=== PATIENT | male | born 1950 | race Caucasian/White ===

== ENCOUNTER 2020-10-07 07:57 | Outpatient (REF) | payer OTHER, SELFPAY ==
[2020-10-07 11:11] LABS: Hematocrit 45.5 % (42-52); Mean Corpuscular Hemoglobin 29.7 pg (27.0-33.0); Mean Corpuscular Volume 90.1 fL (80-98); Mean Platelet Volume 10.6 fL (9.4-12.4); Platelet Count 214 X10*3/uL (160-400); Red Blood Count 5.05 X10*6/uL (4.60-5.80); Red Cell Distribution Width 12.3 % (11.0-16.0); White Blood Count 6.5 X10*3/uL (4.8-10.8)
[2020-10-07 11:38] LABS: Creatinine Urine 196.54 mg/dL; Microalbum/Creatinine Ratio Ur 8.6 ug/mg cr
[2020-10-07 11:46] LABS: Estimated Average Glucose 120 mg/dL; Hemoglobin A1c % 5.8 %
[2020-10-07 11:47] LABS: Alanine Aminotransferase < 6 U/L (0-40); Albumin Level 4.3 g/dL (3.5-5.0); Alkaline Phosphatase 68 U/L (39-117); Anion Gap 11 (12-20); Aspartate Amino Transferase 16 U/L (5-37); Blood Urea Nitrogen 19 mg/dL (9-16); Calcium 8.6 mg/dL (8.4-10.2); Carbon Dioxide 30 mmol/L (22-29); Chloride 107 mmol/L (96-108); Cholesterol 103 mg/dL; Estimated Glomerular Filt Rate > 60; Glucose Fasting 128 mg/dL (60-99); HDL Cholesterol 41 mg/dL; LDL Cholesterol Calculated 50 mg/dl; Potassium 4.1 mmol/L (3.3-5.1); Sodium 144 mmol/L (135-145); Total Protein 6.6 g/dL (6.5-8.0); Triglycerides 63 mg/dL
== END 2020-10-07 07:58 | disposition home or self-care (01) ==
LOC: HO.HMGCLDS 07:57
PROVIDERS: PCP Internal Medicine; Visit Provider Internal Medicine
DX: I11.0 Hypertensive heart disease with heart failure (principal); I50.22 Chronic systolic (congestive) heart failure; E11.9 Type 2 diabetes mellitus without complications; E78.2 Mixed hyperlipidemia; G20 Parkinson's disease
CPT/HCPCS: 36415; 80053; 80061; 82043; 83036; 85027

== ENCOUNTER 2021-04-12 07:32 | Outpatient (REF) | payer OTHER, SELFPAY ==
[2021-04-12 11:30] LABS: Hematocrit 44.1 % (42-52); Hemoglobin 14.8 g/dl (14.0-18.0); Mean Corpuscular HGB Conc 33.6 g/dl (31.0-36.0); Mean Corpuscular Hemoglobin 30.2 pg (27.0-33.0); Mean Platelet Volume 10.5 fL (9.4-12.4); Platelet Count 211 X10*3/uL (160-400); Red Cell Distribution Width 12.4 % (11.0-16.0); White Blood Count 7.8 X10*3/uL (4.8-10.8)
[2021-04-12 12:00] LABS: Alanine Aminotransferase 6 U/L (0-40); Albumin Level 4.4 g/dL (3.5-5.0); Alkaline Phosphatase 65 U/L (39-117); Anion Gap 14 (12-20); Aspartate Amino Transferase 17 U/L (5-37); Bilirubin Total 2.3 mg/dL (0.0-1.0); Blood Urea Nitrogen 16 mg/dL (9-16); Calcium 9.1 mg/dL (8.4-10.2); Carbon Dioxide 24 mmol/L (22-29); Chloride 108 mmol/L (96-108); Cholesterol 112 mg/dL; Estimated Glomerular Filt Rate > 60; Glucose Fasting 120 mg/dL (60-99); HDL Cholesterol 42 mg/dL; LDL Cholesterol Calculated 54 mg/dl; Potassium 3.9 mmol/L (3.3-5.1); Sodium 142 mmol/L (135-145); Total Protein 6.7 g/dL (6.5-8.0); Triglycerides 82 mg/dL
[2021-04-12 12:56] LABS: Estimated Average Glucose 117 mg/dL; Hemoglobin A1C 150.7775 umol/L; Hemoglobin A1c % 5.7 %
== END 2021-04-12 07:33 | disposition home or self-care (01) ==
LOC: HO.HMGCLDS 07:32
PROVIDERS: PCP Internal Medicine; Visit Provider Internal Medicine
DX: E78.00 Pure hypercholesterolemia, unspecified (principal); I10 Essential (primary) hypertension; R73.01 Impaired fasting glucose
CPT/HCPCS: 36415; 80053; 80061; 83036; 85027

== ENCOUNTER 2022-02-12 07:01 | Outpatient (REF) | payer OTHER, SELFPAY ==
[2022-02-12 11:22] LABS: Hematocrit 46.4 % (42.0-52.0); Hemoglobin 15.4 g/dl (14.0-18.0); Mean Corpuscular HGB Conc 33.2 g/dl (31.0-36.0); Mean Corpuscular Hemoglobin 30.3 pg (27.0-33.0); Mean Corpuscular Volume 91.2 fL (80.0-98.0); Mean Platelet Volume 10.4 fL (9.4-12.4); Platelet Count 199 X10*3/uL (160-400); Red Blood Count 5.09 X10*6/uL (4.60-5.80); Red Cell Distribution Width 12.7 % (11.0-16.0); White Blood Count 6.6 X10*3/uL (4.8-10.8)
[2022-02-12 11:33] LABS: Estimated Average Glucose 114 mg/dL; Hemoglobin A1C 148.8077 umol/L; Hemoglobin A1c % 5.6 %
[2022-02-12 11:51] LABS: Alanine Aminotransferase 9 U/L (0-40); Albumin Level 4.4 g/dL (3.5-5.0); Alkaline Phosphatase 76 U/L (39-117); Anion Gap 10 (12-20); Aspartate Amino Transferase 16 U/L (5-37); Bilirubin Total 1.3 mg/dL (0.0-1.0); Blood Urea Nitrogen 20 mg/dL (9-16); Calcium 8.7 mg/dL (8.4-10.2); Carbon Dioxide 29 mmol/L (22-29); Chloride 108 mmol/L (96-108); Cholesterol 109 mg/dL; Estimated Glomerular Filt Rate > 60; Glucose Fasting 127 mg/dL (60-99); HDL Cholesterol 45 mg/dL; LDL Cholesterol Calculated 53 mg/dl; Sodium 143 mmol/L (135-145); Total Protein 6.9 g/dL (6.5-8.0); Triglycerides 58 mg/dL
== END 2022-02-12 07:02 | disposition home or self-care (01) ==
LOC: HO.HMGCLDS 07:01
PROVIDERS: Visit Provider Internal Medicine
DX: I48.91 Unspecified atrial fibrillation (principal); R73.01 Impaired fasting glucose; I10 Essential (primary) hypertension; E78.00 Pure hypercholesterolemia, unspecified
CPT/HCPCS: 36415; 80053; 80061; 83036; 85027

== ENCOUNTER 2022-09-14 08:24 | Outpatient (REF) | payer OTHER, SELFPAY ==
[2022-09-14 12:11] LABS: Estimated Average Glucose 108 mg/dL; Hemoglobin A1c % 5.4 %
[2022-09-14 12:33] LABS: Alanine Aminotransferase < 6 U/L (0-40); Alkaline Phosphatase 78 U/L (39-117); Anion Gap 13 (12-20); Aspartate Amino Transferase 17 U/L (5-37); Bilirubin Total 1.9 mg/dL (0.0-1.0); Blood Urea Nitrogen 22 mg/dL (9-16); Calcium 8.8 mg/dL (8.4-10.2); Carbon Dioxide 27 mmol/L (22-29); Chloride 110 mmol/L (96-108); Cholesterol 108 mg/dL; Estimated Glomerular Filt Rate > 60; Glucose Fasting 102 mg/dL (60-99); HDL Cholesterol 45 mg/dL; LDL Cholesterol Calculated 55 mg/dl; Sodium 146 mmol/L (135-145); TSH reflex Free T4 2.31 uIU/mL (0.32-4.0); Total Protein 6.2 g/dL (6.5-8.0); Triglycerides 44 mg/dL
[2022-09-14 12:40] LABS: Creatinine Urine 208.83 mg/dL
== END 2022-09-14 08:25 | disposition home or self-care (01) ==
LOC: HO.HMGCLDS 08:24
PROVIDERS: PCP Internal Medicine; Visit Provider Internal Medicine
DX: I11.0 Hypertensive heart disease with heart failure (principal); I50.9 Heart failure, unspecified; E78.00 Pure hypercholesterolemia, unspecified; I48.91 Unspecified atrial fibrillation; G20 Parkinson's disease
CPT/HCPCS: 36415; 80053; 80061; 82043; 83036; 84443

== ENCOUNTER 2022-10-26 09:25 | Outpatient (REF) | payer OTHER, SELFPAY ==
--- NOTE | ~2022-10-26 | XR_ITS ---
EXAMINATION: XR FOOT, LEFT CLINICAL INFORMATION: Cellulitis. COMPARISON: None available. TECHNIQUE: AP, lateral, and oblique views of the left foot. FINDINGS: Moderate to severe first metatarsophalangeal degenerative joint changes are seen with joint space narrowing, periarticular sclerosis and marginal osteophyte formation most pronounced dorsally. There is no acute fracture or dislocation. The tarsal bones are normally aligned. There is a small plantar calcaneal spur. Moderate soft tissue swelling is seen with moderate to severe atherosclerosis. XR/XR foot LT min 3V IMPRESSION: 1. Moderate to severe first metatarsophalangeal degenerative joint changes most consistent with osteoarthritis. 2. Moderate soft tissue swelling without acute underlying osseous abnormality. 3. Small plantar calcaneal spur. 4. Moderate to severe atherosclerosis.
== END 2022-10-26 09:26 | disposition home or self-care (01) ==
LOC: HO.HMGCX 09:25
PROVIDERS: PCP Internal Medicine; Visit Provider Internal Medicine
DX: L03.116 Cellulitis of left lower limb (principal)
CPT/HCPCS: 73630

== ENCOUNTER 2023-02-22 13:15 | Outpatient (AMB) | payer OTHER, SELFPAY ==
[2023-02-22 14:04] VITALS: BP 88/56; PULSE 71; O2SAT 97; BMI 29.6
--- NOTE | 2023-02-22 14:04 | MHC.PC.OV ---
Vital Signs 02/22/23 14:04 Height 5 ft 10 in Weight 206 lb BMI 29.6 BP 88/56 L Blood Pressure Location Lt brachial Position Sitting Pulse 71 Pulse Source Pulse Oximeter Pulse Oximetry (%) 97 Oxygen Delivery Method Room Air Intake Visit Reasons: Jeanette Neely, Parkinson's disease, 02/04-02/12 Intake Note: Pt is here today for a Hospital follow up visit. Allergies Tetanus Vaccines and Toxoid [Tetanus Vaccines & Toxoid] Allergy (Severe, Verified 02/22/23 14:10) ANAPHYLAXIS Tetanus Allergy (Unknown, Uncoded 02/22/23 14:10) unknown Medication List - Last Reconciled 02/22/23 by China Briseno MD aspirin 81 mg PO DAILY carbidopa-levodopa 25-100 mg 2 tabs PO TID clonazepam 0.5 mg PO BEDTIME empagliflozin (Jardiance) 10 mg PO QAM furosemide 20 mg PO DAILY isosorbide mononitrate ER 30 mg PO DAILY metoprolol succinate ER 200 mg PO DAILY omeprazole 20 mg PO DAILY quetiapine 12.5 mg PO BEDTIME ropinirole 2 mg PO TID ropinirole 0 mg PO sacubitril-valsartan 97-103 mg 1 tab PO BID sennosides (senna) 8.6 mg PO DAILY PRN simvastatin 10 mg PO QPM spironolactone 25 mg PO DAILY tamsulosin 0.4 mg PO BEDTIME tamsulosin 0.4 mg PO DAILY trazodone 25 mg PO BEDTIME PRN Tobacco use date assessed: 02/22/23 Dental Screening Dental Screen Date: 02/22/23 Did you have a dental visit in the last 12 months?: Yes Did you have a dental problem in the last 6 months where you did not have access to dental care?: No Was dental information given to patient?: Patient has dentist HPI Jeanette Neely, Parkinson's disease, 02/04-02/12 HPI Details Patient presents for the follow-up of hospitalization for change in mental status and UTI. Patient was discharged to inpatient rehab and then home. Patient is doing better still has episodes of confusion and follows up with neurologist at [facility] who has been prescribing patient's Seroquel adjusting his Parkinson's disease medications. Patient denies dysuria increased urinary frequency or hesitancy. Patient's blood pressure has been low when monitored by PT at home down to 90/60. Patient reports episodes of lightheadedness and dizziness when standing up. He has a follow-up appointment with cardiology at [facility] next week. [facility] Medical History (Updated 02/22/23 @ 15:26 by China Briseno MD) A-fib CHF (congestive heart failure) HTN (hypertension) IFG (impaired fasting glucose) Obesity Parkinson disease Surgical History H/O colonoscopy Family History (Updated 02/22/23 @ 14:17 by Giovana Zayas [facility]) Father COPD (chronic obstructive pulmonary disease) Mother Heart problem Social History Housing: House Alcohol intake: current Alcohol intake frequency: holidays/special occasions only Patient Tobacco Use Status: Never used Tobacco e-Cigarette/Vaping Use: Never Used Current occupational status: retired Cognitive needs: No Hearing needs: No Vision needs: No Questionnaire Thrive Questionnaire Date Thrive assessed: 09/24/22 AUDIT C Alcohol Use Questionnaire (AUDIT-C) 1. How often do you have a drink containing alcohol?: Never 3. How often do you have six or more drinks on one occasion?: Never Total Score: 0 MARCIA-7 AMB Questionnaire MARCIA-7 Date MARCIA - 7 assessed: 09/24/22 Source: Developed by Drs. Lenny Jeter, Radha Ortiz, Vicente Guthrie and colleagues, with an educational rosa from [employer]. Review of Systems Const All systems reviewed & are unremarkable except as noted in HPI and below Reports no additional complaints Eyes Reports no additional complaints ENT Reports no additional complaints Card Reports no additional complaints Resp Reports no additional complaints GI Reports no additional complaints Reports no additional complaints Physical exam (Primary Care) Vital Signs: Last Vital Signs Pulse 71 02/22/23 14:04 BP 88/56 L 02/22/23 14:04 Pulse Ox 97 02/22/23 14:04 Oxygen Delivery Method Room Air 02/22/23 14:04 BMI result Body Mass Index 29.6 Tobacco/Smoking Status: Tobacco use Status Tobacco use date assessed 02/22/23 02/22/23 14:17 Patient Tobacco Use Status Never used Tobacco 02/22/23 14:05 e-Cigarette/Vaping Use Never Used 02/22/23 14:05 Thrive Assessment: Date of Thrive Assessment Date Thrive assessed 09/24/22 02/22/23 14:05 Const General: no acute distress Eyes General: appearance normal, both eyes and all related structures Neck Neck: Yes supple Resp Effort & Inspection: normal respiratory effort Auscultation: clear to auscultation bilaterally Cardio Rhythm: regular rhythm Heart sounds: S1 normal heart sound present and S2 normal heart sound present GI Inspection: Yes normal to inspection Palpation (GI): Soft to palpation Percussion: Yes normal to percussion Auscultation: normal bowel sounds Assessment and Plan Assessment & Plan (1) BPH (benign prostatic hyperplasia): Code(s): N40.0 - Benign prostatic hyperplasia without lower urinary tract symptoms Plan: Continue tamsulosin check bladder ultrasound for retention and obtain urine culture post treatment (2) CHF (congestive heart failure): Comment: heart MRI 06/2019, left ventricle global hypokinesia EF 38% Coronary cath, no significant CAD, MARILU nlEF, small pericardial efusion 08/20 [facility] f/u Dr. Cavanaugh Code(s): I50.9 - Heart failure, unspecified Plan: For symptomatic hypotension patient was advised to stop taking isosorbide and decrease Entresto to half a tablet twice a day. Patient will follow-up with cardiology next week (3) A-fib: Comment: Watchman FLX device, f/u [facility] Cardiology Dr Mcelroy Code(s): I48.91 - Unspecified atrial fibrillation Plan: f/u with cardiology (4) Parkinson disease: Comment: Dr. Chino dxd 06/2016, U Mass Code(s): G20 - Parkinson's disease Plan: cont meds by neurology Orders: Orders Urine Culture Today I50.9 - Heart failure, unspecified, N40.0 - Benign prostatic hyperplasia without lower urinary tract symptoms US bladder Today I50.9 - Heart failure, unspecified, N40.0 - Benign prostatic hyperplasia without lower urinary tract symptoms Medications: New tamsulosin 0.4 mg PO BEDTIME 90 caps 1RF Coding Level of Care Code Est Pt Level 4 (17876) Diagnoses BPH (benign prostatic hyperplasia) N40.0 CHF (congestive heart failure) I50.9 A-fib I48.91 Parkinson disease G20
== END 2023-02-22 15:28 | disposition home or self-care (01) ==
PROVIDERS: PCP Internal Medicine; Visit Provider Internal Medicine
DX: N40.0 Benign prostatic hyperplasia without lower urinary tract symptoms (principal); I50.9 Heart failure, unspecified; I48.91 Unspecified atrial fibrillation; G20 Parkinson's disease
CPT/HCPCS: 99214

== ENCOUNTER 2023-02-25 06:52 | Outpatient (REF) | payer OTHER, SELFPAY | END 2023-02-25 06:53 | disposition home or self-care (01) | LOC: HO.HMGCLDS 06:52 | PROVIDERS: PCP Internal Medicine; Visit Provider Internal Medicine | DX: I50.9 Heart failure, unspecified (principal); N40.0 Benign prostatic hyperplasia without lower urinary tract symptoms | CPT/HCPCS: 87086 ==

== ENCOUNTER 2023-03-01 10:09 | Outpatient (REF) | payer OTHER, SELFPAY ==
--- NOTE | ~2023-03-01 | US_ITS ---
EXAMINATION: US PELVIS LIMITED (BLADDER) CLINICAL INFORMATION: Benign prostatic hyperplasia without lower urinary tract symptoms. COMPARISON: None available. TECHNIQUE: Real-time imaging of the bladder. FINDINGS: BLADDER: Well distended. The bladder wall appears trabeculated. Bilateral ureteral jets are demonstrated. Prevoid bladder volume is 259 mL. Postvoid bladder volume is 168 mL. Prostate volume is 85 mL. There are echogenic calcifications seen in the prostate gland US/US bladder IMPRESSION: 1. Large postvoid residual bladder volume with a trabeculated bladder wall. 2. Moderate prostate enlargement. 3. Large post void residual volume
== END 2023-03-01 10:10 | disposition home or self-care (01) ==
LOC: HO.HMGCX 10:09
PROVIDERS: PCP Internal Medicine; Visit Provider Internal Medicine
DX: N40.0 Benign prostatic hyperplasia without lower urinary tract symptoms (principal); I50.9 Heart failure, unspecified
CPT/HCPCS: 76857

== ENCOUNTER 2023-03-14 06:35 | Outpatient (REF) | payer OTHER, SELFPAY ==
[2023-03-14 11:08] LABS: MANUAL DIFF FLAG NO
[2023-03-14 11:34] LABS: Basophils Absolute Auto 0.1 X10*3/uL (0.0-0.2); Basophils Percent Auto 1.1 % (0-2); Eosinophils Absolute Auto 0.3 X10*3/uL (0.0-0.4); Eosinophils Percent Auto 4.2 % (0-4); Hematocrit 44.5 % (42.0-52.0); Hemoglobin 14.8 g/dl (14.0-18.0); Imm Gran Abs Auto 0.03 X10*3/uL (0.00-0.03); Imm Gran Pct Auto 0.5 % (0.0-0.4); Lymphocytes Absolute Auto 1.5 X10*3/uL (1.2-4.9); Mean Corpuscular HGB Conc 33.3 g/dl (31.0-36.0); Mean Corpuscular Hemoglobin 30.1 pg (27.0-33.0); Mean Corpuscular Volume 90.6 fL (80.0-98.0); Monocytes Absolute Auto 0.6 X10*3/uL (0.1-1.2); Monocytes Percent Auto 9.2 % (2-11); Neutrophils Absolute Auto 4.1 x10*3/uL (2.0-8.3); Platelet Count 210 X10*3/uL (160-400); Red Blood Count 4.91 X10*6/uL (4.60-5.80); Red Cell Distribution Width 12.7 % (11.0-16.0); White Blood Count 6.6 X10*3/uL (4.8-10.8)
[2023-03-14 11:40] LABS: Estimated Average Glucose 105 mg/dL; Hemoglobin A1c % 5.3 %
[2023-03-14 11:45] LABS: Alanine Aminotransferase 8 U/L (0-40); Albumin Level 4.3 g/dL (3.5-5.0); Alkaline Phosphatase 78 U/L (39-117); Anion Gap 12 (12-20); Aspartate Amino Transferase 19 U/L (5-37); Bilirubin Total 2.3 mg/dL (0.0-1.0); Blood Urea Nitrogen 23 mg/dL (9-16); Calcium 9.4 mg/dL (8.4-10.2); Carbon Dioxide 27 mmol/L (22-29); Chloride 108 mmol/L (96-108); Estimated Glomerular Filt Rate > 60; Glucose Fasting 88 mg/dL (60-99); Potassium 3.6 mmol/L (3.3-5.1); Sodium 143 mmol/L (135-145); Total Protein 7.2 g/dL (6.5-8.0)
[2023-03-14 13:13] LABS: Creatinine Urine 174.38 mg/dL; Microalbum/Creatinine Ratio Ur 5.1 ug/mg cr
== END 2023-03-14 06:36 | disposition home or self-care (01) ==
LOC: HO.HMGCLDS 06:35
PROVIDERS: PCP Internal Medicine; Visit Provider Internal Medicine
DX: I11.0 Hypertensive heart disease with heart failure (principal); I50.9 Heart failure, unspecified; I48.91 Unspecified atrial fibrillation; E11.9 Type 2 diabetes mellitus without complications
CPT/HCPCS: 36415; 80053; 82043; 83036; 85025

== ENCOUNTER 2023-03-20 12:17 | Outpatient (AMB) | payer OTHER, SELFPAY ==
--- NOTE | 2023-03-20 12:31 | A.OFFPC_ITS ---
Vital Signs 03/20/23 12:32 Height 5 ft 10 in Weight 209 lb BMI 30.0 BP 102/60 Blood Pressure Location Lt brachial Position Sitting Pulse 59 Pulse Source Pulse Oximeter Pulse Oximetry (%) 100 Oxygen Delivery Method Room Air Intake Visit Reasons: 1m follow up Intake Note: Pt is here today for 1 month follow up visit on HTN. Allergies Tetanus Vaccines and Toxoid [Tetanus Vaccines & Toxoid] Allergy (Severe, Verified 03/20/23 12:41) ANAPHYLAXIS Tetanus Allergy (Unknown, Uncoded 03/20/23 12:41) unknown Medication List - Last Reconciled 03/20/23 by China Briseno MD aspirin 81 mg PO DAILY carbidopa-levodopa 25-100 mg 2 tabs PO TID clonazepam 0.5 mg PO BEDTIME empagliflozin (Jardiance) 10 mg PO QAM furosemide 20 mg PO DAILY metoprolol succinate ER 200 mg PO DAILY omeprazole 20 mg PO DAILY quetiapine 12.5 mg PO BEDTIME ropinirole 1 mg PO BID ropinirole 0.25 mg PO DAILY sacubitril-valsartan 97-103 mg 1 tab PO BID sennosides (senna) 8.6 mg PO DAILY PRN simvastatin 10 mg PO QPM spironolactone 25 mg PO DAILY tamsulosin 0.4 mg PO BEDTIME trazodone 25 mg PO BEDTIME PRN Tobacco use date assessed: 02/22/23 HPI 1m follow up HPI Details Patient presents for the follow-up of hypertension and congestive heart failure. He stopped taking isosorbide and decreased Entresto to half a tablet twice a day. Patient denies postural lightheadedness and blood pressure improved to 100/60. Patient denies PND orthopnea. Type 2 diabetes and Parkinson's disease are stable on current medications. [facility] Medical History (Updated 03/20/23 @ 13:22 by China Briseno MD) A-fib CHF (congestive heart failure) HTN (hypertension) IFG (impaired fasting glucose) Obesity Parkinson disease Surgical History H/O colonoscopy Family History (Updated 02/22/23 @ 14:17 by Giovana Zayas [facility]) Father COPD (chronic obstructive pulmonary disease) Mother Heart problem Social History Housing: House Alcohol intake: current Alcohol intake frequency: holidays/special occasions only Patient Tobacco Use Status: Never used Tobacco e-Cigarette/Vaping Use: Never Used Current occupational status: retired Cognitive needs: No Hearing needs: No Vision needs: No Questionnaire Thrive Questionnaire Date Thrive assessed: 09/24/22 MARCIA-7 AMB Questionnaire MARCIA-7 Date MARCIA - 7 assessed: 09/24/22 Source: Developed by Drs. Lenny Jeter, Radha Ortiz, Vicente Guthrie and colleagues, with an educational rosa from [email or web address]. Review of Systems Const All systems reviewed & are unremarkable except as noted in HPI and below Reports no additional complaints Eyes Reports no additional complaints ENT Reports no additional complaints Card Reports no additional complaints Resp Reports no additional complaints GI Reports no additional complaints Physical exam (Primary Care) Vital Signs: Last Vital Signs Pulse 59 03/20/23 12:32 BP 102/60 03/20/23 12:32 Pulse Ox 100 03/20/23 12:32 Oxygen Delivery Method Room Air 03/20/23 12:32 BMI result Body Mass Index 30.0 Tobacco/Smoking Status: Tobacco use Status Tobacco use date assessed 02/22/23 03/20/23 12:31 Patient Tobacco Use Status Never used Tobacco 03/20/23 12:31 e-Cigarette/Vaping Use Never Used 03/20/23 12:31 Thrive Assessment: Date of Thrive Assessment Date Thrive assessed 09/24/22 03/20/23 12:31 Const General: no acute distress HENMT Head: Yes normal to inspection Resp Effort & Inspection: normal respiratory effort Auscultation: clear to auscultation bilaterally Cardio Rhythm: regular rhythm Heart sounds: S1 normal heart sound present and S2 normal heart sound present Assessment and Plan Assessment & Plan (1) CHF (congestive heart failure): Comment: heart MRI 06/2019, left ventricle global hypokinesia EF 38% Coronary cath, no significant CAD, MARILU nlEF, small pericardial efusion 08/20 [facility] f/u Dr. Cavanaugh Code(s): I50.9 - Heart failure, unspecified Plan: Continue current medications and follow-up with Cardiology (2) Parkinson disease: Comment: Dr. Chino dxd 06/2016, U Mass Code(s): G20 - Parkinson's disease Plan: Continue current medication (3) IFG (impaired fasting glucose): Comment: a1c 5.2, on Jardiance for congestive heart failure Code(s): R73.01 - Impaired fasting glucose Plan: Continue low simple carb diet increase physical activity discussed with the patient. (4) Hypercholesterolemia: Code(s): E78.00 - Pure hypercholesterolemia, unspecified Plan: Continue statin Orders: Orders Comprehensive [place]. Panel Fast 3 Months E78.00 - Pure hypercholesterolemia, unspecified, I10 - Essential (primary) hypertension, I48.91 - Unspecified atrial fibrillation, R73.01 - Impaired fasting glucose Hemoglobin A1c 3 Months E78.00 - Pure hypercholesterolemia, unspecified, I10 - Essential (primary) hypertension, I48.91 - Unspecified atrial fibrillation, R73.01 - Impaired fasting glucose Lipid Panel 3 Months E78.00 - Pure hypercholesterolemia, unspecified, I10 - Essential (primary) hypertension, I48.91 - Unspecified atrial fibrillation, R73.01 - Impaired fasting glucose Complete Blood Count Auto Diff 3 Months E78.00 - Pure hypercholesterolemia, unspecified, I10 - Essential (primary) hypertension, I48.91 - Unspecified atrial fibrillation, R73.01 - Impaired fasting glucose Coding Level of Care Code Est Pt Level 4 (21727) Diagnoses CHF (congestive heart failure) I50.9 Parkinson disease G20 IFG (impaired fasting glucose) R73.01 Hypercholesterolemia E78.00
[2023-03-20 12:32] VITALS: BP 102/60; PULSE 59; O2SAT 100
== END 2023-03-20 13:23 | disposition home or self-care (01) ==
PROVIDERS: PCP Internal Medicine; Visit Provider Internal Medicine
DX: I50.9 Heart failure, unspecified (principal); G20 Parkinson's disease; R73.01 Impaired fasting glucose; E78.00 Pure hypercholesterolemia, unspecified
CPT/HCPCS: 99214

== ENCOUNTER 2023-04-05 13:46 | Outpatient (AMB) | payer OTHER, SELFPAY ==
--- NOTE | 2023-04-05 13:57 | A.OFFVIS_ITS ---
Intake Intake Visit Reasons: Retention/BPH Intake Note: New Patient presents for initial visit Retention/BPH Urology Medications: none Blood Thinner: aspirin PVR: 0ml's Meter Record Clerk Required: No Accompanied by: Spouse Allergies Tetanus Vaccines and Toxoid [Tetanus Vaccines & Toxoid] Allergy (Severe, Verified 04/07/23 14:56) ANAPHYLAXIS Tetanus Allergy (Unknown, Uncoded 04/07/23 14:56) unknown Medication List - Last Reconciled 04/07/23 by CARLOS NielsenP- aspirin 81 mg PO DAILY carbidopa-levodopa 25-100 mg 2 tabs PO TID clonazepam 0.5 mg PO BEDTIME empagliflozin (Jardiance) 10 mg PO QAM furosemide 20 mg PO DAILY metoprolol succinate ER 200 mg PO DAILY nystatin 1 appl topical BID 30 days omeprazole 20 mg PO DAILY quetiapine 12.5 mg PO BEDTIME ropinirole 1 mg PO BID ropinirole 0.25 mg PO DAILY sacubitril-valsartan 97-103 mg 1 tab PO BID sennosides (senna) 8.6 mg PO DAILY PRN simvastatin 10 mg PO QPM spironolactone 25 mg PO DAILY tamsulosin 0.8 mg (2 x 0.4 mg) PO BEDTIME 90 days trazodone 25 mg PO BEDTIME PRN HPI HPI Comments History of Present Illness Details Florentino is a very pleasant 72 year old male patient of Dr. Briseno who is accompanied by his at todays visit. He has a past medical history of AFib watchman in place, congestive heart failure, Parkinson's disease, obesity, and hypertension. He presents to the office today as a new patient for lower urinary tract symptoms. When asked patient reports noting urinary urgency, frequency, and episodes of nocturia. He reports symptoms have been present for some time now. When asked he denies hematuria, dysuria, foul smelling urine, changes to urinary stream, flank pain, fever, and or chills. He reports discussing the symptoms with this primary care provider which time a bladder ultrasound and referral to Urology was made. He also reports to have started Flomax approximately 2 months ago and has found this helpful. Bladder ultrasound results reviewed with the patient today. The bladder is well disten ded and appears trabeculated. Bilateral ureteral jets are demonstrated. Prevoid bladder volume is 259 mL. Postvoid bladder volume is 168 mL. Prostate volume is 85 mL. In office urinalysis results reviewed with the patient his today. PVR 0 mL. Discussed obtaining PSA for further assessment evaluation. Discussed possible initiation of finasteride and or in office cystoscopy if symptoms persist and/or worsen. Discussed glucosuria and possible contributor to urinary symptoms. Patient reports to be on Jardiance for heart failure. [facility] Medical History A-fib CHF (congestive heart failure) Parkinson disease Obesity HTN (hypertension) IFG (impaired fasting glucose) Surgical History H/O colonoscopy Family History Father COPD (chronic obstructive pulmonary disease) Mother Heart problem Social History Housing: House Alcohol intake: current Alcohol intake frequency: holidays/special occasions only Patient Tobacco Use Status: Never used Tobacco e-Cigarette/Vaping Use: Never Used Current occupational status: retired Cognitive needs: No Hearing needs: No Vision needs: No Review of Systems Const Reports as per HPI Eyes Reports no additional complaints ENT Reports no additional complaints Card Reports as per HPI Resp Reports no additional complaints GI Reports no additional complaints Reports as per HPI Musc Reports as per HPI Neuro Reports as per HPI Psych Reports no additional complaints Endo Reports no additional complaints Physical Exam Const General: cooperative, comfortable, no acute distress, well developed, alert and awake Nutritional Appearance: overweight Orientation/consciousness: patient oriented x3 HEENT Head: Yes normal to inspection, Yes normocephalic and Yes atraumatic Ears: hearing grossly normal bilaterally Eyes General: appearance normal, both eyes and all related structures Neck Neck: Yes normal visual inspection and Yes trachea midline Chest Chest palpation & inspection: normal inspection of the chest Resp Effort & Inspection: normal respiratory effort and able to speak in complete sentences Cardio Rate: regular rate GI Inspection: Yes normal to inspection General: Yes no CVA tenderness Back/Spine/Pelvis Back: no CVA tenderness Skin General skin exam: other (moist patchy reddened area to abdominal folds ) Neuro General: patient oriented x3 Extrem General: Yes normal to inspection Psych Appearance: grossly normal and well kempt Mental Status: mental status grossly normal Speech and movement: Clear speech present (slow to respond ) Affect: normal affect Attitude: cooperative Thought content: Normal thought content present Insight: Fair insight present (Psych) Judgement: Fair judgement present (Psych) Office Procedures Post Void Residual Post Residual Void Post Void Residual (PVR): 0 05154-Bhvj Void Residual by ultrasound Results AMB Urinalysis, Automated UA Leukoctes 15 Herbert/uL Last Edit by [employer] on 04/05/23 14:27 UA Nitrite Negative Last Edit by [employer] on 04/05/23 14:27 UA Urobilinogen 0.2 mg/dL Last Edit by [employer] on 04/05/23 14:27 UA Protein 15 mg/dL Last Edit by [facility] on 04/05/23 14:27 UA pH 5.5 Last Edit by [facility] [employer] on 04/05/23 14:27 UA Blood 0 Franck/uL Last Edit by [facility] [employer] on 04/05/23 14:27 UA Specific Anderson 1.020 Last Edit by [facility] [employer] on 04/05/23 14:27 UA Ketone Negative Last Edit by [facility] on 04/05/23 14:27 UA Bilirubin 0 mg/dL Last Edit by [facility] on 04/05/23 14:27 UA Glucose 1000 mg/dL Last Edit by [facility] on 04/05/23 14:27 Results Reviewed Results Reviewed: Laboratory Last Values Urine pH (Auto) 5.5 04/05/23 14:03 Specific Anderson (Auto) 1.020 04/05/23 14:03 Urine Protein (Auto) 15 mg/dL 04/05/23 14:03 Glucose (UA)(Auto) 1000 mg/dL 04/05/23 14:03 Urine Ketones (Auto) Negative 04/05/23 14:03 Urine Blood (Auto) 0 Franck/uL 04/05/23 14:03 Urine Nitrite (Auto) Negative 04/05/23 14:03 Urine Bilirubin (Auto) 0 mg/dL 04/05/23 14:03 Urine Urobilinogen (Auto) 0.2 mg/dL 04/05/23 14:03 Leukocyte Esterase (Auto) 15 Herbert/uL 04/05/23 14:03 Date of Service: 03/01/23 EXAMINATION: US PELVIS LIMITED (BLADDER) FINDINGS: BLADDER: Well distended. The bladder wall appears trabeculated. Bilateral ureteral jets are demonstrated. Prevoid bladder volume is 259 mL. Postvoid bladder volume is 168 mL. Prostate volume is 85 mL. There are echogenic calcifications seen in the prostate gland IMPRESSION: 1. Large postvoid residual bladder volume with a trabeculated bladder wall. 2. Moderate prostate enlargement. 3. Large post void residual volume Assessment & Plan Assessment & Plan (1) Enlarged prostate: Code(s): N40.0 - Benign prostatic hyperplasia without lower urinary tract symptoms (2) Lower urinary tract symptoms: Code(s): R39.9 - Unspecified symptoms and signs involving the genitourinary system (3) Intertrigo: Code(s): L30.4 - Erythema intertrigo Plan In office urinalysis results reviewed with the patient today. PVR 0 mL. Start Nystatin as discussed and prescribed. Recent bladder ultrasound results reviewed with the patient today; as noted above. Discussed enlarged prostate noted on ultrasound. Will obtain PSA for further assessment evaluation. Patient reports somewhat improvement in urinary symptoms since initiating 0.4 mg of Flomax; will continue. Discussed near future in office cystoscopy if symptoms persist and/or worsen. Discussed possible finasteride however, will obtain PSA prior Discussed bladder triggers/irritants. Follow-up in 1 month with lab to be completed prior; or sooner with any ques tions, concerns, and or issues. Orders: Orders Prostate Specific Antigen 04/05/23 N40.0 - Benign prostatic hyperplasia without lower urinary tract symptoms AMB Urinalysis Automated 04/05/23 Z13.9 - Encounter for screening, unspecified AMB Post Void Residual by ultrasound 04/05/23 N40.0 - Benign prostatic hyperplasia without lower urinary tract symptoms, R33.9 - Retention of urine, unspecified Medications: New nystatin 1 appl topical BID 30 days 60 grams 0RF Changed From tamsulosin 0.4 mg PO BEDTIME 90 caps 1RF To tamsulosin 0.8 mg (2 x 0.4 mg) PO BEDTIME 90 days 180 caps 1RF Patient Instructions: The patient had an opportunity to ask questions regarding the treatment plan. All questions were answered. Physical exam, labs, and imaging were discussed and reviewed in detail. As well as risks, benefits, and discussion of treatment choices. No major barriers to understanding were identified. The patient expressed understanding and agreement with the above treatment plan. The patient was made aware they should contact our office by phone for worsening of their current condition, the appearance of new symptoms, or with any questions or concerns. Compliance is encouraged with any medications and follow up testing that is ordered. It is a privilege to be allowed the opportunity to participate in? your urological care.? Again, if you have any questions or concerns If you have any questions or concerns please do not hesitate to contact me. The office is [phone]. This note is constructed using voice recognition software. While every effort has been made to ensure accuracy bonding supervisor errors may have been included. Yours sincerely, FRANKLIN Nielsen-GUILLERMO Coding Level of Care Code New Pt Level 4 (19511) Diagnoses Enlarged prostate N40.0 Lower urinary tract symptoms R39.9 Intertrigo L30.4 CPT Codes Post Residual Void - PVR CPT Code: 32336-[id number] Void Residual by ultrasound ([id number])
== END 2023-04-05 14:50 | disposition home or self-care (01) ==
PROVIDERS: PCP Internal Medicine; Visit Provider Nurse Practitioner Family
DX: N40.0 Benign prostatic hyperplasia without lower urinary tract symptoms (principal); R39.9 Unspecified symptoms and signs involving the genitourinary system; L30.4 Erythema intertrigo
CPT/HCPCS: 99204

== ENCOUNTER → 2023-04-05 13:46 | Outpatient (BNVA) | payer OTHER, SELFPAY | PROVIDERS: PCP Internal Medicine; Visit Provider Nurse Practitioner Family | DX: N40.1 Benign prostatic hyperplasia with lower urinary tract symptoms (principal); R39.15 Urgency of urination; R35.0 Frequency of micturition; R39.9 Unspecified symptoms and signs involving the genitourinary system; L30.4 Erythema intertrigo | CPT/HCPCS: 51798; 81003 ==

== ENCOUNTER 2023-04-10 07:35 | Outpatient (REF) | payer OTHER, SELFPAY ==
[2023-04-10 12:42] LABS: Prostate Specific Antigen 0.48 ng/mL (<0.05-4.0)
== END 2023-04-10 07:36 | disposition home or self-care (01) ==
LOC: HO.HMGCLDS 07:35
PROVIDERS: PCP Internal Medicine; Visit Provider Nurse Practitioner Family
DX: Z12.5 Encounter for screening for malignant neoplasm of prostate (principal); N40.0 Benign prostatic hyperplasia without lower urinary tract symptoms
CPT/HCPCS: 36415; 84153

== ENCOUNTER 2023-04-30 10:43 | Outpatient (AMB) | payer OTHER, SELFPAY ==
--- NOTE | 2023-04-30 11:09 | A.OFFVIS_ITS ---
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 Accompanied by: Spouse Allergies Tetanus Vaccines and Toxoid [Tetanus Vaccines & Toxoid] Allergy (Severe, Verified 04/30/23 20:59) ANAPHYLAXIS Tetanus Allergy (Unknown, Uncoded 04/30/23 20:59) unknown Medication List - Last Reconciled 04/30/23 by FRANKLIN Nielsen- aspirin 81 mg PO DAILY carbidopa-levodopa 25-100 mg 2 tabs PO TID clonazepam 0.5 mg PO BEDTIME empagliflozin (Jardiance) 10 mg PO QAM furosemide 20 mg PO DAILY metoprolol succinate ER 200 mg PO DAILY nystatin 1 appl topical BID 30 days omeprazole 20 mg PO DAILY quetiapine 12.5 mg PO BEDTIME ropinirole 0.25 mg PO DAILY sacubitril-valsartan 49-51 mg (Entresto) 1 tab PO BID sennosides (senna) 8.6 mg PO DAILY PRN simvastatin 10 mg PO QPM spironolactone 25 mg PO DAILY tamsulosin 0.8 mg (2 x 0.4 mg) PO BEDTIME 90 days trazodone 25 mg PO BEDTIME PRN HPI HPI Comments History of Present Illness Details Florentino is a very pleasant 72 year old male patient of Dr. Brisneo who is accompanied by his at todays visit. He has a past medical history of AFib watchman in place, congestive heart failure, Parkinson's disease, obesity, and hypertension. He presents to the office today for follow- up. Of note, patient was seen approximately 1 month ago as a new patient for lower urinary tract symptoms at which time a PSA was ordered and patient's tamsulosin was increased from 0.4 mg daily to 0.4 mg b.i.d. recent PSA results reviewed with the patient and his today. PSA 03/20--0.5. When asked he reports significant improvement in urinary urgency, frequency, and episodes of nocturia with increase in tamsulosin. When asked he denies hematuria, dysuria, foul smelling urine, changes to urinary stream, flank pain, fever, and or chills. Previous workup has included a bladder ultrasound noting the bladder is well distended and appears trabeculated.Bilateral ureteral jets are demonstrated. Prevoid bladder volume is 259 mL. Postvoid bladder volume is 168 mL. Prostate volume is 85 mL. In office urinalysis results reviewed with the patient his today. PVR 0 mL. [facility] Medical History A-fib CHF (congestive heart failure) Parkinson disease Obesity HTN (hypertension) IFG (impaired fasting glucose) Surgical History H/O colonoscopy Family History Father COPD (chronic obstructive pulmonary disease) Mother Heart problem Social History Housing: House Alcohol intake: current Alcohol intake frequency: holidays/special occasions only Patient Tobacco Use Status: Never used Tobacco e-Cigarette/Vaping Use: Never Used Current occupational status: retired Cognitive needs: No Hearing needs: No Vision needs: No Review of Systems Const Reports as per HPI Eyes Reports no additional complaints ENT Reports no additional complaints Card Reports as per HPI Resp Reports no additional complaints GI Reports no additional complaints Reports as per HPI Musc Reports as per HPI Neuro Reports as per HPI Psych Reports no additional complaints Endo Reports no additional complaints Physical Exam Const General: cooperative, comfortable, no acute distress, well developed, alert and awake Nutritional Appearance: overweight Orientation/consciousness: patient oriented x3 HEENT Head: Yes normal to inspection, Yes normocephalic and Yes atraumatic Ears: hearing grossly normal bilaterally Eyes General: appearance normal, both eyes and all related structures Neck Neck: Yes normal visual inspection and Yes trachea midline Chest Chest palpation & inspection: normal inspection of the chest Resp Effort & Inspection: normal respiratory effort and able to speak in complete sentences Cardio Rate: regular rate GI Inspection: Yes normal to inspection General: Yes no CVA tenderness Back/Spine/Pelvis Back: no CVA tenderness Skin General skin exam: other (moist patchy reddened area to abdominal folds ) Neuro General: patient oriented x3 Extrem General: Yes normal to inspection Psych Appearance: grossly normal and well kempt Mental Status: mental status grossly normal Speech and movement: Clear speech present (slow to respond ) Affect: normal affect Attitude: cooperative Thought content: Normal thought content present Insight: Fair insight present (Psych) Judgement: Fair judgement present (Psych) Office Procedures Post Void Residual Post Residual Void Post Void Residual (PVR): 0 21734-Exob Void Residual by ultrasound Results AMB Urinalysis, Automated UA Leukoctes 15 Herbert/uL Last Edit by Harleen Burnett on 04/30/23 11:30 UA Nitrite Last Edit by Harleen Burnett on 04/30/23 11:30 UA Urobilinogen 0.2 mg/dL Last Edit by Harleen Burnett on 04/30/23 11:30 UA Protein 0 mg/dL Last Edit by Harleen Burnett on 04/30/23 11:30 UA pH 5.5 Last Edit by Harleen Burnett on 04/30/23 11:30 UA Blood 0 Franck/uL Last Edit by Harleen Burnett on 04/30/23 11:30 UA Specific [place] 1.015 Last Edit by Harleen Burnett on 04/30/23 11:30 UA Ketone Negative Last Edit by Harleen Burnett on 04/30/23 11:30 UA Bilirubin 0 mg/dL Last Edit by Harleen Burnett on 04/30/23 11:30 UA Glucose 1000 mg/dL Last Edit by Harleen Burnett on 04/30/23 11:30 Results Reviewed Results Reviewed: Laboratory Last Values Urine pH (Auto) 5.5 04/30/23 11:19 Specific [place] (Auto) 1.015 04/30/23 11:19 Urine Protein (Auto) 0 mg/dL 04/30/23 11:19 Glucose (UA)(Auto) 1000 mg/dL 04/30/23 11:19 Urine Ketones (Auto) Negative 04/30/23 11:19 Urine Blood (Auto) 0 Franck/uL 04/30/23 11:19 Urine Bilirubin (Auto) 0 mg/dL 04/30/23 11:19 Urine Urobilinogen (Auto) 0.2 mg/dL 04/30/23 11:19 Leukocyte Esterase (Auto) 15 Herbert/uL 04/30/23 11:19 Assessment & Plan Assessment & Plan (1) Lower urinary tract symptoms: Code(s): R39.9 - Unspecified symptoms and signs involving the genitourinary system (2) Enlarged prostate: Code(s): N40.0 - Benign prostatic hyperplasia without lower urinary tract symptoms Plan In office urinalysis results reviewed with the patient today. PVR 0 mL. Patient reports significant improvement in lower urinary tract symptoms on 0.4 mg of Flomax b.i.d.; will continue; refill provided Recent PSA results reviewed with the patient his today. Patient reports be happy with current voiding parameters on 0.4 mg of tamsulosin b.i.d. Discussed, educated, encouraged on the importance of managing diabetes for improvement in lower urinary tract symptoms as well as overall health and well- being. Discussed and stressed the importance of drinking plenty of fluid daily. Follow-up in 6 months with PVR; or sooner with any issues, concerns, and or ques tions Orders: Orders AMB Urinalysis Automated Today Z13.9 - Encounter for screening, unspecified AMB Post Void Residual by ultrasound Today R33.9 - Retention of urine, unspecified Medications: Refilled tamsulosin 0.8 mg (2 x 0.4 mg) PO BEDTIME 90 days 180 caps 4RF Patient Instructions: The patient had an opportunity to ask questions regarding the treatment plan. All questions were answered. Physical exam, labs, and imaging were discussed and reviewed in detail. As well as risks, benefits, and discussion of treatment choices. No major barriers to understanding were identified. The patient expressed understanding and agreement with the above treatment plan. The patient was made aware they should contact our office by phone for worsening of their current condition, the appearance of new symptoms, or with any questions or concerns. Compliance is encouraged with any medications and follow up testing that is ordered. It is a privilege to be allowed the opportunity to participate in? your urological care.? Again, if you have any questions or concerns If you have any questions or concerns please do not hesitate to contact me. The office is [phone]. This note is constructed using voice recognition software. While every effort has been made to ensure accuracy therapy site coordinator errors may have been included. Yours sincerely, FRANKLIN Nielsen-GUILLERMO Coding Level of Care Code Est Pt Level 3 (01253) Diagnoses Lower urinary tract symptoms R39.9 Enlarged prostate N40.0 CPT Codes Post Residual Void - PVR CPT Code: 65278-Vjsc Void Residual by ultrasound ([id number])
== END 2023-04-30 11:40 | disposition home or self-care (01) ==
LOC: HO.HUSH 10:43
PROVIDERS: PCP Internal Medicine; Visit Provider Nurse Practitioner Family
DX: R39.9 Unspecified symptoms and signs involving the genitourinary system (principal); N40.0 Benign prostatic hyperplasia without lower urinary tract symptoms
CPT/HCPCS: 99213

== ENCOUNTER → 2023-04-30 10:43 | Outpatient (BNVA) | payer OTHER, SELFPAY | PROVIDERS: PCP Internal Medicine; Visit Provider Nurse Practitioner Family | DX: N40.0 Benign prostatic hyperplasia without lower urinary tract symptoms (principal); R39.9 Unspecified symptoms and signs involving the genitourinary system | CPT/HCPCS: 51798; 81003 ==

== ENCOUNTER 2023-06-11 07:40 | Outpatient (REF) | payer OTHER, SELFPAY ==
[2023-06-11 11:44] LABS: MANUAL DIFF FLAG NO
[2023-06-11 12:00] LABS: Estimated Average Glucose 103 mg/dL; Hemoglobin A1c % 5.2 % (<6.0)
[2023-06-11 12:14] LABS: Basophils Absolute Auto 0.1 X10*3/uL (0.0-0.2); Basophils Percent Auto 0.8 % (0-2); Eosinophils Absolute Auto 0.3 X10*3/uL (0.0-0.4); Eosinophils Percent Auto 4.5 % (0-4); Hemoglobin 14.8 g/dl (14.0-18.0); Imm Gran Abs Auto 0.03 X10*3/uL (0.00-0.03); Imm Gran Pct Auto 0.5 % (0.0-0.4); Lymphocytes Absolute Auto 1.3 X10*3/uL (1.2-4.9); Lymphocytes Percent Auto 21.2 % (20-40); Mean Corpuscular HGB Conc 34.4 g/dl (31.0-36.0); Mean Corpuscular Hemoglobin 30.8 pg (27.0-33.0); Mean Corpuscular Volume 89.4 fL (80.0-98.0); Mean Platelet Volume 9.7 fL (9.4-12.4); Monocytes Absolute Auto 0.4 X10*3/uL (0.1-1.2); Monocytes Percent Auto 7.1 % (2-11); Neutrophils Absolute Auto 4.1 x10*3/uL (2.0-8.3); Neutrophils Percent Auto 65.9 % (45-73); Platelet Count 175 X10*3/uL (160-400); Red Blood Count 4.81 X10*6/uL (4.60-5.80); Red Cell Distribution Width 12.7 % (11.0-16.0); White Blood Count 6.2 X10*3/uL (4.8-10.8)
[2023-06-11 12:15] LABS: Alanine Aminotransferase 5 U/L (0-40); Alkaline Phosphatase 64 U/L (39-117); Anion Gap 10 (12-20); Aspartate Amino Transferase 16 U/L (5-37); Bilirubin Total 2.1 mg/dL (0.0-1.0); Blood Urea Nitrogen 21 mg/dL (9-16); Calcium 9.1 mg/dL (8.4-10.2); Carbon Dioxide 29 mmol/L (22-29); Chloride 110 mmol/L (96-108); Cholesterol 100 mg/dL (<200); Estimated Glomerular Filt Rate > 60; Glucose Fasting 102 mg/dL (60-99); HDL Cholesterol 43 mg/dL (>40); LDL Cholesterol Calculated 47 mg/dL (<100); Potassium 3.8 mmol/L (3.3-5.1); Sodium 145 mmol/L (135-145); Total Protein 6.4 g/dL (6.5-8.0); Triglycerides 54 mg/dL (<150)
== END 2023-06-11 07:41 | disposition home or self-care (01) ==
LOC: HO.HMGCLDS 07:40
PROVIDERS: PCP Internal Medicine; Visit Provider Internal Medicine
DX: R73.01 Impaired fasting glucose (principal); I10 Essential (primary) hypertension; E78.00 Pure hypercholesterolemia, unspecified; I48.91 Unspecified atrial fibrillation
CPT/HCPCS: 36415; 80053; 80061; 83036; 85025

== ENCOUNTER 2023-06-28 10:53 | Outpatient (AMB) | payer OTHER, SELFPAY ==
--- NOTE | 2023-06-28 11:04 | A.OFFPC_ITS ---
Vital Signs 06/28/23 11:07 Height 5 ft 10 in Weight 208 lb BMI 29.8 BP 120/74 Blood Pressure Location Lt brachial Position Sitting Pulse 69 Pulse Source Pulse Oximeter Pulse Oximetry (%) 97 Oxygen Delivery Method Room Air Intake Visit Reasons: 3 month follow up Intake Note: Pt is here today for 3 months follow up visit. Allergies Tetanus Vaccines and Toxoid [Tetanus Vaccines & Toxoid] Allergy (Severe, Verified 04/30/23 20:59) ANAPHYLAXIS Tetanus Allergy (Unknown, Uncoded 06/28/23 11:09) unknown Medication List - Last Reconciled 06/28/23 by China Briseno MD aspirin 81 mg PO DAILY carbidopa-levodopa 25-100 mg 2 tabs PO TID clonazepam 0.5 mg PO BEDTIME empagliflozin (Jardiance) 10 mg PO QAM furosemide 20 mg PO .prn PRN metoprolol succinate ER 200 mg PO DAILY nystatin 1 appl topical BID 30 days omeprazole 20 mg PO DAILY quetiapine 12.5 mg PO BEDTIME ropinirole 0.5 mg PO TID sacubitril-valsartan 49-51 mg (Entresto) 1 tab PO BID sennosides (senna) 8.6 mg PO DAILY PRN simvastatin 10 mg PO QPM tamsulosin 0.4 mg PO BID Tobacco use date assessed: 06/28/23 HPI 3 month follow up HPI Details PATIENT PRESENTS FOR THE FOLLOW-UP OF CONGESTIVE HEART FAILURE PARKINSON'S DISEASE AND HYPERLIPIDEMIA STABLE ON CURRENT MEDICATIONS. Patient reports poor balance and has been trying to ambulate with a walker. he will be starting home physical therapy. [facility] Medical History A-fib CHF (congestive heart failure) Parkinson disease Obesity HTN (hypertension) IFG (impaired fasting glucose) Surgical History H/O colonoscopy Family History Father COPD (chronic obstructive pulmonary disease) Mother Heart problem Social History Housing: House Alcohol intake: current Alcohol intake frequency: holidays/special occasions only Patient Tobacco Use Status: Never used Tobacco e-Cigarette/Vaping Use: Never Used Current occupational status: retired Cognitive needs: No Hearing needs: No Vision needs: No Questionnaire PHQ-9 Over the last 2 weeks, how often have you been bothered by any of the following problems? 1. Little interest or pleasure in doing things: not at all 2. Feeling down, depressed, or hopeless: not at all 3. Trouble falling or staying asleep, or sleeping too much: not at all 4. Feeling tired or having little energy: not at all 5. Poor appetite or overeating: not at all 6. Feeling bad about yourself - or that you are a failure or have let yourself or your family down: not at all 7. Trouble concentrating on things, such as reading the newspaper or watching television: not at all 8. Moving or speaking so slowly that other people could have noticed. Or the opp osite - being so fidgety or restless that you have been moving around a lot more than usual: not at all 9. Thoughts that you would be better off or of hurting yourself in some way: not at all Total score: 0 Depression Screening Interpretation: Negative Depression Screening Done: Yes 01121 - PHQ-9 Billing: Yes Source: Developed by Drs. Lenny Jeter, Vicente Galo and colleagues, with an educational rosa from [employer]. Thrive Questionnaire Date Thrive assessed: 09/24/22 MARCIA-7 AMB Questionnaire MARCIA-7 Date MARCIA - 7 assessed: 09/24/22 Source: Developed by Radha Grove Kurt Kroenke and colleagues, with an educational rosa from [employer]. Review of Systems Const All systems reviewed & are unremarkable except as noted in HPI and below Reports no additional complaints Eyes Reports no additional complaints ENT Reports no additional complaints Card Reports no additional complaints Resp Reports no additional complaints GI Reports no additional complaints Reports no additional complaints Physical exam (Primary Care) Vital Signs: Last Vital Signs Pulse 69 06/28/23 11:07 BP 120/74 06/28/23 11:07 Pulse Ox 97 06/28/23 11:07 Oxygen Delivery Method Room Air 06/28/23 11:07 BMI result Body Mass Index 29.8 Tobacco/Smoking Status: Tobacco use Status Tobacco use date assessed 06/28/23 06/28/23 11:15 Patient Tobacco Use Status Never used Tobacco 06/28/23 11:15 e-Cigarette/Vaping Use Never Used 06/28/23 11:05 PHQ-9: PHQ-9 Score PHQ-9: Total score 0 06/28/23 11:16 Depression Screening Interpretation: Negative Thrive Assessment: Date of Thrive Assessment Date Thrive assessed 09/24/22 06/28/23 11:05 Const General: no acute distress HENMT Head: Yes normal to inspection Ears: hearing grossly normal bilaterally Throat: Yes posterior oropharynx normal Neck Neck: Yes no lymphadenopathy and Yes supple Resp Effort & Inspection: normal respiratory effort Auscultation: clear to auscultation bilaterally Cardio Rhythm: regular rhythm Heart sounds: S1 normal heart sound present and S2 normal heart sound present GI Inspection: Yes normal to inspection Palpation (GI): Soft to palpation Percussion: Yes normal to percussion Auscultation: normal bowel sounds Assessment and Plan Assessment & Plan (1) CHF (congestive heart failure): Comment: heart MRI 06/2019, left ventricle global hypokinesia EF 38% Coronary cath, no significant CAD, MARILU nlEF, small pericardial efusion 08/20 [facility] f/u Dr. Cavanaugh Code(s): I50.9 - Heart failure, unspecified Plan: Continue current medications follow-up with Cardiology (2) Parkinson disease: Comment: Dr. Chino dxd 06/2016, [place] Code(s): G20 - Parkinson's disease Plan: Continue current medications follow-up with Neurology at [facility] (3) IFG (impaired fasting glucose): Comment: a1c 5.2, on Jardiance for congestive heart failure Code(s): R73.01 - Impaired fasting glucose Plan: Continue ADA diet increase physical activity weight loss discussed with the patient (4) HTN (hypertension): Code(s): I10 - Essential (primary) hypertension Plan: Continue current medications (5) Hypercholesterolemia: Code(s): E78.00 - Pure hypercholesterolemia, unspecified Plan: Continue statin Orders: Orders Complete Blood Count Auto Diff 6 Months E78.00 - Pure hypercholesterolemia, unspecified, G20 - Parkinson's disease, I10 - Essential (primary) hypertension, I50.9 - Heart failure, unspecified, R73.01 - Impaired fasting glucose Lipid Panel 6 Months E78.00 - Pure hypercholesterolemia, unspecified, G20 - Parkinson's disease, I10 - Essential (primary) hypertension, I50.9 - Heart failure, unspecified, R73.01 - Impaired fasting glucose B Type Natriuretic Peptide 6 Months E78.00 - Pure hypercholesterolemia, unspecified, G20 - Parkinson's disease, I10 - Essential (primary) hypertension, I50.9 - Heart failure, unspecified, R73.01 - Impaired fasting glucose Comprehensive [place]. Panel Fast 6 Months E78.00 - Pure hypercholesterolemia, unspecified, G20 - Parkinson's disease, I10 - Essential (primary) hypertension, I50.9 - Heart failure, unspecified, R73.01 - Impaired fasting glucose Medications: New ammonium lactate 12% 1 appl topical DAILY PRN 385 grams 2RF dry skin Changed From tamsulosin 0.8 mg (2 x 0.4 mg) PO BEDTIME 90 days 180 caps 4RF To tamsulosin 0.4 mg PO BID Coding Level of Care Code Est Pt Level 4 (67304) Diagnoses CHF (congestive heart failure) I50.9 Parkinson disease G20 IFG (impaired fasting glucose) R73.01 HTN (hypertension) I10 Hypercholesterolemia E78.00
[2023-06-28 11:07] VITALS: BP 120/74; PULSE 69; O2SAT 97; BMI 29.8
== END 2023-06-28 14:53 | disposition home or self-care (01) ==
PROVIDERS: PCP Internal Medicine; Visit Provider Internal Medicine
DX: I11.0 Hypertensive heart disease with heart failure (principal); I50.9 Heart failure, unspecified; G20.B2 Parkinson's disease with dyskinesia, with fluctuations; R73.01 Impaired fasting glucose; E78.00 Pure hypercholesterolemia, unspecified
CPT/HCPCS: 99214

== ENCOUNTER 2023-09-09 13:25 | Outpatient (AMB) | payer OTHER, SELFPAY ==
--- NOTE | 2023-09-09 13:31 | MHC.PC.OV ---
Vital Signs 09/09/23 13:32 Height 5 ft 10 in Weight 203 lb BMI 29.1 BP 122/76 Blood Pressure Location Lt brachial Position Sitting Pulse 72 Pulse Source Pulse Oximeter Pulse Oximetry (%) 99 Oxygen Delivery Method Room Air Intake Visit Reasons: [facility] 08/27/23-Hip Fracture Allergies Tetanus Vaccines and Toxoid [Tetanus Vaccines & Toxoid] Allergy (Severe, Verified 09/09/23 13:36) ANAPHYLAXIS Tetanus Allergy (Unknown, Uncoded 09/09/23 13:36) unknown Medication List - Last Reconciled 09/09/23 by China Briseno MD ammonium lactate 12% 1 appl topical DAILY PRN aspirin 81 mg PO DAILY carbidopa-levodopa 25-100 mg 2 tabs PO TID clonazepam 0.5 mg PO BEDTIME empagliflozin (Jardiance) 10 mg PO QAM furosemide 20 mg PO DAILY metoprolol succinate ER 200 mg PO DAILY nystatin 1 appl topical BID 30 days omeprazole 20 mg PO DAILY quetiapine 12.5 mg PO BEDTIME ropinirole 0.5 mg PO TID sacubitril-valsartan 49-51 mg (Entresto) 1 tab PO BID sennosides (senna) 8.6 mg PO DAILY PRN simvastatin 10 mg PO QPM spironolactone 25 mg PO DAILY tamsulosin 0.4 mg PO BID Tobacco use date assessed: 09/09/23 Fall risk assessment: 2 + Falls in past year Last assessed Fall Risk: 09/09/23 Dental Screening Dental Screen Date: 09/09/23 Did you have a dental visit in the last 12 months?: No Did you have a dental problem in the last 6 months where you did not have access to dental care?: No Was dental information given to patient?: Patient has dentist HPI [facility] 08/27/23-Hip Fracture HPI Details Patient presents for the follow-up of right hip fracture after fall hospitalization and inpatient rehabilitation stay for 4 weeks. Patient is ambulating with a walker at home and getting home physical therapy. He was noted to have increased bilateral lower extremity swelling. Patient denies shortness of breath chest pains palpitations. He has been taking his regular medications and follows up with neurology for Parkinson's disease and cardiology for history of AFib status post Watchman and CAD. COUNTS INCLUDE 234 BEDS AT THE [facility] Medical History A-fib CHF (congestive heart failure) Parkinson disease Obesity HTN (hypertension) IFG (impaired fasting glucose) Surgical History H/O colonoscopy Family History Father COPD (chronic obstructive pulmonary disease) Mother Heart problem Social History Housing: House Alcohol intake: current Alcohol intake frequency: holidays/special occasions only Patient Tobacco Use Status: Never used Tobacco e-Cigarette/Vaping Use: Never Used Current occupational status: retired Cognitive needs: No Hearing needs: No Vision needs: No Questionnaire Thrive Questionnaire Date Thrive assessed: 09/09/23 AUDIT C Alcohol Use Questionnaire (AUDIT-C) 1. How often do you have a drink containing alcohol?: Never 3. How often do you have six or more drinks on one occasion?: Never Total Score: 0 MARCIA-7 AMB Questionnaire MARCIA-7 Date MARCIA - 7 assessed: 09/09/23 Source: Developed by Drs. Lenny Jeter, Radha Ortiz, Vicente Guthrie and colleagues, with an educational rosa from [employer]. Review of Systems Const All systems reviewed & are unremarkable except as noted in HPI and below Reports no additional complaints Eyes Reports no additional complaints ENT Reports no additional complaints Card Reports no additional complaints Resp Reports no additional complaints GI Reports no additional complaints Reports no additional complaints Physical exam (Primary Care) Vital Signs: Last Vital Signs Pulse 72 09/09/23 13:32 BP 122/76 09/09/23 13:32 Pulse Ox 99 09/09/23 13:32 Oxygen Delivery Method Room Air 09/09/23 13:32 BMI result Body Mass Index 29.1 Tobacco/Smoking Status: Tobacco use Status Tobacco use date assessed 09/09/23 09/09/23 13:46 Patient Tobacco Use Status Never used Tobacco 09/09/23 13:46 e-Cigarette/Vaping Use Never Used 09/09/23 13:46 PHQ-9: PHQ-9 Score PHQ-9: Total score 1 09/09/23 13:48 Thrive Assessment: Date of Thrive Assessment Date Thrive assessed 09/09/23 09/09/23 13:48 Const General: no acute distress HENMT Head: Yes normal to inspection Throat: Yes posterior oropharynx normal Neck Neck: Yes supple Resp Effort & Inspection: normal respiratory effort Auscultation: clear to auscultation bilaterally Cardio Rhythm: regular rhythm Heart sounds: S1 normal heart sound present and S2 normal heart sound present Extrem Other: 3+ pitting edema bilaterally Assessment and Plan Assessment & Plan (1) Edema: Code(s): R60.9 - Edema, unspecified Plan: Increase furosemide to 40 mg for 1 week, and then alternating 20 and 40 mg, check basic metabolic panel continue spironolactone. Patient was advised to wear compression knee-high during a day (2) CHF (congestive heart failure): Comment: heart MRI 06/2019, left ventricle global hypokinesia EF 38% Coronary cath, no significant CAD, MARILU nlEF, small pericardial efusion 08/20 [facility] f/u Dr. Cavanaugh Code(s): I50.9 - Heart failure, unspecified Plan: Continue current medications including Entresto Jardiance metoprolol and spironolactone (3) A-fib: Comment: Watchman FLX device, f/u [facility] Cardiology Dr Mcelroy Code(s): I48.91 - Unspecified atrial fibrillation Plan: Follow-up with cardiology (4) Parkinson disease: Comment: Dr. Chino dxd 06/2016, [place] Code(s): G20 - Parkinson's disease Plan: Continue current medications and follow-up with Neurology. Taking clonazepam was discussed with the patient and his and was advised not to take it because of increased risk of dementia and fall (5) HTN (hypertension): Code(s): I10 - Essential (primary) hypertension Plan: Continue current medications, follow-up in 1-2 months Orders: Orders Basic Metabolic Panel 1 Week R60.9 - Edema, unspecified Medications: New compr.stocking,knee,long,large 10-20 mmHg with zippers 4 ea 1RF compr.stocking,knee,long,large 10-20 mmHg with zippers 4 ea 1RF Coding Level of Care Code Est Pt Level 4 (54031) Diagnoses Edema R60.9 CHF (congestive heart failure) I50.9 A-fib I48.91 Parkinson disease G20 HTN (hypertension) I10
[2023-09-09 13:32] VITALS: BP 122/76; PULSE 72; O2SAT 99; BMI 29.1
== END 2023-09-09 14:47 | disposition home or self-care (01) ==
PROVIDERS: PCP Internal Medicine; Visit Provider Internal Medicine
DX: I11.0 Hypertensive heart disease with heart failure (principal); I50.9 Heart failure, unspecified; I48.91 Unspecified atrial fibrillation; G20.C Parkinsonism, unspecified; R60.9 Edema, unspecified
CPT/HCPCS: 99214

== ENCOUNTER 2023-10-29 09:21 | Outpatient (AMB) | payer OTHER, SELFPAY ==
--- NOTE | 2023-10-29 09:21 | MHC.OFFVIS ---
Intake Intake Visit Reasons: 6m/PVR Intake Note: Patient presents today for a follow up on: PVR Meds- Tamsulosin Allergies to Antibiotic- No Known Allergies Blood Thinner- Aspirin Post Void Residual: 0ml Spout Positioner Required: No Accompanied by: Allergies Tetanus Vaccines and Toxoid [Tetanus Vaccines & Toxoid] Allergy (Severe, Verified 10/29/23 09:58) ANAPHYLAXIS Tetanus Allergy (Unknown, Uncoded 10/29/23 09:58) unknown Medication List - Last Reconciled 10/29/23 by FRANKLIN Nielsen-GUILLERMO ammonium lactate 12% 1 appl topical DAILY PRN aspirin 81 mg PO DAILY carbidopa-levodopa 25-100 mg 2 tabs PO TID clonazepam 0.5 mg PO BEDTIME compr.stocking,knee,long,large 10-20 mmHg with zippers empagliflozin (Jardiance) 10 mg PO QAM furosemide 20 mg PO DAILY metoprolol succinate ER 200 mg PO DAILY nystatin 1 appl topical BID 30 days omeprazole 20 mg PO DAILY quetiapine 12.5 mg PO BEDTIME ropinirole 0.5 mg PO TID sacubitril-valsartan 49-51 mg (Entresto) 1 tab PO BID sennosides (senna) 8.6 mg PO DAILY PRN simvastatin 10 mg PO QPM spironolactone 25 mg PO DAILY tamsulosin 0.4 mg PO BID 90 days HPI HPI Comments History of Present Illness Details Florentino is a very pleasant 72 year old male patient of Dr. Briseno who is accompanied by his at todays visit. He has a past medical history of AFib watchman in place, congestive heart failure, Parkinson's disease, obesity, and hypertension. He presents to the office today for follow-up. In discussion with the patient today reports to be doing and feeling well. He reports compliance with 0.4 mg of Flomax b.i.d.. He offers no issues or concerns at today's appointment. He is happy with his current voiding parameters on 0.8 mg of Flomax daily. He discusses having had recent hip surgery after sustaining a fall. He has since went to rehab and is at home recovering well. When asked he denies urinary urgency, urinary frequency, hematuria, dysuria, foul smelling urine, changes to urinary stream, flank pain, fever, and or chills. Previous workup has included a bladder ultrasound noting the bladder is well distended and appears trabeculated.Bilateral ureteral jets are demonstrated. Prevoid bladder volume is 259 mL. Postvoid bladder volume is 168 mL. Prostate volume is 85 mL. In office urinalysis results reviewed with the patient his today. 3+ glucosuria noted however patient on Jardiance. PVR 0 mL. PSAs are as follows: 04/20--0.5 PFSH Medical History (Reviewed 10/29/23 @ 10:01 by FRANKLIN [facility]EN[facility]) A-fib CHF (congestive heart failure) Parkinson disease Obesity HTN (hypertension) IFG (impaired fasting glucose) Surgical History H/O colonoscopy Family History Father COPD (chronic obstructive pulmonary disease) Mother Heart problem Social History Housing: House Alcohol intake: current Alcohol intake frequency: holidays/special occasions only Patient Tobacco Use Status: Never used Tobacco e-Cigarette/Vaping Use: Never Used Current occupational status: retired Cognitive needs: No Hearing needs: No Vision needs: No Review of Systems Const Reports as per [facility] Eyes Reports no additional complaints ENT Reports no additional complaints Card Reports as per [facility] Resp Reports no additional complaints GI Reports no additional complaints Reports as per [facility] Musc Reports as per [facility] Neuro Reports as per [facility] Psych Reports no additional complaints Endo Reports no additional complaints Physical Exam Const General: cooperative, healthy appearing, comfortable, no acute distress, well developed, alert and awake Nutritional Appearance: overweight Orientation/consciousness: patient oriented x3 Limitations: ambulation with cane HEENT Head: Yes normal to inspection, Yes normocephalic and Yes atraumatic Ears: hearing grossly normal bilaterally Eyes General: appearance normal, both eyes and all related structures Neck Neck: Yes normal visual inspection and Yes trachea midline Chest Chest palpation & inspection: normal inspection of the chest Resp Effort & Inspection: normal respiratory effort and able to speak in complete sentences Cardio Rate: regular rate GI Inspection: Yes normal to inspection General: Yes no CVA tenderness Back/Spine/Pelvis Back: no CVA tenderness Skin General skin exam: other (moist patchy reddened area to abdominal folds ) Neuro General: patient oriented x3 Extrem General: Yes normal to inspection Psych Appearance: grossly normal and well kempt Mental Status: mental status grossly normal Speech and movement: Clear speech present (slow to respond ) Affect: normal affect Attitude: cooperative Thought content: Normal thought content present Insight: Fair insight present (Psych) Judgement: Fair judgement present (Psych) Office Procedures Post Void Residual Post Residual Void Post Void Residual (PVR): 0 [id number] Void Residual by ultrasound Results AMB Urinalysis, Automated UA Leukoctes 0 Herbert/uL Last Edit by Yelena Miller CMA on 10/29/23 09:41 UA Nitrite Negative Last Edit by Yelena Miller [facility] on 10/29/23 09:41 UA Urobilinogen 0.2 mg/dL Last Edit by Yelena Miller [employer] on 10/29/23 09:41 UA Protein 0 mg/dL Last Edit by Yelena Miller [employer] on 10/29/23 09:41 UA pH 6.0 Last Edit by Yelena Miller [facility] on 10/29/23 09:41 UA Blood 0 Franck/uL Last Edit by Yelena Miller [facility] on 10/29/23 09:41 UA Specific [place] 1.015 Last Edit by Yelena Miller CMA on 10/29/23 09:41 UA Ketone Negative Last Edit by Yelena Miller CMA on 10/29/23 09:41 UA Bilirubin 0 mg/dL Last Edit by Yelena Miller [facility] on 10/29/23 09:41 UA Glucose 1000 mg/dL Last Edit by Yelena Miller [facility] on 10/29/23 09:41 Results Reviewed Results Reviewed: Laboratory Last Values Urine pH (Auto) 6.0 10/29/23 09:25 Specific [place] (Auto) 1.015 10/29/23 09:25 Urine Protein (Auto) 0 mg/dL 10/29/23 09:25 Glucose (UA)(Auto) 1000 mg/dL 10/29/23 09:25 Urine Ketones (Auto) Negative 10/29/23 09:25 Urine Blood (Auto) 0 Franck/uL 10/29/23 09:25 Urine Nitrite (Auto) Negative 10/29/23 09:25 Urine Bilirubin (Auto) 0 mg/dL 10/29/23 09:25 Urine Urobilinogen (Auto) 0.2 mg/dL 10/29/23 09:25 Leukocyte Esterase (Auto) 0 Herbert/uL 10/29/23 09:25 Assessment & Plan Assessment & Plan (1) BPH (benign prostatic hyperplasia): Code(s): N40.0 - Benign prostatic hyperplasia without lower urinary tract symptoms (2) Lower urinary tract symptoms: Code(s): R39.9 - Unspecified symptoms and signs involving the genitourinary system (3) Enlarged prostate: Code(s): N40.0 - Benign prostatic hyperplasia without lower urinary tract symptoms (4) Urinary retention with incomplete bladder emptying: Code(s): R33.9 - Retention of urine, unspecified Plan In office urinalysis results reviewed with the patient today; as noted above. PVR 0 mL. Patient currently denies any bothersome urinary issues or concerns. Patient reports be happy with current voiding parameters on 0.4 mg of Flomax b.i.d.; refill provided. Will obtain PSA in 1 year Follow-up in 1 year with lab and PVR to be completed prior; or sooner with any issues, concerns, and or questions. Orders: Orders AMB Post Void Residual by ultrasound Today R33.9 - Retention of urine, unspecified AMB Urinalysis Automated Today R33.9 - Retention of urine, unspecified Prostate Specific Antigen 1 Year N40.0 - Benign prostatic hyperplasia without lower urinary tract symptoms Patient Instructions: The patient had an opportunity to ask questions regarding the treatment plan. All questions were answered. Physical exam, labs, and imaging were discussed and reviewed in detail. As well as risks, benefits, and discussion of treatment choices. No major barriers to understanding were identified. The patient expressed understanding and agreement with the above treatment plan. The patient was made aware they should contact our office by phone for worsening of their current condition, the appearance of new symptoms, or with any questions or concerns. Compliance is encouraged with any medications and follow up testing that is ordered. It is a privilege to be allowed the opportunity to participate in? your urological care.? Again, if you have any questions or concerns If you have any questions or concerns please do not hesitate to contact me. The office is [phone]. This note is constructed using voice recognition software. While every effort has been made to ensure accuracy book jogger errors may have been included. Yours sincerely, FRANKLIN Nielsen-GUILLERMO Coding Level of Care Code Est Pt Level 3 (05430) Diagnoses BPH (benign prostatic hyperplasia) N40.0 Lower urinary tract symptoms R39.9 Enlarged prostate N40.0 Urinary retention with incomplete bladder emptying R33.9 CPT Codes Post Residual Void - PVR CPT Code: 80910-Cmgm Void Residual by ultrasound ([id number])
== END 2023-10-29 09:47 | disposition home or self-care (01) ==
PROVIDERS: PCP Internal Medicine; Visit Provider Nurse Practitioner Family
DX: N40.0 Benign prostatic hyperplasia without lower urinary tract symptoms (principal); R39.9 Unspecified symptoms and signs involving the genitourinary system; R33.9 Retention of urine, unspecified
CPT/HCPCS: 99213

== ENCOUNTER → 2023-10-29 09:21 | Outpatient (BNVA) | payer OTHER, SELFPAY | PROVIDERS: PCP Internal Medicine; Visit Provider Nurse Practitioner Family | DX: N40.1 Benign prostatic hyperplasia with lower urinary tract symptoms (principal); R33.8 Other retention of urine; R39.9 Unspecified symptoms and signs involving the genitourinary system | CPT/HCPCS: 51798; 81003 ==

== ENCOUNTER 2023-11-12 06:12 | Outpatient (REF) | payer OTHER, SELFPAY ==
[2023-11-12 10:59] LABS: Anion Gap 11 (12-20); Blood Urea Nitrogen 21 mg/dL (9-16); Calcium 9.1 mg/dL (8.4-10.2); Carbon Dioxide 26 mmol/L (22-29); Chloride 110 mmol/L (96-108); Estimated Glomerular Filt Rate > 60; Glucose Random 103 mg/dL (60-115); Potassium 3.8 mmol/L (3.3-5.1); Sodium 143 mmol/L (135-145)
== END 2023-11-12 06:13 | disposition home or self-care (01) ==
LOC: HO.HMGCLDS 06:12
PROVIDERS: PCP Internal Medicine; Visit Provider Internal Medicine
DX: R60.9 Edema, unspecified (principal)
CPT/HCPCS: 36415; 80048

== ENCOUNTER 2023-11-13 11:09 | Outpatient (AMB) | payer OTHER, SELFPAY ==
[2023-11-13 11:22] VITALS: BP 112/64; PULSE 71; O2SAT 99
--- NOTE | 2023-11-13 11:22 | A.OFFPC_ITS ---
Vital Signs 11/13/23 11:22 Height 51 ft Weight 204 lb BMI 0.4 BP 112/64 Blood Pressure Location Lt brachial Position Sitting Pulse 71 Pulse Source Pulse Oximeter Pulse Oximetry (%) 99 Oxygen Delivery Method Room Air Intake Visit Reasons: F/U Allergies Tetanus Vaccines and Toxoid [Tetanus Vaccines & Toxoid] Allergy (Severe, Verified 11/13/23 11:24) ANAPHYLAXIS Tetanus Allergy (Unknown, Uncoded 11/13/23 11:24) unknown Tobacco use date assessed: 11/13/23 Dental Screening Dental Screen Date: 09/09/23 HPI F/U HPI Details Patient presents for the follow-up of Parkinson's disease, heart failure with reduced ejection fraction follow-up by cardiology, status post hip fracture. Patient has been ambulating with a cane. [facility] Medical History (Updated 11/13/23 @ 11:58 by China Briseno MD) A-fib CHF (congestive heart failure) Parkinson disease Obesity IFG (impaired fasting glucose) Surgical History H/O colonoscopy Family History Father COPD (chronic obstructive pulmonary disease) Mother Heart problem Social History Housing: House Alcohol intake: current Alcohol intake frequency: holidays/special occasions only Patient Tobacco Use Status: Never used Tobacco e-Cigarette/Vaping Use: Never Used Current occupational status: retired Cognitive needs: No Hearing needs: No Vision needs: No Questionnaire Thrive Questionnaire Date Thrive assessed: 09/09/23 MARCIA-7 AMB Questionnaire MARCIA-7 Date MARCIA - 7 assessed: 09/09/23 Source: Developed by Drs. Lenny Jeter, Radha Ortiz, Vicente Guthrie and colleagues, with an educational rosa from [employer]. Review of Systems Const All systems reviewed & are unremarkable except as noted in HPI and below Reports no additional complaints Eyes Reports no additional complaints ENT Reports no additional complaints Card Reports no additional complaints Resp Reports no additional complaints GI Reports no additional complaints Reports no additional complaints Physical exam (Primary Care) Vital Signs: Last Vital Signs Pulse 71 11/13/23 11:22 BP 112/64 11/13/23 11:22 Pulse Ox 99 11/13/23 11:22 Oxygen Delivery Method Room Air 11/13/23 11:22 BMI result Body Mass Index 0.4 Tobacco/Smoking Status: Tobacco use Status Tobacco use date assessed 11/13/23 11/13/23 11:27 Patient Tobacco Use Status Never used Tobacco 11/13/23 11:27 e-Cigarette/Vaping Use Never Used 11/13/23 11:27 Thrive Assessment: Date of Thrive Assessment Date Thrive assessed 09/09/23 11/13/23 11:27 Const General: no acute distress HENMT Mouth: Normal oral and palatal mucosa present Eyes General: appearance normal, both eyes and all related structures Resp Effort & Inspection: normal respiratory effort Auscultation: clear to auscultation bilaterally Cardio Rhythm: regular rhythm Heart sounds: S1 normal heart sound present and S2 normal heart sound present GI Inspection: Yes normal to inspection Extrem Other: 1+ pitting edema bilaterally Assessment and Plan Assessment & Plan (1) CHF (congestive heart failure): Comment: heart MRI 06/2019, left ventricle global hypokinesia EF 38% Coronary cath, no significant CAD, MARILU nlEF, small pericardial efusion 08/20 [facility] f/u Dr. Cavanaugh Code(s): I50.9 - Heart failure, unspecified Plan: Continue current medications follow-up with Cardiology for a repeat echocardiogram in December (2) A-fib: Comment: Watchman FLX device, f/u [facility] Cardiology Dr Mcelroy Code(s): I48.91 - Unspecified atrial fibrillation Plan: Follow-up with cardiology (3) Parkinson disease: Comment: Dr. Lulú lennon 06/2016, [place] Code(s): G20 - Parkinson's disease Plan: Continue current medications follow-up with Neurology Coding Level of Care Code Est Pt Level 4 (54378) Diagnoses CHF (congestive heart failure) I50.9 A-fib I48.91 Parkinson disease G20
== END 2023-11-13 11:59 | disposition home or self-care (01) ==
PROVIDERS: PCP Internal Medicine; Visit Provider Internal Medicine
DX: I50.9 Heart failure, unspecified (principal); I48.91 Unspecified atrial fibrillation; G20.C Parkinsonism, unspecified
CPT/HCPCS: 99214

== ENCOUNTER 2024-03-24 09:19 | Outpatient (REF) | payer OTHER, SELFPAY ==
[2024-03-24 10:24] LABS: MANUAL DIFF FLAG NO
[2024-03-24 10:37] LABS: Basophils Absolute Auto 0.1 X10*3/uL (0.0-0.2); Basophils Percent Auto 0.9 % (0-2); Eosinophils Absolute Auto 0.3 X10*3/uL (0.0-0.4); Eosinophils Percent Auto 3.1 % (0-4); Hematocrit 44.6 % (42.0-52.0); Hemoglobin 14.7 g/dl (14.0-18.0); Imm Gran Abs Auto 0.05 X10*3/uL (0.00-0.03); Imm Gran Pct Auto 0.6 % (0.0-0.4); Lymphocytes Absolute Auto 1.3 X10*3/uL (1.2-4.9); Lymphocytes Percent Auto 16.3 % (20-40); Mean Corpuscular Hemoglobin 30.1 pg (27.0-33.0); Mean Corpuscular Volume 91.4 fL (80.0-98.0); Mean Platelet Volume 9.3 fL (9.4-12.4); Monocytes Absolute Auto 0.6 X10*3/uL (0.1-1.2); Monocytes Percent Auto 7.6 % (2-11); Neutrophils Absolute Auto 5.8 x10*3/uL (2.0-8.3); Neutrophils Percent Auto 71.5 % (45-73); Platelet Count 184 X10*3/uL (160-400); Red Blood Count 4.88 X10*6/uL (4.60-5.80); Red Cell Distribution Width 13.1 % (11.0-16.0); White Blood Count 8.2 X10*3/uL (4.8-10.8)
[2024-03-24 10:42] LABS: B Type Natriuretic Peptide 315 pg/mL (<100)
[2024-03-24 11:04] LABS: Alanine Aminotransferase < 5 U/L (0-40); Albumin Level 4.2 g/dL (3.5-5.0); Alkaline Phosphatase 73 U/L (39-117); Anion Gap 9 (12-20); Aspartate Amino Transferase 18 U/L (5-37); Blood Urea Nitrogen 21 mg/dL (9-16); Calcium 9.2 mg/dL (8.4-10.2); Carbon Dioxide 31 mmol/L (22-29); Chloride 109 mmol/L (96-108); Cholesterol 117 mg/dL (<200); Estimated Glomerular Filt Rate > 60; Glucose Fasting 104 mg/dL (60-99); HDL Cholesterol 52 mg/dL (>40); LDL Cholesterol Calculated 52 mg/dL (<100); Potassium 3.9 mmol/L (3.3-5.1); Sodium 145 mmol/L (135-145); Total Protein 6.8 g/dL (6.5-8.0); Triglycerides 66 mg/dL (<150)
== END 2024-03-24 09:20 | disposition home or self-care (01) ==
LOC: HO.HMGCLDS 09:19
PROVIDERS: PCP Internal Medicine; Visit Provider Internal Medicine
DX: I50.9 Heart failure, unspecified (principal); G20.A1 Parkinson's disease without dyskinesia, without mention of fluctuations; R73.01 Impaired fasting glucose; I10 Essential (primary) hypertension; E78.00 Pure hypercholesterolemia, unspecified
CPT/HCPCS: 36415; 80053; 80061; 83880; 85025

== ENCOUNTER 2024-03-25 08:31 | Outpatient (AMB) | payer OTHER, SELFPAY ==
[2024-03-25 08:38] VITALS: BP 118/80; PULSE 74; O2SAT 97; BMI 31.4
--- NOTE | 2024-03-25 08:38 | MHC.PC.OV ---
Vital Signs 03/25/24 08:38 Height 5 ft 10 in Weight 219 lb BMI 31.4 BP 118/80 Blood Pressure Location Lt brachial Position Sitting Pulse 74 Pulse Source Pulse Oximeter Pulse Oximetry (%) 97 Oxygen Delivery Method Room Air Intake Visit Reasons: Follow up per Dr. Briseno Intake Note: Pt is here today for his f/u Allergies Tetanus Vaccines and Toxoid [Tetanus Vaccines & Toxoid] Allergy (Severe, Verified 03/25/24 08:40) ANAPHYLAXIS Tetanus Allergy (Unknown, Uncoded 03/25/24 08:40) unknown Medication List - Last Reconciled 03/25/24 by China Briseno MD ammonium lactate 12% 1 appl topical DAILY PRN aspirin 81 mg PO DAILY carbidopa-levodopa 25-100 mg 2 tabs PO TID clonazepam 0.5 mg PO BEDTIME compr.stocking,knee,long,large 10-20 mmHg with zippers empagliflozin (Jardiance) 10 mg PO QAM furosemide 20 mg PO DAILY metoprolol succinate ER 200 mg PO DAILY nystatin 1 appl topical BID 30 days omeprazole 20 mg PO DAILY quetiapine 12.5 mg PO BEDTIME ropinirole 0.5 mg PO TID sacubitril-valsartan 49-51 mg (Entresto) 1 tab PO BID sennosides (senna) 8.6 mg PO DAILY PRN simvastatin 10 mg PO QPM spironolactone 25 mg PO DAILY tamsulosin 0.4 mg PO BID 90 days Tobacco use date assessed: 03/25/24 Fall risk assessment: 2 + Falls in past year Last assessed Fall Risk: 03/25/24 Dental Screening Dental Screen Date: 03/25/24 Did you have a dental visit in the last 12 months?: No Did you have a dental problem in the last 6 months where you did not have access to dental care?: No Was dental information given to patient?: Patient has dentist HPI Follow up per Dr. Briseno HPI Details Patient presents for the follow-up of Parkinson's disease, heart failure with reduced ejection fraction, hyperlipidemia BPH. Patient's reports him falling down more often feel of balance but has not been doing home exercises recommended at physical therapy. [facility] Medical History A-fib CHF (congestive heart failure) Parkinson disease Obesity IFG (impaired fasting glucose) Surgical History H/O colonoscopy Family History Father COPD (chronic obstructive pulmonary disease) Mother Heart problem Social History Housing: House Alcohol intake: current Alcohol intake frequency: holidays/special occasions only Patient Tobacco Use Status: Never used Tobacco e-Cigarette/Vaping Use: Never Used Current occupational status: retired Cognitive needs: No Hearing needs: No Vision needs: No Questionnaire PHQ-9 Over the last 2 weeks, how often have you been bothered by any of the following problems? 1. Little interest or pleasure in doing things: not at all 2. Feeling down, depressed, or hopeless: not at all 3. Trouble falling or staying asleep, or sleeping too much: not at all 4. Feeling tired or having little energy: not at all 5. Poor appetite or overeating: not at all 6. Feeling bad about yourself - or that you are a failure or have let yourself or your family down: not at all 7. Trouble concentrating on things, such as reading the newspaper or watching television: not at all 8. Moving or speaking so slowly that other people could have noticed. Or the opposite - being so fidgety or restless that you have been moving around a lot more than usual: not at all 9. Thoughts that you would be better off or of hurting yourself in some way: not at all Total score: 0 Depression Screening Interpretation: Negative Depression Screening Done: Yes 99237 - PHQ-9 Billing: Yes Source: Developed by Drs. Lenny Jeter, Radha Ortiz, Vicente Guthrie and colleagues, with an educational rosa from [employer]. Thrive Questionnaire Date Thrive assessed: 03/25/24 I am a: Patient What is your living situation today?: I have a steady place to live Within the past 12 months, did the food you bought not last and you didn't have the money to get more?: Never true Within the past 12 months, did you worry whether your food would run out before you got money to buy more?: Never true Do you have trouble paying for medicines?: No Do you have trouble getting transportation to medical appointments?: No Do you have trouble paying your heating and electricity bill?: No Do you have trouble taking care of your child, family member or friend?: No Do you have trouble with day-to-day activities such as bathing, preparing meals, shopping, managing finances, etc.?: No Are you currently unemployed and looking for a job?: No Are you interested in more education?: No Please select the resources that you would like help with: None Currently or been in a relationship where the following occur: No concerns reported THRIVE Score: 0 AUDIT C Alcohol Use Questionnaire (AUDIT-C) 1. How often do you have a drink containing alcohol?: Never Total Score: 0 MARCIA-7 AMB Questionnaire MARCIA-7 Date MARCIA - 7 assessed: 03/25/24 Feeling nervous, anxious, or on edge: 1 = Several days Not being able to stop or control worryin = Several days Worrying too much about different things: 1 = Several days Trouble relaxin = Not at all Being so restless that it is hard to sit still: 0 = Not at all Becoming easily annoyed or irritable: 0 = Not at all Feeling afraid as if something awful might happen: 0 = Not at all Total MARCIA-7 score (0-4 normal; 5-9 mild; 10-14 moderate; 15-21 severe): 3 Source: Developed by Drs. Lenny Jeter, Radha Ortiz, Vicente Guthrie and colleagues, with an educational rosa from [employer]. Review of Systems Const All systems reviewed & are unremarkable except as noted in HPI and below Reports no additional complaints Eyes Reports no additional complaints ENT Reports no additional complaints Card Reports no additional complaints Resp Reports no additional complaints GI Reports no additional complaints Reports no additional complaints Physical exam (Primary Care) Vital Signs: Last Vital Signs Pulse 74 03/25/24 08:38 BP 118/80 03/25/24 08:38 Pulse Ox 97 03/25/24 08:38 Oxygen Delivery Method Room Air 03/25/24 08:38 BMI result Body Mass Index 31.4 Tobacco/Smoking Status: Tobacco use Status Tobacco use date assessed 03/25/24 03/25/24 08:43 Patient Tobacco Use Status Never used Tobacco 03/25/24 08:43 e-Cigarette/Vaping Use Never Used 03/25/24 08:43 PHQ-9: PHQ-9 Score PHQ-9: Total score 0 03/25/24 08:43 Depression Screening Interpretation: Negative Thrive Assessment: Date of Thrive Assessment Date Thrive assessed 03/25/24 03/25/24 08:43 Currently or been in a relationship where the following occur: No concerns reported Const General: no acute distress HENMT Head: Yes normal to inspection Ears: hearing grossly normal bilaterally Face and sinus: Yes normal facial exam Mouth: Normal oral and palatal mucosa present Throat: Yes posterior oropharynx normal Eyes General: appearance normal, both eyes and all related structures Neck Neck: Yes no lymphadenopathy and Yes supple Resp Effort & Inspection: normal respiratory effort Auscultation: clear to auscultation bilaterally Cardio Rhythm: regular rhythm Heart sounds: S1 normal heart sound present and S2 normal heart sound present GI Inspection: Yes normal to inspection Palpation (GI): Soft to palpation Percussion: Yes normal to percussion Auscultation: normal bowel sounds Assessment and Plan Assessment & Plan (1) Hypercholesterolemia: Code(s): E78.00 - Pure hypercholesterolemia, unspecified Plan: Continue statin (2) Parkinson disease: Comment: Dr. Chino dxd 06/2016, [place] Code(s): G20 - Parkinson's disease Plan: Continue current medications follow-up with Neurology (3) CHF (congestive heart failure): Comment: heart MRI 06/2019, left ventricle global hypokinesia EF 38% Coronary cath, no significant CAD, Echo 12/2023 EF 50%, [facility] f/u Dr. Cavanaugh Code(s): I50.9 - Heart failure, unspecified Plan: Continue current medication follow-up with basic Cardiology (4) A-fib: Comment: Watchman FLX device, f/u [facility] Cardiology Dr Mcelroy Code(s): I48.91 - Unspecified atrial fibrillation Plan: Continue current medications (5) BPH (benign prostatic hyperplasia): Code(s): N40.0 - Benign prostatic hyperplasia without lower urinary tract symptoms Plan: Follow-up with Urology Orders: Orders Comprehensive [place]. Panel Fast 6 Months E78.00 - Pure hypercholesterolemia, unspecified, G20 - Parkinson's disease, I48.91 - Unspecified atrial fibrillation, I50.9 - Heart failure, unspecified, N40.0 - Benign prostatic hyperplasia without lower urinary tract symptoms Complete Blood Count Auto Diff 6 Months E78.00 - Pure hypercholesterolemia, unspecified, G20 - Parkinson's disease, I48.91 - Unspecified atrial fibrillation, I50.9 - Heart failure, unspecified, N40.0 - Benign prostatic hyperplasia without lower urinary tract symptoms UA w Microscopic 6 Months E78.00 - Pure hypercholesterolemia, unspecified, G20 - Parkinson's disease, I48.91 - Unspecified atrial fibrillation, I50.9 - Heart failure, unspecified, N40.0 - Benign prostatic hyperplasia without lower urinary tract symptoms TSH reflex Free T4 6 Months E78.00 - Pure hypercholesterolemia, unspecified, G20 - Parkinson's disease, I48.91 - Unspecified atrial fibrillation, I50.9 - Heart failure, unspecified, N40.0 - Benign prostatic hyperplasia without lower urinary tract symptoms Lipid Panel 6 Months E78.00 - Pure hypercholesterolemia, unspecified, G20 - Parkinson's disease, I48.91 - Unspecified atrial fibrillation, I50.9 - Heart failure, unspecified, N40.0 - Benign prostatic hyperplasia without lower urinary tract symptoms Coding Level of Care Code Est Pt Level 4 (87320) Diagnoses Hypercholesterolemia E78.00 Parkinson disease G20 CHF (congestive heart failure) I50.9 A-fib I48.91 BPH (benign prostatic hyperplasia) N40.0
== END 2024-03-25 09:23 | disposition home or self-care (01) ==
PROVIDERS: PCP Internal Medicine; Visit Provider Internal Medicine
DX: E78.00 Pure hypercholesterolemia, unspecified (principal); G20.C Parkinsonism, unspecified; I50.9 Heart failure, unspecified; I48.91 Unspecified atrial fibrillation; N40.0 Benign prostatic hyperplasia without lower urinary tract symptoms
CPT/HCPCS: 99214

== ENCOUNTER 2024-07-27 10:09 | Outpatient (AMB) | payer OTHER, SELFPAY ==
--- OUTSIDE RECORDS SUMMARY | 2024-07-27 10:14 | XMS_ITS | Continuity of Care Document ---
Author Organization [facility] Address [address] [facility], 3[address] d Floor, [address] [place] [phone]- Care Team Providers Care Search Marketing Coordinator Name Role Phone China Briseno MD Primary Care Physician [id number] Date(s): 04/21/24 - 07/02/24 [facility] [address] [facility] 3rd Floor, [address] [place] [id number] Attending Physician: Mazin Pineda MD Admitting Physician: Mazin Pineda MD Referring Physician: China Briseno MD Encounter Type: Pre-OutPatient One Time Allergies, Adverse Reactions, Alerts Substance Criticality Severity Reaction Reaction Severity Status tetanus immune globulin Active Medications acetaminophen 325 mg oral tablet 650 mg, By Mouth, Every 6 hours, Refills 0, Maintenance, 08/01/23 12:57:00 PM EST, Partial fill upon patient request if the prescription is for a schedule II opioid drug. Start Date: 08/01/23 Status: Ordered Repeat number: 1 aspirin 81 mg oral delayed release tablet 81 mg, By Mouth, Daily, # 30 tablet, Refills 0, Tot. Refills 0, Maintenance, 05/06/19 1:34:26 PM EDT, Do Not Route Start Date: 05/06/19 Status: Ordered Quantity: 30.0 Unit: tablet Repeat number: 1 carbidopa-levodopa 25 mg-100 mg oral tablet 2 tablet, By Mouth, 3 times a day, # 540 tablet, 5 Refills, 04/17/23 12:04:00 PM EDT[id number], 90, 2 tablet By Mouth 3 times a day, 175, cm, 03/25/23 17:16:00 EDT, Height, 95, kg, 03/24/23 16:15:00 EDT, Dry Weight Start Date: 04/17/23 Status: Ordered Quantity: 540.0 Unit: tablet Repeat number: 6 cholecalciferol 1000 intl units oral capsule 1 capsule = 1,000 International_Units, By Mouth, Daily, Maintenance, 04/30/19 9:42:57 PM EDT, Capsule Start Date: 04/30/19 Status: Ordered Repeat number: 1 Entresto 49 mg-51 mg oral tablet 1 tablet, By Mouth, 2 times a day, # 60 tablet, 11 Refills, Maintenance, 04/21/24 9:32:00 AM EDT, Tablet, [email or web address] #[id number], Dose decrease, 1 tablet By Mouth 2 times a day, 176, cm, 249:08:00 EDT, Height, 90.3, kg, 07/25/23 16:18:00 EST, Dry Weight Start Date: 04/21/24 Status: Ordered Quantity: 60.0 Unit: tablet Repeat number: 12 Flomax 0.4 mg oral capsule 0.4 mg, By Mouth, Daily, Refills 0, Maintenance, 02/01/23 1:39:00 PM EDT, Partial fill upon patient request if the prescription is for a schedule II opioid drug. Start Date: 02/01/23 Status: Ordered Repeat number: 1 Jardiance 10 mg oral tablet 1 tablet, By Mouth, Daily in AM, # 90 tablet, 3 Refills, Maintenance, 06/19/24 7:32:00 AM EST, [email or web address] #[id number], 176, cm, 06/10/24 13:57:00 EST, Height, 90.3, kg, 07/25/23 16:18:00 EST, Dry Weight Start Date: 06/19/24 Status: Ordered Quantity: 90.0 Unit: tablet Repeat number: 1 Metoprolol Succinate ER 200 mg oral tablet, extended release 1 tablet, By Mouth, Daily, Hold if SBP<100, # 90 tablet, 3 Refills, Maintenance, 05/14/23 10:31:00 AM EDT, [email or web address] #[id number], 175, cm, 05/13/23 13:47:00 EDT, Height, 95, kg, 03/24/23 16:15:00 EDT, Dry Weight Start Date: 05/14/23 Status: Ordered Quantity: 90.0 Unit: tablet Repeat number: 4 Multi Vitamin+ 1 tablet, By Mouth, Daily, 0 Refills, Maintenance, 08/19/19 8:02:00 AM EST Start Date: 08/19/19 Status: Ordered Repeat number: 1 nitroglycerin 0.3 mg sublingual tablet 1 tablet = 0.3 mg, Sublingual, Every 5 minutes, PRN as needed for chest pain, not to exceed 3 doses/15 min--if pain persists, seek medical attention, # 100 tablet, 4 Refills, Maintenance, 03/27/24 9:18:00 AM EDT, Tablet, [email or web address] #[id number], Partial fill upon patient request if the prescription is for a schedule II opioid drug., 176, cm, 03/27/24 9:08:00 EDT, Height, 90.3, kg, 07/25/23 16:18:00 EST, Dry Weight Start Date: 03/27/24 Status: Ordered Quantity: 100.0 Unit: tablet Repeat number: 5 omeprazole 20 mg oral enteric coated capsule 1 capsule = 20 mg, By Mouth, Daily, # 30 capsule, 0 Refills, Maintenance, 06/29/16 7:52:51 AM EST, [facility] Capsule Start Date: 06/29/16 Status: Ordered Quantity: 30.0 Unit: capsule Repeat number: 1 QUEtiapine 25 mg oral tablet See Instructions, TAKE 1/2 TABLET BY MOUTH EVERY MORNING AND 1 TABLET WITH SUPPER, # 135 tablet, Refills 1, Maintenance, 05/26/24 9:51:00 AM EDT, Instructions Replace Required Details, Route to Pharmacy Electronically, [facility] #[id number], 176, cm, 03/27/24 9:08:00 EDT, Height, 90.3, kg, 07/25/23 16:18:00 EST, Dry Weight Start Date: 05/26/24 Status: Ordered Quantity: 135.0 Unit: tablet Repeat number: 1 rOPINIRole 0.25 mg oral tablet 3 tablet = 0.75 mg, By Mouth, 3 times a day, # 810 tablet, 0 Refills, Maintenance, 03/26/24 9:00:00 AM EDT, Tablet, [email or web address] #[id number], Partial fill upon patient request if the prescription is for a schedule II opioid drug., 176, cm, 11/25/23 16:02:00 EDT, Height, 90.3, kg, 07/25/23 16:18:00 EST, Dry Weight Start Date: 03/26/24 Status: Ordered Quantity: 810.0 Unit: tablet Repeat number: 1 Senna 8.6 mg oral tablet 8.6 mg, 1, tablet, By Mouth, Daily at supper, Refills 0, Maintenance, 02/01/23 1:39:00 PM EDT, Tablet, Partial fill upon patient request if the prescription is for a schedule II opioid drug. Start Date: 02/01/23 Status: Ordered Repeat number: 1 simvastatin 10 mg oral tablet 1, tablet, By Mouth, Daily at bedtime, # 90 tablet, Refills 3, Maintenance, 12/06/23 9:21:00 AM EDT,Route to Pharmacy Electronically, [facility] #[id number], 176, cm, 11/25/23 16:02:00 EDT, Height, 90.3, kg, 07/25/23 16:18:00 EST, Dry Weight Start Date: 12/06/23 Status: Ordered Quantity: 90.0 Unit: tablet Repeat number: 1 spironolactone 25 mg oral tablet 50 mg, 2, tablet, By Mouth, Daily, dose increase, # 180 tablet, Refills 3, Tot. Refills 3, Maintenance, 03/27/24 9:16:00 AM EDT, Route to Pharmacy Electronically, [email or web address] #[id number], 176, cm,03/27/24 9:08:00 EDT, Height, 90.3, kg, 07/25/23 16:18:00 EST, Dry Weight Start Date: 03/27/24 Stop Date: 03/22/25 Status: Ordered Quantity: 180.0 Unit: tablet Repeat number: 4 torsemide 20 mg oral tablet 1 tablet = 20 mg, By Mouth, 2 times a day, # 60 tablet, 4 Refills, Maintenance, 06/10/24 2:33:00 PMEST, Tablet, [email or web address] #[id number], Replaces furosemide/Lasix, 176, cm, 06/10/24 13:57:00 EST, Height, 90.3, kg, 07/25/23 16:18:00 EST, Dry Weight Start Date: 06/10/24 Status: Ordered Quantity: 60.0 Unit: tablet Repeat number: 5 Problem List Condition Confirmation Course Effective Dates Status H ealth Status Informant REM behavioral disorder Confirmed Active Angina at rest Confirmed Active Atrial fibrillation Confirmed Active Presence of left atrial appendage closure device Confirmed Active Cardiomyopathy Confirmed Active CAD in [place] artery Confirmed Active Gastroesophageal reflux disease Confirmed Active 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 Active Heart failure with reduced ejection fraction Confirmed Active Hyperlipidemia Confirmed Active Hypertension Confirmed Active Erectile dysfunction Confirmed Active Hypotension Confirmed Active Obesity, Class III, BMI 40-49.9 (morbid obesity) Confirmed Active Nocturia Confirmed Active Obese class I Confirmed Active Parkinson disease Confirmed Active Diabetes mellitus type 2, noninsulin dependent Confirmed Active Social History Social History Type Response Smoking Status Never smoker entered on: 08/24/16 Sex Sex Representation Male (finding) Patient Care team information Care Team Personnel Name: Avril Casillas RN Position: [facility] RN Member Role: Primary Care Nurse Name: China Briseno MD Position: [facility] Physician - Primary Care Member Role: PCP Address: [address] Telecom: Name: Teodora Shafer LPN Position: [facility] RN Member Role: Primary Care Nurse Name: Gillian Eastman RN Position: [facility] RN Member Role: Primary Care Nurse Name: Gillian Chatterjee RN Position: [facility] RN Member Role: Primary Care Nurse Name: Valarie Grant RN Position: [facility] OB RN Member Role: Primary Care Nurse Name: Ysabel Sullivan RN Position: [facility] RN Member Role: Primary Care Nurse Name: Alanna Rogers RN Position: [facility] RN Member Role: Primary Care Nurse Name: Juliet Koehler RN Position: [facility] RN Member Role: Primary Care Nurse Name: Jose Alfredo Deras RN Position: [facility] RN Member Role: Primary Care Nurse Name: Ca Guerrero RN Position: [facility] ROMAN Nurse Member Role: Primary Care Nurse Name: Gladys Aguirre RN Position: [facility] RN Member Role: Primary Care Nurse Name: Julianna Lui RN Position: [facility] RN Member Role: Primary Care Nurse Name: Khang Canchola RN Position: [facility] RN Member Role: Primary Care Nurse Name: Prabhakar Pabon RN Position: [facility] RN Member Role: Primary Care Nurse Name: Giovanna Gilbert RN Position: [facility] RN Sudeep Member Role: Primary Care Nurse Name: Elena Thurston RN Position: [facility] RN Member Role: Primary Care Nurse Name: Jackie Coates RN Position: [facility] RN Member Role: Primary Care Nurse Name: Светлана Tolentino RN Position: [facility] RN Member Role: Primary Care Nurse Name: Nida Tejeda RN Position: [facility] RN Member Role: Primary Care Nurse Name: Raquel Mcfadden LPN Position: [facility] RN Member Role: Primary Care Nurse Care Team Related Persons Name: CARMEN MARTINEZ Name: RAQUEL MARTINEZ Insurance Providers Guarantor name: [facility] Information #: 1 Payer: [facility] POS Member Number: [id number] Policy Number: NA Group Number: NA Health Plan Information #: 2 Payer: [facility] POS Member Number: [id number] Policy Number: NA Group Number: NA
--- OUTSIDE RECORDS SUMMARY | 2024-07-27 10:14 | XMS_ITS | Continuity of Care Document ---
Author Organization [facility] Address [address] [place] [address]- Care Team Providers Care Dianetic Counselor Name Role Phone China Briseno MD Primary Care Physician Encounter [facility] ACCT R [id number] Date(s): 06/01/24 - 07/01/24 [facility] [address] [place] [id number]- Encounter Type: Triage Allergies, Adverse Reactions, Alerts Substance Criticality Severity [...] tablet, 5 Refills, 04/17/23 12:04:00 PM EDT, [facility] #[id number], 90, 2 tablet By Mouth 3 times [...] Refills, Maintenance, 04/21/24 9:32:00 AM EDT, Tablet, [facility] #[id number], Dose decrease, 1 tablet By Mouth 2 [...] 3 Refills, Maintenance, 06/19/24 7:32:00 AM EST, [facility] #[id number], 176, cm, 06/10/24 13:57:00 EST, Height, 90.3, kg, 07/25/23 16:18:00 EST, Dry Weight Start Date: 06/19/24 Status: Ordered Quantity: 90.0 Unit: tablet Repeat number: 1 Metoprolol Succinate ER 200 mg oral tablet, extended release 1 tablet, By Mouth, Daily, Hold if SBP<100, # 90 tablet, 3 Refills, Maintenance, 05/14/23 10:31:00 AM EDT, [facility] #[id number], 175, cm, 05/13/23 13:47:00 EDT, Height, 95, [...] Refills, Maintenance, 03/27/24 9:18:00 AM EDT, Tablet, [facility] #[id number], Partial fill upon patient request if the [...] Replace Required Details, Route to Pharmacy Electronically, [facility] #[id number], 176, cm, 03/27/24 9:08:00 EDT, Height, 90.3, kg, 07/25/23 16:18:00 EST, Dry Weight Start Date: 05/26/24 Status: Ordered Quantity: 135.0 Unit: tablet Repeat number: 1 rOPINIRole 0.25 mg oral tablet 3 tablet = 0.75 mg, By Mouth, 3 times a day, # 810 tablet, 0 Refills, Maintenance, 03/26/24 9:00:00 AM EDT, Tablet, [facility] #[id number], Partial fill upon patient request if the [...] 12/06/23 9:21:00 AM EDT,Route to Pharmacy Electronically, [facility] #[id number], 176, cm, 11/25/23 16:02:00 EDT, Height, 90.3, kg, 07/25/23 16:18:00 EST, Dry Weight Start Date: 12/06/23 Status: Ordered Quantity: 90.0 Unit: tablet Repeat number: 1 spironolactone 25 mg oral tablet 50 mg, 2, tablet, By Mouth, Daily, dose increase, # 180 tablet, Refills 3, Tot. Refills 3, Maintenance, 03/27/24 9:16:00 AM EDT, Route to Pharmacy Electronically, [facility] #[id number], 176, cm,03/27/24 9:08:00 EDT, Height, 90.3, kg, 07/25/23 16:18:00 EST, Dry Weight Start Date: 03/27/24 Stop Date: 03/22/25 Status: Ordered Quantity: 180.0 Unit: tablet Repeat number: 4 torsemide 20 mg oral tablet 1 tablet = 20 mg, By Mouth, 2 times a day, # 60 tablet, 4 Refills, Maintenance, 06/10/24 2:33:00 PMEST, Tablet, [facility] #[id number], Replaces furosemide/Lasix, 176, cm, 06/10/24 13:57:00 EST, [...] Confirmed Active Cardiomyopathy Confirmed Active CAD in [place] artery Confirmed Active Gastroesophageal reflux disease Confirmed [...] Team Personnel Name: Avril Casillas RN Position: [facility] RN Member Role: Primary Care Nurse Name: China Briseno MD Position: [facility] Physician - Primary Care Member Role: PCP Address: [address] Telecom: Name: Teodora Shafer LPN Position: [facility] RN Member Role: Primary Care Nurse Name: Gillian Eastman RN Position: [facility] RN Member Role: Primary Care Nurse Name: Gillian Chatterjee RN Position: [facility] RN Member Role: Primary Care Nurse Name: Valarie Grant RN Position: [facility] OB RN Member Role: Primary Care Nurse Name: Ysabel Sullivan RN Position: [facility] RN Member Role: Primary Care Nurse Name: Alanna Rogers RN Position: [facility] RN Member Role: Primary Care Nurse Name: Juliet Koehler RN Position: [facility] RN Member Role: Primary Care Nurse Name: Jose Alfredo Deras RN Position: [facility] RN Member Role: Primary Care Nurse Name: Ca Guerrero RN Position: [facility] AMB Nurse Member Role: Primary Care Nurse Name: Gladys Aguirre RN Position: [facility] RN Member Role: Primary Care Nurse Name: Julianna Lui RN Position: [facility] RN Member Role: Primary Care Nurse Name: Khang Canchola RN Position: [facility] RN Member Role: Primary Care Nurse Name: Prabhakar Pabon RN Position: [facility] RN Member Role: Primary Care Nurse Name: Giovanna Gilbert RN Position: [facility] RN Supluis miguel Member Role: Primary Care Nurse Name: Elena Thurston RN Position: [facility] RN Member Role: Primary Care Nurse Name: Jackie Coates RN Position: [facility] RN Member Role: Primary Care Nurse Name: Светлана Tolentino RN Position: [facility] RN Member Role: Primary Care Nurse Name: Nida Tejeda RN Position: [facility] RN Member Role: Primary Care Nurse Name: Raquel Mcfadden LPN Position: [facility] RN Member Role: Primary Care Nurse Care Team Related Persons Name: CARMEN MARTINEZ Name: RAQUEL MARTINEZ Insurance Providers Guarantor name: [facility] Information #: 1 Payer: [facility] POS Member Number: NA Policy Number: NA Group Number: NA
--- OUTSIDE RECORDS SUMMARY | 2024-07-27 10:14 | XMS_ITS | Continuity of Care Document ---
Author Organization [facility] Address [address] [place] [id number]- Care Team Providers Care Pin Worker Name Role Phone China Briseno MD Primary Care Physician Encounter [facility] ACCT R [id number] Date(s): 06/02/24 - 07/02/24 [facility] [address] [place] [address]- Encounter Type: Triage Allergies, Adverse Reactions, Alerts [...] tablet, 5 Refills, 04/17/23 12:04:00 PM EDT, [facility] #[id number], 90, 2 tablet By Mouth 3 times [...] Refills, Maintenance, 04/21/24 9:32:00 AM EDT, Tablet, [facility] #[id number], Dose decrease, 1 tablet By Mouth 2 [...] 3 Refills, Maintenance, 06/19/24 7:32:00 AM EST, [facility] #[id number], 176, cm, 06/10/24 13:57:00 EST, Height, 90.3, kg, 07/25/23 16:18:00 EST, Dry Weight Start Date: 06/19/24 Status: Ordered Quantity: 90.0 Unit: tablet Repeat number: 1 Metoprolol Succinate ER 200 mg oral tablet, extended release 1 tablet, By Mouth, Daily, Hold if SBP<100, # 90 tablet, 3 Refills, Maintenance, 05/14/23 10:31:00 AM EDT, [facility] #[id number], 175, cm, 05/13/23 13:47:00 EDT, Height, 95, [...] Refills, Maintenance, 03/27/24 9:18:00 AM EDT, Tablet, [facility] #[id number], Partial fill upon patient request if the [...] Replace Required Details, Route to Pharmacy Electronically, [facility] #[id number], 176, cm, 03/27/24 9:08:00 EDT, Height, 90.3, kg, 07/25/23 16:18:00 EST, Dry Weight Start Date: 05/26/24 Status: Ordered Quantity: 135.0 Unit: tablet Repeat number: 1 rOPINIRole 0.25 mg oral tablet 3 tablet = 0.75 mg, By Mouth, 3 times a day, # 810 tablet, 0 Refills, Maintenance, 03/26/24 9:00:00 AM EDT, Tablet, [facility] #[id number], Partial fill upon patient request if the [...] 12/06/23 9:21:00 AM EDT,Route to Pharmacy Electronically, [facility] #[id number], 176, cm, 11/25/23 16:02:00 EDT, Height, 90.3, kg, 07/25/23 16:18:00 EST, Dry Weight Start Date: 12/06/23 Status: Ordered Quantity: 90.0 Unit: tablet Repeat number: 1 spironolactone 25 mg oral tablet 50 mg, 2, tablet, By Mouth, Daily, dose increase, # 180 tablet, Refills 3, Tot. Refills 3, Maintenance, 03/27/24 9:16:00 AM EDT, Route to Pharmacy Electronically, [facility] #[id number], 176, cm,03/27/24 9:08:00 EDT, Height, 90.3, kg, 07/25/23 16:18:00 EST, Dry Weight Start Date: 03/27/24 Stop Date: 03/22/25 Status: Ordered Quantity: 180.0 Unit: tablet Repeat number: 4 torsemide 20 mg oral tablet 1 tablet = 20 mg, By Mouth, 2 times a day, # 60 tablet, 4 Refills, Maintenance, 06/10/24 2:33:00 PMEST, Tablet, [facility] #[id number], Replaces furosemide/Lasix, 176, cm, 06/10/24 13:57:00 EST, [...] Confirmed Active Cardiomyopathy Confirmed Active CAD in [place] artery Confirmed Active Gastroesophageal reflux disease Confirmed [...] Team Personnel Name: Avril Casillas RN Position: [facility] RN Member Role: Primary Care Nurse Name: China Briseno MD Position: [facility] Physician - Primary Care Member Role: PCP Address: [address] Telecom: Name: Teodora Shafer LPN Position: [facility] RN Member Role: Primary Care Nurse Name: Gillian Eastman RN Position: [facility] RN Member Role: Primary Care Nurse Name: Gillian Chatterjee RN Position: [facility] RN Member Role: Primary Care Nurse Name: Valarie Grant RN Position: [facility] OB RN Member Role: Primary Care Nurse Name: Ysabel Sullivan RN Position: [facility] RN Member Role: Primary Care Nurse Name: Alanna Rogers RN Position: [facility] RN Member Role: Primary Care Nurse Name: Juliet Koehler RN Position: [facility] RN Member Role: Primary Care Nurse Name: Jose Alfredo Deras RN Position: [facility] RN Member Role: Primary Care Nurse Name: Ca Guerrero RN Position: [facility] AMB Nurse Member Role: Primary Care Nurse Name: Gladys Aguirre RN Position: [facility] RN Member Role: Primary Care Nurse Name: Julianna Lui RN Position: [facility] RN Member Role: Primary Care Nurse Name: Khang Canchola RN Position: [facility] RN Member Role: Primary Care Nurse Name: Prabhakar Pabon RN Position: [facility] RN Member Role: Primary Care Nurse Name: Giovanna Gilbert RN Position: [facility] RN Supluis miguel Member Role: Primary Care Nurse Name: Elena Thurston RN Position: [facility] RN Member Role: Primary Care Nurse Name: Jackie Coates RN Position: [facility] RN Member Role: Primary Care Nurse Name: Светлана Tolentino RN Position: [facility] RN Member Role: Primary Care Nurse Name: Nida Tejeda RN Position: [facility] RN Member Role: Primary Care Nurse Name: Raquel Mcfadden LPN Position: [facility] RN Member Role: Primary Care Nurse Care Team Related Persons Name: CARMEN MARTINEZ Name: RAQUEL MARTINEZ Insurance Providers Guarantor name: [facility] Information #: 1 Payer: [facility] POS Member Number: NA Policy Number: NA Group Number: NA
--- OUTSIDE RECORDS SUMMARY | 2024-07-27 10:14 | XMS_ITS | Continuity of Care Document ---
Author Organization [facility] Address [address] [place] [phone] Care Team Providers [employer] Name Role Phone China Briseno MD Primary Care Physician Encounter [facility] Date(s): 06/05/24 - 07/05/24 [facility] [address] [place] [phone] Encounter Type: Triage Allergies, Adverse Reactions, Alerts [...] tablet, 5 Refills, 04/17/23 12:04:00 PM EDT, [facility] #[id number], 90, 2 tablet By Mouth 3 times [...] Refills, Maintenance, 04/21/24 9:32:00 AM EDT, Tablet, [facility] #[id number], Dose decrease, 1 tablet By Mouth 2 [...] 3 Refills, Maintenance, 06/19/24 7:32:00 AM EST, [facility] #[id number], 176, cm, 06/10/24 13:57:00 EST, Height, 90.3, kg, 07/25/23 16:18:00 EST, Dry Weight Start Date: 06/19/24 Status: Ordered Quantity: 90.0 Unit: tablet Repeat number: 1 Metoprolol Succinate ER 200 mg oral tablet, extended release 1 tablet, By Mouth, Daily, Hold if SBP<100, # 90 tablet, 3 Refills, Maintenance, 05/14/23 10:31:00 AM EDT, [facility] #[id number], 175, cm, 05/13/23 13:47:00 EDT, Height, 95, [...] Refills, Maintenance, 03/27/24 9:18:00 AM EDT, Tablet, [facility] #[id number], Partial fill upon patient request if the [...] Replace Required Details, Route to Pharmacy Electronically, [facility] #[id number], 176, cm, 03/27/24 9:08:00 EDT, Height, 90.3, kg, 07/25/23 16:18:00 EST, Dry Weight Start Date: 05/26/24 Status: Ordered Quantity: 135.0 Unit: tablet Repeat number: 1 rOPINIRole 0.25 mg oral tablet 3 tablet = 0.75 mg, By Mouth, 3 times a day, # 810 tablet, 0 Refills, Maintenance, 03/26/24 9:00:00 AM EDT, Tablet, [facility] #[id number], Partial fill upon patient request if the [...] 12/06/23 9:21:00 AM EDT,Route to Pharmacy Electronically, [facility] #[id number], 176, cm, 11/25/23 16:02:00 EDT, Height, 90.3, kg, 07/25/23 16:18:00 EST, Dry Weight Start Date: 12/06/23 Status: Ordered Quantity: 90.0 Unit: tablet Repeat number: 1 spironolactone 25 mg oral tablet 50 mg, 2, tablet, By Mouth, Daily, dose increase, # 180 tablet, Refills 3, Tot. Refills 3, Maintenance, 03/27/24 9:16:00 AM EDT, Route to Pharmacy Electronically, [facility] #[id number], 176, cm,03/27/24 9:08:00 EDT, Height, 90.3, kg, 07/25/23 16:18:00 EST, Dry Weight Start Date: 03/27/24 Stop Date: 03/22/25 Status: Ordered Quantity: 180.0 Unit: tablet Repeat number: 4 torsemide 20 mg oral tablet 1 tablet = 20 mg, By Mouth, 2 times a day, # 60 tablet, 4 Refills, Maintenance, 06/10/24 2:33:00 PMEST, Tablet, [facility] #[id number], Replaces furosemide/Lasix, 176, cm, 06/10/24 13:57:00 EST, [...] Confirmed Active Cardiomyopathy Confirmed Active CAD in [place] artery Confirmed Active Gastroesophageal reflux disease Confirmed [...] Team Personnel Name: Avril Casillas RN Position: [facility] RN Member Role: Primary Care Nurse Name: China Briseno MD Position: [facility] Physician - Primary Care Member Role: PCP Address: [address] [place] [address] Telecom: Name: Teodora Shafer LPN Position: [facility] RN Member Role: Primary Care Nurse Name: Gillian Eastman RN Position: [facility] RN Member Role: Primary Care Nurse Name: Gillian Chatterjee RN Position: [facility] RN Member Role: Primary Care Nurse Name: Valarie Grant RN Position: [facility] OB RN Member Role: Primary Care Nurse Name: Ysabel Sullivan RN Position: [facility] RN Member Role: Primary Care Nurse Name: Alanna Rogers RN Position: [facility] RN Member Role: Primary Care Nurse Name: Juliet Koehler RN Position: [facility] RN Member Role: Primary Care Nurse Name: Jose Alfredo Deras RN Position: [facility] RN Member Role: Primary Care Nurse Name: Ca Guerrero RN Position: [facility] ROMAN Nurse Member Role: Primary Care Nurse Name: Gladys Aguirre RN Position: [facility] RN Member Role: Primary Care Nurse Name: Julianna Lui RN Position: [facility] RN Member Role: Primary Care Nurse Name: Khang Canchola RN Position: [facility] RN Member Role: Primary Care Nurse Name: Prabhakar Pabon RN Position: [facility] RN Member Role: Primary Care Nurse Name: Giovanna Gilbert RN Position: [facility] RN Supv Member Role: Primary Care Nurse Name: Elena Thurstno RN Position: [facility] RN Member Role: Primary Care Nurse Name: Jackie Coates RN Position: [facility] RN Member Role: Primary Care Nurse Name: Светлана Toelntino RN Position: [facility] RN Member Role: Primary Care Nurse Name: Nida Tejeda RN Position: [facility] RN Member Role: Primary Care Nurse Name: Raquel Mcfadden LPN Position: [facility] RN Member Role: Primary Care Nurse Care Team Related Persons Name: CARMEN MARTINEZ Name: RAQUEL MARTINEZ Insurance Providers Guarantor name: formerly [facility] Information #: 1 Payer: [facility] POS Member Number: BART Policy Number: NA Group Number: [id number]
--- OUTSIDE RECORDS SUMMARY | 2024-07-27 10:14 | XMS_ITS | Data Portability ---
Author Organization JEAN PAUL Seng [facility] Address [address] [place] [address] Assessment Encounter Date Assessment Date Assessment LastModified by Organization Details LastModified Time 11/07/2023 11/07/2023 PROBLEM: Status post Right hip jonathon-arthroplast y performed on07/26/24 HPI: Patient returns today for follow-up of their total hip arthroplasty. They report they have returned to most activities of daily living. The patient has no specific concerns today in the office. They have completed outpatient physical therapy. The patient has no sensation of leg length inequality. Past family, medical, social history and review of systems has been reviewed, updated and signed by me and is located in the patient? s chart. EXAM: The patient ambulates with slow short step length gait. The surgical wound is well-healed. There is a negative Stinchfield test. There is minimal lateral tenderness. The patient continues to ambulate with a cane. IMAGING: Previously obtained X-rays reviewed in the office today on [facility] P[facility]: AP pelvis and right frog lateral show appropriate position of the patient's right hip Jonathon arthroplasty. Stem position is satisfactory. Leg lengths appear appropriate. There is no evidence of fracture or implant failure. There is no evidence of fracture or implant failure. IMPRESSION: Status postRight hip jonathon-arthroplast y PLAN: At this point, the patient is doing extremely well following their total hip arthroplasty. I encouraged them to continue a home exercise and walking program. We discussed activity modification, dental prophylaxis, and the importance of long-term follow-up. I did encourage the patient to continue to utilize a cane due to his ambulatory status. He and his family are very satisfied with the outcome. I encouraged them to return to the office periodically for routine follow-up; sooner if any issues arise. I attempted to answer all of their questions today in the office. [facility] speech recognition customer security clerk software was used to create portions of this document. An attempt at proofreading has been made to minimize errors. Please call for corrections. alexandra Not available 11/07/2023 15:31:45 Plan of Treatment Reminders Order Date Submit Date Provider Last Modified By Organization Details Last Modified Time Details Appointments None record ed. Lab None record ed. Referral None record ed. Procedures None record ed. Surgeries None record ed. Imaging None record ed. Medication Orders None record ed. Patient TargetsNo targets recorded. Patient InstructionsNo instructions recorded. Reason for Referral None Reported. Results Created Date Observation Date Name Description Value Unit Range Abnormal Flag Note LastModifiedBy Organization Detail LastModifiedTime 03/27/2007/28/2023 imagi ng/di agnos tic resul t No observ ation record ed. [email or web address] Not Available 02/28 20:58:17 03/27/2007/26/2023 imagi ng/di agnos tic resul t No observ ation record ed. [email or web address] Not Available 02/28 20:58:18 Result Notes None recorded. Problems Name Problem SNOMED Code Status Onset Date Resolution Date Notes Provider Name and Address Organization Details Recorded Time No complaints [id number] Active Status : 'I'; Not Available [facility] 09:26:09 Problem Notes None recorded. Procedures Surgical History None recorded. Imaging Results Imaging Date Name Status LastModified by Organiz ation Details LastModified Time 07/28/2023 imaging/diag nostic result completed Information not available 03/27/2024 20:58:17 07/26/2023 imaging/diag nostic result completed Information not available 03/27/2024 20:58:18 Procedure Notes None recorded. Medical Equipment None Reported. Allergies No known drug allergies Medications Name Sig Start Date Stop Date Status Note LastModified by Organization Details LastModified Time quetiapine 25 mg tablet TAKE 1 TABLET BY MOUTH TWICE DAILY GIVE THIS EVERY MORNING AND AT SUPPER TIME active Not Available Not Available No t Available ropinirole 1 mg tablet TAKE 2 TABLETS BY MOUTH THREE TIMES DAILY active Not Available Not Available No t Available Nystop 100,000 unit/gram topical powder APPLY TOPICALLY TWICE DAILY active Not Available Not Available No t Available senna 8.6 mg tablet TAKE 1 TABLET BY MOUTH EVERY OTHER DAY NEEDED FOR CONSTIPAT ION active Not Available Not Available No t Available metoprolol succinate ER 200 mg tablet,exte nded release 24 hr TAKE 1 TABLET BY MOUTH DAILY active Not Available Not Available No t Available isosorbide mononitrate ER 30 mg tablet,exte nded release 24 hr TAKE 1 TABLET BY MOUTH DAILY IN THE MORNING active Not Available Not Available No t Available clonazepam 0.5 mg tablet TAKE 1 TABLET BY MOUTH DAILY AT BEDTIME active Not Available Not Available No t Available simvastatin 10 mg tablet TAKE 1 TABLET BY MOUTH EVERY EVENING active Not Available Not Available No t Available clopidogrel 75 mg tablet TAKE 1 TABLET BY MOUTH DAILY active Not Available Not Available No t Available spironolact one 25 mg tablet TAKE 1 TABLET BY MOUTH DAILY active Not Available Not Available No t Available tamsulosin 0.4 mg capsule TAKE 2 CAPSULES BY MOUTH EVERY DAY AT BEDTIME active Not Available Not Available No t Available ropinirole 0.25 mg tablet TAKE 3 TABLETS BY MOUTH THREE TIMES DAILY active Not Available Not Available No t Available pseudoephed rine-guaife nesin ER 80-700 mg tablet,exte nded release Percocet 5-325MG Tablet 1 every 4 - 6 hours as needed 08/05 completed Statu s: 'Disc ontin ued'; Not Available Not Available Not Available omeprazole 20 mg capsule,del ayed release TAKE 1 CAPSULE BY MOUTH DAILY active Not Available Not Available No t Available ammonium lactate 12 % topical cream APPLY TOPICALLY TO THE AFFECTED AREA DAILY NEEDED FOR DRY SKIN active Not Available Not Available No t Available furosemide 20 mg tablet TAKE 1 TABLET BY MOUTH DAILY FOR WEIGHT GAIN OF 3 LBS OR INCREASED LEG SWELLING active Not Available Not Available No t Available carbidopa 25 mg-levodopa 100 mg tablet TAKE 2 TABLETS BY MOUTH THREE TIMES DAILY active Not Available Not Available No t Available Potassium Chloride ER Potassium Chloride ER 10MEQ Capsule Extended Release 2023 active Statu s: 'Curr ent'; Not Available Not Available Not Available oxycodone HCl-oxycodo ne-ASA oxyCODONE HCl 5MG Tablet 2023 active Statu s: 'Curr ent'; Not Available Not Available Not Available Jardiance 10 mg tablet TAKE 1 TABLET BY MOUTH DAILY IN THE MORNING active Not Available Not Available No t Available Entresto 97 mg-103 mg tablet TAKE 1 TABLET BY MOUTH TWICE DAILY active Not Available Not Available No t Available Entresto 49 mg-51 mg tablet TAKE 1 TABLET BY MOUTH TWICE DAILY active Not Available Not Available No t Available Vitals None Recorded Social History None recorded. Functional Status None recorded. Mental Status None recorded. Family History Nothing Reported. Medical History No medical history recorded. Past Encounters Encounter ID Performer Location Encounter Start Date Encounter Closed Date Diagnosis/Indication Diagnosis SNOMED-CT Code Diagnosis ICD10 Code [id number] [facility] [address] [place] [address] 11/07/2023 14:43:25 11/28/2023 14:36:19 History of total replacement of right hip joint [id number] 31211 Z96.641 Health Concerns Section Related Observation LastModified by Organization Detai ls LastModified Time None Recorded Concern Status LastModified by Organization Details LastModified Time None Recorded Advance Directives Directive None Recorded Payers Encounter Date Sequence Insurance Name Policy Number Policy Kahn Covered Member ID Kahn Member ID Guarantor Name 11/07/2023 1 [facility] Florentino Ellis [id number] Florentino Ellis
--- OUTSIDE RECORDS SUMMARY | 2024-07-27 10:14 | XMS_ITS | Continuity of Care Document ---
Author Organization [facility] ter Address [address] [place] [address]- Care Team Providers Care [employer] Coordinator Name Role Phone China Briseno MD Primary Care Physician Encounter [facility] Date(s): 06/22/24 - 06/30/24 [facility] [address] [place] [id number] Encounter Diagnosis Altered mental state(Final) - 06/23/24 Discharge Disposition: Transfer Sales Coach Care Attending Physician: Lev VELASQUEZ, Sylvia Aguilar Admitting Physician: Freedom VELASQUEZ, Anne Friend Referring Physician: Not on Staff, Referring MD Encounter Type: Disch Obv Allergies, Adverse Reactions, Alerts Substance Criticality Severity [...] tablet, 5 Refills, 04/17/23 12:04:00 PM EDT, [facility] #[id number], 90, 2 tablet By Mouth 3 times a day, 175, cm, 08/28/23 17:16:00 EDT, Height, 95, kg, 03/24/23 16:15:00 [...] Refills, Maintenance, 04/21/24 9:32:00 AM EDT, Tablet, [facility] #[id number], Dose decrease, 1 tablet By Mouth 2 [...] 3 Refills, Maintenance, 06/19/24 7:32:00 AM EST, [facility] #[id number], 176, cm, 06/10/24 13:57:00 EST, Height, 90.3, kg, 07/25/23 16:18:00 EST, Dry Weight Start Date: 06/19/24 Status: Ordered Quantity: 90.0 Unit: tablet Repeat number: 1 Metoprolol Succinate ER 100 mg oral tablet, extended release 200 mg, XL Tablet, By Mouth, 06/30/24 9:00:00 AM EST Start Date: 06/30/24 Stop Date: 06/30/24 Status: Completed Repeat number: 1 Metoprolol Succinate ER 200 mg oral tablet, extended release 1 tablet, By Mouth, Daily, Hold if SBP<100, # 90 tablet, 3 Refills, Maintenance, 05/14/23 10:31:00 AM EDT, [facility] #[id number], 175, cm, 05/13/23 13:47:00 EDT, Height, 95, [...] Refills, Maintenance, 03/27/24 9:18:00 AM EDT, Tablet, [facility] #[id number], Partial fill upon patient request if the [...] Replace Required Details, Route to Pharmacy Electronically, [facility] #[id number], 176, cm, 03/27/24 9:08:00 EDT, Height, 90.3, kg, 07/25/23 16:18:00 EST, Dry Weight Start Date: 05/26/24 Status: Ordered Quantity: 135.0 Unit: tablet Repeat number: 1 rOPINIRole 0.25 mg oral tablet 3 tablet = 0.75 mg, By Mouth, 3 times a day, # 810 tablet, 0 Refills, Maintenance, 03/26/24 9:00:00 AM EDT, Tablet, [facility] #[id number], Partial fill upon patient request if the [...] 12/06/23 9:21:00 AM EDT,Route to Pharmacy Electronically, [facility] #[id number], 176, cm, 11/25/23 16:02:00 EDT, Height, 90.3, kg, 07/25/23 16:18:00 EST, Dry Weight Start Date: 12/06/23 Status: Ordered Quantity: 90.0 Unit: tablet Repeat number: 1 spironolactone 25 mg oral tablet 50 mg, 2, tablet, By Mouth, Daily, dose increase, # 180 tablet, Refills 3, Tot. Refills 3, Maintenance, 03/27/24 9:16:00 AM EDT, Route to Pharmacy Electronically, [facility] #[id number], 176, cm,03/27/24 9:08:00 EDT, Height, 90.3, kg, 07/25/23 16:18:00 EST, Dry Weight Start Date: 03/27/24 Stop Date: 03/22/25 Status: Ordered Quantity: 180.0 Unit: tablet Repeat number: 4 torsemide 20 mg oral tablet 1 tablet = 20 mg, By Mouth, 2 times a day, # 60 tablet, 4 Refills, Maintenance, 06/10/24 2:33:00 PMEST, Tablet, [facility] #[id number], Replaces furosemide/Lasix, 176, cm, 06/10/24 13:57:00 EST, [...] Confirmed Active Cardiomyopathy Confirmed Active CAD in [place] artery Confirmed Active Gastroesophageal reflux disease Confirmed [...] mellitus type 2, noninsulin dependent Confirmed Active Results Radiology Reports * Exam Date Time Procedure Performing Provider Status 06/23/24 9:20 PM US Doppler Ext Lower Venous Left Robertk y Linca; Auth (Verified) Notes: (US Doppler Ext Lower Venous Left) Reason For Exam: Swelling Extremities RESULT: US Doppler Ext Lower Venous Left US Doppler Ext Lower Venous Left Reason: Swelling Extremities; Clinical Question(s): Thrombus COMPARISON: None IMAGING TECHNIQUE: Ultrasound of the veins from the groin through the calf was performed using grayscale, color, and spectral Doppler ultrasound assessing for complete compressibility and normal flowcharacteristics. FINDINGS: Common femoral vein: Patent. No thrombosis. Femoral vein: Patent. No thrombosis. Popliteal vein: Patent. No thrombosis. Gastrocnemius veins: The visualized portions are patent without evidence of thrombosis. Peroneal veins: The visualized portions are patent without evidence of thrombosis. Posterior tibial veins: The visualized portions are patent without evidence of thrombosis. Contralateral common femoral vein: Not imaged as patient couldn't continue with study. OTHER FINDINGS: Fluid collection in the left popliteal fossa measuring up to 1.9 cm. IMPRESSION: No evidence of deep venous thrombosis. Small left-sided Morrell's cyst. WSN: [id number] Ordering Physician: Jaqueline Nayak Dictated By: Amarjit Woodall MD Dictated Date/Time: 06/23/24 9:55 pm Reviewed By: Amarjit Woodall MD Signed By: Amarjit Woodall MD Signed Date/Time: 06/23/24 9:55 pm Transcribed By: PALAK Transcribed Date/Time: 06/23/24 9:54 pm * Exam Date Time Procedure Performing Provider Status 06/22/24 10:[address] Abd/Pelvis W/ IV Contrast Only Lola Antunez; Dav (Verified) Notes: (CT Abd/Pelvis W/ IV Contrast Only) Reason For Exam: LLQ abdominal pain;Other: RESULT: CT Abd/Pelvis W/ IV Contrast Only CT Abd/Pelvis W/ IV Contrast Only Reason: LLQ abdominal pain; Clinical Question(s): Diverticulitis TECHNIQUE: Spiral CT through the abdomen and pelvis with IV contrast formatted in 3 planes. 100 cc of Isovue 300 was administered intravenously. This study was performed without oral contrast. Weight-based protocol using automatic tube modulation was used to optimize exposure parameters. CTDIvol Body: 22.17 mGy, DLP Body: 1168 mGy*cm. COMPARISON: 07/25/2023 and 05/04/2019 FINDINGS: Law Tutor View Findings, Lines and Tubes: None. Visualized Chest: Lung bases are clear. No pleural effusion. The heart is mildly enlarged, unchanged. Small pericardial effusion. Diaphragm: Normal. Liver: Normal. Gallbladder: Absent consistent with prior cholecystectomy. Bile ducts: No biliary ductal dilation. Spleen: Normal. Pancreas: Few scattered parenchymal calcifications which may be related to prior inflammation. Adrenal glands: Normal. Kidneys and ureters: No hydronephrosis, stones, or suspicious masses. Bladder: Normal. Reproductive organs: No pelvic mass or fluid collection. Stomach, small bowel, and large bowel: No evidence of obstruction or inflammation Appendix: Not seen, but no evidence of appendicitis. Peritoneum and retroperitoneum: No ascites or pneumoperitoneum. No omental or mesenteric lesions. Lymph nodes: No enlarged lymph nodes. Blood vessels: Mild vascular calcifications but no aneurysm. No evidence of venous thrombosis. Abdominal and pelvic wall: Small bilateral fat-containing inguinal hernias. Bones: Unchanged severe compression deformity of T12 resulting in kyphosis. No other lumbar spine fracture. No spondylolisthesis. No abnormal bowel the bony pelvis and proximal femurs. Right hip replacement. IMPRESSION: No acute process. This includes no bowel obstruction, diverticulitis, hydronephrosis, renal stone disease, or abscess. No acute fracture. I have personally reviewed the images and I agree with this report. WSN: [id number] Ordering Physician: Victor Hugo Stephens Dictated By: Jonathon Saunders DO Dictated Date/Time: 06/22/24 11:05 p Reviewed By: Ángel Strong MD Signed By: Ángel Strong MD Signed Date/Time: 06/22/24 11:10 pm Transcribed By: PALAK Transcribed Date/Time: 06/22/24 10:24 pm * Exam Date Time Procedure Performing Provider Status 06/22/24 9:[address] Head/Brain W/O Contrast Lola Antunez; Dav (Verified) Notes: (CT Head/Brain W/O Contrast) Reason For Exam: AMS;Other: RESULT: CT Head/Brain W/O Contrast CT Head/Brain W/O Contrast INDICATION: AMS; Clinical Question(s): Hematoma; Order Comment: TECHNIQUE: Noncontrast head CT using axial technique and reconstructed in axial and coronal planes.Iterative reconstruction techniques are used to optimize dose and image quality. CTDIvol Head: 48.60 mGy, DLP Head: 778 mGy*cm. COMPARISON: 07/17/2023 FINDINGS: Law Tutor view findings, lines and tubes: None. BRAIN AND EXTRA-AXIAL SPACES: No parenchymal hemorrhage, midline shift, or mass effect. Talavera-white matter differentiation is wellpreserved. No acute infarct. Negative insular ribbon sign. Atherosclerotic vascular calcification of the carotid arteries but negative hyperdense vessel sign. The local anesthesia the left vertebral artery. 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 Mild prominence of the ventricles and sulci consistent with parenchymal volume loss. Mild low-density white matter changes. No subarachnoid hemorrhage. No subdural or epidural collection. CALVARIUM, SKULL BASE, AND SOFT TISSUES: No fractures or suspicious bony lesions. The paranasal sinuses and mastoid air cells are essentially clear. Visualized orbits and globes are intact. The extracranial soft tissues are unremarkable. IMPRESSION: No acute intracranial pathology. I have personally reviewed the images and I agree with this report. WSN: [id number] Ordering Physician: Victor Hugo Stephens Dictated By: Elisha Ortiz MD Dictated Date/Time: 06/22/24 10:33 p Reviewed By: Amarjit Woodall MD Signed By: Amarjit Woodall MD Signed Date/Time: 06/22/24 10:38 pm Transcribed By: PALAK Transcribed Date/Time: 06/22/24 10:02 pm * Exam Date Time Procedure Performing Provider Status 06/22/24 9:20 PM Chest 2 Views Frontal and Lat Joelle Cool; Auth (Verified) Notes: (Chest 2 Views Frontal and Lat) Reason For Exam: Shortness of Breath, Fever;Other: RESULT: Chest 2 Views Frontal and Lat Chest 2 Views Frontal and Lat Indication: Shortness of Breath, Fever; Clinical Question(s): Pneumonia COMPARISON: 03/04/24 FINDINGS: LINES AND TUBES: None. LUNGS AND PLEURA: Clear lungs. Mild prominence of the pulmonary vascularity. No pleural effusion. No pneumothorax. HEART, MEDIASTINUM AND JENNIFER: Moderate prominence of the cardiac silhouette. Normal mediastinal and hilar contour. BONES AND SOFT TISSUES: Vertebra plana of T12. IMPRESSION: Mild prominence of pulmonary vasculature with enlarged cardiac silhouette, concerning for fluid overload. I have personally reviewed the images and I agree with this report. WSN: [id number] Ordering Physician: Victor Hugo Stephens Dictated By: Elisha Ortiz MD Dictated Date/Time: 06/22/24 9:34 pm Reviewed By: Amarjit Woodall MD Signed By: Amarjit Woodall MD Signed Date/Time: 06/22/24 9:39 pm Transcribed By: PALAK Transcribed Date/Time: 06/22/24 9:33 pm Vital Signs Most recent to oldest [Reference Range]: 1 2 3 Height 173 cm (06/30/24 6:48 AM) 173 cm (06/30/24 5:45 AM) 173 cm (06/29/24 8:47 PM) Weight 98.5 kg (06/23/24 10:43 AM) Oxygen Saturation [94-100 %] 96 % (06/30/24 6:48 AM) 98 % (06/30/24 5:45 AM) 97 % (06/29/24 8:47 PM) Pulse Rate [55-90 bpm] 94 bpm *H* (06/30/24 7:36 AM) 94 bpm *H* (06/30/24 6:48 AM) 84 bpm (06/30/24 5:45 AM) Body Mass Index [18.5-24.99 kg/m2] 32.91 kg/m2 *>HHI* (06/23/24 10:43 AM) Blood Pressure [90-138/55-84 mm Hg] 152/73mm Hg *H* (06/30/24 7:36 AM) 152/73mm Hg *H* (06/30/24 6:48 AM) 128/61mm Hg (06/30/24 5:45 AM) Respiratory Rate [16-30 br/min] 18 br/min (06/30/24 6:48 AM) 18 br/min (06/30/24 5:45 AM) 18 br/min (06/29/24 8:47 PM) Temperature [96.8-100.4 DegF] 97.7 DegF (06/30/24 6:48 AM) 98 DegF (06/30/24 5:45 AM) 97.7 DegF (06/29/24 8:47 PM) Mode of Delivery (Oxygen) Room air (06/30/24 6:48 AM) Room air (06/30/24 5:45 AM) Room air (06/29/24 8:47 PM) Blood pressure sites Arm, right (06/30/24 6:48 AM) Arm, right (06/30/24 5:45 AM) Arm, right (06/29/24 8:47 PM) Temperature Route Oral (06/30/24 6:48 AM) Oral (06/30/24 5:45 AM) Oral (06/29/24 8:47 PM) Dry Weight 98.5 kg (06/23/24 10:43 AM) Social History Social History Type Response Smoking Status Never smoker entered on: 08/24/16 Sex Sex Representation Male (finding) Admission evaluation note * Mercedes Carlson MD: MODIFY, PERFORM Event Display: Admission Note Authored Date: [id number] Patient: ??SAUL MARTINEZ ? Age:??73 Years?Sex:??Male?:??1950?? Chief Complaint/Reason for Consultation family called EMS d/t pt's generalized weakness/AMS. per family, pt has been off. pt reports difficulty word finding/finishing sentences, feeling spacey x6mos. hx parkinson's, CHF, afib. History of Present Illness Patient presented to ED with generalized weakness and altered mental status per family. ??As per report patient is having difficulty word finding and finishing sentences.?? Patient was found to be febrile with leukocytosis with no obvious??infectious source. ??Patient is a known patient of Parkinson's disease.?? When I went to see the patient patient is calm and cooperative. ??Denied any headache??visual blurring chest pain cough shortness of breath rhinorrhea??nausea vomiting abdominal pain diarrhea. ??There is no obvious focal open wound. ??Denied any recent??travel??inside or outside [facility]. ??Denies any recent vaccination. ??Denied any joint pain rash arthralgia.?? Patient is mentally at baseline. ??Able to tell patient's name date of ??current month and year. ??Patient is??coherent??with his surroundings knows that he is in the hospital Review of Systems Positive for weakness fatigue word finding difficulty.?? Negative for??chest pain??shortness of breath nausea vomiting diarrhea??hematemesis melena cough notices joint pain arthralgia??headache Objective Vital Signs?? Temperature:??100.5 DegF??High (06/22/24 22:42:00) Temperature Route: Rectal (06/22/24 22:42:00) Pulse Rate:??94 bpm??High (06/23/24 00:22:00) Respiratory Rate: 22 br/min (06/23/24 00:22:00) Systolic Blood Pressure:??139 mm Hg??High (06/23/24 00:22:00) Diastolic Blood Pressure:??91 mm Hg??High (06/23/24 00:22:00) Mean Arterial Pressure: 103 mm Hg (06/22/24 22:42:00) Pulse Pressure: 48 mm Hg (06/23/24 00:22:00) Oxygen Saturation: 95 % (06/23/24 00:22:00) Mode of Delivery (Oxygen): Room air (06/23/24 00:22:00) Early Warning Score:??10??Critical (06/23/24 00:23:16) ? Pain Scores?? No qualifying data available. ? Intake/Output? No Data Available ? Physical Exam Constitutional: Alert, in no acute distress. Head EENT: Extraocular muscle movement intact.??Moist mucous membranes.?? Neck: Supple. No JVD. Respiratory: Clear to auscultation. No wheezing or crackles. No use of accessory muscles. Cardiovascular: S1S2 regular. No murmurs, rubs or gallops. Gastrointestinal: Abdomen soft, non-tender, non-distended. Normal bowel sounds. Genitourinary: No CVA tenderness. Extremities: No lower extremity pitting??edema. No cyanosis or clubbing. Neurologic: AAOx3, Speech normal. No focal neurological deficits. Skin: No rash. Psychiatric: Normal mood and affect Assessment/Plan Diagnoses Chronic HFrEF (heart failure with reduced ejection fraction) ??(I50.22) Parkinson's disease ??(G20.A1) Sepsis ??(A41.9) ?? Sepsis (A41.9):??Sepsis of unclear source.??Tmax 100.5 hemodynamically stable on room air leukocytosis with significant left shift.??Stable H&H platelet electrolytes kidney function acid-base liver function test within normal limit except mildly elevated bilirubin lactic acid 2.8 COVID-negativeUA negative for infection.??CT abdomen and pelvis no obvious source.??Chest x-ray no obvious pneumonia.??CT head no acute changes.??No sinus tenderness.??No dental abscess or caries noted.??No open wound.??No diarrhea.??Abdomen examination benign.??No neck rigidity.??Rigidity noted in bilateral lower extremity secondary to parkinsonism.??At this point there is no obvious clinical source however because of extremely elevated white count we will start with broad-spectrum antibiotic to cover gram-positive and gram-negative organism.??Follow-up blood culture.??ID consult requested.??Patient is mentally back to baseline echo to r/o infective endocarditiis ?? Parkinson's disease (G20.A1):??Continue levodopa carbidopa/ropinirole ?? Chronic HFrEF (heart failure with reduced ejection fraction) (I50.22):??Continue goal-directed medical therapy??with Entresto??metoprolol spironolactone.?Jardiance is nonformulary in the hospital ?ACEI or ARB for LVSD:??ARB has been ordered ?? VTE Prophylaxis:??PCB ?VTE Prophylaxis Assessment:??VTE Prophylaxis Ordered ?? Discharge Planning:??to be determined? Ongoing Medical Necessity:??IV abx, blood cx??ID eval? Code Status:??full presumed?Order Code Status:??Code Status Ordered ? Estimated Discharge Date TBD ? Histories Allergies Allergies ?(Active and Proposed Allergies Only) tetanus immune globulin? (Severity: Unknown severity, Onset: Unknown) ? Past Medical History/Problem List Active Problems(18) Angina at rest Atrial fibrillation CAD in [place] artery Cardiomyopathy Diabetes mellitus type 2, noninsulin dependent Erectile dysfunction Gastroesophageal reflux disease Heart failure with improved ejection fraction (HFimpEF) Heart failure with reduced ejection fraction Hyperlipidemia Hypertension Hypotension Nocturia Obese class I Obesity, Class III, BMI 40-49.9 (morbid obesity) Parkinson disease Presence of left atrial appendage closure device REM behavioral disorder ? Past Surgical History Laparoscopic cholecystectomy ? Family History Family History Negative. ? Medications Home Medications Acetaminophen (acetaminophen 325 mg oral tablet)?650?Milligram?By Mouth?Every 6 hours Aspirin (aspirin 81 mg oral delayed release tablet)?81?Milligram?By Mouth?Daily Carbidopa-Levodopa (carbidopa-levodopa 25 mg-100 mg oral tablet)?2?tab(s)?By Mouth?3 times a day Cholecalciferol (cholecalciferol 1000 intl units oral capsule)?1?capsule?1,000?International Unit?By Mouth?Daily Clonazepam (clonazePAM 0.5 mg oral tablet)?1?tab(s)?By Mouth?Daily at bedtime?for 30?Days empagliflozin (Jardiance 10 mg oral tablet)?1?tab(s)?By Mouth?Daily in AM Metoprolol (Metoprolol Succinate ER 200 mg oral tablet, extended release)?1?tab(s)?By Mouth?Daily?Hold if SBP<100 Multivitamin (Multi Vitamin+)?1?tab(s)?By Mouth?Daily Nitroglycerin (nitroglycerin 0.3 mg sublingual tablet)?1?tab(s)?0.3?Milligram?Sublingual?Every 5 minutes?as needed?as needed for chest pain?not to exceed 3 doses/15 min--ifpain persists, seek medical attention Nystatin Topical (Nystop 829238 u/gm powder)?1?adonis?Topically?2 times a day Omeprazole (omeprazole 20 mg oral enteric coated capsule)?1?capsule?20?Milligram?By Mouth?Daily Potassium Chloride (Potassium Chloride (Eqv-K-Tab) 20 mEq oral tablet, extended release)?1?tab(s)?20?Milliequivalent?By Mouth?Daily?for 7?Days Quetiapine (QUEtiapine 25 mg oral tablet)?See Instructions?TAKE 1/2 TABLET BY MOUTH EVERY MORNING AND 1 TABLET WITH SUPPER Ropinirole (rOPINIRole 0.25 mg oral tablet)?3?tab(s)?0.75?Milligram?By Mouth?3 times a day sacubitril-valsartan (Entresto 49 mg-51 mg oral tablet)?1?tab(s)?By Mouth?2 times a day Senna (Senna 8.6 mg oral tablet)?17.2?Milligram?2?tab(s)?By Mouth?Daily at supper?8.6?1 Simvastatin (simvastatin 10 mg oral tablet)?1?tablet?By Mouth?Daily at bedtime Spironolactone (spironolactone 25 mg oral tablet)?50?Milligram?2?tablet?By Mouth?Daily?for 90?Days?dose increase Tamsulosin (Flomax 0.4 mg oral capsule)?0.4?Milligram?By Mouth?Daily torsemide (torsemide 20 mg oral tablet)?1?tab(s)?20?Milligram?By Mouth?2 times a day ? Inpatient Medications Medications (21) Active SCHEDULED: (14) Aspirin 81 mg EC Tablet (aspirin 81 mg oral delayed release tablet) ??81 mg, By Mouth, Daily Carbidopa 25 mg / Levodopa 100 mg Tablet (carbidopa-levodopa 25 mg-100 mg oral tablet) ??2 tablet, By Mouth, 3 times a day Metoprolol 100 mg XL Tablet (Metoprolol Succinate ER 100 mg oral tablet, extended release) ??200 mg, By Mouth, Daily NaCl 0.9% Flush 3ml (NaCL 0.9% Flush) ??3 mL, IV Push, Every 8 hours Piperacillin/Tazobactam 3.375 Gm Inj (Zosyn Extended IVPB) ??3.375 Gm, IVPB, Every 8 hours Quetiapine 25 mg Tablet (QUEtiapine 25 mg oral tablet) ??12.5 mg, By Mouth, Daily before breakfast Quetiapine 25 mg Tablet (QUEtiapine 25 mg oral tablet) ??25 mg, By Mouth, Daily at supper Ropinirole 0.25 mg Tablet (rOPINIRole 0.25 mg oral tablet) ??0.75 mg, By Mouth, 3 times a day Sacubitril-Valsartan 49 mg-51 mg Tablet (Entresto 49 mg-51 mg oral tablet) ??1 tablet, By Mouth, 2 times a day Simvastatin 10 mg Tablet (simvastatin 10 mg oral tablet) ??10 mg, By Mouth, Daily at bedtime Spironolactone 25 mg Tablet (spironolactone 25 mg oral tablet) ??50 mg, By Mouth, Daily Tamsulosin 0.4 mg Capsule (Flomax 0.4 mg oral capsule) ??0.4 mg, By Mouth, Daily Torsemide 20 mg tablet (torsemide 20 mg oral tablet) ??20 mg 1 tablet, By Mouth, 2 times a day Vancomycin 1250 mg/250 mL NaCl 0.9% (Vancomycin IVPB) ??1,250 mg 250 mL, IVPB, Every 12 hours CONTINUOUS: (0) PRN: (7) Dextromethorphan-Guaifenesin 20 mg-200 mg/10 mL Liqu UD (Robitussin DM Liquid) ??10 mL, By Mouth, Every 4 hours Docusate Sodium 100 mg Capsule (Docusate Sodium Capsule) ??100 mg 1 capsule, By Mouth, 2 times a day Melatonin 3 mg Tablet (Melatonin Tablet) ??3 mg, By Mouth, Daily at bedtime NaCl 0.9% Flush 3ml (NaCL 0.9% Flush) ??3 mL, IV Push, Every 8 hours Polyethylene Glycol 17 Gm Powder (MiraLax Powder) ??17 Gm 1 pack/packet, By Mouth, Daily Senna Tablet ??8.6 mg 1 tablet, By Mouth, 2 times a day Simethicone 80 mg Chewable Tablet (Simethicone Tablet) ??80 mg, Chew, 3 times a day ? 72 Hour Antibiotic History Stopped Antibiotics Stop Date/Time Last Administered First Administered Ceftriaxone??1 Gm, 100 mL/hr, IVPB, Once 06/22/2024 23:10 06/22/2024 23:08 06/22/2024 23:08 ? Results Recent Labs BLOOD COUNT & DIFF WBC 29.0 k/mm3 (High)?? 06/22/2024 21:10 RBC 4.67 m/mm3 (Low)?? 06/22/2024 21:10 Hgb 14.3 Gm/dL ()?? 06/22/2024 21:10 Hct 42.0 % ()?? 06/22/2024 21:10 MCV 89.9 femtoliters ()?? 06/22/2024 21:10 MCH 30.6 pg ()?? 06/22/2024 21:10 MCHC 34.0 Gm/dL ()?? 06/22/2024 21:10 Platelet Count 166 k/mm3 ()?? 06/22/2024 21:10 RDW-SD 41.5 femtoliters ()?? 06/22/2024 21:10 MPV 9.7 femtoliters ()?? 06/22/2024 21:10 Nucleated RBC (Automated) 0.0 #/100 WBC'S ()?? 06/22/2024 21:10 Abs. NRBC 0.0 k/mm3 ()?? 06/22/2024 21:10 Abs. Neut 26.1 k/mm3 (High)?? 06/22/2024 21:10 Abs. Lymph 0.6 k/mm3 (Low)?? 06/22/2024 21:10 Abs. Calloway 1.5 k/mm3 (High)?? 06/22/2024 21:10 Abs. Eo 0.0 k/mm3 ()?? 06/22/2024 21:10 Abs. Baso 0.1 k/mm3 ()?? 06/22/2024 21:10 Neut % 90.1 % (High)?? 06/22/2024 21:10 Lymph % 2.2 % (Low)?? 06/22/2024 21:10 Calloway % 5.3 % ()?? 06/22/2024 21:10 Eos % 0.1 % ()?? 06/22/2024 21:10 Baso % 0.2 % ()?? 06/22/2024 21:10 Imm Gran 2.1 % ()?? 06/22/2024 21:10 Abs. Imm Gran 0.6 k/mm3 ()?? 06/22/2024 21:10 ?? CARDIAC High Sensitivity Troponin (HSTnT) 17 ng/L ()?? 06/22/2024 21:10 ?? CHEM GENERAL Sodium 142 mmol/L ()?? 06/22/2024 21:10 Potassium 4.1 mmol/L ()?? 06/22/2024 21:10 Chloride 102 mmol/L ()?? 06/22/2024 21:10 Bicarbonate Level 27 mmol/L ()?? 06/22/2024 21:10 Anion Gap 13 ()?? 06/22/2024 21:10 Glucose Level 145 mg/dL (High)?? 06/22/2024 21:10 BUN 27 mg/dL (High)?? 06/22/2024 21:10 Creatinine-Blood 1.16 mg/dL ()?? 06/22/2024 21:10 Estimated GFR Creatinine 67 ML/MIN/1.73 M2 ()?? 06/22/2024 21:10 Calcium 9.3 mg/dL ()?? 06/22/2024 21:10 Calcium, Ionized pH Corrected 1.19 mmol/L ()?? 06/22/2024 21:10 Magnesium 1.9 mg/dL ()?? 06/22/2024 21:10 Protein, Total 7.0 Gm/dL ()?? 06/22/2024 21:10 Albumin 4.1 Gm/dL ()?? 06/22/2024 21:10 AG Ratio 1.4 ()?? 06/22/2024 21:10 Alkaline Phosphatase 69 units/L ()?? 06/22/2024 21:10 AST (SGOT) 21 units/L ()?? 06/22/2024 21:10 ALT (SGPT) 11 units/L ()?? 06/22/2024 21:10 Bilirubin, Total 2.9 mg/dL (High)?? 06/22/2024 21:10 Lactate 2.8 mmol/L (High)?? 06/22/2024 21:10 ?? COAG INR 1.2 (High)?? 06/22/2024 21:10 Protime (PT) 12.4 seconds (High)?? 06/22/2024 21:10 ?? ENDOCRINE/TUMOR MARKER TSH 0.95 uIU/mL ()?? 06/22/2024 21:10 ?? UA/URINALYSIS Appear/Color, Urine LIGHT YELLOW ()?? 06/22/2024 20:40 Specific [place], Urine 1.022 ()?? 06/22/2024 20:40 pH, Urine 5.5 ()?? 06/22/2024 20:40 Albumin, Urine NEGATIVE ()?? 06/22/2024 20:40 Glucose, Urine 4+ (Abnormal)?? 06/22/2024 20:40 Ketones, Urine NEGATIVE ()?? 06/22/2024 20:40 Bilirubin, Urine NEGATIVE ()?? 06/22/2024 20:40 Hemoglobin, Urine TRACE (Abnormal)?? 06/22/2024 20:40 Nitrite, Urine NEGATIVE ()?? 06/22/2024 20:40 Leukocyte, Urine NEGATIVE ()?? 06/22/2024 20:40 Urobilinogen NORMAL mg/dL ()?? 06/22/2024 20:40 WBC's, Urine 4 /HPF ()?? 06/22/2024 20:40 RBC's, Urine 2 /HPF ()?? 06/22/2024 20:40 Squamous Epith 1 /HPF ()?? 06/22/2024 20:40 Hold Urine Culture Testing available 48 hours from time of collection. ()?? 06/22/2024 20:40 ?? VIROLOGY COVID-19 by RT-PCR NEGATIVE ()?? 06/22/2024 20:40 ? Abnormal Labs ?? BLOOD COUNT & DIFF Abs. Imm Gran?0.6 k/mm3 ()?06/22/2024 21:10 Abs. Lymph?0.6 k/mm3 (Low)?06/22/2024 21:10 Abs. Calloway?1.5 k/mm3 (High)?06/22/2024 21:10 Abs. NRBC?0.0 k/mm3 ()?06/22/2024 21:10 Abs. Neut?26.1 k/mm3 (High)?06/22/2024 21:10 Imm Gran?2.1 % ()?06/22/2024:10 Lymph %?2.2 % (Low)?06/22/2024:10 Neut %?90.1 % (High)?06/22/2024 21:10 Nucleated RBC (Automated)?0.0 #/100 WBC'S ()?06/22/2024:10 RBC?4.67 m/mm3 (Low)?06/22/2024 21:10 RDW-SD?41.5 femtoliters ()?06/22/2024 21:10 WBC?29.0 k/mm3 (High)?06/22/2024 21:10 ?? CARDIAC High Sensitivity Troponin (HSTnT)?17 ng/L () ?06/22/2024 21:10 ?? CHEM GENERAL AG Ratio?1.4 ()?06/22/2024 21:10 BUN?27 mg/dL (High)?06/22/2024 21:10 Bilirubin, Total?2.9 mg/dL (High)?06/22/2024 21:10 Estimated GFR Creatinine?67 ML/MIN/1.73 M2 ()?06/22/2024 21:10 Glucose Level?145 mg/dL (High)?06/22/2024 21:10 Lactate?2.8 mmol/L (High)?06/22/2024 21:10 ?? COAG INR?1.2 (High)?06/22/2024 21:10 Protime (PT)?12.4 seconds (High)?06/22/2024 21:10 ?? UA/URINALYSIS Albumin, Urine?NEGATIVE ()?06/22/2024 20:40 Appear/Color, Urine?LIGHT YELLOW ()?06/22/2024 20:40 Bilirubin, Urine?NEGATIVE ()?06/22/2024 20:40 Glucose, Urine?4+ (Abnormal)?06/22/2024 20:40 Hemoglobin, Urine?TRACE (Abnormal)?06/22/2024 20:40 Hold Urine Culture?Testing available 48 hours from time of collection. () ?06/22/2024 20:40 Ketones, Urine?NEGATIVE ()?06/22/2024 20:40 Leukocyte, Urine?NEGATIVE ()?06/22/2024 20:40 Nitrite, Urine?NEGATIVE ()?06/22/2024 20:40 Urobilinogen?NORMAL mg/dL ()?06/22/2024 20:40 ?? VIROLOGY COVID-19 by RT-PCR?NEGATIVE ()?06/22/2024 20:40 ?? Note: Critical results are displayed in red. ? CBC, CBC w/Diff?? CBC?? Differential?? WBC:??29 k/mm3??High (21:10) Abs. Neut:??26.1 k/mm3??High (21:10) RBC:??4.67 m/mm3??Low (21:10) Abs. Lymph:??0.6 k/mm3??Low (21:10) Hct: 42 % (21:10) Abs. Calloway:??1.5 k/mm3??High (21:10) RDW-SD: 41.5 femtoliters (21:10) Abs. Eo: 0 k/mm3 (21:10) Nucleated RBC (Automated): 0 #/100 WBC'S (21:10) Abs. Baso: 0.1 k/mm3 (21:10) Abs. NRBC: 0 k/mm3 (21:10) Neut %:??90.1 %??High (21:10) ?? Lymph %:??2.2 %??Low (21:10) ?? Calloway %: 5.3 % (21:10) ?? Eos %: 0.1 % (21:10) ?? Baso %: 0.2 % (21:10) ?? Imm Gran: 2.1 % (21:10) ?? Abs. Imm Gran: 0.6 k/mm3 (21:10) ? BMP, Mg, and Phos Anion Gap: 13 (21:10) Bicarbonate Level: 27 mmol/L (21:10) BUN:??27 mg/dL??High (21:10) Calcium: 9.3 mg/dL (21:10) Calcium, Ionized pH Corrected: 1.19 mmol/L (21:10) Chloride: 102 mmol/L (21:10) Creatinine-Blood: 1.16 mg/dL (21:10) Estimated GFR Creatinine: 67 ML/MIN/1.73 M2 (21:10) Glucose Level:??145 mg/dL??High (21:10) Magnesium: 1.9 mg/dL (21:10) Potassium: 4.1 mmol/L (21:10) Sodium: 142 mmol/L (21:10) ?? Coagulation Profile INR:??1.2??High (21:10) Protime (PT):??12.4 seconds??High (21:10) ?? LFT Albumin: 4.1 Gm/dL (21:10) Alkaline Phosphatase: 69 units/L (21:10) ALT (SGPT): 11 units/L (21:10) AST (SGOT): 21 units/L (21:10) Bilirubin, Total:??2.9 mg/dL??High (21:10) Protime (PT):??12.4 seconds??High (21:10) ?? Urinalysis Albumin, Urine: NEGATIVE (20:40) Appear/Color, Urine: LIGHT YELLOW (20:40) Bilirubin, Urine: NEGATIVE (20:40) Glucose, Urine: 4+ Abnormal (20:40) Hemoglobin, Urine: TRACE Abnormal (20:40) Hold Urine Culture: Testing available 48 hours from time of collection. (20:40) Ketones, Urine: NEGATIVE (20:40) Leukocyte, Urine: NEGATIVE (20:40) Nitrite, Urine: NEGATIVE (20:40) pH, Urine: 5.5 (20:40) RBC's, Urine: 2 /HPF (20:40) Specific [place], Urine: 1.022 (20:40) Squamous Epith: 1 /HPF (20:40) Urobilinogen: NORMAL (20:40) WBC's, Urine: 4 /HPF (20:40) ?? Microbiology ?? COVID-19 (Novel Coronavirus), Rapid PCR?? Completed?? Source: Nasal Body Site: Nose Collected Dt/Tm: 06/22/2024 20:26 Last Updated Dt/Tm: 06/22/2024 21:25 ? Cardiology Labs High Sensitivity Troponin (HSTnT): 17 ng/L (06/22/24 21:10:00) ? EKG study * Event Display: ECG 12-Lead Authored Date: Please click on pdf link to open report * Event Display: ECG 12-Lead Authored Date: Ventricular Rate: 86 BPM QRS Duration: 108 ms Q-T Interval: 398 ms QTC Calculation(Bazett): 476 ms R Goodman: -48 degrees T Goodman: 57 degrees Atrial fibrillation Left anterior fascicular block Abnormal ECG When compared with ECG of 04-Mar-2024 06:19, No significant change was found Confirmed by Cody Sargent ([id number]) on 06/24/2024 7:07:20 AM [place]: Cody Sargent Heart * Event Display: Echocardiogram - Complete Authored Date: [id number] Transthoracic Echocardiography Report (TTE) Patient Demographics Patient Name SAUL MARTINEZ Date of Study 06/26/2024 Corporate Gender Male Facility Race .[id number] Ethnicity Date of 1950 Height: 69.29 inches Age 73 year(s) Weight: 224.87 pounds Accession Number [id number] BSA: 2.18 m2 Room Number [id number] BMI: 32.93 kg/m2 Referring Aldo Long MD Interpreting Jono Fitzgerald MD Physician Physician Drywall Taper Oscar Sotomayor Indications Endocarditis. Clinical History Atrial fibrillation. Hypertension. Hyperlipidemia. Diabetes Mellitus. Obesity. Study Data Type of Study TTE procedure:Echo Complete-(Doppler, Colorflow) with Contrast. Procedure Information:Definity was administered by Strickler Attendant . Study Date06/26/2024 Start Time: 02:26 PM Study Location: [facility] [place] Adult Echo Study Status: Echo lab Patient Status: Routine Technical Quality: Technically difficult due to body habitus. Blood Pressure:152/103 mmHg EKG: Within normal limits HR: 81 bpm Contrast Medium: Definity. Amount - 2 ml Allergies - Tetnus. 2D Measurements LV Diastolic Dimension: 4.4 cm LV Systolic Dimension: 3.1 cm LV Septum Diastolic: 1.1 cm LV PW Diastolic: 1.3 cm AO Root Dimension: 3.2 cm LA Dimension: 4.8 cm LA ESV (BP):127 ml LVOT Stroke Volume: 61.23 ml LA ESV Index: 58 ml/m2 Stroke Volume Index28.09 ml/m2 LVOT: 2.7 cm Cardiac Index:2.28 l/min/m2 Ascending Aorta:3.7 cm Doppler Measurements AV Peak Velocity: 128 cm/s AV Peak Gradient: 6.55 mmHg AV Mean Gradient: 3 mmHg AV VTI:19.2 cm LVOT Peak Velocity: 67.8 cm/s LVOT VTI10.7 cm AV Area (Continuity):3.19 cm2 PV Peak Velocity: 81.3 cm/s PV Peak Gradient: 2.64 mmHg Cardiac Anatomy Left Ventricle/Interventricular Septum The left ventricular size is normal. Left ventricular wall thickness is normal. The LV systolic function is normal . The left ventricular ejection fraction is 60-65 %. There are no regional wall motion abnormalities. Unable to assess diastolic function due to atrial fibrillation . Left Atrium/Interatrial Septum The left atrium is severely dilated. Aortic Valve The aortic valve is trileaflet and mildly thickened. There is no aortic stenosis or insufficiency. Mitral Valve The mitral valve is normal in structure and function. There is no mitral stenosis or insufficiency. Aorta The ascending aorta and aortic root are normal in size. Right Ventricle The right ventricular size and function appears grossly normal. Right Atrium The right atrium is severely dilated. Pulmonic Valve The pulmonic valve is normal in structure and function. There is trace pulmonic regurgitation. Tricuspid Valve The tricuspid valve is normal in structure and function. There is trace regurgitation. Pumonary Artery The pulmonary artery is not well visualized. An accurate pulmonary artery pressure could not be obtained. Venous Structures The inferior vena cava is poorly visualized. Pericardium/Extracardiac There is a moderate pericardial to large effusion posteriorly and laterally . There is a small pericardial effusion anteriorly . There is no evidence of cardiac tamponade. Summary 1. The LV systolic function is normal. The left ventricular ejection fraction is 60-65 %. There are no regional wall motion abnormalities. 2. Severe bi-atrial dilation. 3. The right ventricular size and function appears grossly normal. 4. There is a moderate pericardial to large effusion posteriorly and laterally . There is a small pericardial effusion anteriorly . There is no evidence of cardiac tamponade. 5. No obvious evidence of endocarditis, vegetation, or new regurgitation lesion, however, sensitivity of this study is inherently limited compared to MARILU. If clinical suspicion remains for endocarditis, consider MARILU. Comparison Comparison is made to the study of January 06, 2024. There is no significant change. Signature * Event Display: Echocardiogram - Complete Authored Date: Hospital Progress note * April Parra RN: PERFORM, SIGN, VERIFY Event Display: Progress Note Hospital Authored Date: Patient: SAUL MARTINEZ Age: 73 years Sex: Male : 1950 Associated Diagnoses: None Author: April Parra RN Findings Problem Related to Alteration in Neurological : Alteration in Neurological Function/new 06/30/2024 0:00 EST Alteration in Neuro status Related to Other: AMS Goals & Outcomes, Neurological Pt will be Neurologically stable Interventions, Neurological Assess/monitor neurologic status, Assess/monitor VS per unit standards & prn Goals/Interventions, Neurological Yes Neurological, Problem Start 06/23/2024 12:00 Reviewed plan with, Neurological Patient Patient Progression, Neurological Pt progressing according to plan . Narrative/Incidental P: Alteration in neurological I: see above interventions E: pt is alert, awake, unable to state date, time; knows full birthdate. pt speaks soft and slow. denies any pain. all scheduled medications taken w/o difficulty, swallows well. vitals stable, no fever. pt is pending discharge in the morning. callbell is within reach. bed alarm in place, side railsup for safety. closely monitored. . Discharge Information Case Management Discharge Plan : Case Management Discharge Plan Data 06/29/2024 10:03 EST Discharge Level of Care at Discharge residential facility Discharge Nursing Homes/Rehab Facilities [facility] Discharge Transportation Arranged [facility] [address] [facility] [id number] [phone] Mode of Transportation Arranged Ambulance Name of Agency #1 [facility] Agency Cement Kiln Operator # Service Categories #1 Physical Therapy Service Comments #1 You are discharging to [facility] via ambulance today for short term rehabilitation. The facility and your Raquel are aware of your transfer today. * Lev VELASQUEZ, Sylvia Aguilar: PERFORM Event Display: Progress Note Hospital Authored Date: [id number] Patient: ??SAUL MARTINEZ ? Age:??73 Years?Sex:??Male?:??1950?? Subjective seen and examined No new issue Awaiting for rehab Review of Systems ROS limited due to dementia no apparent distress ?? Objective ?? Physical Exam Awake, alert, not oriented to auscultation bilateral, no wheezing no rales Heart: Regular rate and rhythm, no murmur, no rub or gallop Abdomen: Soft, nontender, nondistended; Bowel sounds present Extremity: No edema cyanosis clubbing Neurological: No focal deficit Psychiatric: Normal mood and affect Assessment/Plan Assessment:??Altered mental state??(R41.82) Chronic HFrEF (heart failure with reduced ejection fraction)??(I50.22) Parkinson's disease??(G20.A1) Sepsis??(A41.9) ?? 73 year old male with history of Parkinson's, Afib, CHF, CAD, HTN, HLD presents with worsening mental status for few days. Of note, patient's baseline is good and bad days , typically able to walk??slowly with walker,??and some conversation, but recently has not been able to??any of that. ?? Sepsis (A41.9):??Sepsis of unclear source.? SIRS positive Sepsis of unknown etiology Tmax 100.5 on 06/23, afebrile since then ??Lactate??2.8. COVID negative. UA and CT A/P negative. CXR neg for pneumonia. CT head unremarkable. ?? Blood cs negative no UTI ?? Treated with IV Antibiotic emperically ? Appreciated ID input ? Parkinson's disease (G20.A1):??Continue levodopa carbidopa/ropinirole, quetiapine ?? Chronic HFrEF (heart failure with reduced ejection fraction) (I50.22):??Continue goal-directed medical therapy??with Entresto,??metoprolol, spironolactone, torsemide.?Jardiance is non formulary inthe hospital, change to dapagliflozin ?ACEI or ARB for LVSD:??ARB has been ordered ?? VTE Prophylaxis:??PCB ?VTE Prophylaxis Assessment:??VTE Prophylaxis Ordered ? Code Status:??full presumed?Order Code Status:??Code Status Ordered ? OMN: Blood cultures, ID recs ?? Disp: Awaiting??for rehab bed; medically ready ? Discharge Planning:? Estimated Discharge Date ? * April Parra RN: VERIFY, PERFORM, SIGN Event Display: Progress Note Hospital Authored Date: Patient: SAUL MARTINEZ Age: 73 years Sex: Male : 1950 Associated Diagnoses: None Author: Aparna Clemens RN, April Findings Problem Related to Alteration in Neurological : Alteration in Neurological Function/new 06/29/2024 0:00 EST Alteration in Neuro status Related to Other: AMS Goals & Outcomes, Neurological Pt will be Neurologically stable Interventions, Neurological Assess/monitor neurologic status, Assess/monitor VS per unit standards & prn, Call/Report variances in assessments to provider, Collaborate w/ provider to implement appropriate guidelines, Collaborate with Nutrition, Physical assessment per unit standards, Teach pt/caregiver on plan of care, treatment, s/s & meds Goals/Interventions, Neurological Yes Neurological, Problem Start 06/23/2024 12:00 Reviewed plan with, Neurological Patient Patient Progression, Neurological Pt progressing according to plan . Narrative/Incidental P: Alteration in neurological I: see above interventions E: pt is awake, alert, disoriented to date and time, speaks soft and slow. denies any pain. medications administered whole one at a time, swallows well. this RN noticed tray was untouched, offered topatient and took around 4 bites of the sandwich, refused further. pt incontinent, primo was in place and replaced by PCT. vitals stable, no fever. pt awaiting rehab placement. callbell is within reach. bed alarm in place. hourly rounding. . Discharge Information Rehabilitation Discharge : Rehab Discharge Index 06/24/2024 8:10 EST Comments on treatment indicated 73 M with hx of PD presents with generalized weakness and AMS per family. Pt req inc redirection, poor motor planning. PT f/u for therex, amb c RW,xfers. Rec rehab. Walker: distance < 10 Distance pt will ambulate 20ft Full chart review completed Yes Hospital course see comment Other findings Pt is a mod complex eval as circumstances leading to hosp impact POC and functional mob Plan of care PT Gait training, Transfer training, Therapeutic exercise, Functional Activities, Balance training, Neuromuscular education Consult note * Stephie Alegre DO P: MODIFY, MODIFY, PERFORM Event Display: Consultation Note Authored Date: Patient: ??SAUL MARTINEZ ? Age:??73 Years?Sex:??Male?:??1950?? Chief Complaint/Reason for Consultation family called EMS d/t pt's generalized weakness/AMS. per family, pt has been off. pt reports difficulty word finding/finishing sentences, feeling spacey x6mos. hx parkinson's, CHF, afib. History of Present Illness Patient is a 73-year-old male with a history of A-fib status post watchman, HFrEF, type 2 diabetes,Parkinson's disease, NISHA who presented to the emergency room for altered mental status. ?? His mental status is steadily been getting worse with his Parkinson's disease.?? Patient agrees that he feels somewhat confused.?? He had not been eating well over the past several days. ?? He was noted to have a white count of 29 with a neutrophil predominance and a bilirubin of 2.9 without any AST or ALT elevation.?? UA was not terribly indicative of an infection.?? He was also noted to spike a temperature of 100.5 in the emergency room with tachycardia to 93 meeting sepsis criteria.?? Blood cultures were sent. He does have a hx of right hip replacement. ?? His say he has had a runny nose and slight cough recently. Not bringing up any sputum. No abdominal pain. Occasional diarrhea, not changed from baseline. No dysuria or hematuria. Not complainingof any joint pain. She does not by his penis it is quite red, this comes and goes. He has not been complainnign of pain in this area. No recent sick??contacts. No travel. No pets at home. No recent an tibiotics. No antibiotic allergies. ?? Chest x-ray did not show a clear infiltrate to indicate pneumonia.?? CT head with no intracranial cranial pathology.?? CT abdomen pelvis without any acute pathology.?? He was admitted to medicine for sepsis of unknown origin.?? He was given 1 g of ceftriaxone in the ED and switched to Vanco and Zosyn by the medicine team.?? Blood cultures from 06/22 have no growth to date.?? COVID- negative on 11/25. Review of Systems A full review of systems was completed and is otherwise negative except as mentioned in history of present illness. Objective Vital Signs?? Temperature: 98 DegF (06/23/24 08:08:00) Temperature Route: Oral (06/23/24 08:08:00) Pulse Rate: 74 bpm (06/23/24 09:00:00) Respiratory Rate: 25 br/min (06/23/24 08:08:00) Systolic Blood Pressure: 131 mm Hg (06/23/24 09:00:00) Diastolic Blood Pressure: 74 mm Hg (06/23/24 09:00:00) Mean Arterial Pressure: 103 mm Hg (06/22/24 22:42:00) Pulse Pressure: 58 mm Hg (06/23/24 08:08:00) Oxygen Saturation: 97 % (06/23/24 08:08:00) Mode of Delivery (Oxygen): Room air (06/23/24 08:08:00) Early Warning Score: 8 (06/23/24 09:05:01) ? Physical Exam General: Patient in no acute distress?? HEENT: normocephalic, atraumatic, Respiratory: bilateral equal air entry, clear to auscultation with no wheezes or crackles. Adequaterespiratory rate and effort on room air.?? CVS: regular rate and rhythm, S1 and S2 present, no murmurs, rubs or gallops. Abdomen: soft, non tender, non distended, bowel sounds present, no organomegaly.?? Extremities: no cyanosis or erythema. LLE more swollen than right. Neuro: Cranial nerves II-XII grossly intact. Moving all extremities spontaneously. Normal tones, following simple commands.?? Derm: No signs of infection, surrounding skin is intact with no evidence of erythema, no purulent discharge, no tenderness?? Psych: Normal mood and affect?? Assessment/Plan Patient is a 73-year-old male with a history of A-fib status post watchman, HFrEF, type 2 diabetes,Parkinson's disease, NISHA who presented to the emergency room for altered mental status eventually became??SIRS positive and was admitted for sepsis of unknown origin.?? Initial workup with CT abdomenpelvis, CT head, chest x-ray without any source of infection.?? COVID-negative.?? He has not had another measured fever. ??Additional history from his ??reveals some upper respiratory symptoms including runny nose and cough. ??Would recommend a full viral swab.?? His left leg is also more swollen than his right, would recommend a lower extremity ultrasound to rule out DVT which could explain his fever as well.?? As??60s and is technically still going on without a first machado, would also recommend a tick panel.?? If cultures remain negative for 48 hours, can discontinue vancomycin. ?? SIRS positive Sepsis of unknown etiology ?Full respiratory viral swab ??? Left lower extremity ultrasound ?Tick panel ??? Can discontinue vancomycin if cultures remain negative for 48 hours ?? Patient discussed with attending physician, Dr. Rogers Alegre, DO Internal Medicine PGY3 ?? Histories Allergies Allergies ?(Active and Proposed Allergies Only) tetanus immune globulin? (Severity: Unknown severity, Onset: Unknown) ? Past Medical History/Problem List Active Problems(18) Angina at rest Atrial fibrillation CAD in [place] artery Cardiomyopathy Diabetes mellitus type 2, noninsulin dependent Erectile dysfunction Gastroesophageal reflux disease Heart failure with improved ejection fraction (HFimpEF) Heart failure with reduced ejection fraction Hyperlipidemia Hypertension Hypotension Nocturia Obese class I Obesity, Class III, BMI 40-49.9 (morbid obesity) Parkinson disease Presence of left atrial appendage closure device REM behavioral disorder ? Past Surgical History Laparoscopic cholecystectomy ? Social History Alcohol Details:??Use: Current. ??Type: Beer. ??Other: social. Employment/School Details:??Status: Retired. Exercise Details:??Regular exercise: No. Home/Environment Details:??Living situation: Home/Independent. ??Lives with: Spouse. Nutrition/Health Details:??Diet: Regular. ??Caffeine intake amount: occasional coca cola. Substance Abuse Details:??Use: Never. Tobacco Details:??Never smoker ? Family History Family History Negative. ? Medications Home Medications Acetaminophen (acetaminophen 325 mg oral tablet)?650?Milligram?By Mouth?Every 6 hours Aspirin (aspirin 81 mg oral delayed release tablet)?81?Milligram?By Mouth?Daily Carbidopa-Levodopa (carbidopa-levodopa 25 mg-100 mg oral tablet)?2?tab(s)?By Mouth?3 times a day Cholecalciferol (cholecalciferol 1000 intl units oral capsule)?1?capsule?1,000?International Unit?By Mouth?Daily Clonazepam (clonazePAM 0.5 mg oral tablet)?1?tab(s)?By Mouth?Daily at bedtime?for 30?Days empagliflozin (Jardiance 10 mg oral tablet)?1?tab(s)?By Mouth?Daily in AM Metoprolol (Metoprolol Succinate ER 200 mg oral tablet, extended release)?1?tab(s)?By Mouth?Daily?Hold if SBP<100 Multivitamin (Multi Vitamin+)?1?tab(s)?By Mouth?Daily Nitroglycerin (nitroglycerin 0.3 mg sublingual tablet)?1?tab(s)?0.3?Milligram?Sublingual?Every 5 minutes?as needed?as needed for chest pain?not to exceed 3 doses/15 min--ifpain persists, seek medical attention Nystatin Topical (Nystop 039009 u/gm powder)?1?adonis?Topically?2 times a day Omeprazole (omeprazole 20 mg oral enteric coated capsule)?1?capsule?20?Milligram?By Mouth?Daily Potassium Chloride (Potassium Chloride (Eqv-K-Tab) 20 mEq oral tablet, extended release)?1?tab(s)?20?Milliequivalent?By Mouth?Daily?for 7?Days Quetiapine (QUEtiapine 25 mg oral tablet)?See Instructions?TAKE 1/2 TABLET BY MOUTH EVERY MORNING AND 1 TABLET WITH SUPPER Ropinirole (rOPINIRole 0.25 mg oral tablet)?3?tab(s)?0.75?Milligram?By Mouth?3 times a day sacubitril-valsartan (Entresto 49 mg-51 mg oral tablet)?1?tab(s)?By Mouth?2 times a day Senna (Senna 8.6 mg oral tablet)?17.2?Milligram?2?tab(s)?By Mouth?Daily at supper?8.6?1 Simvastatin (simvastatin 10 mg oral tablet)?1?tablet?By Mouth?Daily at bedtime Spironolactone (spironolactone 25 mg oral tablet)?50?Milligram?2?tablet?By Mouth?Daily?for 90?Days?dose increase Tamsulosin (Flomax 0.4 mg oral capsule)?0.4?Milligram?By Mouth?Daily torsemide (torsemide 20 mg oral tablet)?1?tab(s)?20?Milligram?By Mouth?2 times a day ? Inpatient Medications Medications (21) Active SCHEDULED: (14) Aspirin 81 mg EC Tablet (aspirin 81 mg oral delayed release tablet) ??81 mg, By Mouth, Daily Carbidopa 25 mg / Levodopa 100 mg Tablet (carbidopa-levodopa 25 mg-100 mg oral tablet) ??2 tablet, By Mouth, 3 times a day Metoprolol 100 mg XL Tablet (Metoprolol Succinate ER 100 mg oral tablet, extended release) ??200 mg, By Mouth, Daily NaCl 0.9% Flush 3ml (NaCL 0.9% Flush) ??3 mL, IV Push, Every 8 hours Piperacillin/Tazobactam 3.375 Gm Inj (Zosyn Extended IVPB) ??3.375 Gm, IVPB, Every 8 hours Quetiapine 25 mg Tablet (QUEtiapine 25 mg oral tablet) ??12.5 mg, By Mouth, Daily before breakfast Quetiapine 25 mg Tablet (QUEtiapine 25 mg oral tablet) ??25 mg, By Mouth, Daily at supper Ropinirole 0.25 mg Tablet (rOPINIRole 0.25 mg oral tablet) ??0.75 mg, By Mouth, 3 times a day Sacubitril-Valsartan 49 mg-51 mg Tablet (Entresto 49 mg-51 mg oral tablet) ??1 tablet, By Mouth, 2 times a day Simvastatin 10 mg Tablet (simvastatin 10 mg oral tablet) ??10 mg, By Mouth, Daily at bedtime Spironolactone 25 mg Tablet (spironolactone 25 mg oral tablet) ??50 mg, By Mouth, Daily Tamsulosin 0.4 mg Capsule (Flomax 0.4 mg oral capsule) ??0.4 mg, By Mouth, Daily Torsemide 20 mg tablet (torsemide 20 mg oral tablet) ??20 mg 1 tablet, By Mouth, 2 times a day Vancomycin 1250 mg/250 mL NaCl 0.9% (Vancomycin IVPB) ??1,250 mg 250 mL, IVPB, Every 24 hours CONTINUOUS: (0) PRN: (7) Dextromethorphan-Guaifenesin 20 mg-200 mg/10 mL Liqu UD (Robitussin DM Liquid) ??10 mL, By Mouth, Every 4 hours Docusate Sodium 100 mg Capsule (Docusate Sodium Capsule) ??100 mg 1 capsule, By Mouth, 2 times a day Melatonin 3 mg Tablet (Melatonin Tablet) ??3 mg, By Mouth, Daily at bedtime NaCl 0.9% Flush 3ml (NaCL 0.9% Flush) ??3 mL, IV Push, Every 8 hours Polyethylene Glycol 17 Gm Powder (MiraLax Powder) ??17 Gm 1 pack/packet, By Mouth, Daily Senna Tablet ??8.6 mg 1 tablet, By Mouth, 2 times a day Simethicone 80 mg Chewable Tablet (Simethicone Tablet) ??80 mg, Chew, 3 times a day ? Results Recent Labs BACTERIOLOGY Blood Culture Results Preliminary report ()?? 06/22/2024 23:10 Blood Culture Isolate 1 Comment ()?? 06/22/2024 23:10 Blood Cult 2 Results Preliminary report ()?? 06/22/2024 23:10 Blood Culture 2 Isolate 1 Comment ()?? 06/22/2024 23:10 ?? BLOOD COUNT & DIFF WBC 29.0 k/mm3 (High)?? 06/22/2024 21:10 RBC 4.67 m/mm3 (Low)?? 06/22/2024 21:10 Hgb 14.3 Gm/dL ()?? 06/22/2024 21:10 Hct 42.0 % ()?? 06/22/2024 21:10 MCV 89.9 femtoliters ()?? 06/22/2024 21:10 MCH 30.6 pg ()?? 06/22/2024 21:10 MCHC 34.0 Gm/dL ()?? 06/22/2024 21:10 Platelet Count 166 k/mm3 ()?? 06/22/2024 21:10 RDW-SD 41.5 femtoliters ()?? 06/22/2024 21:10 MPV 9.7 femtoliters ()?? 06/22/2024 21:10 Nucleated RBC (Automated) 0.0 #/100 WBC'S ()?? 06/22/2024 21:10 Abs. NRBC 0.0 k/mm3 ()?? 06/22/2024 21:10 Abs. Neut 26.1 k/mm3 (High)?? 06/22/2024 21:10 Abs. Lymph 0.6 k/mm3 (Low)?? 06/22/2024 21:10 Abs. Calloway 1.5 k/mm3 (High)?? 06/22/2024 21:10 Abs. Eo 0.0 k/mm3 ()?? 06/22/2024 21:10 Abs. Baso 0.1 k/mm3 ()?? 06/22/2024 21:10 Neut % 90.1 % (High)?? 06/22/2024 21:10 Lymph % 2.2 % (Low)?? 06/22/2024 21:10 Calloway % 5.3 % ()?? 06/22/2024 21:10 Eos % 0.1 % ()?? 06/22/2024 21:10 Baso % 0.2 % ()?? 06/22/2024 21:10 Imm Gran 2.1 % ()?? 06/22/2024 21:10 Abs. Imm Gran 0.6 k/mm3 ()?? 06/22/2024 21:10 ?? CARDIAC High Sensitivity Troponin (HSTnT) 17 ng/L ()?? 06/22/2024 21:10 ?? CHEM GENERAL Sodium 142 mmol/L ()?? 06/22/2024 21:10 Potassium 4.1 mmol/L ()?? 06/22/2024 21:10 Chloride 102 mmol/L ()?? 06/22/2024 21:10 Bicarbonate Level 27 mmol/L ()?? 06/22/2024 21:10 Anion Gap 13 ()?? 06/22/2024 21:10 Glucose Level 145 mg/dL (High)?? 06/22/2024 21:10 BUN 27 mg/dL (High)?? 06/22/2024 21:10 Creatinine-Blood 1.16 mg/dL ()?? 06/22/2024 21:10 Estimated GFR Creatinine 67 ML/MIN/1.73 M2 ()?? 06/22/2024 21:10 Calcium 9.3 mg/dL ()?? 06/22/2024 21:10 Calcium, Ionized pH Corrected 1.19 mmol/L ()?? 06/22/2024 21:10 Magnesium 1.9 mg/dL ()?? 06/22/2024 21:10 Protein, Total 7.0 Gm/dL ()?? 06/22/2024 21:10 Albumin 4.1 Gm/dL ()?? 06/22/2024 21:10 AG Ratio 1.4 ()?? 06/22/2024 21:10 Alkaline Phosphatase 69 units/L ()?? 06/22/2024 21:10 AST (SGOT) 21 units/L ()?? 06/22/2024 21:10 ALT (SGPT) 11 units/L ()?? 06/22/2024 21:10 Bilirubin, Total 2.9 mg/dL (High)?? 06/22/2024 21:10 Lactate 2.8 mmol/L (High)?? 06/22/2024 21:10 ?? COAG INR 1.2 (High)?? 06/22/2024 21:10 Protime (PT) 12.4 seconds (High)?? 06/22/2024 21:10 ?? ENDOCRINE/TUMOR MARKER TSH 0.95 uIU/mL ()?? 06/22/2024 21:10 ?? UA/URINALYSIS Appear/Color, Urine LIGHT YELLOW ()?? 06/22/2024 20:40 Specific [place], Urine 1.022 ()?? 06/22/2024 20:40 pH, Urine 5.5 ()?? 06/22/2024 20:40 Albumin, Urine NEGATIVE ()?? 06/22/2024 20:40 Glucose, Urine 4+ (Abnormal)?? 06/22/2024 20:40 Ketones, Urine NEGATIVE ()?? 06/22/2024 20:40 Bilirubin, Urine NEGATIVE ()?? 06/22/2024 20:40 Hemoglobin, Urine TRACE (Abnormal)?? 06/22/2024 20:40 Nitrite, Urine NEGATIVE ()?? 06/22/2024 20:40 Leukocyte, Urine NEGATIVE ()?? 06/22/2024 20:40 Urobilinogen NORMAL mg/dL ()?? 06/22/2024 20:40 WBC's, Urine 4 /HPF ()?? 06/22/2024 20:40 RBC's, Urine 2 /HPF ()?? 06/22/2024 20:40 Squamous Epith 1 /HPF ()?? 06/22/2024 20:40 Hold Urine Culture Testing available 48 hours from time of collection. ()?? 06/22/2024 20:40 ?? VIROLOGY COVID-19 by RT-PCR NEGATIVE ()?? 06/22/2024 20:40 ? * Shabnam VELASQUEZ, Toño Flores: PERFORM Event Display: Consultation Note Authored Date: ATTENDING ADDENDUM: Patient evaluated and discussed with resident physician Dr. Alegre.?? Reviewed history, physical exam, and assessment.?? Agree with findings and recommendations.?? Patient with evidence of sepsis but no clear source.?? The only symptomatology the patient has is confusion and some lethargy but no other localizing symptomatology.?? Did have a swollen left lower extremity but ultrasound fails to show any DVT, only finding evidence of a left popliteal Morrell's cyst.?? Cultures have remained negative and respiratory panel also noted to be negative.?? At this time, unclear what the patient's sourceof fever might be.?? As previously mentioned, her blood cultures remain negative in 48 hours, couldperhaps consider stopping vancomycin.?? Following [place] tick panel to ensure no tickborne infections as a cause of the patient's fever.?? This seems somewhat less likely at this point since the patient has been afebrile and with resolved leukocytosis while on therapy with antibiotics that do not really cover tickborne infections. Note * Jackie Coates RN: PERFORM Event Display: Discharge/Transfer Note Hospital Authored Date: [id number] Nursing Discharge Note Entered On: 06/30/2024 10:00 EST Performed On: 06/30/2024 10:00 EST by Jackie Coates RN Nursing Discharge Note 2 Discharge Time : 06/30/2024 10:00 EST Discharge Level of Care at Discharge : residential facility Discharge Nursing Homes/Rehab Facilities : [facility] Patient Left Unit Via : Ambulance Patient Accompanied Off Unit with : Ambulance/Chair Van Personnel Handover Given to Transport Personnel : Yes DC Instructions Provided & Signed by Pt : Unable Patient Understands D/C Instructions : Unable Patient Instructions Discharge Signed : No Did Pt have Specialty Bed or Wound Vac : No Jackie Coates RN - 06/30/2024 9:59 EST * Lev VELASQUEZ, Sylvia Aguilar: PERFORM Event Display: Discharge/Transfer Note Hospital Authored Date: [id number] Patient: ??SAUL MARTINEZ ? Age:??73 Years?Sex:??Male?:??1950?? Patient Information Discharge Location: S15 Primary Care Physician: China Briseno MD Admit Date/Time: 06/22/2024 18:28 Discharge Disposition Discharge Disposition: ?? Discharge Diagnosis Altered mental state (R41.82) Sepsis (A41.9) Chronic HFrEF (heart failure with reduced ejection fraction) (I50.22) Parkinson's disease (G20.A1) _ Discharge Medications Acetaminophen (acetaminophen 325 mg oral tablet)?650?Milligram?By Mouth?Every 6 hours Aspirin (aspirin 81 mg oral delayed release tablet)?81?Milligram?By Mouth?Daily Carbidopa-Levodopa (carbidopa-levodopa 25 mg-100 mg oral tablet)?2?tab(s)?By Mouth?3 times a day Cholecalciferol (cholecalciferol 1000 intl units oral capsule)?1?capsule?1,000?International Unit?By Mouth?Daily empagliflozin (Jardiance 10 mg oral tablet)?1?tab(s)?By Mouth?Daily in AM Metoprolol (Metoprolol Succinate ER 200 mg oral tablet, extended release)?1?tab(s)?By Mouth?Daily?Hold if SBP<100 Multivitamin (Multi Vitamin+)?1?tab(s)?By Mouth?Daily Nitroglycerin (nitroglycerin 0.3 mg sublingual tablet)?1?tab(s)?0.3?Milligram?Sublingual?Every 5 minutes?as needed?as needed for chest pain?not to exceed 3 doses/15 min--ifpain persists, seek medical attention Omeprazole (omeprazole 20 mg oral enteric coated capsule)?1?capsule?20?Milligram?By Mouth?Daily Quetiapine (QUEtiapine 25 mg oral tablet)?See Instructions?TAKE 1/2 TABLET BY MOUTH EVERY MORNING AND 1 TABLET WITH SUPPER Ropinirole (rOPINIRole 0.25 mg oral tablet)?3?tab(s)?0.75?Milligram?By Mouth?3 times a day sacubitril-valsartan (Entresto 49 mg-51 mg oral tablet)?1?tab(s)?By Mouth?2 times a day Senna (Senna 8.6 mg oral tablet)?17.2?Milligram?2?tab(s)?By Mouth?Daily at supper?8.6?1 Simvastatin (simvastatin 10 mg oral tablet)?1?tablet?By Mouth?Daily at bedtime Spironolactone (spironolactone 25 mg oral tablet)?50?Milligram?2?tablet?By Mouth?Daily?for 90?Days?dose increase Tamsulosin (Flomax 0.4 mg oral capsule)?0.4?Milligram?By Mouth?Daily torsemide (torsemide 20 mg oral tablet)?1?tab(s)?20?Milligram?By Mouth?2 times a day ? Allergies Allergies ?(Active and Proposed Allergies Only) tetanus immune globulin? (Severity: Unknown severity, Onset: Unknown) ? Future Appointments Saturday 2:15 PM EST ?? With: Gucci Cavanaugh DO Where: [facility] [address] [place] [address]- Status: Pending Saturday 2:00 PM EST ?? With: Timothy WHITE, Karey Dorsey Where: [facility] [address] [facility] [address] [place] [address]- Status: Pending Hospital Course 73 year old male with history of Parkinson's, Afib, CHF, CAD, HTN, HLD presents with worsening mental status for few days. ?? Of note, patient's baseline is good and bad days , typically able to walk??slowly with walker,??and some conversation, but recently has not been able to??any of that. ? Sepsis (A41.9):??Sepsis of unclear source.? SIRS positive ?? Sepsis of unknown etiology ?? Tmax was 100.5 on 06/23, afebrile since then ?Lactate??2.8. COVID negative. UA and CT A/P negative. CXR neg for pneumonia. CT head unremarkable. ?? Blood cs negative ?? no UTI ?? Treated with IV Antibiotic emperically He has been stable for many days waiting for rehab placement ?? He is being discharged to rehab in a stable and improved condition ? Parkinson's disease (G20.A1):??Continue levodopa carbidopa/ropinirole, quetiapine ? Chronic HFrEF (heart failure with reduced ejection fraction) (I50.22):?? Continue goal-directed medical therapy??with Entresto,??metoprolol, spironolactone, torsemide.? Will continue Jardiance ?ACEI or ARB for LVSD:??ARB has been ordered ? Code status: Full Code ? Objective Vital Signs?? Temperature: 97.7 DegF (06/30/24 06:48:00) Temperature Route: Oral (06/30/24 06:48:00) Pulse Rate:??94 bpm??High (06/30/24 07:36:00) Respiratory Rate: 18 br/min (06/30/24 06:48:00) Systolic Blood Pressure:??152 mm Hg??High (06/30/24 07:36:00) Diastolic Blood Pressure: 73 mm Hg (06/30/24 07:36:00) Blood pressure sites: Arm, right (06/30/24 06:48:00) Mean Arterial Pressure: 99 mm Hg (06/30/24 06:48:00) Pulse Pressure: 79 mm Hg (06/30/24 06:48:00) Oxygen Saturation: 96 % (06/30/24 06:48:00) Mode of Delivery (Oxygen): Room air (06/30/24 06:48:00) Early Warning Score: 0 (06/30/24 05:45:56) ? . Physical Exam Awake, alert, not oriented (baseline dementia) Lungs: Clear to auscultation bilateral, no wheezing no rales Heart: Regular rate and rhythm, no murmur, no rub or gallop Abdomen: Soft, nontender, nondistended; Bowel sounds present Extremity: No edema cyanosis clubbing Neurological: No focal deficit Psychiatric: Normal mood and affect Pending Results Add On Lab Order ordered on 06/23/2024 Follow-Up Appointments Added Follow Up ?Time Frame ?Comments Finn VELASQUEZ, [facility] Face to Face ^HomeHealthFTF Results Discharge Labs BACTERIOLOGY Blood Culture Results Final report ()?? 06/22/2024 23:10 Blood Culture Specimen Source BLOOD ()?? 06/22/2024 23:10 Blood Culture Isolate 1 Comment ()?? 06/22/2024 23:10 Blood Cult 2 Results Final report ()?? 06/22/2024 23:10 Blood Culture 2 Specimen Source BLOOD ()?? 06/22/2024 23:10 Blood Culture 2 Isolate 1 Comment ()?? 06/22/2024 23:10 ?? BLOOD COUNT & DIFF WBC 12.4 k/mm3 (High)?? 06/29/2024 00:30 RBC 4.84 m/mm3 ()?? 06/29/2024 00:30 Hgb 14.7 Gm/dL ()?? 06/29/2024 00:30 Hct 41.9 % ()?? 06/29/2024 00:30 MCV 86.6 femtoliters ()?? 06/29/2024 00:30 MCH 30.4 pg ()?? 06/29/2024 00:30 MCHC 35.1 Gm/dL ()?? 06/29/2024 00:30 Platelet Count 241 k/mm3 ()?? 06/29/2024 00:30 RDW-SD 39.0 femtoliters ()?? 06/29/2024 00:30 MPV 9.2 femtoliters (Low)?? 06/29/2024 00:30 Nucleated RBC (Automated) 0.0 #/100 WBC'S ()?? 06/29/2024 00:30 Abs. NRBC 0.0 k/mm3 ()?? 06/29/2024 00:30 Abs. Neut 8.5 k/mm3 (High)?? 06/29/2024 00:30 Abs. Lymph 2.0 k/mm3 ()?? 06/29/2024 00:30 Abs. Calloway 1.1 k/mm3 ()?? 06/29/2024 00:30 Abs. Eo 0.4 k/mm3 ()?? 06/29/2024 00:30 Abs. Baso 0.2 k/mm3 (High)?? 06/29/2024 00:30 Neut % 68.5 % ()?? 06/29/2024 00:30 Lymph % 16.3 % ()?? 06/29/2024 00:30 Calloway % 8.7 % ()?? 06/29/2024 00:30 Eos % 3.0 % ()?? 06/29/2024 00:30 Baso % 1.2 % ()?? 06/29/2024 00:30 Imm Gran 2.3 % ()?? 06/29/2024 00:30 Abs. Imm Gran 0.3 k/mm3 ()?? 06/29/2024 00:30 ?? CARDIAC High Sensitivity Troponin (HSTnT) 17 ng/L ()?? 06/22/2024 21:10 ? CHEM GENERAL Sodium 144 mmol/L ()?? 06/28/2024 12:03 Potassium 3.5 mmol/L (Low)?? 06/28/2024 12:03 Chloride 105 mmol/L ()?? 06/28/2024 12:03 Bicarbonate Level 24 mmol/L ()?? 06/28/2024 12:03 Anion Gap 15 ()?? 06/28/2024 12:03 Glucose Level 114 mg/dL (High)?? 06/28/2024 12:03 Glucose, POC 124 mg/dL (High)?? 06/27/2024 19:50 BUN 15 mg/dL ()?? 06/28/2024 12:03 Creatinine-Blood 0.81 mg/dL ()?? 06/28/2024 12:03 Estimated GFR Creatinine 94 ML/MIN/1.73 M2 ()?? 06/28/2024 12:03 Calcium 9.1 mg/dL ()?? 06/28/2024 12:03 Calcium, Ionized pH Corrected 1.19 mmol/L ()?? 06/22/2024 21:10 Magnesium 1.9 mg/dL ()?? 06/22/2024 21:10 Protein, Total 6.0 Gm/dL (Low)?? 06/24/2024 01:32 Albumin 3.4 Gm/dL ()?? 06/24/2024 01:32 AG Ratio 1.4 ()?? 06/22/2024 21:10 Alkaline Phosphatase 62 units/L ()?? 06/24/2024 01:32 AST (SGOT) 20 units/L ()?? 06/24/2024 01:32 ALT (SGPT) <5 units/L ()?? 06/24/2024 01:32 Bilirubin, Total 1.5 mg/dL (High)?? 06/24/2024 01:32 Bilirubin, Direct HEMOLYZED mg/dL ()?? 06/24/2024 01:32 Bilirubin, Indirect Unable to calculate mg/dL ()?? 06/24/2024 01:32 Lactate 1.6 mmol/L ()?? 06/23/2024 09:25 ? COAG INR 1.2 (High)?? 06/22/2024 21:10 Protime (PT) 12.4 seconds (High)?? 06/22/2024 21:10 ?? ENDOCRINE/TUMOR MARKER TSH 0.95 uIU/mL ()?? 06/22/2024 21:10 ? MISC. CHEMISTRY Hold Green Top SPECIMEN DISCARDED AFTER 1 WEEK ()?? 06/29/2024 00:30 ? SEROLOGY INF DISEASE Anaplasma PCR NEGATIVE ()?? 06/23/2024 13:58 Babesia PCR NEGATIVE ()?? 06/23/2024 13:58 Ehrlichia PCR NEGATIVE ()?? 06/23/2024 13:58 B. Burgdorferi PCR NEGATIVE ()?? 06/23/2024 13:58 ?? UA/URINALYSIS Appear/Color, Urine LIGHT YELLOW ()?? 06/22/2024 20:40 Specific [place], Urine 1.022 ()?? 06/22/2024 20:40 pH, Urine 5.5 ()?? 06/22/2024 20:40 Albumin, Urine NEGATIVE ()?? 06/22/2024 20:40 Glucose, Urine 4+ (Abnormal)?? 06/22/2024 20:40 Ketones, Urine NEGATIVE ()?? 06/22/2024 20:40 Bilirubin, Urine NEGATIVE ()?? 06/22/2024 20:40 Hemoglobin, Urine TRACE (Abnormal)?? 06/22/2024 20:40 Nitrite, Urine NEGATIVE ()?? 06/22/2024 20:40 Leukocyte, Urine NEGATIVE ()?? 06/22/2024 20:40 Urobilinogen NORMAL mg/dL ()?? 06/22/2024 20:40 WBC's, Urine 4 /HPF ()?? 06/22/2024 20:40 RBC's, Urine 2 /HPF ()?? 06/22/2024 20:40 Squamous Epith 1 /HPF ()?? 06/22/2024 20:40 Hold Urine Culture Testing available 48 hours from time of collection. ()?? 06/22/2024 20:40 ? URINE OTHER Est Creatinine Clearance 80.05 mL/min ()?? 06/28/2024 12:50 ? VIROLOGY Adenovirus by PCR NEGATIVE ()?? 06/22/2024 20:40 Coronavirus 229E by PCR (not COVID-19) NEGATIVE ()?? 06/22/2024 20:40 Coronavirus HKU1 by PCR (not COVID-19) NEGATIVE ()?? 06/22/2024 20:40 Coronavirus NL63 by PCR (not COVID-19) NEGATIVE ()?? 06/22/2024 20:40 Coronavirus OC43 by PCR (not COVID-19) NEGATIVE ()?? 06/22/2024 20:40 Human Metapneumovirus by PCR NEGATIVE ()?? 06/22/2024 20:40 Rhinovirus/Enterovirus by PCR NEGATIVE ()?? 06/22/2024 20:40 Influenza A by PCR NEGATIVE ()?? 06/22/2024 20:40 Influenza B by PCR NEGATIVE ()?? 06/22/2024 20:40 Parainfluenza 1 by PCR NEGATIVE ()?? 06/22/2024 20:40 Parainfluenza 2 by PCR NEGATIVE ()?? 06/22/2024 20:40 Parainfluenza 3 by PCR NEGATIVE ()?? 06/22/2024 20:40 Parainfluenza 4 by PCR NEGATIVE ()?? 06/22/2024 20:40 RSV by PCR NEGATIVE ()?? 06/22/2024 20:40 Bordetella Pertussis by PCR NEGATIVE ()?? 06/22/2024 20:40 Chlamydophila Pneumoniae by PCR NEGATIVE ()?? 06/22/2024 20:40 Mycoplasma Pneumoniae by PCR NEGATIVE ()?? 06/22/2024 20:40 COVID-19 by RT-PCR NEGATIVE ()?? 06/22/2024 20:40 COVID-19 (SARS-CoV-2) by PCR NEGATIVE ()?? 06/22/2024 20:40 Bordetella Parapertussis by PCR NEGATIVE ()?? 06/22/2024 20:40 ? Microbiology ?? [facility] Tick PCR Panel?? Completed?? Source: Blood Body Site: ?? Collected Dt/Tm: 06/23/2024 14:03 Last Updated Dt/Tm: 06/26/2024 16:08 ?? Blood Culture Result?? Completed?? Source: Blood Body Site: ?? Collected Dt/Tm: 06/22/2024 23:10 Last Updated Dt/Tm: 06/23/2024 08:14 ?? Blood Culture 2 Results?? Completed?? Source: Blood Body Site: ?? Collected Dt/Tm: 06/22/2024 23:10 Last Updated Dt/Tm: 06/23/2024 08:14 ?? Blood Culture?? Completed?? Source: Blood Body Site: ?? Collected Dt/Tm: 06/22/2024 23:06 Last Updated Dt/Tm: 06/23/2024 08:14 ?? Blood Culture #2?? Completed?? Source: Blood Body Site: ?? Collected Dt/Tm: 06/22/2024 23:06 Last Updated Dt/Tm: 06/23/2024 08:14 ?? COVID-19 (Novel Coronavirus), Rapid PCR?? Completed?? Source: Nasal Body Site: Nose Collected Dt/Tm: 06/22/2024 20:26 Last Updated Dt/Tm: 06/22/2024 21:25 ? 35 minutes spent on discharge * Abimbola Artis RN: VERIFY, PERFORM, SIGN Event Display: Case Management Discharge Plan Authored Date: [id number] Patient: SAUL MARTINEZ Age: 73 years Sex: Male : 1950 Associated Diagnoses: None Author: Abimbola Artis RN Discharge Plan Case Management Discharge Plan : Case Management Discharge Plan Data 06/29/2024 10:03 EST Discharge Level of Care at Discharge residential facility Discharge Nursing Homes/Rehab Facilities [facility] Discharge Transportation Arranged [facility] [address] [place] [id number] [phone] Mode of Transportation Arranged Ambulance Name of Agency #1 [facility] Agency Cement Kiln Operator # Service Categories #1 Physical Therapy Service Comments #1 You are discharging to [facility] via ambulance today for short term rehabilitation. The facility and your Raquel are aware of your transfer today. * Jackie Coates RN: PERFORM Event Display: Patient Education/Instruction Authored Date: [id number] Inpatient Adult Discharge Instructions. [address] [address] Name: SAUL MARTINEZ : 1950?? Visit: 06/22/2024 18:28?? Current Date: 06/30/2024 08:30 ?? Account: [id number]?? Inpatient Adult Discharge Instructions We would like to thank you for allowing us to assist you with your healthcare needs. The following includes patient education materials and information regarding your injury/illness. Our entire staffstrives to provide an excellent experience for our patients and their families. PLEASE ENSURE YOU FOLLOW-UP PER THE INSTRUCTIONS BELOW! ?? YOUR OPINION IS IMPORTANT TO US! Please complete the survey you may receive by mail or email. Your feedback will be used to make improvements to the healthcare experiences of our patients and their families. Surveys are administered by [employer] ?? If further treatment with your primary care physician or another doctor is recommended, it is important for you to keep the appointment. Call your primary care physician or return to the Emergency Department immediately if your condition worsens, fails to improve, or new symptoms develop. If you need to find a doctor, you can call [facility] for a referral at [phone] or toll free at [phone]) or log in to [email or web address] ?? [facility], in keeping with [facility] guidance, no longer requires face masks for staff, patientsor visitors in most situations. Similiar to time spent indoors at other locations, there is the chance that you were exposed to repiratory viruses during your time with us (such as flu or COVID-19). If you develop symptoms concerning for a viral respiratory infection, please seek testing (and treatment if indicated) from your medical provider or home test kit. ?? You can view and manage your care through the patient portal or by using a health care adonis of your choosing. [employer] is a website that allows you to securely view your medical information including your hospital discharge summary, office visit summaries, medications and follow-up visits. You can also request appointments, renew medications, and request access to your medical information using a health care adonis of your choosing, or just ask a question. You can enroll at [email or web address] or register during your next office visit. You have been discharged from [facility], Patient Care Unit: S15??. If you have any questions regarding these instructions, including results of studies pending, afteryou leave, please call us and we will be happy to assist you 18/02. [facility] Your Care Team Attending Physician Sylvia Ohara MD?? Consulting Providers Sylvia Ohara MD?? Discharging Providers Sylvia Ohara MD Reason for Your Visit family called EMS d/t pt's generalized weakness/AMS. per family, pt has been off. pt reports difficulty word finding/finishing sentences, feeling spacey x6mos. hx parkinson's, CHF, afib.?? Your Diagnosis Chronic HFrEF (heart failure with reduced ejection fraction) Parkinson's disease Sepsis Tests Performed Below is a partial list of the tests performed during your hospitalization. You may have had other tests and procedures not included in this list. Please discuss all test results with your provider. Alk Phos ALT AST Basic Metabolic Panel Bilirubin Total + Direct Blood Culture Blood Culture #2 Blood Culture 2 Results Blood Culture Result Calcium Ionized CBC CBC w/ Differential Comprehensive Metabolic Panel COVID-19 (Novel Coronavirus), Rapid PCR GLUCOSE POC High??Sensitivity??Troponin T HOLD GREEN TUBE INR Lactate Level Liver Function Panel Magnesium Level [place] Tick PCR Panel RESP PATH PANEL W/COVID-19 TSH with T4 Reflex (Adults Only) Urinalysis w/hold for Urine Culture CT Abd/Pelvis W/ IV Contrast Only CT Head/Brain W/O Contrast US Doppler Ext Lower Venous Left XR Chest 2 Views Frontal and Lat ALT?? AST?? Add On Lab Order?? Alk Phos?? Basic Metabolic Panel?? Bilirubin Total + Direct?? Blood Culture?? Blood Culture #2?? Blood Culture 2 Results?? Blood Culture Result?? CBC?? CBC w/ Differential?? COVID-19 (Novel Coronavirus), Rapid PCR?? CT Abd/Pelvis W/ IV Contrast Only?? CT Head/Brain W/O Contrast?? Comprehensive Metabolic Panel?? Glucose POC?? Hepatic Function Panel (Liver Function Panel)?? High??Sensitivity??Troponin T?? Hold Green Top Tube (HOLD GREEN TUBE)?? INR?? Ionized Calcium (Calcium Ionized)?? Lactic Acid Level (Lactate Level)?? Magnesium Level?? [place] Tick PCR Panel?? Respiratory Pathogen PCR with COVID-19 (RESP PATH PANEL W/COVID-19)?? TSH with T4 Reflex (Adults Only)?? US Doppler Ext Lower Venous Left?? Urinalysis w/hold for Urine Culture?? Chest 2 Views Frontal and Lat (XR Chest 2 Views Frontal and Lat)?? Primary Care Provider China Briseno MD? Advance Directive Health Care Proxy on File Yes - Health Care Proxy Discharge Vitals Temperature: 97.7 DegF Height: 173 cm Pulse Rate:??94 bpm??High Weight: 98.5 kg Respiratory Rate: 18 br/min Body Mass Index:??32.91 kg/m2??Critical Systolic Blood Pressure:??152 mm Hg??High Body surface area: 2.18 Diastolic Blood Pressure: 73 mm Hg ?? Oxygen Saturation: 96 % ?? Studies Pending All studies ordered during this hospital stay have been completed unless listed below. Please discuss all pending results with your provider listed above in these instructions. ?? Add On Lab Order?? What to do next Instructions From Your Doctor ?? Orders? 06/30/24 8:03:00 EST?? Prescriptions??, ??06/30/24 8:03:00 EST?? Scheduled Follow-Up Appointments Saturday 2:15 PM EST ?? With: Gucci Cavanaugh DO Where: [facility] [address] [place] [id number]- Status: Pending Saturday 2:00 PM EST ?? With: Karey Aguirre NP Where: [facility] [address] [facility] 3[address] Floor, [address] [place] [id number]- Status: Pending You Need to Schedule the Following Appointments Follow Up with??China Briseno MD Where: [address] [place] [address]- Discharge Medications SAUL MARTINEZ :1950 Visit Date:06/22/2024 Medications: Please continue your medications until treatment is completed or stopped by your provider. Medications not listed below should be discontinued. Discuss any questions related to medications with your provider. What How Much When Instructions Next Dose Unchanged Acetaminophen (acetaminophen 325 mg oral tablet) 650 Milligram Oral Every 6 hours 06/30/24?? 12 noon Unchanged Aspirin (aspirin 81 mg oral delayed release tablet) 81 Milligram Oral Daily 07/01/24 Unchanged Carbidopa-Levodopa (carbidopa-levodopa 25 mg-100 mg oral tablet) 2 tab(s) Oral 3 times a day 06/30/24?? 3 pm Unchanged Cholecalciferol (cholecalciferol 1000 intl units oral capsule) 1 capsule Oral Daily 07/01/24 Unchanged empagliflozin (Jardiance 10 mg oral tablet) 1 tab(s) Oral Daily in the morning 07/01/24 Unchanged Metoprolol (Metoprolol Succinate ER 200 mg oral tablet, extended release) 1 tab(s) Oral Daily Hold if SBP<100 ?? 07/01/24 Unchanged Multivitamin (Multi Vitamin+) 1 tab(s) Oral Daily 07/01/24 Unchanged Nitroglycerin (nitroglycerin 0.3 mg sublingual tablet) 1 tab(s) Sublingual Every 5 minutes as needed for as needed for chest pain not to exceed 3 doses/ 15 min--if pain persists, seek medical attention ?? as needed for chest pain per instruction Unchanged Omeprazole (omeprazole 20 mg oral enteric coated capsule) 1 capsule Oral Daily 07/01/24 Unchanged Quetiapine (QUEtiapine 25 mg oral tablet) See instructions TAKE 1/ 2 TABLET BY MOUTH EVERY MORNING AND 1 TABLET WITH SUPPER ?? 06/30/24?? 5 pm Unchanged Ropinirole (rOPINIRole 0.25 mg oral tablet) 3 tab(s) Oral 3 times a day 06/30/24?? 3 pm Unchanged sacubitril-valsartan (Entresto 49 mg-51 mg oral tablet) 1 tab(s) Oral Twice a day 06/30/24?? 9 pm Unchanged Senna (Senna 8.6 mg oral tablet) 1 tab(s) Oral Daily at supper 06/30/24?? 5 pm Unchanged Simvastatin (simvastatin 10 mg oral tablet) 1 tab(s) Oral Daily at Bedtime 06/30/24?? bedtime Unchanged Spironolactone (spironolactone 25 mg oral tablet) 2 tab(s) Oral Daily Duration: 90 Days dose increase ?? 07/01/24 Unchanged Tamsulosin (Flomax 0.4 mg oral capsule) 0.4 Milligram Oral Daily 07/01/24 Unchanged torsemide (torsemide 20 mg oral tablet) 1 tab(s) Oral Twice a day 06/30/24?? 3 pm ?? What How Much When Comments Stop Taking Clonazepam (clonazePAM 0.5 mg oral tablet) 1 tab(s) Oral Daily at Bedtime Duration: 30 Days Stop Taking Nystatin Topical (Nystop 741141 u/ gm powder) 1 adonis Topically Twice a day Stop Taking Potassium Chloride (Potassium Chloride (Eqv-K-Tab) 20 mEq oral tablet, extended release) 1 tab(s) Oral Daily Duration: 7 Days Prescription Given During Visit No new medications prescribed at time of discharge.?? Laboratory Results Below is a partial list of the most recent Laboratory test results done prior to this discharge. You may have had other tests and procedures not included in this list. Please discuss all test resultswith your provider. Est Creatinine Clearance - 80.05 mL/min (06/28/2024) Alk Phos (06/23/2024) ???Alkaline Phosphatase - 67 units/L ALT (06/23/2024) ???ALT (SGPT) - 9 units/L AST (06/23/2024) ???AST (SGOT) - 17 units/L Basic Metabolic Panel (06/28/2024) ???Sodium - 144 mmol/L???Potassium - 3.5 mmol/L???Chloride - 105 mmol/L???Bicarbonate Level - 24 mmol/L???Anion Gap - 15???Glucose Level - 114 mg/dL???BUN - 15 mg/dL???Creatinine-Blood - 0.81 mg/dL???Estimated GFR Creatinine - 94 ML/MIN/1.73 M2???Calcium - 9.1 mg/dL Bilirubin Total + Direct (06/23/2024) ???Bilirubin, Total - 2.6 mg/dL???Bilirubin, Direct - 0.4 mg/dL???Bilirubin, Indirect - 2.2 mg/dL Blood Culture (06/22/2024) ???Blood Culture Results - Final report???Blood Culture Specimen Source - BLOOD Blood Culture #2 (06/22/2024) ???Blood Cult 2 Results - Final report???Blood Culture 2 Specimen Source - BLOOD Blood Culture 2 Results (06/22/2024) ???Blood Culture 2 Isolate 1 - Comment Blood Culture Result (06/22/2024) ???Blood Culture Isolate 1 - Comment Calcium Ionized (06/22/2024) ???Calcium, Ionized pH Corrected - 1.19 mmol/L CBC (06/24/2024) ???WBC - 10.6 k/mm3???RBC - 4.17 m/mm3???Hgb - 12.7 Gm/dL???Hct - 36.8 %???MCV - 88.2 femtoliters???MCH - 30.5 pg???MCHC - 34.5 Gm/dL???Platelet Count - 135 k/mm3???RDW-SD - 41.3 femtoliters???MPV - 9.9 femtoliters???Nucleated RBC (Automated) - 0.0 #/100 WBC'S???Abs. NRBC - 0.0 k/mm3 CBC w/ Differential (06/29/2024) ???WBC - 12.4 k/mm3???RBC - 4.84 m/mm3???Hgb - 14.7 Gm/dL???Hct - 41.9 %???MCV - 86.6 femtoliters???MCH - 30.4 pg???MCHC - 35.1 Gm/dL???Platelet Count - 241 k/mm3???RDW-SD - 39.0 femtoliters???MPV - 9.2 femtoliters???Nucleated RBC (Automated) - 0.0 #/100 WBC'S???Abs. NRBC - 0.0 k/mm3???Abs. Neut - 8.5 k/mm3???Abs. Lymph - 2.0 k/mm3???Abs. [place] - 1.1 k/mm3???Abs. Eo - 0.4 k/mm3???Abs. Baso - 0.2 k/mm3???Neut % - 68.5 %???Lymph % - 16.3 %???[place] % - 8.7 %???Eos % - 3.0 %???Baso % - 1.2 %???Imm Gran - 2.3 %???Abs. Imm Gran - 0.3 k/mm3 Comprehensive Metabolic Panel (06/22/2024) ???Sodium - 142 mmol/L???Potassium - 4.1 mmol/L???Chloride - 102 mmol/L???Bicarbonate Level - 27 mmol/L???Anion Gap - 13???Glucose Level - 145 mg/dL???BUN - 27 mg/dL???Creatinine-Blood - 1.16 mg/dL???Estimated GFR Creatinine - 67 ML/MIN/1.73 M2???Calcium - 9.3 mg/dL???Protein, Total - 7.0 Gm/dL???Albumin - 4.1 Gm/dL???AG Ratio - 1.4???Alkaline Phosphatase - 69 units/L???AST (SGOT) - 21 units/L???ALT (SGPT) - 11 units/L???Bilirubin, Total - 2.9 mg/dL COVID-19 (Novel Coronavirus), Rapid PCR (06/22/2024) ???COVID-19 by RT-PCR - NEGATIVE GLUCOSE POC (06/27/2024) ???Glucose, POC - 124 mg/dL High??Sensitivity??Troponin T (06/22/2024) ???High Sensitivity Troponin (HSTnT) - 17 ng/L HOLD GREEN TUBE (06/29/2024) ???Hold Green Top - SPECIMEN DISCARDED AFTER 1 WEEK INR (06/22/2024) ???INR - 1.2???Protime (PT) - 12.4 seconds Lactate Level (06/23/2024) ???Lactate - 1.6 mmol/L Liver Function Panel (06/24/2024) ???Protein, Total - 6.0 Gm/dL???Albumin - 3.4 Gm/dL???Alkaline Phosphatase - 62 units/L???AST (SGOT) - 20 units/L? ?ALT (SGPT) - <5 units/L? ?Bilirubin, Total - 1.5 mg/dL? ?Bilirubin, Direct - HEMOLYZED???Bilirubin, Indirect - Unable to calculate Magnesium Level (06/22/2024) ???Magnesium - 1.9 mg/dL [place] PCR Panel (06/23/2024) ???Anaplasma PCR - NEGATIVE???Babesia PCR - NEGATIVE???Ehrlichia PCR - NEGATIVE???B. Burgdorferi PCR - NEGATIVE RESP PATH PANEL W/COVID-19 (06/22/2024) ???Adenovirus by PCR - NEGATIVE???Coronavirus 229E by PCR (not COVID-19) - NEGATIVE???Coronavirus HKU1 by PCR (not COVID-19) - NEGATIVE???Coronavirus NL63 by PCR (not COVID-19) - NEGATIVE???Coronavirus OC43 by PCR (not COVID-19) - NEGATIVE???Human Metapneumovirus by PCR - NEGATIVE???Rhinovirus/Enterovirus by PCR - NEGATIVE???Influenza A by PCR - NEGATIVE???Influenza B by PCR - NEGATIVE???Parainfluenza 1 by PCR - NEGATIVE???Parainfluenza 2 by PCR - NEGATIVE???Parainfluenza 3 by PCR - NEGATIVE???Parainfluenza 4 by PCR - NEGATIVE???RSV by PCR - NEGATIVE???Bordetella Pertussis by PCR - NEGATIVE??? Chlamydophila Pneumoniae by PCR - NEGATIVE???Mycoplasma Pneumoniae by PCR - NEGATIVE???COVID-19 (SARS-CoV-2) by PCR - NEGATIVE???Bordetella Parapertussis by PCR - NEGATIVE TSH with T4 Reflex (Adults Only) (06/22/2024) ???TSH - 0.95 uIU/mL Urinalysis w/hold for Urine Culture (06/22/2024) ???Appear/Color, Urine - LIGHT YELLOW???Specific [place], Urine - 1.022???pH, Urine - 5.5???Albumin, Urine - NEGATIVE???Glucose, Urine - 4+???Ketones, Urine - NEGATIVE???Bilirubin, Urine - NEGATIVE???Hemoglobin, Urine - TRACE???Nitrite, Urine - NEGATIVE???Leukocyte, Urine - NEGATIVE???Urobilinogen - NORMAL???WBC's, Urine - 4 /HPF???RBC's, Urine - 2 /HPF???Squamous Epith - 1 /HPF???Hold Urine Culture - Testing available 48 hours from time of collection. You will be contacted within 72 hours with your results. Allergies (NKA means No Known Allergies) tetanus immune globulin Problems Active Problems??(18) Angina at rest?? Atrial fibrillation?? CAD in [place] artery?? Cardiomyopathy?? Diabetes mellitus type 2, noninsulin dependent?? Erectile dysfunction?? Gastroesophageal reflux disease?? Heart failure with improved ejection fraction (HFimpEF)?? Heart failure with reduced ejection fraction?? Hyperlipidemia?? Hypertension?? Hypotension?? Nocturia?? Obese class I?? Obesity, Class III, BMI 40-49.9 (morbid obesity)?? Parkinson disease?? Presence of left atrial appendage closure device?? REM behavioral disorder?? Education Materials Below is the list of Educational Leaflet Providered with your Discharge Instructions. Valuables and Belongings I fully understand and agree that [facility] accepts no responsibility for all my personal property including clothing, toilet articles, radios, jewelry, dentures, hearing aids, rings, money, or any other property that is in my possession or is brought to me after admission. I understand certain valuables may be placed in a hospital safe for a short period of time. I understand that the hospital is not liable for loss or damage due to accident, fire, or other natural occurrence while said property is in the safe. I accept full responsibility for any personal property that I keep with me, and will not hold the hospital responsible in case of loss or disappearance. I acknowledge that i have been encouraged to send valuables and belongings home. ?? Review of Valuable and Belonging List: With patient Date for Pt to Sign Valuables/Belongings: 06/30/24 06:48:00 ?? Other Discharge Information ? Case Management Discharge Plan?? Discharge Plan?? Discharge Agency Information?? Discharge Level of Care at Discharge: residential facility Name of Agency #1: [facility] Discharge Transportation Arranged: [facility] [id number] [phone] Agency Cement Kiln Operator #1: Mode of Transportation Arranged: Ambulance Service Categories #1: Physical Therapy Discharge Nursing Homes/Rehab Facilities: [facility] Service Comments #1: [facility] are [facility] ambulance today for short term rehabilitation. The facility and your Raquel are aware of your transfer today. ?? Pulmonary Rehab Status?? Pulmonary Rehab Discharge Status?? Respiratory Rate: 18 br/min ? Common Emergency Awareness Tips IS IT A STROKE? Act FAST and Check for these signs: FACE Does the face look uneven? ARM Does one arm drift down? SPEECH Does their speech sound strange? TIME Call at any sign of stroke ?? Heart Attack Signs Chest discomfort: Most heart attacks involve discomfort in the center of the chest and lasts more than a few minutes, or goes away and comes back. It can feel like uncomfortable pressure, squeezing, fullness or pain. Discomfort in upper body: Symptoms can include pain or discomfort in one or both arms, back, neck, jaw or stomach. Shortness of breath: With or without discomfort. Other signs: Breaking out in a cold sweat, nausea, or lightheaded. Remember, MINUTES DO MATTER. If you experience any of these heart attack warning signs, call to get immediate medical attention! ?? Smoking can increase your chances of developing chronic health problems and can cause harmful effects to other family members in your house. If you smoke, you are strongly encouraged to quit. Please call [facility] [facility] at [phone] or [phone] or log in to [email or web address] for referrals to smoking cessation programs. ?? 773 Suicide & Crisis Lifeline is available 18/02 if you or someone you know needs to find a reason to keep living. By calling 542 you'll be connected to a skilled, trained counselor at a crisis center in your area. INPATIENT DISCHARGE INSTRUCTIONS SIGNATURE SAUL PRIEST Location:[facility] Registration Date and Time:06/22/2024 18:28 EST Primary Care Physician: China Briseno MD, Attending Physician: Sylvia Ohara MD, iTm ANJANASAUL REBOLLEDO, have received the above patient education materials/instructions and have verbalized understanding. If ambulance or transport services are being used I further acknowledge being given a choice of service. ?? If you need to contact me, please call me at this number: . Patient/Cardiovascular Tech Name: Patient/Cardiovascular Tech Signature: Relationship to Patient: Witness Name/Signature: Date: * Abimbola Artis RN: VERIFY, PERFORM, SIGN Event Display: Case Management Discharge Plan Authored Date: [id number] Patient: SAUL MARTINEZ Age: 73 years Sex: Male : 1950 Associated Diagnoses: None Author: Abimbola Artis RN Discharge Plan Case Management Discharge Plan : Case Management Discharge Plan Data 06/29/2024 10:03 EST Discharge Level of Care at Discharge residential facility Discharge Nursing Homes/Rehab Facilities [facility] Discharge Transportation Arranged [facility] [address] [place] [phone] Mode of Transportation Arranged Ambulance Name of Agency #1 [facility] Agency Cement Kiln Operator # Service Categories #1 Physical Therapy Service Comments #1 You are discharging to [facility] via ambulance today for short term rehabilitation. The facility and your Raquel are aware of your transfer today. Patient Care team information Care Team Personnel Name: Avril Casillas RN Position: [facility] RN Member Role: Primary Care Nurse Name: China Briseno MD Position: [facility] Physician - Primary Care Member Role: PCP Address: [address] [place] [address]- Telecom: Name: Teodora Shafer LPN Position: S RN Member Role: Primary Care Nurse Name: Gillian Eastman RN Position: [facility] RN Member Role: Primary Care Nurse Name: Gillian Chatterjee RN Position: S RN Member Role: Primary Care Nurse Name: Valarie Grant RN Position: [facility] OB RN Member Role: Primary Care Nurse Name: Ysabel Sullivan RN Position: [facility] RN Member Role: Primary Care Nurse Name: Alanna Rogers RN Position: [facility] RN Member Role: Primary Care Nurse Name: Juliet Koehler RN Position: [facility] RN Member Role: Primary Care Nurse Name: Jose Alfredo Deras RN Position: [facility] RN Member Role: Primary Care Nurse Name: Ca Guerrero RN Position: [facility] AMB Nurse Member Role: Primary Care Nurse Name: Gladys Aguirre RN Position: [facility] RN Member Role: Primary Care Nurse Name: Julianna Lui RN Position: [facility] RN Member Role: Primary Care Nurse Name: Khang Canchola RN Position: [facility] RN Member Role: Primary Care Nurse Name: Prabhakar Pabon RN Position: [facility] RN Member Role: Primary Care Nurse Name: Giovanna Gilbert RN Position: [facility] RN Sudeep Member Role: Primary Care Nurse Name: Elena Thurston RN Position: [facility] RN Member Role: Primary Care Nurse Name: Jackie Coates RN Position: [facility] RN Member Role: Primary Care Nurse Name: Светлана Tolentino RN Position: [facility] RN Member Role: Primary Care Nurse Name: Nida Tejeda RN Position: [facility] RN Member Role: Primary Care Nurse Name: Raquel Mcfadden LPN Position: S RN Member Role: Primary Care Nurse Care Team Related Persons Name: CARMEN MARTINEZ Name: RAQUEL MARTINEZ Insurance Providers [facility]or [facility] Information #: 2 Payer: MEDICARE A INPT 25 Member Number: [id number] Policy Number: NA Group Number: NA Health Plan Information #: 1 Payer: [facility] POS Member Number: [id number] Policy Number: NA Group Number: NA
--- OUTSIDE RECORDS SUMMARY | 2024-07-27 10:14 | XMS_ITS | Continuity of Care Document ---
Author Organization [facility] Address [address] [facility], [address], [address] [place] [id number]- Care Team Providers Care Operator Prefinish Name Role Phone China Briseno MD Primary Care Physician Encounter [facility] Date(s): 06/02/24 - 07/02/24 [facility] [address] [facility] [address] Floor, [address] [place] [phone]- Attending Physician: Jakob Guadarrama Admitting Physician: Jakob Guadarrama Referring Physician: AdmtrJakob Encounter Type: Triage Allergies, Adverse Reactions, Alerts [...] tablet, 5 Refills, 04/17/23 12:04:00 PM EDT, [id number], 90, 2 tablet By Mouth 3 times a day, 175, cm, 03/25/23 17:16:00 EDT, Height, 95, kg, 08/27/23 16:15:00 EDT, Dry Weight Start Date: 04/17/23 [...] Refills, Maintenance, 04/21/24 9:32:00 AM EDT, Tablet, [facility] #[id number], Dose decrease, 1 tablet By Mouth 2 times a day, 176, cm, :08:00 EDT, Height, 90.3, kg, 07/25/23 16:18:00 EST, [...] 3 Refills, Maintenance, 06/19/24 7:32:00 AM EST, [facility] #[id number], 176, cm, 06/10/24 13:57:00 EST, Height, 90.3, kg, 07/25/23 16:18:00 EST, Dry Weight Start Date: 06/19/24 Status: Ordered Quantity: 90.0 Unit: tablet Repeat number: 1 Metoprolol Succinate ER 200 mg oral tablet, extended release 1 tablet, By Mouth, Daily, Hold if SBP<100, # 90 tablet, 3 Refills, Maintenance, 05/14/23 10:31:00 AM EDT, [facility] #[id number], 175, cm, 05/13/23 13:47:00 EDT, Height, 95, [...] Refills, Maintenance, 03/27/24 9:18:00 AM EDT, Tablet, [facility] #[id number], Partial fill upon patient request if the [...] Replace Required Details, Route to Pharmacy Electronically, [facility][id number], 176, cm, 03/27/24 9:08:00 EDT, Height, 90.3, kg, 07/25/23 16:18:00 EST, Dry Weight Start Date: 05/26/24 Status: Ordered Quantity: 135.0 Unit: tablet Repeat number: 1 rOPINIRole 0.25 mg oral tablet 3 tablet = 0.75 mg, By Mouth, 3 times a day, # 810 tablet, 0 Refills, Maintenance, 03/26/24 9:00:00 AM EDT, Tablet, [facility] #[id number], Partial fill upon patient request if the [...] 12/06/23 9:21:00 AM EDT,Route to Pharmacy Electronically, [facility] #[id number], 176, cm, 11/25/23 16:02:00 EDT, Height, 90.3, kg, 07/25/23 16:18:00 EST, Dry Weight Start Date: 12/06/23 Status: Ordered Quantity: 90.0 Unit: tablet Repeat number: 1 spironolactone 25 mg oral tablet 50 mg, 2, tablet, By Mouth, Daily, dose increase, # 180 tablet, Refills 3, Tot. Refills 3, Maintenance, 03/27/24 9:16:00 AM EDT, Route to Pharmacy Electronically, [facility] #[id number], 176, cm,03/27/24 9:08:00 EDT, Height, 90.3, kg, 07/25/23 16:18:00 EST, Dry Weight Start Date: 03/27/24 Stop Date: 03/22/25 Status: Ordered Quantity: 180.0 Unit: tablet Repeat number: 4 torsemide 20 mg oral tablet 1 tablet = 20 mg, By Mouth, 2 times a day, # 60 tablet, 4 Refills, Maintenance, 06/10/24 2:33:00 PMEST, Tablet, [facility] #[id number], Replaces furosemide/Lasix, 176, cm, 06/10/24 13:57:00 EST, [...] Confirmed Active Cardiomyopathy Confirmed Active CAD in [place] artery Confirmed Active Gastroesophageal reflux disease Confirmed [...] Team Personnel Name: Avril Casillas RN Position: [facility] RN Member Role: Primary Care Nurse Name: China Briseno MD Position: [facility] Physician - Primary Care Member Role: PCP Address: [address] [place], [place] [address] Telecom: Name: Teodora Shafer LPN Position: [facility] RN Member Role: Primary Care Nurse Name: Gillian Eastman RN Position: [facility] RN Member Role: Primary Care Nurse Name: Gillian Chatterjee RN Position: [facility] RN Member Role: Primary Care Nurse Name: Valarie Grant RN Position: [facility] OB RN Member Role: Primary Care Nurse Name: Ysabel Sullivan RN Position: [facility] RN Member Role: Primary Care Nurse Name: Alanna Rogers RN Position: [facility] RN Member Role: Primary Care Nurse Name: Juliet Koehler RN Position: [facility] RN Member Role: Primary Care Nurse Name: Jose Alfredo Deras RN Position: [facility] RN Member Role: Primary Care Nurse Name: Ca Guerrero RN Position: [facility] ROMAN Nurse Member Role: Primary Care Nurse Name: Gladys Aguirre RN Position: [facility] RN Member Role: Primary Care Nurse Name: Julianna Lui RN Position: [facility] RN Member Role: Primary Care Nurse Name: Khang Canchola RN Position: [facility] RN Member Role: Primary Care Nurse Name: Prabhakar Pabon RN Position: [facility] RN Member Role: Primary Care Nurse Name: Giovanna Gilbert RN Position: [facility] RN Sudeep Member Role: Primary Care Nurse Name: Elena Thurston RN Position: [facility] RN Member Role: Primary Care Nurse Name: Jackie Coates RN Position: [facility] RN Member Role: Primary Care Nurse Name: Светлана Tolentino RN Position: [facility] RN Member Role: Primary Care Nurse Name: Nida Tejeda RN Position: [facility] RN Member Role: Primary Care Nurse Name: Raquel Mcfadden LPN Position: [facility] RN Member Role: Primary Care Nurse Care Team Related Persons Name: CARMEN MARTINEZ Name: RAQUEL MARTINEZ Insurance Providers Guarantor name: [facility] Information #: 1 Payer: [facility] POS Member Number: NA Policy Number: NA Group Number: NA
[2024-07-27 10:18] VITALS: BP 88/54; PULSE 71; O2SAT 99; BMI 30.1
--- NOTE | 2024-07-27 10:18 | A.OFFPC_ITS ---
Vital Signs 07/27/24 10:18 Height 5 ft 10 in Weight 210 lb BMI 30.1 BP 88/54 L Blood Pressure Location Rt brachial Position Sitting Pulse 71 Pulse Source Pulse Oximeter Pulse Oximetry (%) 99 Oxygen Delivery Method Room Air Intake Visit Reasons: Hospital /Rehab follow up Intake Note: Pt is here today for Hospital follow up visit. Allergies Tetanus Vaccines and Toxoid [Tetanus Vaccines & Toxoid] Allergy (Severe, Verified 07/27/24 10:22) ANAPHYLAXIS Tetanus Allergy (Unknown, Uncoded 07/27/24 10:22) unknown Medication List - Last Reconciled 07/27/24 by China Briseno MD ammonium lactate 12% 1 appl topical DAILY PRN aspirin 81 mg PO DAILY carbidopa-levodopa 25-100 mg 2 tabs PO TID clonazepam 0.5 mg PO BEDTIME compr.stocking,knee,long,large 10-20 mmHg with zippers empagliflozin (Jardiance) 10 mg PO QAM metoprolol succinate ER 50 mg PO DAILY nystatin 1 appl topical BID 30 days omeprazole 20 mg PO DAILY [potassium calcium 20 MEQ 1 tablet daily] quetiapine 12.5 mg PO BEDTIME ropinirole 0.5 mg PO TID sacubitril-valsartan 49-51 mg (Entresto) 1 tab PO BID sennosides (senna) 8.6 mg PO DAILY PRN simvastatin 10 mg PO QPM spironolactone 25 mg PO DAILY tamsulosin 0.4 mg PO BID 90 days torsemide 20 mg PO DAILY Tobacco use date assessed: 07/27/24 Dental Screening Dental Screen Date: 03/25/24 HPI Hospital /Rehab follow up HPI Details Patient presents for the follow-up for hospitalization at [facility] for sepsis followed by inpatient rehab stay. Patient was feeling better but reports feeling generally weak. He has been ambulating with a walker. Patient denies PND orthopnea chest pain palpitations GI or complaints. He follows up with [facility] Cardiology for heart failure with reduced ejection fraction [facility] Medical History A-fib CHF (congestive heart failure) Parkinson disease Obesity Surgical History H/O colonoscopy Family History Father COPD (chronic obstructive pulmonary disease) Mother Heart problem Social History Housing: House Alcohol intake: current Alcohol intake frequency: holidays/special occasions only Patient Tobacco Use Status: Never used Tobacco e-Cigarette/Vaping Use: Never Used service: No Current occupational status: retired Cognitive needs: No Hearing needs: No Vision needs: No Questionnaire Thrive Questionnaire Date Thrive assessed: 03/25/24 I am a: Patient What is your living situation today?: I have a steady place to live Within the past 12 months, did the food you bought not last and you didn't have the money to get more?: Never true Within the past 12 months, did you worry whether your food would run out before you got money to buy more?: Never true Do you have trouble paying for medicines?: No Do you have trouble getting transportation to medical appointments?: No Do you have trouble paying your heating and electricity bill?: No Do you have trouble taking care of your child, family member or friend?: No Do you have trouble with day-to-day activities such as bathing, preparing meals, shopping, managing finances, etc.?: No Are you currently unemployed and looking for a job?: No Are you interested in more education?: No Please select the resources that you would like help with: None Currently or been in a relationship where the following occur: No concerns reported THRIVE Score: 0 MARCIA-7 AMB Questionnaire MARCIA-7 Date MARCIA - 7 assessed: 03/25/24 Source: Developed by Drs. Lenny Jeter, Radha Ortiz, Vicente Guthrie and colleagues, with an educational rosa from [employer]. Review of Systems Const All systems reviewed & are unremarkable except as noted in HPI and below Reports no additional complaints Eyes Reports no additional complaints ENT Reports no additional complaints Card Reports no additional complaints Resp Reports no additional complaints GI Reports no additional complaints Physical exam (Primary Care) Vital Signs: Last Vital Signs Pulse 71 07/27/24 10:18 BP 88/54 L 07/27/24 10:18 Pulse Ox 99 07/27/24 10:18 Oxygen Delivery Method Room Air 07/27/24 10:18 BMI result Body Mass Index 30.1 Tobacco/Smoking Status: Tobacco use Status Tobacco use date assessed 07/27/24 07/27/24 10:33 Patient Tobacco Use Status Never used Tobacco 07/27/24 10:19 e-Cigarette/Vaping Use Never Used 07/27/24 10:19 Thrive Assessment: Date of Thrive Assessment Date Thrive assessed 03/25/24 07/27/24 10:19 Currently or been in a relationship where the following occur: No concerns reported Const General: no acute distress HENMT Head: Yes normal to inspection Neck Neck: Yes no lymphadenopathy and Yes supple Resp Effort & Inspection: normal respiratory effort Auscultation: diminished lung sounds Cardio Rhythm: regular rhythm Heart sounds: S1 normal heart sound present and S2 normal heart sound present GI Palpation (GI): Soft to palpation Percussion: Yes normal to percussion Extrem Other: 2+ pitting edema bilaterally Coding Level of Care Code Est Pt Level 5 (70853) Complex EM visit Add On G2211 Diagnoses CHF (congestive heart failure) I50.9 A-fib I48.91 Parkinson disease G20 Hypercholesterolemia E78.00 Edema R60.9 Assessment & Plan Assessment & Plan (1) CHF (congestive heart failure): Comment: heart MRI 06/2019, left ventricle global hypokinesia EF 38% Coronary cath, no significant CAD, Echo 12/2023 EF 50%, [facility] f/u Dr. Cavanaugh Code(s): I50.9 - Heart failure, unspecified Category: Medical Plan: Continue current medications follow-up with Cardiology (2) A-fib: Comment: Watchman FLX device, f/u [facility] Cardiology Dr Mcelroy Code(s): I48.91 - Unspecified atrial fibrillation Category: Medical Plan: Rate controlled on metoprolol (3) Parkinson disease: Comment: Dr. Lulú lennon 06/2016, [place] Code(s): G20 - Parkinson's disease Category: Medical Plan: Continue current medications follow-up with Urology (4) Hypercholesterolemia: Code(s): E78.00 - Pure hypercholesterolemia, unspecified Category: Medical Plan: Continue statin (5) Edema: Code(s): R60.9 - Edema, unspecified Category: Medical Plan: Continue torsemide and compression stockings Orders: Orders Comprehensive Met. Panel Today E78.00 - Pure hypercholesterolemia, unspecified, G20 - Parkinson's disease, I48.91 - Unspecified atrial fibrillation, I50.9 - Heart failure, unspecified Complete Blood Count Auto Diff Today E78.00 - Pure hypercholesterolemia, unspecified, G20 - Parkinson's disease, I48.91 - Unspecified atrial fibrillation, I50.9 - Heart failure, unspecified B Type Natriuretic Peptide Today R60.9 - Edema, unspecified Medications: New potassium chloride ER 20 mEq PO DAILY 90 tabs 3RF
== END 2024-07-27 11:03 | disposition home or self-care (01) ==
PROVIDERS: PCP Internal Medicine; Visit Provider Internal Medicine
DX: I50.9 Heart failure, unspecified (principal); I48.91 Unspecified atrial fibrillation; G20.C Parkinsonism, unspecified; E78.00 Pure hypercholesterolemia, unspecified; R60.9 Edema, unspecified

== ENCOUNTER → 2024-07-27 10:09 | Outpatient (BNVA) | payer OTHER, SELFPAY | PROVIDERS: PCP Internal Medicine; Visit Provider Internal Medicine ==

== ENCOUNTER 2024-10-02 09:21 | Outpatient (AMB) | payer OTHER, SELFPAY ==
[2024-10-02 09:29] VITALS: BP 106/60; PULSE 90; RESP 20; O2SAT 100; BMI 28.6
--- NOTE | 2024-10-02 09:29 | A.OFFPC_ITS ---
Vital Signs 10/02/24 09:29 Height 5 ft 10 in Weight 199 lb BMI 28.6 BP 106/60 Blood Pressure Location Lt brachial Position Sitting Respiration 20 Pulse 90 Pulse Source Pulse Oximeter Pulse Oximetry (%) 100 Oxygen Delivery Method Room Air Intake Visit Reasons: Annual pe Intake Note: Pt is here today for a PE. Pt states that he was at [facility]. Allergies Tetanus Vaccines and Toxoid [Tetanus Vaccines & Toxoid] Allergy (Severe, Verified 10/02/24 09:29) ANAPHYLAXIS dapagliflozin [From [facility]] Adverse Reaction (Intermediate, Verified 10/02/24 17:10) Recurrent UTI Tetanus Allergy (Unknown, Uncoded 10/02/24 09:29) unknown Medication List - Last Reconciled 10/02/24 by China Briseno MD ammonium lactate 12% 1 appl topical DAILY PRN aspirin 81 mg PO DAILY carbidopa-levodopa 25-100 mg 2 tabs PO TID clonazepam 0.5 mg PO BEDTIME compr.stocking,knee,long,large 10-20 mmHg with zippers metoprolol succinate ER 50 mg PO DAILY nystatin 1 appl topical BID 30 days omeprazole 20 mg PO DAILY [potassium calcium 20 MEQ 1 tablet daily] potassium chloride ER 20 mEq PO DAILY quetiapine 12.5 mg PO BEDTIME ropinirole 0.5 mg PO TID sacubitril-valsartan 49-51 mg (Entresto) 1 tab PO BID sennosides (senna) 8.6 mg PO DAILY PRN simvastatin 10 mg PO QPM spironolactone 25 mg PO DAILY tamsulosin 0.4 mg PO BID 90 days torsemide 20 mg PO DAILY Tobacco use date assessed: 10/02/24 Fall risk assessment: 2 + Falls in past year Last assessed Fall Risk: 10/02/24 Dental Screening Dental Screen Date: 10/02/24 Did you have a dental visit in the last 12 months?: Yes Did you have a dental problem in the last 6 months where you did not have access to dental care?: No Was dental information given to patient?: Patient has dentist HPI Annual pe HPI Details Patient presents for physical. Has been in a [facility] and [facility] a few times for the last 2 months with recurrent C diff colitis and hypotension, progressive weakness and difficulty ambulating. [facility] Medical History A-fib CHF (congestive heart failure) Parkinson disease Obesity Surgical History H/O colonoscopy Family History Father COPD (chronic obstructive pulmonary disease) Mother Heart problem Social History Housing: House Alcohol intake: current Alcohol intake frequency: holidays/special occasions only Patient Tobacco Use Status: Never used Tobacco e-Cigarette/Vaping Use: Never Used service: No Current occupational status: retired Cognitive needs: No Hearing needs: No Vision needs: No Questionnaire PHQ-9 Over the last 2 weeks, how often have you been bothered by any of the following problems? 1. Little interest or pleasure in doing things: not at all 2. Feeling down, depressed, or hopeless: not at all 3. Trouble falling or staying asleep, or sleeping too much: not at all 4. Feeling tired or having little energy: several days 5. Poor appetite or overeating: several days 6. Feeling bad about yourself - or that you are a failure or have let yourself or your family down: not at all 7. Trouble concentrating on things, such as reading the newspaper or watching television: not at all 8. Moving or speaking so slowly that other people could have noticed. Or the opposite - being so fidgety or restless that you have been moving around a lot more than usual: more than half the days 9. Thoughts that you would be better off or of hurting yourself in some way: not at all Total score: 4 Depression Screening Interpretation: Negative Depression Screening Done: Yes 17989 - PHQ-9 Billing: Yes Source: Developed by Drs. Lenny Jeter, Radha Ortiz, Vicente Guthrie and colleagues, with an educational rosa from [employer]. Thrive Questionnaire Date Thrive assessed: 10/02/24 I am a: Parent/Caregiver What is your living situation today?: I have a steady place to live Within the past 12 months, did the food you bought not last and you didn't have the money to get more?: Never true Within the past 12 months, did you worry whether your food would run out before you got money to buy more?: Never true Do you have trouble paying for medicines?: No Do you have trouble getting transportation to medical appointments?: No Do you have trouble paying your heating and electricity bill?: No Do you have trouble taking care of your child, family member or friend?: No Do you have trouble with day-to-day activities such as bathing, preparing meals, shopping, managing finances, etc.?: Yes Are you currently unemployed and looking for a job?: No Are you interested in more education?: No Please select the resources that you would like help with: None Currently or been in a relationship where the following occur: No concerns reported THRIVE Score: 0 AUDIT C Alcohol Use Questionnaire (AUDIT-C) 1. How often do you have a drink containing alcohol?: Never 3. How often do you have six or more drinks on one occasion?: Never Total Score: 0 MARCIA-7 AMB Questionnaire MARCIA-7 Date MARCIA - 7 assessed: 10/02/24 Feeling nervous, anxious, or on edge: 1 = Several days Not being able to stop or control worryin = Several days Worrying too much about different things: 1 = Several days Trouble relaxin = Several days Being so restless that it is hard to sit still: 0 = Not at all Becoming easily annoyed or irritable: 0 = Not at all Feeling afraid as if something awful might happen: 0 = Not at all Total MARCIA-7 score (0-4 normal; 5-9 mild; 10-14 moderate; 15-21 severe): 4 Source: Developed by Drs. Lenny Jeter, Radha Ortiz, Vicente Guthrie and colleagues, with an educational rosa from [employer]. MARCIA-7 Assessment Billing MARCIA-7 Assessment Tool: MARCIA-7 Assessment 98817 Review of Systems Const All systems reviewed & are unremarkable except as noted in HPI and below Eyes Reports no additional complaints ENT Reports no additional complaints Card Reports no additional complaints Resp Reports no additional complaints GI Reports no additional complaints Reports no additional complaints Physical exam (Primary Care) Vital Signs: Last Vital Signs Pulse 90 10/02/24 09:29 Resp 20 10/02/24 09:29 BP 106/60 10/02/24 09:29 Pulse Ox 100 10/02/24 09:29 Oxygen Delivery Method Room Air 10/02/24 09:29 BMI result Body Mass Index 28.6 Tobacco/Smoking Status: Tobacco use Status Tobacco use date assessed 10/02/24 10/02/24 09:29 Patient Tobacco Use Status Never used Tobacco 10/02/24 09:29 e-Cigarette/Vaping Use Never Used 10/02/24 09:29 PHQ-9: PHQ-9 Score PHQ-9: Total score 4 10/02/24 09:44 Depression Screening Interpretation: Negative Thrive Assessment: Date of Thrive Assessment Date Thrive assessed 10/02/24 10/02/24 09:44 Currently or been in a relationship where the following occur: No concerns reported Const General: no acute distress HENMT Head: Yes normal to inspection Ears: hearing grossly normal bilaterally Eyes General: appearance normal, both eyes and all related structures Neck Neck: Yes supple Resp Effort & Inspection: normal respiratory effort Auscultation: clear to auscultation bilaterally Cardio Rate: tachycardic Rhythm: abnormal rhythm irregularly irregular Heart sounds: S1 normal heart sound present and S2 normal heart sound present GI Inspection: Yes normal to inspection Palpation (GI): Soft to palpation Percussion: Yes normal to percussion Auscultation: normal bowel sounds Extrem Other: 1+ pitting edema bilaterally Coding Level of Care Code Est Pt Prev Care >65y(83642) Diagnoses CHF (congestive heart failure) I50.9 A-fib I48.91 Parkinson disease G20 Annual physical exam Z00.00 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 Cavanaugh Code(s): I50.9 - Heart failure, unspecified Category: Medical Plan: Continue Entresto beta melony spironolactone and torsemide. Patient developed recurrent UTIs on Farxiga (2) A-fib: Comment: Watchman FLX device, f/u [facility] Cardiology Dr Mcelroy Code(s): I48.91 - Unspecified atrial fibrillation Category: Medical Plan: Continue metoprolol, add digoxin 125 mcg daily for better heart rate control, monitor heart rate follow-up in 1 month (3) Parkinson disease: Comment: Dr. Chino dxd 06/2016, [place] Code(s): G20 - Parkinson's disease Category: Medical Plan: Continue current medications follow-up with neurology (4) Annual physical exam: Code(s): Z00.00 - Encounter for general adult medical examination without abnormal findings Category: Medical Plan: Increasing physical activity decreasing caloric intake weight loss discussed with the patient (5) Recurrent Clostridioides difficile diarrhea: Comment: Hospitalized at [facility] Jun- Aug 2024, on slow taper of p.o. vanco Code(s): A04.71 - Enterocolitis due to Clostridium difficile, recurrent Category: Medical Plan: Continue slow taper of p.o. vancomycin Orders: Orders AMB EKG-In Office Today I48.91 - Unspecified atrial fibrillation, I50.9 - Heart failure, unspecified Medications: New digoxin 125 mcg PO DAILY 90 tabs 2RF
--- OUTSIDE RECORDS SUMMARY | 2024-10-02 10:07 | XMS_ITS | Continuity of Care Document ---
Author Organization [facility] Address [address] [place] [address]- Care Team Providers Care Acid Regenerator Name Role Phone Finn VELASQUEZ, [place] Primary Care Physician [phone] Encounter [facility] Date(s): 08/24/24 - 09/23/24 [facility] [address] [place] [id number]- Encounter Type: Triage Allergies, Adverse Reactions, Alerts [...] tablet, 5 Refills, 04/17/23 12:04:00 PM EDT, [facility] #[id number], 90, 2 tablet By Mouth 3 times a day, 175, cm, 03/25/23 17:16:00 EDT, Height, 95, kg, 03/24/23 16:15:00 EDT, Dry Weight Start Date: 04/17/23 Status: Ordered Quantity: 540.0 Unit: tablet Repeat number: 6 cholecalciferol 1000 intl units oral capsule 1 capsule = 1,000 International_Units, By Mouth, Daily, Maintenance, 04/30/19 9:42:57 PM EDT, Capsule Start Date: 04/30/19 Status: Ordered Repeat number: 1 Entresto 24 mg-26 mg oral tablet 1 tablet, By Mouth, 2 times a day, # 60 tablet, 1 Refills, Maintenance, 08/04/24 3:49:00 PM EST, Tablet, [facility] #[id number], Partial fill upon patient request if the prescription is for a schedule II opioid drug., 1 tablet By Mouth 2 times a day, 173, cm, 08/04/24 15:00:00 EST, Height, 98.5,kg, 06/23/24 18:58:00 EST, Dry Weight Start Date: 08/04/24 Status: Ordered Quantity: 60.0 Unit: tablet Repeat number: 2 Indication: Heart failure, unspecified Flomax 0.4 mg oral capsule 0.4 mg, By Mouth, Daily, Refills 0, Maintenance, 02/01/23 1:39:00 PM EDT, Partial fill upon patient request if the prescription is for a schedule II opioid drug. Start Date: 02/01/23 Status: Ordered Repeat number: 1 Jardiance 10 mg oral tablet 1 tablet, By Mouth, Daily in AM, # 90 tablet, 3 Refills, Maintenance, 06/19/24 7:32:00 AM EST, [facility] #[id number], 176, cm, 06/10/24 13:57:00 EST, Height, 90.3, kg, 07/25/23 16:18:00 EST, Dry Weight Start Date: 06/19/24 Status: Ordered Quantity: 90.0 Unit: tablet Repeat number: 1 metoprolol 50 mg oral tablet, extended release 50 mg, 1, tablet, By Mouth, Daily, # 90 tablet, Refills 3, Tot. Refills 3, Maintenance, 09/11/24 9:14:00 AM EST, Route to Pharmacy Electronically, [facility] #[id number], Partial fill upon patient request if the prescription is for a schedule II opioid drug., 178, cm, 09/11/24 8:52:00 EST, Height, 91, kg, 08/09/24 19:36:00 EST, Dry Weight Start Date: 09/11/24 Status: Ordered Quantity: 90.0 Unit: tablet Repeat number: 4 Indication: Heart failure, unspecified Multi Vitamin+ 1 tablet, By Mouth, Daily, 0 Refills, Maintenance, 08/19/19 8:02:00 AM EST Start Date: 08/19/19 Status: Ordered Repeat number: 1 nystatin topical 205034 u/gm powder 1 application, Topically, 2 times a day, # 15 Gm, 0 Refills, Maintenance, 08/04/24 3:00:00 PM EST, Powder, Partial fill upon patient request if the prescription is for a schedule II opioid drug. Start Date: 08/04/24 Status: Ordered Quantity: 15.0 Unit: g Repeat number: 1 omeprazole 20 mg oral enteric coated capsule [...] Replace Required Details, Route to Pharmacy Electronically, [facility] #[id number], 176, cm, 03/27/24 9:08:00 EDT, Height, 90.3, kg, 07/25/23 16:18:00 EST, Dry Weight Start Date: 05/26/24 Status: Ordered Quantity: 135.0 Unit: tablet Repeat number: 1 rOPINIRole 0.25 mg oral tablet 3 tablet = 0.75 mg, By Mouth, 3 times a day, # 810 tablet, 0 Refills, Maintenance, 03/26/24 9:00:00 AM EDT, Tablet, [facility] #[id number], Partial fill upon patient request if the [...] 12/06/23 9:21:00 AM EDT,Route to Pharmacy Electronically, [facility] #[id number], 176, cm, 11/25/23 16:02:00 EDT, Height, 90.3, kg, 07/25/23 16:18:00 EST, Dry Weight Start Date: 12/06/23 Status: Ordered Quantity: 90.0 Unit: tablet Repeat number: 1 spironolactone 25 mg oral tablet 50 mg, 2, tablet, By Mouth, Daily, dose increase, # 180 tablet, Refills 3, Tot. Refills 3, Maintenance, 03/27/24 9:16:00 AM EDT, Route to Pharmacy Electronically, [facility] #[id number], 176, cm,03/27/24 9:08:00 EDT, Height, 90.3, kg, 07/25/23 16:18:00 EST, Dry Weight Start Date: 03/27/24 Stop Date: 03/22/25 Status: Ordered Quantity: 180.0 Unit: tablet Repeat number: 4 torsemide 20 mg oral tablet 0.5 tablet = 10 mg, By Mouth, Daily, # 60 tablet, 4 Refills, Maintenance, 06/10/24 2:33:00 PM EST, Tablet, [facility] #[id number], Replaces furosemide/Lasix, 176, cm, 06/10/24 13:57:00 EST, [...] Confirmed Active Cardiomyopathy Confirmed Active CAD in [place] artery Confirmed Active Gastroesophageal reflux disease Confirmed Active 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 Active Heart failure with reduced ejection fraction Confirmed Active Hyperlipidemia Confirmed Active Hypertension Confirmed Active Erectile dysfunction Confirmed Active Hypotension Confirmed Active Obesity, Class III, BMI 40-49.9 (morbid obesity) Confirmed Active Nocturia Confirmed Active Parkinson disease Confirmed Active Diabetes mellitus type 2, noninsulin dependent Confirmed Active Social History Social History Type Response Smoking Status Never smoker entered on: 08/24/16 Sex Sex Representation Male (finding) Patient Care team information Care Team Personnel Name: Avelino Mcmahon RN Position: [facility] RN Member Role: Primary Care Nurse Name: Avril Casillas RN Position: [facility] RN Member Role: Primary Care Nurse Name: Antonia Bowers RN Position: [facility] RN Member Role: Primary Care Nurse Name: China Briseno MD Position: [facility] Physician - Primary Care Member Role: PCP Address: [facility] [address] Telecom: Name: Teodora Shafer LPN Position: [facility] RN Member Role: Primary Care Nurse Name: Gillian Eastman RN Position: [facility] RN Member Role: Primary Care Nurse Name: Gillian Chatterjee RN Position: [facility] RN Member Role: Primary Care Nurse Name: Valarie Grant RN Position: [facility] OB RN Member Role: Primary Care Nurse Name: Ysabel Sullivan RN Position: [facility] AMB Nurse Member Role: Primary Care Nurse Name: Alanna Rogers RN Position: [facility] RN Member Role: Primary Care Nurse Name: Juliet Koehler RN Position: [facility] RN Member Role: Primary Care Nurse Name: Tone Farooq RN Position: [facility] RN Member Role: Primary Care Nurse Name: Jose Alfredo Deras RN Position: [facility] RN Member Role: Primary Care Nurse Name: Lili Mullins RN Position: [facility] RN Member Role: Primary Care Nurse Name: Elinor Colon RN Position: [facility] ED RN W/OE and Tasks Member Role: Primary Care Nurse Name: Beatrice Quesada RN Position: [facility] RN Member Role: Primary Care Nurse Name: Ca Guerrero RN Position: [facility] AMB Nurse Member Role: Primary Care Nurse Name: Gladys Aguirre RN Position: [facility] RN Member Role: Primary Care Nurse Name: Julianna Lui RN Position: [facility] RN Member Role: Primary Care Nurse Name: Khang Canchola RN Position: [facility] RN Member Role: Primary Care Nurse Name: Prabhakar Pabon RN Position: [facility] RN Member Role: Primary Care Nurse Name: Giovanna Gilbert RN Position: [facility] RN Supluis miguel Member Role: Primary Care Nurse Name: Elena Thurston RN Position: [facility] RN Member Role: Primary Care Nurse Name: Jackie Coates RN Position: [facility] RN Member Role: Primary Care Nurse Name: Simone Hopkins RN Position: [facility] RN Member Role: Primary Care Nurse Name: Светлана Tolentino RN Position: [facility] RN Member Role: Primary Care Nurse Name: Nida Tejeda RN Position: [facility] RN Member Role: Primary Care Nurse Name: Raquel Mcfadden LPN Position: [facility] RN Member Role: Primary Care Nurse Care Team Related Persons Name: CARMEN MARTINEZ Name: RAQUEL MARTINEZ Insurance Providers Guarantor name: [employer]UL [employer] Health Plan Information #: [address] [facility] POS Member Number: NA Policy Number: NA Group Number: NA Health Plan Information #: 2 Payer: MEDICARE PART B OUTPT Member Number: NA Policy Number: NA Group Number: NA Health Plan Information #: 3 Payer: [employer] MED[employer] SUPPL [id number] Member Number: NA Policy Number: NA Group Number: NA
--- OUTSIDE RECORDS SUMMARY | 2024-10-02 10:07 | XMS_ITS | Encounter Summary ---
Author Organization [facility] Address [address] [place] [address] Care Team Providers Care Information Resource Consultant Name Role Phone China Briseno Primary Care Provider [phone] Encounter Details Date Type Department Care Team (Late st Contact Info) Description 06/04/2022 myChart Message [facility] [address] [place] [address] Franck Gomez MD [address] [place] [address] hallucinations Social History Tobacco Use Types Packs/Day Years Used Date Smoking Tobacco: Never Smokeless Tobacco: Never Alcohol Use Standard Drinks/Week Comments Not Currently 0 (1 standard drink = 0.6 oz pur e alcohol) Sex and Gender Information Value Date Recorded Sex Assigned at Male 09/26/2021 4:29 PM EST Legal Sex Male 7:16 AM EST Gender Identity Male 09/26/2021 4:29 PM EST Sexual Orientation Straight 09/26/2021 4: 29 PM EST documented as of this encounter Plan of Treatment Not on file documented as of this encounter Visit Diagnoses Not on filedocumented in this encounter Care Teams Information Resource Consultant Relationship Specialty Start Date End Date China Briseno [address] [place] [address] PCP - General Internal Medicine 09/14/21 documented as of this encounter
--- OUTSIDE RECORDS SUMMARY | 2024-10-02 10:07 | XMS_ITS | Continuity of Care Document ---
Author Organization [facility] Address [address] [facility], [address], [address] [place] [address]- Care Team Providers Care Core Winder Machine Operator Name Role Phone China Briseno MD Primary Care Physician Encounter [facility] [id number] Date(s): 08/05/24 - 09/25/24 [facility] [address] [facility] [address] Floor, [address] [place] [id number] Attending Physician: Lenny Boo MD Admitting Physician: Lenny Boo MD Referring Physician: China Briseno MD Encounter [...] tablet, 5 Refills, 04/17/23 12:04:00 PM EDT, [facility] #[id number], 90, 2 tablet By Mouth 3 times [...] Refills, Maintenance, 08/04/24 3:49:00 PM EST, Tablet, [facility] #[id number], Partial fill upon patient request if the [...] 3 Refills, Maintenance, 06/19/24 7:32:00 AM EST, [facility] #[id number], 176, cm, 06/10/24 13:57:00 EST, Height, 90.3, kg, 07/25/23 16:18:00 EST, Dry Weight Start Date: 06/19/24 Status: Ordered Quantity: 90.0 Unit: tablet Repeat number: 1 metoprolol 50 mg oral tablet, extended release 50 mg, 1, tablet, By Mouth, Daily, # 90 tablet, Refills 3, Tot. Refills 3, Maintenance, 09/11/24 9:14:00 AM EST, Route to Pharmacy Electronically, [facility] #[id number], Partial fill upon patient request if the [...] Status: Ordered Repeat number: 1 nystatin topical 479716 u/gm powder 1 application, Topically, 2 times [...] Replace Required Details, Route to Pharmacy Electronically, [facility] #[id number], 176, cm, 03/27/24 9:08:00 EDT, Height, 90.3, kg, 07/25/23 16:18:00 EST, Dry Weight Start Date: 05/26/24 Status: Ordered Quantity: 135.0 Unit: tablet Repeat number: 1 rOPINIRole 0.25 mg oral tablet 3 tablet = 0.75 mg, By Mouth, 3 times a day, # 810 tablet, 0 Refills, Maintenance, 03/26/24 9:00:00 AM EDT, Tablet, [facility] #[id number], Partial fill upon patient request if the [...] 12/06/23 9:21:00 AM EDT,Route to Pharmacy Electronically, [facility] #[id number], 176, cm, 11/25/23 16:02:00 EDT, Height, 90.3, kg, 07/25/23 16:18:00 EST, Dry Weight Start Date: 12/06/23 Status: Ordered Quantity: 90.0 Unit: tablet Repeat number: 1 spironolactone 25 mg oral tablet 50 mg, 2, tablet, By Mouth, Daily, dose increase, # 180 tablet, Refills 3, Tot. Refills 3, Maintenance, 03/27/24 9:16:00 AM EDT, Route to Pharmacy Electronically, [facility] #[id number], 176, cm,03/27/24 9:08:00 EDT, Height, 90.3, kg, 07/25/23 16:18:00 EST, Dry Weight Start Date: 03/27/24 Stop Date: 03/22/25 Status: Ordered Quantity: 180.0 Unit: tablet Repeat number: 4 torsemide 20 mg oral tablet 0.5 tablet = 10 mg, By Mouth, Daily, # 60 tablet, 4 Refills, Maintenance, 06/10/24 2:33:00 PM EST, Tablet, [facility] #[id number], Replaces furosemide/Lasix, 176, cm, 06/10/24 13:57:00 EST, [...] Confirmed Active Cardiomyopathy Confirmed Active CAD in [place] artery Confirmed Active Gastroesophageal reflux disease Confirmed [...] Team Personnel Name: Avelino Mcmahon RN Position: [facility] RN Member Role: Primary Care Nurse Name: Avril Casillas RN Position: [facility] RN Member Role: Primary Care Nurse Name: Antonia Bowers RN Position: [facility] RN Member Role: Primary Care Nurse Name: China Briseno MD Position: [facility] Physician - Primary Care Member Role: PCP Address: [facility] [address] Telecom: Name: Teodora Shafer LPN Position: [facility] RN Member Role: Primary Care Nurse Name: Gillian Eastman RN Position: [facility] RN Member Role: Primary Care Nurse Name: Gillian Chatterjee RN Position: [facility] RN Member Role: Primary Care Nurse Name: Valarie Grant RN Position: [facility] OB RN Member Role: Primary Care Nurse Name: Ysabel Sullivan RN Position: [facility] AMB Nurse Member Role: Primary Care Nurse Name: Alanna Rogers RN Position: [facility] RN Member Role: Primary Care Nurse Name: Leona Nj RN Position: [facility] RN Member Role: Primary Care Nurse Name: Juliet Koehler RN Position: [facility] RN Member Role: Primary Care Nurse Name: Tone Farooq RN Position: [facility] RN Member Role: Primary Care Nurse Name: Jose Alfredo Deras RN Position: [facility] RN Member Role: Primary Care Nurse Name: Lili Mullins RN Position: [facility] RN Member Role: Primary Care Nurse Name: Elinor Colon RN Position: [facility] ED RN W/OE and Tasks Member Role: Primary Care Nurse Name: Beatrice Quesada RN Position: [facility] RN Member Role: Primary Care Nurse Name: Ca Guerrero RN Position: [facility] AMB Nurse Member Role: Primary Care Nurse Name: Gladys Aguirre RN Position: [facility] RN Member Role: Primary Care Nurse Name: Julianna Lui RN Position: [facility] RN Member Role: Primary Care Nurse Name: Khang Canchola RN Position: [facility] RN Member Role: Primary Care Nurse Name: Prabhakar Pabon RN Position: [facility] RN Member Role: Primary Care Nurse Name: Giovanna Gilbert RN Position: [facility] RN Sudeep Member Role: Primary Care Nurse Name: Elena Thurston RN Position: [facility] RN Member Role: Primary Care Nurse Name: Jackie Coates RN Position: [facility] RN Member Role: Primary Care Nurse Name: Simone Hopkins RN Position: [facility] RN Member Role: Primary Care Nurse Name: Светлана Tolentino RN Position: [facility] RN Member Role: Primary Care Nurse Name: Nida Tejeda RN Position: [facility] RN Member Role: Primary Care Nurse Name: Raquel Mcfadden LPN Position: [facility] RN Member Role: Primary Care Nurse Care Team Related Persons Name: CARMEN MARTINEZ Name: RAQUEL MARTINEZ Insurance Providers Guarantor [facility]: [facility] Health Plan Information #: 1 Payer: [facility] POS Member Number: [id number] Policy Number: NA Group Number: NA Health Plan Information #: 2 Payer: I10 MEDICARE SUPPL 2NDRY Member Number: [id number] Policy Number: NA Group Number: NA Health Plan Information #: 3 Payer: MEDICARE A INPT 25 Member Number: NA Policy Number: NA Group Number: NA
--- OUTSIDE RECORDS SUMMARY | 2024-10-02 10:07 | XMS_ITS ---
Author Organization [facility] Care Team Providers Care [employer] Recausticizing Operator Name Role Phone Elliot, Capri Saab Unavailable Unavailable Cody Boo Unavailable Unavailable Dinis, Angela Dumont Unavailable Unavailable Yolande, Elinor Pierson Unavailable Unav ailable Tristan, Sabina Bradyta Unavailable UnavailZeyad Dorsey Unavailable Unavailable Allergies and adverse reactions Code CodeSystem Substance Reaction Severity StartDate Concern Status [id number] SNOMED CT Tetanus immune globulin Unknown 08/14/2024 active Care Team Name Role Address Phone Organization Dates Capri Zarate Attending Physician [address] [facility] [address], [place], [address], [place] (Office): : [facility] 08/19/2024 - 09/08/2024 Cody Boo Attending Physician [address] [place] [address], [phone], [place] (Office): : : [facility] 08/19/2024 - 09/08/2024 Angela Lomeli Attending Physician [address] [facility] [address], [address], [facility] (Office): : [facility] 08/19/2024 - 09/08/2024 Elinor Lanier Attending Physician [address] [place] [address], [phone], [facility] (Office): : : [facility] 08/19/2024 - 09/08/2024 Sabina Tristan Attending Physician [address] [place] [address], [id number], [facility] (Office): : : [facility] 08/19/2024 - 09/08/2024 Zeyad Prasad Attending Physician [address] [place] [address], [id number], [facility] (Office): : [facility] 08/19/2024 - 09/08/2024 Goals Section Description Status Target Date Healing Goal: Raymonds's wou nd /skin impairment will heal as evidenced by decrease in size, absence of erythema and drainage and/or presence of granulation X 90 days Active 09/03/2024 Infection will be resolved w ithin 30 days Active 09/03/2024 Ray will have no falls with injury x 90 days. Ac tive 09/03/2024 Ray will not develop GI complications x 90 days. Active 09/03/2024 Ray will not show signs of skin breakdown x 90 d ays Active 09/03/2024 Ray will have an ongoing dis charge plan that provides for a safe and effective discharge. Active 09/03/2024 Gaurav will have the smallest m ost effective dose without side effects X 90 days. Active 09/03/2024 Gaurav's blood pressure will re main within baseline parameters x 90 days Active 09/03/2024 Gaurav's functional ability hugo l be optimized through modifications and alterations within their environment. Active 09/03/2024 Gaurav's wishes as expressed in Advance Directive will be followed Active 09/03/2024 Florentino will express satisfa ction that his daily routines and preferences are accommodated by staff. Active 09/03/2024 Resident will be free from s kin irritation or breakdown due to urinary incontinence X 90 days. Active 09/03/2024 Resident will have incontine nce care needs met by staff to maintain dignity and comfort and to prevent incontinence related complications. Active 09/03/2024 Residents/Patients ADL care needs will be anticipated and met throughout the next review period. Active 09/03/2024 Will have meal intakes >75% at most meals through next review. W ill tolerate diet without difficulty through next review. W ill have stable weight without significant change through next review. Weight fluctuations expected when on diuretics. W ill maintain adequate hydration through next review. W ill have no s/sx hypo/hyperglycemia through next review. Active 09/03/2024 Functional Status Code Name Recorded Time Value Entered By Chair/kqp-mx-erycn transfer 09/08/2024 Partial/moder ate assistance DNATHAN3 Eating 09/08/2024 Independent DNATHAN3 Feeding or Eating 09/08/2024 Independent DNATHAN3 Indicate the type of wheelchair or scooter used 09/08/2024 Independent DNATHAN3 Indicate the type of wheelchair or scooter used 09/08/2024 Manual wheelchair (physical object) DNATHAN3 Lower body dressing 09/08/2024 Partial/moderate assi stance DNATHAN3 Lying to sitting on side of bed 09/08/2024 Partial/moderate assistance DNATHAN3 Oral hygiene 09/08/2024 Partial/moderate assistance DNATHAN3 Personal hygiene 09/08/2024 Partial/moderate assista nce DNATHAN3 Putting on/taking off footwear 09/08/2024 Partial/mo derate assistance DNATHAN3 Roll left and right 09/08/2024 Partial/moderate assi stance DNATHAN3 Shower/bathe self 09/08/2024 Partial/moderate assist ance DNATHAN3 Sit to lying 09/08/2024 Partial/moderate assistance DNATHAN3 Sit to stand 09/08/2024 Partial/moderate assistance DNATHAN3 Toilet transfer 09/08/2024 Partial/moderate assistan ce DNATHAN3 Toileting hygiene 09/08/2024 Partial/moderate assist ance DNATHAN3 Upper body dressing 09/08/2024 Partial/moderate assi stance DNATHAN3 Walk 10 feet 09/08/2024 Not assessed DNATHAN3 Walk 150 feet 09/08/2024 Independent DNATHAN3 Walk 50 feet 09/08/2024 Independent DNATHAN3 Wheel 150 feet 09/08/2024 Not assessed DNATHAN3 Wheel 50 feet with two turns 09/08/2024 Independent DNATHAN3 Immunizations Immunization Status Vaccine Details Vaccine Code CodeSystem Date Notes TB 2 Step Mantoux Skin Test completed tuberculin skin test; purified protein derivative solution, intradermal lotNumber: [id number] expiry: 06/27/2027 Mfg: [employer] Given 0.1 ml Left Forearm intradermally Step 1 of Multi-step with next step required 96 CVX created date: 08/28/2024 consent date: 08/28/2024 administer ed date: 08/28/2024 Educated by on 08/31/2024 TB 2 Step Mantoux Skin Test new tuberculin skin test; purified protein derivative solution, intradermal 96 CVX created date: 08/31/2024 consent date: 08/28/2024 Medications Section Medication Name Status Code CodeSystem Dose Route Frequency Admin Type Sig Text Start Date End Date Acetaminophen Tablet 325 MG active 959911 RXNORM 2 tablet Oral as needed PRN Give 2 tablet by mouth every 4 hours as needed for Mild Pain More than 3 doses in 48 hours, notify physic mansoor/flor starr ce provid er(CAMRYN ).Do not exceed 3g/day . (stand ing order) 2024 - Acetaminophen Tablet 325 MG active 706311 RXNORM 2 tablet Oral as needed PRN Give 2 tablet by mouth every 6 hours as needed for Temp 100F or above Notify Physic mansoor/Ad elio Starr ce provid er. Do not exceed 3g/day 2024 - Tuberculin PPD Solution 5 UNIT/0.1ML complete d 604709 RXNORM 0.1 ml Intrade rmal one time only One Time Only Inject 0.1 ml intrad ermall y one time only for Screen ing for 1 Day as Step 1, if positi ve obtain chest x-ray AND Inject 0.1 ml intrad ermall y one time only for Screen ing for 1 Day Step 2 admini ster 1 week after the readin g of step 1, if positi ve obtain chest x-ray 08/15 872679 RXNORM 0.1 ml Intrade rmal one time only One Time Only Inject 0.1 ml intrad ermall y one time only for Screen ing for 1 Day as Step 1, if positi ve obtain chest x-ray AND Inject 0.1 ml intrad ermall y one time only for Screen ing for 1 Day Step 2 admini ster 1 week after the readin g of step 1, if positi ve obtain chest x-ray 08/29 Milk of Magnesia Suspension 400 MG/5ML active 778311 RXNORM 30 ml Oral as needed PRN Give 30 ml by mouth as needed for Consti pation give at bedtim e if no BM in 3 days 2024 - Saline Laxative Enema active 1 dose Rectal as needed PRN Insert 1 dose rectal ly as needed for Consti pation if no result from Dulcol ax within 2 hours. If no result s from Saline laxati ve enema, call /kristen starr ce provid er (CAMRYN) for furthe r orders . 2024 - Dulcolax Suppository 10 MG active 977476 RXNORM 1 suppos itory Rectal as needed PRN Insert 1 suppos itory rectal ly as needed for Consti pation if no result from MOM by next shift 2024 - Multivitamin Oral Tablet active 1 tablet Oral one time a day Routine Give 1 tablet by mouth one time a day for Supple ment 2024 - Carbidopa-Lev odopa Oral Tablet 25-100 MG active 396614 RXNORM 2 tablet Oral three times a day Routine Give 2 tablet by mouth three times a day for Sterling son's 2024 - Aspirin 81 Oral Tablet Delayed Release active 1 tablet Oral one time a day Routine Give 1 tablet by mouth one time a day for Afib 2024 - Cholecalcifer ol Oral Tablet 25 MCG (1000 UT) active 19921228 RXNORM 1 tablet Oral one time a day Routine Give 1 tablet by mouth one time a day for Vit D defici ency 2024 - QUEtiapine Fumarate Oral Tablet 25 MG active 419660 RXNORM 12.5 mg Oral one time a day Routine Give 12.5 mg by mouth one time a day for diane iai with behavi ors AND Give 25 mg by mouth one time a day for diane ia with behavi ors give with supper 2024 - 535916 RXNORM 25 mg Oral one time a day Routine Give 12.5 mg by mouth one time a day for diane iai with behavi ors AND Give 25 mg by mouth one time a day for diane ia with behavi ors give with supper 2024 - Nystatin External Powder 925535 UNIT/GM aborted 393128 RXNORM n/a n/a Topical two times a day Routine [facility] for Rash until resolv ed 08/19 Jardiance Oral Tablet 10 MG active 734367 4 RXNORM 1 tablet Oral one time a day Routine Give 1 tablet by mouth one time a day for DM 2 2024 - Metoprolol Succinate ER Oral Tablet Extended Release 24 Hour 50 MG aborted 314389 RXNORM 25 mg Oral one time a day Routine Give 25 mg by mouth one time a day for HTN hold for SBP <100 or HR <60 08/25 Omeprazole Oral Tablet Delayed Release 20 MG aborted 363373 RXNORM 1 tablet Oral one time a day Routine Give 1 tablet by mouth one time a day for GERD 09/01 Senna Oral Tablet 8.6 MG active 17.2 mg Oral one time a day Routine Give 17.2 mg by mouth one time a day for Consti pation 2024 - Simvastatin Oral Tablet 10 MG active 256940 RXNORM 10 mg Oral one time a day Routine Give 10 mg by mouth one time a day for High Choles terol 2024 - rOPINIRole HCl Oral Tablet 0.25 MG active 548944 RXNORM 0.75 mg Oral three times a day Routine Give 0.75 mg by mouth three times a day for Sterling mcnulty's 2024 - Tamsulosin HCl Oral Capsule 0.4 MG aborted 146284 RXNORM 1 capsul e Oral one time a day Routine Give 1 capsul e by mouth one time a day for BPH 08/26 Sacubitril-Va lsartan Oral Tablet 24-26 MG active 818579 0 RXNORM 1 tablet Oral two times a day Routine Give 1 tablet by mouth two times a day for HTN hold for SBP <100 or HR <60 2024 - Spironolacton e Oral Tablet 50 MG aborted 608813 RXNORM 1 tablet Oral one time a day Routine Give 1 tablet by mouth one time a day for CHF 08/26 Vancomycin HCl Oral Capsule 125 MG aborted 709683 RXNORM 1 capsul e Oral every 6 hours Routine Give 1 capsul e by mouth every 6 hours for C-Diff 08/19 Torsemide Oral Tablet 20 MG aborted 699541 RXNORM 1 tablet Oral one time a day Routine Give 1 tablet by mouth one time a day for CHF AND Give 1 tablet by mouth one time a day for CHF 19830126 RXNORM 1 tablet Oral one time a day Routine Give 1 tablet by mouth one time a day for CHF AND Give 1 tablet by mouth one time a day for CHF 08/27 Vancomycin HCl Oral Capsule 125 MG active 368814 RXNORM 125 mg Oral every 6 hours Routine Give 125 mg by mouth every 6 hours for c-dif for 3 Days AND Give 125 mg by mouth two times a day for c-diff for 7 Days AND Give 125 mg by mouth one time a day for c-diff for 7 Days AND Give 125 mg by mouth one time a day every 3 day(s) for c-diff for 8 Weeks 08/22 628092 RXNORM 125 mg Oral two times a day Routine Give 125 mg by mouth every 6 hours for c-dif for 3 Days AND Give 125 mg by mouth two times a day for c-diff for 7 Days AND Give 125 mg by mouth one time a day for c-diff for 7 Days AND Give 125 mg by mouth one time a day every 3 day(s) for c-diff for 8 Weeks 08/29 201701 RXNORM 125 mg Oral one time a day Routine Give 125 mg by mouth every 6 hours for c-dif for 3 Days AND Give 125 mg by mouth two times a day for c-diff for 7 Days AND Give 125 mg by mouth one time a day for c-diff for 7 Days AND Give 125 mg by mouth one time a day every 3 day(s) for c-diff for 8 Weeks 09/05 679132 RXNORM 125 mg Oral one time a day Routine Give 125 mg by mouth every 6 hours for c-dif for 3 Days AND Give 125 mg by mouth two times a day for c-diff for 7 Days AND Give 125 mg by mouth one time a day for c-diff for 7 Days AND Give 125 mg by mouth one time a day every 3 day(s) for c-diff for 8 Weeks 10/31 Nystatin Cream 107184 UNIT/GM complete d 285897 RXNORM n/a n/a Topical every day and evening shift Routine Apply to groin topica lly every day and evenin g shift for Fungal rash for 14 Days AND Apply to butt[place] ks topica lly every day and evenin g shift for fungal rash for 14 Days 09/03 800570 RXNORM n/a n/a Topical every day and evening shift Routine Apply to groin topica lly every day and evenin g shift for Fungal rash for 14 Days AND Apply to [place] ks topica lly every day and evenin g shift for fungal rash for 14 Days 09/03 Vancomycin HCl Oral Capsule 125 MG complete d 502295 RXNORM 125 mg Oral one time only One Time Only Give 125 mg by mouth one time only for C-diff for 1 Day 08/21 Midodrine HCl Oral Tablet 2.5 MG complete d 846736 RXNORM 2.5 mg Oral STAT STAT Give 2.5 mg by mouth STAT for low BP 08/24 Midodrine HCl Oral Tablet 2.5 MG complete d 143782 RXNORM 2.5 mg Oral STAT STAT Give 2.5 mg by mouth STAT for low BP 08/24 Metoprolol Succinate ER Oral Tablet Extended Release 24 Hour 50 MG active 035537 RXNORM 12.5 mg Oral one time a day Routine Give 12.5 mg by mouth one time a day for HTN hold for SBP <100 or HR <60 2024 - Ondansetron HCl Oral Tablet 4 MG active 522530 RXNORM 4 mg Oral as needed PRN Give 4 mg by mouth every 8 hours as needed for nausea /vomit ing 2024 - Finasteride Oral Tablet 5 MG active 816465 RXNORM 5 mg Oral one time a day Routine Give 5 mg by mouth one time a day for BPH 2024 - Torsemide Oral Tablet 20 MG active 143582 RXNORM 20 mg Oral one time a day Routine Give 20 mg by mouth one time a day for HTN Hold for SBP < 100 2024 - Midodrine HCl Oral Tablet 5 MG active 971956 RXNORM 1 tablet Oral as needed PRN Give 1 tablet by mouth every 8 hours as needed for b/p < 100 systol ic 2024 - Omeprazole Oral Tablet Delayed Release 20 MG active 184731 RXNORM 1 tablet Oral one time a day Routine Give 1 tablet by mouth one time a day for GERD 2024 - Mental Status Section Date Assessment Total Score Description 08/22/2024 BIMS 11 moderate cognit silviano impairment CAM 0 No delirium ind icated 08/22/2024 BIMS 11 moderate cognit silviano impairment CAM 0 No delirium ind icated Problems Problem # Description Date of onset Resolved Date Code CodeSystem Concern Status 1 DYSARTHRIA AND ANARTHRIA [address] active 2 MUSCLE WEAKNESS (GENERALIZED) [address] active 3 UNSPECIFIED DEMENTIA, UNSPECIFIED SEVERITY, WITH PSYCHOTIC DISTURBANCE [address] active 4 UNSTEADINESS ON FEET [address] active 5 ADULT FAILURE TO THRIVE [address] active 6 DIARRHEA, UNSPECIFIED [address] active 7 ENTEROCOLITIS DUE TO CLOSTRIDIUM DIFFICILE, NOT SPECIFIED RECURRENT [address] active 8 HEART FAILURE, UNSPECIFIED [address] active 9 [address]ALEM[address] active 10 OTHER SYMPTOMS AND SIGNS INVOLVING COGNITIVE FUNCTIONS AND AWARENESS [address] active 11 PARKINSON'S DISEASE WITHOUT DYSKINESIA, WITHOUT MENTION OF FLUCTUATIONS [address] active 12 UNSPECIFIED FALL, SUBSEQUENT ENCOUNTER [address] active Reason for Referral No Reasons for Referral Entered Social History Social History Observation Description Start Date End Date Code Code System Current Smoking Status Tobacco smoking consumption unknown 434540509 SNOMED CT Sex Assigned At Male 1950 30562-5 [facility] Vital Signs Code Code System Vitals Name Values and Units Timing Information 8310-5 [facility] Body Temperature Value=98.0 Units=?? F 09/08/2024 9279-1 [facility] Respiratory Rate Value=18.0 Units=/m in 09/08/2024 8462-4 [facility] Blood Pressure-Diastolic Value=62 Un its=mmHg 09/08/2024 8480-6 [facility] Blood Pressure-Systolic Muawy=566 Un its=mmHg 09/08/2024 8867-4 [facility] Heart rate Value=79.0 Units=/min 05/2025 04837-7 [facility] Pain Level Value=0.0 09/08/2024 10791-9 [facility] O2 % BldC Oximetry Value=99.0 Units= % 09/08/2024 34028-2 [facility] Weight Zsvwa=779.7 Units=Lbs 01/2025 2339-0 [facility] Blood Sugar Value=98.0 Units=mg/dL 08/22/2024 8302-2 [facility] Height Value=70.0 Units=Inches 08/19/2024
--- OUTSIDE RECORDS SUMMARY | 2024-10-02 10:07 | XMS_ITS | Encounter Summary ---
Author Organization [facility] Address [address] [place] [address] Care Team Providers Care Crime Scene Investigator Name Role Phone China Briseno Primary Care Provider [phone] Encounter Details Date Type Department Care Team (Late st Contact Info) Description 05/16/2022 myCDrizlyt Message [facility] [address] [place], [place] [phone] Franck Gomez MD [address] [place], [place] [phone] Disregard previous email. Social History Tobacco Use Types Packs/Day Years [...] on filedocumented in this encounter Care Teams Crime Scene Investigator Relationship Specialty Start Date End Date China Briseno [address] [place] [address] PCP - General Internal Medicine 09/14/21 documented as of this encounter
--- OUTSIDE RECORDS SUMMARY | 2024-10-02 10:07 | XMS_ITS | Encounter Summary ---
Author Organization [facility] Address [address] [place] [address] Care Team Providers Care Chemist Steroids Name Role Phone China Briseno Primary Care Provider [phone] Encounter Details Date Type Department Care Team (Late st Contact Info) Description 05/16/2022 myChart Message [facility] [address], [place] [phone] Franck Gomez MD [address] [place] [address] .25 Ropinerol Social History Tobacco Use Types Packs/Day Years [...] on filedocumented in this encounter Care Teams Chemist Steroids Relationship Specialty Start Date End Date China Briseno [address] [place] [address] PCP - General Internal Medicine 09/14/21 documented as of this encounter
--- OUTSIDE RECORDS SUMMARY | 2024-10-02 10:07 | XMS_ITS | Encounter Summary ---
Author Organization [facility] Address [address] [place] [address] Care Team Providers Care Investment Director Name Role Phone China Briseno Primary Care Provider [phone] Encounter Details Date Type Department Care Team (Late st Contact Info) Description 03/28/2022 myChart Message [facility] [address] [place] [address] Franck Gomez MD [address] [place] [address] Physical Therapy Social History Tobacco Use Types Packs/Day Years [...] on filedocumented in this encounter Care Teams Investment Director Relationship Specialty Start Date End Date China Briseno [address] [place] [address] PCP - General Internal Medicine 09/14/21 documented as of this encounter
--- OUTSIDE RECORDS SUMMARY | 2024-10-02 10:08 | XMS_ITS | Continuity of Care Document ---
Author Organization [facility] Address [address] [place] [address]- Care Team Providers Care Pond Sawyer Name Role Phone China Briseno MD [id number]): [facility] - 09/23/24 [facility] [address] [place] [address]- Attending Physician: Chadd Lua NP Admitting Physician: Chadd Lua NP Referring Physician: China Briseno MD Encounter Type: [...] tablet, 5 Refills, 04/17/23 12:04:00 PM EDT[id number], 90, 2 tablet By Mouth 3 times [...] Refills, Maintenance, 08/04/24 3:49:00 PM EST, Tablet, [facility] #[id number], Partial fill upon patient request if the [...] 3 Refills, Maintenance, 06/19/24 7:32:00 AM EST, [facility] #[id number], 176, cm, 06/10/24 13:57:00 EST, Height, 90.3, kg, 07/25/23 16:18:00 EST, Dry Weight Start Date: 06/19/24 Status: Ordered Quantity: 90.0 Unit: tablet Repeat number: 1 metoprolol 50 mg oral tablet, extended release 50 mg, 1, tablet, By Mouth, Daily, # 90 tablet, Refills 3, Tot. Refills 3, Maintenance, 09/11/24 9:14:00 AM EST, Route to Pharmacy Electronically, [facility] #[id number], Partial fill upon patient request if the [...] Status: Ordered Repeat number: 1 nystatin topical 293649 u/gm powder 1 application, Topically, 2 times [...] Replace Required Details, Route to Pharmacy Electronically, [facility] #[id number], 176, cm, 03/27/24 9:08:00 EDT, Height, 90.3, kg, 07/25/23 16:18:00 EST, Dry Weight Start Date: 05/26/24 Status: Ordered Quantity: 135.0 Unit: tablet Repeat number: 1 rOPINIRole 0.25 mg oral tablet 3 tablet = 0.75 mg, By Mouth, 3 times a day, # 810 tablet, 0 Refills, Maintenance, 03/26/24 9:00:00 AM EDT, Tablet, [facility] #[id number], Partial fill upon patient request if the [...] 12/06/23 9:21:00 AM EDT,Route to Pharmacy Electronically, [facility] #[id number], 176, cm, 11/25/23 16:02:00 EDT, Height, 90.3, kg, 07/25/23 16:18:00 EST, Dry Weight Start Date: 12/06/23 Status: Ordered Quantity: 90.0 Unit: tablet Repeat number: 1 spironolactone 25 mg oral tablet 50 mg, 2, tablet, By Mouth, Daily, dose increase, # 180 tablet, Refills 3, Tot. Refills 3, Maintenance, 03/27/24 9:16:00 AM EDT, Route to Pharmacy Electronically, [facility] #[id number], 176, cm,03/27/24 9:08:00 EDT, Height, 90.3, kg, 07/25/23 16:18:00 EST, Dry Weight Start Date: 03/27/24 Stop Date: 03/22/25 Status: Ordered Quantity: 180.0 Unit: tablet Repeat number: 4 torsemide 20 mg oral tablet 0.5 tablet = 10 mg, By Mouth, Daily, # 60 tablet, 4 Refills, Maintenance, 06/10/24 2:33:00 PM EST, Tablet, [facility] #[id number], Replaces furosemide/Lasix, 176, cm, 06/10/24 13:57:00 EST, [...] Confirmed Active Cardiomyopathy Confirmed Active CAD in [place] artery Confirmed Active Gastroesophageal reflux disease Confirmed [...] Team Personnel Name: Avelino Mcmahon RN Position: [facility] RN Member Role: Primary Care Nurse Name: Avril Casillas RN Position: [facility] RN Member Role: Primary Care Nurse Name: Antonia Bowers RN Position: [facility] RN Member Role: Primary Care Nurse Name: China Briseno MD Position: [facility] Physician - Primary Care Member Role: PCP Address: [address] [place], [place] [address] Telecom: Name: Teodora Shafer LPN Position: [facility] RN Member Role: Primary Care Nurse Name: Gillian Eastman RN Position: [facility] RN Member Role: Primary Care Nurse Name: Gillian Chatterjee RN Position: [facility] RN Member Role: Primary Care Nurse Name: Valarie Grant RN Position: [facility] OB RN Member Role: Primary Care Nurse Name: Ysabel Sullivan RN Position: [facility] AMB Nurse Member Role: Primary Care Nurse Name: Alanna Rogers RN Position: [facility] RN Member Role: Primary Care Nurse Name: Juliet Koehler RN Position: [facility] RN Member Role: Primary Care Nurse Name: Tone Farooq RN Position: [facility] RN Member Role: Primary Care Nurse Name: Jose Alfredo Deras RN Position: [facility] RN Member Role: Primary Care Nurse Name: Lili Mullins RN Position: [facility] RN Member Role: Primary Care Nurse Name: Elinor Colon RN Position: [facility] ED RN W/OE and Tasks Member Role: Primary Care Nurse Name: Beatrice Quesada RN Position: [facility] RN Member Role: Primary Care Nurse Name: Ca Guerrero RN Position: [facility] AMB Nurse Member Role: Primary Care Nurse Name: Gladys Aguirre RN Position: [facility] RN Member Role: Primary Care Nurse Name: Julianna Lui RN Position: [facility] RN Member Role: Primary Care Nurse Name: Khang Canchola RN Position: [facility] RN Member Role: Primary Care Nurse Name: Prabhakar Pabon RN Position: [facility] RN Member Role: Primary Care Nurse Name: Giovanna Gilbert RN Position: [facility] RN Sudeep Member Role: Primary Care Nurse Name: Elena Thurston RN Position: [facility] RN Member Role: Primary Care Nurse Name: Jackie Coates RN Position: [facility] RN Member Role: Primary Care Nurse Name: Simone Hopkins RN Position: [facility] RN Member Role: Primary Care Nurse Name: Светлана Tolentino RN Position: [facility] RN Member Role: Primary Care Nurse Name: Nida Tejeda RN Position: [facility] RN Member Role: Primary Care Nurse Name: Raquel Mcfadden LPN Position: [facility] RN Member Role: Primary Care Nurse Care Team Related Persons Name: CARMEN MARTINEZ Name: RAQUEL MARTINEZ Insurance Providers Guarantor name: SAUL MARTINEZ Health Plan Information #: 2 Payer: [employer] SUPPL [id number] Member Number: [id number] Policy Number: NA Group Number: NA Health Plan Information #: 1 Payer: [facility] POS Member Number: [id number] Policy Number: NA Group Number: NA Health Plan Information #: 3 Payer: MEDICARE PART B OUTPT Member Number: NA Policy Number: NA Group Number: NA
--- OUTSIDE RECORDS SUMMARY | 2024-10-02 10:08 | XMS_ITS | Data Portability ---
Author Organization JEAN PAUL [facility], [facility] Address [address] [place] [address] Assessment Encounter Date Assessment Date Assessment LastModified [...] X-rays reviewed in the office today on [facility] P[facility]: AP pelvis and right frog lateral [...] of their questions today in the office. [facility] speech recognition edge trimmer mechanic software was used to create portions of [...] Address Organization Details Recorded Time No complaints [id number] Active Status : 'I'; Not Available [facility] 09:26:09 Problem Notes None recorded. Procedures Surgical History None recorded. Imaging Results Imaging Date Name Status LastModified by [facility] Details LastModified Time 07/28/2023 imaging/diag nostic result [...] Diagnosis/Indication Diagnosis SNOMED-CT Code Diagnosis ICD10 Code Diagnosis Note [id number] [facility] [address] [place] [address] 11/07/2023 14:43:25 11/28/2023 14:36:19 History of total replacement of right hip joint [id number] Z96.641 Health Concerns Section Related Observation LastModified by Organization Detai ls LastModified Time None Recorded Concern Status LastModified by Organization Details LastModified Time None Recorded Advance Directives Directive None Recorded Payers Encounter Date Sequence Insurance Name Policy Number Policy Kahn Covered Member ID Kahn Member ID Guarantor Name 11/07/2023 1 [facility] Florentino Ellis [id number] 1 Florentino Ellis
--- OUTSIDE RECORDS SUMMARY | 2024-10-02 10:08 | XMS_ITS | Encounter Summary ---
Author Organization [facility] Address [address] [place] [address] Care Team Providers Care Coke Worker Name Role Phone China Briseno Primary Care Provider [phone] Encounter Details Date Type Department Care Team (Late st Contact Info) Description 07/19/2022 myChart Message [facility] [address] [place] [address] Franck Gomez MD [address] [place] [address] Appointment Social History Tobacco Use Types Packs/Day Years [...] on filedocumented in this encounter Care Teams Coke Worker Relationship Specialty Start Date End Date China Briseno [address] [place] [address] PCP - General Internal Medicine 09/14/21 documented as of this encounter
--- OUTSIDE RECORDS SUMMARY | 2024-10-02 10:08 | XMS_ITS | Continuity of Care Document ---
Author Organization [facility] Address [address] [facility], [address] Floor, [address] [place] [address]- Care Team Providers Care Scuba Diving Instructor Name Role Phone China Briseno MD Primary Care [id number] Date[facility]s): 08/04/24 - 09/03/24 [facility] [address] [place] [address] [address], [address] [place] [id number] Encounter Type: Triage Allergies, Adverse Reactions, Alerts [...] tablet, 5 Refills, 04/17/23 12:04:00 PM EDT, [facility] #[id number], 90, 2 tablet By Mouth 3 times [...] Refills, Maintenance, 08/04/24 3:49:00 PM EST, Tablet, [facility] #[id number], Partial fill upon patient request if the [...] 3 Refills, Maintenance, 06/19/24 7:32:00 AM EST, [facility] #[id number], 176, cm, 06/10/24 13:57:00 EST, Height, 90.3, kg, 07/25/23 16:18:00 EST, Dry Weight Start Date: 06/19/24 Status: Ordered Quantity: 90.0 Unit: tablet Repeat number: 1 metoprolol 50 mg oral tablet, extended release 50 mg, 1, tablet, By Mouth, Daily, # 30 tablet, Refills 1, Tot. Refills 1, Maintenance, 07/27/24 7:44:00 AM EST, Route to Pharmacy Electronically, [facility] #[id number], Partial fill upon patient request if the prescription is for a schedule II opioid drug., 173, cm, 06/30/24 6:48:00 EST, Height, 98.5, kg, 06/23/24 18:58:00 EST, Dry Weight Start Date: 07/27/24 Status: Ordered Quantity: 30.0 Unit: tablet Repeat number: 2 Multi Vitamin+ 1 tablet, By Mouth, Daily, 0 Refills, Maintenance, 08/19/19 8:02:00 AM EST Start Date: 08/19/19 Status: Ordered Repeat number: 1 nystatin topical 149567 u/gm powder 1 application, Topically, 2 times [...] Replace Required Details, Route to Pharmacy Electronically, [facility] #[id number], 176, cm, 03/27/24 9:08:00 EDT, Height, 90.3, kg, 07/25/23 16:18:00 EST, Dry Weight Start Date: 05/26/24 Status: Ordered Quantity: 135.0 Unit: tablet Repeat number: 1 rOPINIRole 0.25 mg oral tablet 3 tablet = 0.75 mg, By Mouth, 3 times a day, # 810 tablet, 0 Refills, Maintenance, 03/26/24 9:00:00 AM EDT, Tablet, [facility] #[id number], Partial fill upon patient request if the [...] 12/06/23 9:21:00 AM EDT,Route to Pharmacy Electronically, [facility] #[id number], 176, cm, 11/25/23 16:02:00 EDT, Height, 90.3, kg, 07/25/23 16:18:00 EST, Dry Weight Start Date: 12/06/23 Status: Ordered Quantity: 90.0 Unit: tablet Repeat number: 1 spironolactone 25 mg oral tablet 50 mg, 2, tablet, By Mouth, Daily, dose increase, # 180 tablet, Refills 3, Tot. Refills 3, Maintenance, 03/27/24 9:16:00 AM EDT, Route to Pharmacy Electronically, [facility] #[id number], 176, cm,03/27/24 9:08:00 EDT, Height, 90.3, kg, 07/25/23 16:18:00 EST, Dry Weight Start Date: 03/27/24 Stop Date: 03/22/25 Status: Ordered Quantity: 180.0 Unit: tablet Repeat number: 4 torsemide 20 mg oral tablet 1 tablet = 20 mg, By Mouth, 2 times a day, # 60 tablet, 4 Refills, Maintenance, 06/10/24 2:33:00 PMEST, Tablet, [facility] #[id number], Replaces furosemide/Lasix, 176, cm, 06/10/24 13:57:00 EST, Height, 90.3, kg, 07/25/23 16:18:00 EST, Dry Weight Start Date: 06/10/24 Status: Ordered Quantity: 60.0 Unit: tablet Repeat number: 5 vancomycin 125 mg oral capsule See Instructions, 125 mg By Mouth Every 6 hours for 3 more days 08/21/24 then 125 mg orally 2 times daily for 7 days until 08/27 and then 125 mg orally once daily for 7 days until 09/03/24 125 mg orally every 2 to 3 days for 2 to 8 weeks, 0 Refills, Maintenance, 08/18/24 3:18:00 PM EST, Capsule, Partialfill upon patient request if the prescription is for a schedule II opioid drug. 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 Confirmed Active Atrial fibrillation Confirmed Active Presence of left atrial appendage closure device Confirmed Active Cardiomyopathy Confirmed Active CAD in [place] artery Confirmed Active Gastroesophageal reflux disease Confirmed [...] Team Personnel Name: Avelino Mcmahon RN Position: [facility] RN Member Role: Primary Care Nurse Name: Avril Casillas RN Position: [facility] RN Member Role: Primary Care Nurse Name: Antonia Bowers RN Position: [facility] RN Member Role: Primary Care Nurse Name: China Briseno MD Position: [facility] Physician - Primary Care Member Role: PCP Address: [facility] [place], [place] [address] Telecom: Name: Teodora Shafer LPN Position: [facility] RN Member Role: Primary Care Nurse Name: Gillian Eastman RN Position: [facility] RN Member Role: Primary Care Nurse Name: Gillian Chatterjee RN Position: [facility] RN Member Role: Primary Care Nurse Name: Valarie Grant RN Position: [facility] OB RN Member Role: Primary Care Nurse Name: Ysabel Sullivan RN Position: [facility] AMB Nurse Member Role: Primary Care Nurse Name: Alanna Rogers RN Position: [facility] RN Member Role: Primary Care Nurse Name: Juliet Koehler RN Position: [facility] RN Member Role: Primary Care Nurse Name: Tone Farooq RN Position: [facility] RN Member Role: Primary Care Nurse Name: Jose Alfredo Deras RN Position: [facility] RN Member Role: Primary Care Nurse Name: Lili Mullins RN Position: [facility] RN Member Role: Primary Care Nurse Name: Elinor Colon RN Position: [facility] ED RN W/OE and Tasks Member Role: Primary Care Nurse Name: Beatrice Quesada RN Position: [facility] RN Member Role: Primary Care Nurse Name: Ca Guerrero RN Position: [facility] AMB Nurse Member Role: Primary Care Nurse Name: Gladys Aguirre RN Position: [facility] RN Member Role: Primary Care Nurse Name: Julianna Lui RN Position: [facility] RN Member Role: Primary Care Nurse Name: Khang Canchola RN Position: [facility] RN Member Role: Primary Care Nurse Name: Prabhakar Pabon RN Position: [facility] RN Member Role: Primary Care Nurse Name: Giovanna Gilbert RN Position: [facility] RN Supv Member Role: Primary Care Nurse Name: Elena Thurston RN Position: [facility] RN Member Role: Primary Care Nurse Name: Jackie Coates RN Position: [facility] RN Member Role: Primary Care Nurse Name: Simone Hopkins RN Position: [facility] RN Member Role: Primary Care Nurse Name: Светлана Tolentino RN Position: [facility] RN Member Role: Primary Care Nurse Name: Nida Tejeda RN Position: [facility] RN Member Role: Primary Care Nurse Name: Raquel Mcfadden LPN Position: [facility] RN Member Role: Primary Care Nurse Care Team Related Persons Name: MICHELLELOTUSMARY Name: RAQUEL MARTINEZ Insurance Providers Guarantor name: [facility] Plan Information #: 1 [address]ayer: [facility] POS Member Number: NA Policy Number: NA Group Number: NA Health Plan Information #: 2 Payer: MEDICARE A INPT 25 Member Number: NA Policy Number: NA Group Number: NA
--- OUTSIDE RECORDS SUMMARY | 2024-10-02 10:08 | XMS_ITS | Continuity of Care Document ---
Author Organization [facility] ter Address [address] [place] [id number] Care Team Providers Care Radiology Orderly Name Role Phone China Briseno MD Primary Care Physician [id number] Date(s): 09/22/24 - 09/28/[address] [id number] Encounter Diagnosis Clostridium difficile diarrhea(Final) - 09/22/24 Discharge Disposition: A-D/C Home Attending Physician: Sushila Amador MD Admitting Physician: Octavia Arevalo DO Referring Physician: Not on Staff, Referring MD Encounter Type: Disch IP Allergies, Adverse Reactions, Alerts Substance Criticality Severity [...] tablet, 5 Refills, 04/17/23 12:04:00 PM [id number], 90, 2 tablet By Mouth 3 times [...] Refills, Maintenance, 08/04/24 3:49:00 PM EST, Tablet, [facility] #[id number], Partial fill upon patient request if the [...] Date: 02/01/23 Status: Ordered Repeat number: 1 metoprolol 50 mg oral tablet, extended release 50 mg, 1, tablet, By Mouth, Daily, # 90 tablet, Refills 3, Tot. Refills 3, Maintenance, 09/11/24 9:14:00 AM EST, Route to Pharmacy Electronically, [facility] #[id number], Partial fill upon patient request if the [...] Status: Ordered Repeat number: 1 nystatin topical 436234 u/gm powder 1 application, Topically, 2 times [...] Replace Required Details, Route to Pharmacy Electronically, [facility] #[id number], 176, cm, 03/27/24 9:08:00 EDT, Height, 90.3, kg, 07/25/23 16:18:00 EST, Dry Weight Start Date: 05/26/24 Status: Ordered Quantity: 135.0 Unit: tablet Repeat number: 1 rOPINIRole 0.25 mg oral tablet 3 tablet = 0.75 mg, By Mouth, 3 times a day, # 810 tablet, 0 Refills, Maintenance, 03/26/24 9:00:00 AM EDT, Tablet, [facility] #[id number], Partial fill upon patient request if the [...] 12/06/23 9:21:00 AM EDT,Route to Pharmacy Electronically, [facility] #[id number], 176, cm, 11/25/23 16:02:00 EDT, Height, 90.3, kg, 07/25/23 16:18:00 EST, Dry Weight Start Date: 12/06/23 Status: Ordered Quantity: 90.0 Unit: tablet Repeat number: 1 spironolactone 25 mg oral tablet 50 mg, 2, tablet, By Mouth, Daily, dose increase, # 180 tablet, Refills 3, Tot. Refills 3, Maintenance, 03/27/24 9:16:00 AM EDT, Route to Pharmacy Electronically, [facility] #[id number], 176, cm,03/27/24 9:08:00 EDT, Height, 90.3, kg, 07/25/23 16:18:00 EST, Dry Weight Start Date: 03/27/24 Stop Date: 03/22/25 Status: Ordered Quantity: 180.0 Unit: tablet Repeat number: 4 torsemide 20 mg oral tablet 0.5 tablet = 10 mg, By Mouth, Daily, # 60 tablet, 4 Refills, Maintenance, 06/10/24 2:33:00 PM EST, Tablet, [facility] #[id number], Replaces furosemide/Lasix, 176, cm, 06/10/24 13:57:00 EST, Height, 90.3, kg, 07/25/23 16:18:00 EST, Dry Weight Start Date: 06/10/24 Status: Ordered Quantity: 60.0 Unit: tablet Repeat number: 5 vancomycin 125 mg oral capsule = 125 mg, By Mouth, 4 times a day, Doses over 125 mg require ID consult. Indication for Use: C. difficile colitis, 0 Refills, Maintenance, 09/28/24 10:23:00 AM EST, Capsule, Partial fill upon patient request if the prescription is for a schedule II opioid drug. Start Date: 09/28/24 Status: Ordered Repeat number: 1 Problem List Condition Confirmation Course Effective Dates Status H ealth Status Informant REM behavioral disorder Confirmed Active Angina at rest Confirmed Active Atrial fibrillation Confirmed Active Presence of left atrial appendage closure device Confirmed Active Cardiomyopathy Confirmed Active CAD in wainwright artery Confirmed Active Gastroesophageal reflux disease Confirmed [...] Exam Date Time Procedure Performing Provider Status 09/27/24 4:[address] Abd/Pelvis W/ IV Contrast Only Latonya Christianson; Auth (Verified) Notes: (CT Abd/Pelvis W/ IV Contrast Only) Reason For Exam: ? C Diff colitis;Other: RESULT: CT Abd/Pelvis W/ IV Contrast Only CT Abd/Pelvis W/ IV Contrast Only Reason: Other:; ? C Diff colitis; Clinical Question(s): Other:; Order Comment: TECHNIQUE: Spiral CT through the abdomen and pelvis with IV contrast formatted in 3 planes. 100 cc of Isovue 300 was administered intravenously. This study was performed without oral contrast. Weight-based protocol using automatic tube modulation was used to optimize exposure parameters. CTDIvol Body: 21.60 mGy, DLP Body: 1193 mGy*cm. COMPARISON: 06/22/2024 FINDINGS: Cotton Weigher View Findings, Lines and Tubes: None. Visualized Chest: The perfusion similar to previous exam. Diaphragm: Small bilateral effusions. Liver: Normal. Gallbladder: Absent consistent with prior cholecystectomy. Bile ducts: No biliary ductal dilation. Spleen: Normal. Pancreas: Normal. Adrenal glands: Normal. Kidneys and ureters: No hydronephrosis, stones, or suspicious masses. Bladder: Diffuse wall thickening and haziness in the bladder. Possible cystitis. Reproductive organs: Unremarkable. Stomach, small bowel, and large bowel: Normal. Appendix: Normal. Peritoneum and retroperitoneum: No ascites or pneumoperitoneum. No omental or mesenteric lesions. Lymph nodes: No enlarged lymph nodes. Blood vessels: Normal. No aneurysm. No evidence of venous thrombosis. Abdominal and pelvic wall: Unremarkable. Bones: No acute abnormality. IMPRESSION: Wall thickening in the bladder. Possible cystitis. Pericardial effusion and small pleural effusions. Small effusions appear new compared to previous exam. WSN: [id number] Ordering Physician: Sushila Amador Dictated By: Kosta Humphrey MD Dictated Date/Time: 09/27/24 8:28 pm Reviewed By: Kosta Humphrey MD Signed By: Kosta Humphrey MD Signed Date/Time: 09/27/24 8:28 pm Transcribed By: PALAK Transcribed Date/Time: 09/27/24 8:20 pm * Exam Date Time Procedure Performing Provider Status 09/24/24 12:44 PM US Renal Bladder Pen , Yamini; Auth (V erified) Notes: (US Renal Bladder) Reason For Exam: fever and UTI, r/o hydronephrosis and ur retention;Fever RESULT: US Renal Bladder US Renal Bladder Reason: Fever; UTI ; Clinical Question(s): Hydronephrosis and urinary retention. COMPARISON: CT Abdomen and Pelvis 08/08/2024. FINDINGS: Suboptimal examination due to overlying bowel gas, limited patient mobility, and poor acoustic windows. Right kidney: 11.9 cm in length. No hydronephrosis. Normal parenchymal thickness and echotexture. No stones. No suspicious mass. Left kidney: 11.5 cm in length. Partially obscured by posterior acoustic shadowing produced by overlying rib. No hydronephrosis. Normal parenchymal thickness and echotexture. No stones. Urinary bladder: Under distended, limiting its assessment. There is echogenic material in the dependent portion of the lumen may represent layering debris, although assessment in the decubitus position could not be performed to prove mobility. No internal vascularity on color Doppler imaging. IMPRESSION: No sonographic evidence of nephrolithiasis or hydronephrosis. Moderate amount of avascular echogenic material in the dependent portion of the urinary bladder lumen may represent layering debris. Correlate with urinalysis. WSN: [id number] Ordering Physician: Sushila Amador Dictated By: Bhavesh Rossi MD Dictated Date/Time: 09/24/24 1:22 pm Reviewed By: Bhavesh Rossi MD Signed By: Bhavesh Rossi MD Signed Date/Time: 09/24/24 1:22 pm Transcribed By: PALAK Transcribed Date/Time: 09/24/24 1:00 pm * Exam Date Time Procedure Performing Provider Status 09/24/24 8:58 AM Chest 2 Views Frontal and Lat Carter Reeder; Dav (Verified) Notes: (Chest 2 Views Frontal and Lat) Reason For Exam: Fever RESULT: Chest 2 Views Frontal and Lat Chest 2 Views Frontal and Lat Reason: Fever; Clinical Question(s): Pneumonia COMPARISON: 06/22/2024 FINDINGS: No acute cardiopulmonary process. IMPRESSION: No acute abnormality. WSN: [id number] Ordering Physician: Sushila Amador Dictated By: Bhavesh Deng MD Dictated Date/Time: 09/24/24 9:24 am Reviewed By: Bhavesh Deng MD Signed By: Bhavesh Deng MD Signed Date/Time: 09/24/24 9:24 am Transcribed By: PALAK Transcribed Date/Time: 09/24/24 9:23 am Vital Signs Most recent to oldest [Reference Range]: 1 2 3 Height 175 cm (09/28/24 10:15 AM) 175 cm (09/28/24 8:16 AM) 175 cm (09/28/24 5:10 AM) Weight 91.8 kg (09/23/24 1:35 AM) 91.8 kg (09/23/24 1:05 AM) Oxygen Saturation [94-100 %] 98 % (09/28/24 5:10 AM) 97 % (09/27/24 8:36 PM) 97 % (09/27/24 2:02 PM) Pulse Rate [55-90 bpm] 83 bpm (09/28/24 10:15 AM) 99 bpm *H* (09/28/24 8:16 AM) 104 bpm *H* (09/28/24 5:10 AM) Body Mass Index [18.5-24.99 kg/m2] 29.98 kg/m2 *H* (09/23/24 1:35 AM) Blood Pressure [90-138/55-84 mm Hg] 111/71mm Hg (09/28/24 10:15 AM) 128/91mm Hg (09/28/24 8:16 AM) 125/77mm Hg (09/28/24 5:10 AM) Respiratory Rate [16-30 br/min] 18 br/min (09/28/24 5:10 AM) 18 br/min (09/27/24 8:36 PM) 16 br/min (09/27/24 2:02 PM) Temperature [96.8-100.4 DegF] 97.7 DegF (09/28/24 5:10 AM) 98.7 DegF (09/27/24 8:36 PM) 97.8 DegF (09/27/24 2:02 PM) Mode of Delivery (Oxygen) Room air (09/28/24 5:10 AM) Room air (09/27/24 8:36 PM) Room air (09/27/24 2:02 PM) Blood pressure sites Arm, right (09/28/24 5:10 AM) Arm, left (09/27/24 8:36 PM) Arm, right (09/27/24 2:02 PM) Temperature Route Oral (09/28/24 5:10 AM) Oral (09/27/24 8:36 PM) Oral (09/27/24 2:02 PM) Dry Weight 91.8 kg (09/23/24 1:35 AM) 90.5 kg (09/22/24 11:05 PM) 90.5 kg (09/22/24 7:31 PM) Dry Weight Obtained Via Patient/family s tated (09/22/24 10:40 AM) Social History Social History Type Response Smoking Status Never smoker entered on: 08/24/16 Sex Sex Representation Male (finding) Consult note * Stoney WHTIE, Chadd Saleh: PERFORM, MODIFY Event Display: Consultation Note Authored Date: [id number] Patient: ??SAUL MARTINEZ ? Age:??73 Years?Sex:??Male?:??1950?? Patient Hx Provider Clinical Summary Primary Heart Failure Radio Electrician Dr. Gucci Cavanaugh (consulting and primary HF agency trainer) ?? Medical History CAD??(70% mid LAD with nml IFR, 60% OM2 dx nml IFR) Permanent Afib s/p Watchman HTN Type 2 DM, noninsulin dependent Dyslipidemia Obesity Parkinson???s disease chronic T12 compression fx? 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 ?? Echo TTE 06/26/24: ??1. The LV systolic function is normal. The left ventricular ejection ??fraction is??60-65 %. There are no regional wall motion abnormalities. ??2. Severe bi-atrial dilation. ??3. The right ventricular size and function appears grossly normal. ??4. There is a moderate pericardial to large effusion posteriorly and ??laterally . There is a small pericardial effusion anteriorly . There is no ??evidence of cardiac tamponade. ??5. No obvious evidence of endocarditis, vegetation, or new regurgitation ??lesion, however, sensitivity of this study is inherently limited compared to ??MARILU. If clinical suspicion remains for endocarditis, consider MARILU. ?? TTE 01/06/24: LVEF??50-55% RV low normal function ?? Myocardial perfusion imaging 03/25/23 1. Myocardial perfusion imaging is abnormal with a small in size, severe in ??intensity fixed perfusion defect in the distal anterior wall after ??Regadenoson infusion with reduced wall thickening consistent with prior ??infarct. There is no evidence of ischemia. ??2. LV function is normal at rest and after IV administration of Regadenoson. ??3. EKG portion of the stress test is reported separately.? MARILU for Watchman on 08/27/22: 31 mm Watchman device visualized in left atrial appendage, no thrombus visualized LV size normal, EF 60-65% RV normal size and function PASP estimated 20 mmHg plus RAP No significant valvular abnormalities Small to medium sized pericardial effusion near the right ventricular free wall and right atrial free wall without evidence of tamponade ?? TTE 08/15/21: LVEDD 5.7 cm Ventricular size upper normal, wall thickness mildly increased LVEF??30-35%??with moderate global LV hypokinesis RV poorly visualized/systolic function appears preserved PASP 30 mmHg ?? Heart Failure Specific Device??Therapy None, EF > 35% ?? Heart Failure Specific Medical Therapy ?? Prior to hospitalization: Empagliflozin 10 mg daily Metoprolol XL 50 mg daily -- reduced from 200 mg by rehab doc in 07/27 in the setting of hypotension to systolic BP 70???s Entresto 24-26 mg BID --- reduced from 49-51 d/t hypotension Spironolactone 50 mg daily ??Torsemide 20 mg BID ?? * Isosorbide mononitrate 30 mg discontinued by PCP for hypotension ?? Other Cardiac Meds/notable misc Rx: Carbidopa-levodopa for parkinson???s Vancomycin for cdiff Simvastatin 10 mg daily Quetiapine 25 mg po ?? History of Present Illness Mr. Good is a 73 year old male with PMH of atrial fibrillation s/p watchman placement, Parkinson's??Disease with associated psychiatric disturbances, HFpEF,??and recurrent C. Diff infections who presents with week of watery diarrhea and concern for C. Diff infection. Patient is poor historian somajority of history obtained over phone via , Patient was discharged from [facility] on 08/18/24 after admission for recurrent c. diff infections starting with initial episode at a rehab facility in mid June and then again in early July. Was followed by ID during last admission with plan for taper/pulse Vancomycin treatment.? In the ED, BP 71/52 patient was started on Continuous IVF, with resolution of his hypotension. Labslargely unremarkable, mild elevation in BNP, patient tachycardic to 104 with afib on??EKG. Patient Given dose of Oral Vancomycin.? GDMT currently held in the setting of hypotension except his??Metoprolol for rate-control of afib. ?? Interim: -Oxygen saturation noted at 96%?while on??Room Air. -Labs reviewed: BUN/Cr at 9/0.82, . K at 3.8 -Admission weight:? Weight noted today at 90 kg?? . ?? Diuresing on: _ ?? Inpatient HF meds:?? Metoprolol 50 mg XL daily ?? Physical Exam: On exam, JVP is??flat.??Lungs are??clear to auscultation bilaterally. No wheezing, crackles, and/orrales??heard.??S1 S2, irregular rhythm but controlled rate. No murmurs auscultated.?? No lower leg edema evident bilaterally.? Assessment Today, the patient was A&Ox2 in which he did not know what his name was but knew of location and date. He is afebrile today but his WBC is up to 13 this time and currently being treated with abx for his cdiff infection. He is being followed by ID inpatient currently ?? Patient has noted??moderate pericardial to large effusion posteriorly and laterally with a small pericardial effusion anteriorly.??His most recent echo on May 2024 noted improved ejection fraction to 60 to 65%.?? Also, his right ventricular function is also improved which was initially now butnow appears grossly normal in both size and function.? At this time, we recommended getting an echocardiogram to recheck if his pericardial effusion is significant enough to warrant a pericardiocentesis. Echo still pending. ? Plan ~No changes to meds today. ~pending echocardiogram ?? Functional Status:??Unable to assess based on lack of physical activity,??_ Volume Status:??Hypovolemic ?? Discussed and in??agreement??with ??Mao, HF attending physician. ?? Chadd Lua DNP Physical Exam Vitals & Measurements T:??98.8?F?? HR:??90??(Peripheral)?? RR:??20?? BP:??111/85?? SpO2:??96%?? HT:??175??cm?? WT:??91.8??kg?? BMI:??29.98?? Weight lb/oz: 202 lb 6 oz Intake and Output Yesterday's Intake Total?272?? Yesterday's Balance?272?? Clinical Range's Intake Total?272?? Clinical Range's Balance ?272?? Assessment/Plan (HFpEF) heart failure with preserved ejection fraction Clostridium difficile diarrhea (Provisional) Diabetes mellitus type 2, noninsulin dependent Heart failure Hypotension Parkinson disease Allergies tetanus immune globulin Home Medications Acetaminophen: 650 mg, By Mouth, Every 6 hours Aspirin: 81 mg, By Mouth, Daily Carbidopa-Levodopa: 2 tablet, By Mouth, 3 times a day Cholecalciferol: 1,000 International_Units = 1 capsule, By Mouth, Daily empagliflozin: 1 tablet, By Mouth, Daily in AM Metoprolol: 50 mg = 1 tablet, By Mouth, Daily Multivitamin: 1 tablet, By Mouth, Daily Nystatin Topical: 1 application, Topically, 2 times a day Omeprazole: 20 mg = 1 capsule, By Mouth, Daily Quetiapine: See Instructions, TAKE 1/2 TABLET BY MOUTH EVERY MORNING AND 1 TABLET WITH SUPPER Ropinirole: 0.75 mg = 3 tablet, By Mouth, 3 times a day sacubitril-valsartan: 1 tablet, By Mouth, 2 times a day Senna: 8.6 mg = 1 tablet, By Mouth, Daily at supper Simvastatin: 1 tablet, By Mouth, Daily at bedtime Spironolactone: 50 mg = 2 tablet, By Mouth, Daily, dose increase Tamsulosin: 0.4 mg, By Mouth, Daily torsemide: 10 mg = 0.5 tablet, By Mouth, Daily Hospital Medications Medications (18) Active SCHEDULED: (11) Aspirin 81 mg EC Tablet (aspirin 81 mg oral delayed release tablet) ??81 mg, By Mouth, Daily Carbidopa 25 mg / Levodopa 100 mg Tablet (carbidopa-levodopa 25 mg-100 mg oral tablet) ??2 tablet, By Mouth, 3 times a day Ceftriaxone 1 Gm Inj (Rocephin Inj) ??1 Gm, IVPB, Every 24 hours Enoxaparin 40 mg Inj (Enoxaparin Inj) ??40 mg 0.4 mL, Subcutaneous Injection, Daily Metoprolol 50 mg XL Tablet (metoprolol 50 mg oral tablet, extended release) ??50 mg, By Mouth, Daily NaCl 0.9% Flush 3ml (NaCL 0.9% Flush) ??3 mL, IV Push, Every 8 hours Quetiapine 25 mg Tablet (QUEtiapine 25 mg oral tablet) ??12.5 mg, By Mouth, 2 times a day Ropinirole 0.25 mg Tablet (rOPINIRole 0.25 mg oral tablet) ??0.5 mg, By Mouth, 3 times a day Simvastatin 10 mg Tablet (simvastatin 10 mg oral tablet) ??10 mg, By Mouth, Daily at bedtime Tamsulosin 0.4 mg Capsule (Flomax 0.4 mg oral capsule) ??0.4 mg, By Mouth, Daily Vancomycin 125 mg Capsule (Vancomycin Capsule) ??125 mg, By Mouth, 2 times a day CONTINUOUS: (1) Lactated Ringers (1000 mL) Cont IV 1,000 mL (LR 1,000 mL) ??1,000 mL, IV Infusion, 75 mL/hr PRN: (6) Acetaminophen 325 mg Tablet (Acetaminophen Tablet) ??650 mg, By Mouth, Every 4 hours Docusate Sodium [...] tablet, By Mouth, 2 times a day Lab Results Heart Failure Labs INR:??1.2??High (08/08/24) Protime (PT):??12.4 seconds??High (08/08/24) Nt-Probnp:??1026 pg/mL??High (09/22/24) Cholesterol: 118 mg/dL (03/18/24) Triglycerides: 93 mg/dL (03/18/24) HDL Cholesterol: 48 mg/dL (03/18/24) Non HDL Cholesterol: 70 mg/dL (03/18/24) Diagnostic Impression ECG ECG 12-Lead ?? 11:04:22 Please click on pdf link to open report ?? Signed By: Rosetta VELASQUEZ, Cody Aguilar ?? ECG 12-Lead ?? 11:04:22 Ventricular Rate: 75 BPM QRS Duration: 100 ms Q-T Interval: 390 ms QTC Calculation(Bazett): 435 ms R [place]: -47 degrees T [place]: 22 degrees Atrial fibrillation Incomplete right bundle branch block Left anterior fascicular block Cannot rule out Anterior infarct , age undetermined Abnormal ECG Baseline artifact When compared with ECG of 08-Aug-2024 16:27, No significant change was found Confirmed ?? Signed By: Rosetta VELASQUEZ, Cody Aguilar Stress Test NM Myocard Perf SPECT Multi ?? 09:10:00 Summary 1. Myocardial perfusion imaging is abnormal with a small in size, severe in intensity fixed perfusion defect in the distal anterior wall after Regadenoson infusion with reduced wall thickening consistent with prior infarct. There is no evidence of ischemia. ?? 2. LV function is normal at rest and after IV administration of Regadenoson. ?? 3. EKG portion of the stress test is reported separately. ?? This study is compared with study dated March. The anterior defect is more severe. ?? Signatures _ _ ?? Signed By: Sylvia VELASQUEZ, Prabhakar Alfredo No qualifying data available. Echo Echocardiogram - Complete ?? 14:26:27 Summary 1. The LV systolic function is [...] clinical suspicion remains for endocarditis, consider MARILU. ?? Comparison Comparison is made to the study of January 06, 2024. There is no significant change. ?? Signature ?? Signed By: Jono Fitzgerald MD Cardiac Cath Procedure Left Atrial Appendage Closure Device ?? 09:42:00 Conclusions: 1. Successful occlusion of left atrial appendage with Watchman device ?? Plans: 1. Bed rest x 4 hours 2. Continue anticoagulation and ASA 81 mg qd x 45 days 3. Repeat MARILU at 45 days, if no evidence for thrombus or KEYLA leak > 5 mm will discontinue anticoagulation and start Plavix 75 mg qd and ASA 81 mg qd until 6 months post-procedure, then ASA 81 mg qd thereafter. ?? Angiographic Findings ?? Hemodynamics ?? Condition: Rest ?? O2 Consumption: Estimated: 297.00 ?? Shunts ?? Oxygen Values ?? O2 Consumption 297 ?? Interventional Procedure ?? Conclusions ?? Signatures ?? Signed By: Navi VELASQUEZ, Colten [place] Problem List/Past Medical History Ongoing Angina at rest Atrial fibrillation CAD in wainwright artery Cardiomyopathy Diabetes mellitus type 2, noninsulin dependent Erectile dysfunction Gastroesophageal reflux disease Heart failure with improved ejection fraction (HFimpEF) Heart failure with reduced ejection fraction Hyperlipidemia Hypertension Hypotension Nocturia Obesity, Class III, BMI 40-49.9 (morbid obesity) Parkinson disease Presence of left atrial appendage closure device REM behavioral disorder Procedure/Surgical History Laparoscopic cholecystectomy Social History Alcohol Use: Current. Type: Beer. Other: social. Employment/School Status: Retired. Exercise Regular exercise: No. Home/Environment Living situation: Home/Independent. Lives with: Spouse. Nutrition/Health Diet: Regular. Caffeine intake amount: occasional coca cola. Substance Abuse Use: Never. Tobacco Never smoker Family History No positive family history reported. * Gilberto Sparks DO: PERFORM, MODIFY, MODIFY, MODIFY, MODIFY, MODIFY, MODIFY, MODIFY Event Display: Consult Authored Date: [id number] Patient: ??SAUL MARTINEZ ? Age:??73 Years?Sex:??Male?:??1950?? History of Present Illness 73-year-old male with a past medical history of atrial fibrillation status post watchman placement,Parkinson's disease with associated psychiatric disturbances, HFpEF and recurrent C. difficile infections who presented after a week of watery diarrhea with concern for again repeat C. difficile infection.??Due to history of cognitive impairment with Parkinson's and deconditioning is relatively immo bile. Patient did not complain of abdominal pain nausea vomiting no focal weakness. Patient with recent admission at [facility] with discharge on 08/18/2024 for recurrent C. difficile with initial episode occurring at rehab facility back in June few months back.?? At that time ID saw patient and placed on vancomycin taper and pulsed regiment. On DC at last hospitalization pt was supposed to have outpt follow up at ID clinic for discussion of fecal microbiota??(Vowst)??treatment. ? Abx regiment proposed at last ID consultation: ?? 08/09 and is as follows: ?125 mg orally 4 times daily for 10 to 14 days, then ?? 125 mg orally 2 times daily for 7 days, then ?? 125 mg orally once daily for 7 days, then ?? 125 mg orally every 2 to 3 days for 2 to 8 weeks ??? Per infectious disease in the future if Saul is requiring antibiotics he will need to be on prophylaxis vancomycin given his recurrent C. difficile ??? If he develops another episode of C. difficile/diarrhea during this tapered regimen he will need follow-up in the ID clinic for fecal microbiota (Vowst) treatment. ?? Cardiac on admission otherwise vital stable no leukocytosis.?? BMP within normal limits UA with 3+ leukocytes greater than 182 white blood cells and heavy bacteria concerning for UTI. ?? Antibiotic course 09/22 received single dose of vancomycin 125 mg p.o. at 1847 with 6h dosing ?? Pt is confused but oriented to himself and knows he is at [facility]. Unable to state why he is int hospital. was at bedside and updated her in regard to the plan from an ID standpoint. Pt reportedly did not have a BM over the past 48 hours but was telling me had the need to use the restroom. No systemic sx's over night and no abdominal pain. Denies urinary sx's as well. Review of Systems A review of systems was completed and is otherwise negative except as mentioned in history of present illness. Objective Measurements?? Height: 175 cm (09/23/24) Weight: 91.8 kg (09/23/24) Dry Weight: 91.8 kg (09/23/24) Body Mass Index:??29.98 kg/m2??High (09/23/24) ? Vital Signs?? Temperature: 98.2 DegF (09/23/24 06:08:00) Temperature Route: Oral (09/23/24 06:08:00) Pulse Rate: 82 bpm (09/23/24 08:17:00) Respiratory Rate: 17 br/min (09/23/24 06:08:00) Systolic Blood Pressure: 122 mm Hg (09/23/24 08:17:00) Diastolic Blood Pressure: 69 mm Hg (09/23/24 08:17:00) Blood pressure sites: Arm, left (09/23/24 06:08:00) Mean Arterial Pressure: 88 mm Hg (09/23/24 06:08:00) Pulse Pressure: 40 mm Hg (09/23/24 06:08:00) Oxygen Saturation: 97 % (09/23/24 06:08:00) Mode of Delivery (Oxygen): Room air (09/23/24 06:08:00) Early Warning Score: 0 (09/23/24 08:27:23) ? Physical Exam Constitutional: Alert, in no distress. Mental Status: Oriented to person, place and time. Respiratory: Clear to auscultation. No wheezing, rales or rhonchi. Cardiovascular: S1 S2 irregular. No murmurs, rubs or gallops. Gastrointestinal: Abdomen soft, non-tender, non-distended. Normal bowel sounds. No pulsatile mass. No hepatosplenomegaly. Genitourinary: No costovertebral angle tenderness. Garvin in place. Skin: Redness??noticed around??urethra. No pus near site. Musculoskeletal: No cyanosis or clubbing. No gross deformities. Normal range of motion. Psychiatric: Normal mood and affect Assessment/Plan ??73-year-old male with past medical history significant for coronary artery disease, cardiomyopathy, type 2 diabetes mellitus, hypertension, Parkinson's disease who presented to hospital for diarrhea with concern for recurrent c diff.??Found to have jock itch??on exam. ?? C diff Jock itch Pt presenting??with?? diarrhea with concern for recurrent C diff infection. Given >3 recurrencesof c diff will need tapered and pulsed regiment.??nonsevere CDI given no leukocytosis,??kidney function, no signs of shock ileus or megacolon at this time. No clinical signs of UTI at this time. Given lack of BM over the past 48 hours appropriate to continue tapering dose and adjust dosing accordingly if >4 BM or shows signs of c diff clinically otherwise. Pt also appears to have jock itch andcan treat with topical antifungal as well ?? plan -no need for c diff pcr testing as recently positive can dc. -Agree with tapering dose noted at last ID consultation thus at this point will be at 125 mg PO every 2 days dosing and would stop current q6 dosing -If pt has >4 BM in 24 hours can restart tapering vanc with tapering as listed below starting from QID dosing again: ?? 125 mg orally 4 times daily for 10 to 14 days, then 125 mg orally 2 times daily for 7 days, then 125 mg orally once daily for 7 days, then 125 mg orally every 2 to 3 days for 2 to 8 weeks ?? -Continue contact precautions -Thank you for this consult we will continue to follow ? Patient care discussed with Dr. Claudia Sparks, DO Internal Medicine PGY-2 Pager [phone]?? Histories Allergies Allergies ?(Active and Proposed Allergies Only) tetanus immune globulin? (Severity: Unknown severity, Onset: Unknown) ? Past Medical History/Problem List Active Problems(17) Angina at rest Atrial fibrillation CAD in [place] artery Cardiomyopathy Diabetes mellitus type 2, noninsulin dependent Erectile dysfunction Gastroesophageal reflux disease Heart failure with improved ejection fraction (HFimpEF) Heart failure with reduced ejection fraction Hyperlipidemia Hypertension Hypotension Nocturia Obesity, Class III, BMI 40-49.9 (morbid obesity) [...] Home Medications Acetaminophen (acetaminophen 325 mg oral tablet)??650 Milligram By Mouth Every 6 hours Aspirin (aspirin 81 mg oral delayed release tablet)??81 Milligram By Mouth Daily Carbidopa-Levodopa (carbidopa-levodopa 25 mg-100 mg oral tablet)??2 tab(s) By Mouth 3 times a day Cholecalciferol (cholecalciferol 1000 intl units oral capsule)??1 capsule 1,000 International Unit By Mouth Daily empagliflozin (Jardiance 10 mg oral tablet)??1 tab(s) By Mouth Daily in AM Metoprolol (metoprolol 50 mg oral tablet, extended release)??50 Milligram 1 tablet By Mouth Daily Multivitamin (Multi Vitamin+)??1 tab(s) By Mouth Daily Nystatin Topical (nystatin topical 920547 u/gm powder)??1 adonis Topically 2 times a day Omeprazole (omeprazole 20 mg oral enteric coated capsule)??1 capsule 20 Milligram By Mouth Daily Quetiapine (QUEtiapine 25 mg oral tablet)??See Instructions TAKE 1/2 TABLET BY MOUTH EVERY MORNING AND 1 TABLET WITH SUPPER Ropinirole (rOPINIRole 0.25 mg oral tablet)??3 tab(s) 0.75 Milligram By Mouth 3 times a day sacubitril-valsartan (Entresto 24 mg-26 mg oral tablet)??1 tab(s) By Mouth 2 times a day Senna (Senna 8.6 mg oral tablet)??8.6 Milligram 1 tab(s) By Mouth Daily at supper Simvastatin (simvastatin 10 mg oral tablet)??1 tablet By Mouth Daily at bedtime Spironolactone (spironolactone 25 mg oral tablet)??50 Milligram 2 tablet By Mouth Daily for 90 Daysdose increase Tamsulosin (Flomax 0.4 mg oral capsule)??0.4 Milligram By Mouth Daily torsemide (torsemide 20 mg oral tablet)??0.5 tab(s) 10 Milligram By Mouth Daily ? Inpatient Medications Medications (17) Active SCHEDULED: (10) Aspirin 81 mg EC Tablet (aspirin 81 mg oral delayed release tablet) ??81 mg, By Mouth, Daily Carbidopa 25 mg / Levodopa 100 mg Tablet (carbidopa-levodopa 25 mg-100 mg oral tablet) ??2 tablet, By Mouth, 3 times a day Enoxaparin 40 mg Inj (Enoxaparin Inj) ??40 mg 0.4 mL, Subcutaneous Injection, Daily Metoprolol 50 mg XL Tablet (metoprolol 50 mg oral tablet, extended release) ??50 mg, By Mouth, Daily NaCl 0.9% Flush 3ml (NaCL 0.9% Flush) ??3 mL, IV Push, Every 8 hours Quetiapine 25 mg Tablet (QUEtiapine 25 mg oral tablet) ??12.5 mg, By Mouth, 2 times a day Ropinirole 0.25 mg Tablet (rOPINIRole 0.25 mg oral tablet) ??0.5 mg, By Mouth, 3 times a day Simvastatin 10 mg Tablet (simvastatin 10 mg oral tablet) ??10 mg, By Mouth, Daily at bedtime Tamsulosin 0.4 mg Capsule (Flomax 0.4 mg oral capsule) ??0.4 mg, By Mouth, Daily Vancomycin 125 mg Capsule (Vancomycin Capsule) ??125 mg, By Mouth, Every 6 hours CONTINUOUS: (1) NaCL 0.9% (1000 mL) Cont IV 1,000 mL (0.9% NaCL 1,000 mL) ??1,000 mL, IV Infusion, 75 mL/hr PRN: (6) Acetaminophen 325 mg Tablet (Acetaminophen Tablet) ??650 mg, By Mouth, Every 4 hours Docusate Sodium [...] tablet, By Mouth, 2 times a day ? Results Recent Labs BLOOD COUNT & DIFF WBC 10.7 k/mm3 ()?? 09/23/2024 05:37 RBC 3.83 m/mm3 (Low)?? 09/23/2024 05:37 Hgb 11.3 Gm/dL (Low)?? 09/23/2024 05:37 Hct 33.9 % (Low)?? 09/23/2024 05:37 MCV 88.5 femtoliters ()?? 09/23/2024 05:37 MCH 29.5 pg ()?? 09/23/2024 05:37 MCHC 33.3 Gm/dL ()?? 09/23/2024 05:37 Platelet Count 266 k/mm3 ()?? 09/23/2024 05:37 RDW-SD 45.1 femtoliters ()?? 09/23/2024 05:37 MPV 8.9 femtoliters (Low)?? 09/23/2024 05:37 Nucleated RBC (Automated) 0.0 #/100 WBC'S ()?? 09/23/2024 05:37 Abs. NRBC 0.0 k/mm3 ()?? 09/23/2024 05:37 Abs. Neut 6.9 k/mm3 ()?? 09/22/2024 11:30 Abs. Lymph 1.7 k/mm3 ()?? 09/22/2024 11:30 Abs. [place] 0.5 k/mm3 ()?? 09/22/2024 11:30 Abs. Eo 0.5 k/mm3 (High)?? 09/22/2024 11:30 Abs. Baso 0.3 k/mm3 (High)?? 09/22/2024 11:30 Neut % 67.2 % ()?? 09/22/2024 11:30 Lymph % 16.4 % ()?? 09/22/2024 11:30 [place] % 5.2 % ()?? 09/22/2024 11:30 Eos % 5.2 % ()?? 09/22/2024 11:30 Baso % 2.6 % (High)?? 09/22/2024 11:30 Myelocytes % 1.7 % ()?? 09/22/2024 11:30 Band % 1.7 % ()?? 09/22/2024 11:30 Platelet Estimate ADEQUATE ()?? 09/22/2024 11:30 ?? CARDIAC Nt-Probnp 1026 pg/mL (High)?? 09/22/2024 13:12 High Sensitivity Troponin (HSTnT) 16 ng/L ()?? 09/22/2024 16:28 ?? CHEM GENERAL Sodium 141 mmol/L ()?? 09/23/2024 05:37 Potassium 3.9 mmol/L ()?? 09/23/2024 05:37 Chloride 109 mmol/L (High)?? 09/23/2024 05:37 Bicarbonate Level 24 mmol/L ()?? 09/23/2024 05:37 Anion Gap 8 mmol/L ()?? 09/23/2024 05:37 Glucose Level 91 mg/dL ()?? 09/23/2024 05:37 BUN 12 mg/dL (Normal)?? 09/22/2024 08:46 BUN 9 mg/dL ()?? 09/23/2024 05:37 Creatinine-Blood 0.67 mg/dL (Low)?? 09/23/2024 05:37 Estimated GFR Creatinine 99 ML/MIN/1.73 M2 ()?? 09/23/2024 05:37 Calcium 8.4 mg/dL (Low)?? 09/23/2024 05:37 Protein, Total 6.1 Gm/dL (Low)?? 09/22/2024 13:12 Albumin 3.1 Gm/dL (Low)?? 09/22/2024 13:12 AG Ratio 1.0 ()?? 09/22/2024 13:12 Alkaline Phosphatase 88 units/L ()?? 09/22/2024 13:12 Lipase, Serum/Plasma 16 units/L ()?? 09/22/2024 13:12 AST (SGOT) 17 units/L ()?? 09/22/2024 13:12 ALT (SGPT) 6 units/L ()?? 09/22/2024 13:12 Bilirubin, Total 0.8 mg/dL ()?? 09/22/2024 13:12 Lactate 1.7 mmol/L ()?? 09/22/2024 13:12 BUN/Creat Ratio 14 (Normal)?? 09/22/2024 08:46 ?? HEME OTHER Hold Blue Top SPECIMEN DISCARDED AFTER 4 HOURS. ()?? 09/22/2024 11:30 ?? UA/URINALYSIS Appear/Color, Urine YELLOW ()?? 09/23/2024 07:27 Specific Barney, Urine 1.014 ()?? 09/23/2024 07:27 pH, Urine 6.0 ()?? 09/23/2024 07:27 Albumin, Urine 3+ (Abnormal)?? 09/23/2024 07:27 Glucose, Urine 3+ (Abnormal)?? 09/23/2024 07:27 Ketones, Urine TRACE (Abnormal)?? 09/23/2024 07:27 Bilirubin, Urine NEGATIVE (N)?? 09/23/2024 07:27 Hemoglobin, Urine 2+ (Abnormal)?? 09/23/2024 07:27 Nitrite, Urine NEGATIVE (N)?? 09/23/2024 07:27 Leukocyte, Urine 3+ (Abnormal)?? 09/23/2024 07:27 Urobilinogen NORMAL mg/dL (N)?? 09/23/2024 07:27 WBC's, Urine >182 /HPF (High)?? 09/23/2024 07:27 RBC's, Urine >182 /HPF (High)?? 09/23/2024 07:27 Bacteria HEAVY HPF (Abnormal)?? 09/23/2024 07:27 WBC Clumps HEAVY /HPF ()?? 09/23/2024 07:27 Budding Yeast HEAVY /HPF ()?? 09/23/2024 07:27 Yeast with Hyphae MODERATE /HPF ()?? 09/23/2024 07:27 ?? URINE OTHER Est Creatinine Clearance 99.33 mL/min ()?? 09/23/2024 06:37 ? * Shala Taylor MD: PERFORM Event Display: Consult Authored Date: Attending Attestation:??I have seen and evaluated this patient.?I have discussed the case and its management with the resident and agree with the findings and plan as documented in the resident???s note. Additional comment: Pt is noted to have abnormal UA, no clinical evidence of UTI. Please avoid giving any abx without any clear evidence of infection in this pt who had recurrent c. diff and currently is ongoing tapering treatment for c. diff. ?? ID will sing off care Thank you Admission evaluation note * Kalyan Mullins DO: PERFORM, MODIFY Event Display: Admission Note Authored Date: Patient: ??SAUL MARTINEZ ? Age:??73 Years?Sex:??Male?:??1950?? History of Present Illness Patient is a 73 year old male with PMH of atrial fibrillation s/p watchman placement, Parkinson's??Disease with associated psychiatric disturbances, HFpEF,??and recurrent C. Diff infections who presents with week of watery diarrhea and concern for C. Diff infection. Patient is poor historian so january kerr of history obtained over phone via , Patient was discharged from [facility] on 08/18/24 after admission for recurrent c. diff infections starting with initial episode at a rehab facility in mid June and then again in early July. Was followed by ID during last admission with plan for taper/pulse Vancomycin treatment. While Patient was still completing this regimen, his reports that hestarted having diarrhea again around 09/18 consistent to prior C. Diff stools,??and after multiple days of this she gave him Imodium resulting in him going without diarrhea for the last couple days. Patient was at OP neuro visit in which he was noted to by hypotensive so was directed to the Emergency room.? In the ED, BP 71/52 patient was started on Continuous IVF, with resolution of his hypotension. Labs largely unremarkable, mild elevation in BNP, patient tachycardic to 104 with afib on??EKG. Patient Given dose of Oral Vancomycin.?? Review of Systems A full review of systems was completed and is otherwise negative except as mentioned in history of present illness. Objective Measurements?? Height: 175 cm (09/23/24) Weight: 91.8 kg (09/23/24) Dry Weight: 90.5 kg (09/22/24) ? Vital Signs?? Temperature: 98.4 DegF (09/23/24 01:04:00) Temperature Route: Oral (09/23/24 01:04:00) Pulse Rate:??104 bpm??High (09/23/24 01:04:00) Respiratory Rate: 18 br/min (09/23/24 01:04:00) Systolic Blood Pressure: 126 mm Hg (09/23/24 01:04:00) Diastolic Blood Pressure: 72 mm Hg (09/23/24 01:04:00) Blood pressure sites: Arm, left (09/23/24 01:04:00) Mean Arterial Pressure: 90 mm Hg (09/23/24 01:04:00) Pulse Pressure: 54 mm Hg (09/23/24 01:04:00) Oxygen Saturation: 98 % (09/23/24 01:04:00) Mode of Delivery (Oxygen): Room air (09/23/24 01:04:00) Vital Signs Comment: Weight not taken pt on wheelchair - states pt weighs 90.0kgRechecked BP 73/50mmHg P 84b/ min Rt arm. Provider alerted reg low BP...WK (09/22/24 08:59:00) Early Warning Score: 1 (09/23/24 01:04:59) ? Intake/Output? 09/22 15:33 09/22 07:00 09/21 07:00 09/20 07:00 ?? 09/23 03:14 09/23 03:14 09/22 06:59 09/21 06:59 Urine Count ?1 ?1 ?0 ?0 ? Physical Exam Constitutional: Alert, in no distress. Mental Status: Oriented to person, place and time. Respiratory: Clear to auscultation. No wheezing, rales or rhonchi. Cardiovascular: S1 S2 irregular. No murmurs, rubs or gallops. Gastrointestinal: Abdomen soft, non-tender, non-distended. Normal bowel sounds. No pulsatile mass. No hepatosplenomegaly. Genitourinary: No costovertebral angle tenderness. Skin: No rashes or lesions. No petechiae or purpura.?? Musculoskeletal: No cyanosis or clubbing. No gross deformities. Normal range of motion. Psychiatric: Normal mood and affect Assessment/Plan Assessment:??Patient is a 73 year old male with PMH of atrial fibrillation s/p watchman placement, Parkinson's??Disease with associated psychiatric disturbances, HFpEF,??and recurrent C. Diff infections who presents with??concern for recurrent??C. Diff infection. ?? Hypotension (I95.9):? Clostridium difficile diarrhea (A04.72):?? Was diagnosed with C. difficile??in mid June and July, completed a course of??vancomycin andwas on vancomycin pulse/taper. Diarrhea resolved but has subsequently??started again suggesting??recurrence??of C. difficile, afebrile, creatinine at baseline, no leukocytosis t.f. non-severe C. diff infection. Continue IVF given poor PO intake per Continue isolation precautions Continue??oral vancomycin ID consult this morning ?? Parkinson disease (G20.A1):??Follows with Neurology most recent visit today, recommended Tapering Ropinirole, will initiate while inpatient.?? Continue Carbidopa/Levodopa, Seroquel, and Ropinirole? (HFpEF) heart failure with preserved ejection fraction (I50.30):??Last EF 60-65% in 06/21, follows with Dr. Cavanaugh,??does not appear to be in acute exacerbation. GDMT regimen, Torsemide, Jardiance, Metoprolol, Spironolactone, and Entresto. Given Hypotension will hold diuretics and Entresto, will continue to give Metoprolol for afib rate control ? Code:DNR/DNI Diet: Cardiac DVT??PPX: Lovenox ?? Patient was seen and discussed with Dr. Pantera Mullins, DO PGY-1 Internal Medicine Pager [phone]/ nancyext? Histories Allergies Allergies ?(Active and Proposed Allergies Only) tetanus immune globulin? (Severity: Unknown severity, Onset: Unknown) ? Past Medical History/Problem List Active Problems(17) Angina at rest Atrial fibrillation CAD in [place] artery Cardiomyopathy Diabetes mellitus type 2, noninsulin dependent Erectile dysfunction Gastroesophageal reflux disease Heart failure with improved ejection fraction (HFimpEF) Heart failure with reduced ejection fraction Hyperlipidemia Hypertension Hypotension Nocturia Obesity, Class III, BMI 40-49.9 (morbid obesity) [...] Home Medications Acetaminophen (acetaminophen 325 mg oral tablet)??650 Milligram By Mouth Every 6 hours Aspirin (aspirin 81 mg oral delayed release tablet)??81 Milligram By Mouth Daily Carbidopa-Levodopa (carbidopa-levodopa 25 mg-100 mg oral tablet)??2 tab(s) By Mouth 3 times a day Cholecalciferol (cholecalciferol 1000 intl units oral capsule)??1 capsule 1,000 International Unit By Mouth Daily empagliflozin (Jardiance 10 mg oral tablet)??1 tab(s) By Mouth Daily in AM Metoprolol (metoprolol 50 mg oral tablet, extended release)??50 Milligram 1 tablet By Mouth Daily Multivitamin (Multi Vitamin+)??1 tab(s) By Mouth Daily Nystatin Topical (nystatin topical 433888 u/gm powder)??1 adonis Topically 2 times a day Omeprazole (omeprazole 20 mg oral enteric coated capsule)??1 capsule 20 Milligram By Mouth Daily Quetiapine (QUEtiapine 25 mg oral tablet)??See Instructions TAKE 1/2 TABLET BY MOUTH EVERY MORNING AND 1 TABLET WITH SUPPER Ropinirole (rOPINIRole 0.25 mg oral tablet)??3 tab(s) 0.75 Milligram By Mouth 3 times a day sacubitril-valsartan (Entresto 24 mg-26 mg oral tablet)??1 tab(s) By Mouth 2 times a day Senna (Senna 8.6 mg oral tablet)??8.6 Milligram 1 tab(s) By Mouth Daily at supper Simvastatin (simvastatin 10 mg oral tablet)??1 tablet By Mouth Daily at bedtime Spironolactone (spironolactone 25 mg oral tablet)??50 Milligram 2 tablet By Mouth Daily for 90 Daysdose increase Tamsulosin (Flomax 0.4 mg oral capsule)??0.4 Milligram By Mouth Daily torsemide (torsemide 20 mg oral tablet)??0.5 tab(s) 10 Milligram By Mouth Daily ? Results Recent Labs BLOOD COUNT & DIFF WBC 10.0 k/mm3 ()?? 09/22/2024 11:30 RBC 4.11 m/mm3 (Low)?? 09/22/2024 11:30 Hgb 12.4 Gm/dL (Low)?? 09/22/2024 11:30 Hct 37.3 % (Low)?? 09/22/2024 11:30 MCV 90.8 femtoliters ()?? 09/22/2024 11:30 MCH 30.2 pg ()?? 09/22/2024 11:30 MCHC 33.2 Gm/dL ()?? 09/22/2024 11:30 Platelet Count 290 k/mm3 ()?? 09/22/2024 11:30 RDW-SD 47.4 femtoliters (High)?? 09/22/2024 11:30 MPV 9.1 femtoliters (Low)?? 09/22/2024 11:30 Nucleated RBC (Automated) 0.0 #/100 WBC'S ()?? 09/22/2024 11:30 Abs. NRBC 0.0 k/mm3 ()?? 09/22/2024 11:30 Abs. Neut 6.9 k/mm3 ()?? 09/22/2024 11:30 Abs. Lymph 1.7 k/mm3 ()?? 09/22/2024 11:30 Abs. [place] 0.5 k/mm3 ()?? 09/22/2024 11:30 Abs. Eo 0.5 k/mm3 (High)?? 09/22/2024 11:30 Abs. Baso 0.3 k/mm3 (High)?? 09/22/2024 11:30 Neut % 67.2 % ()?? 09/22/2024 11:30 Lymph % 16.4 % ()?? 09/22/2024 11:30 [place] % 5.2 % ()?? 09/22/2024 11:30 Eos % 5.2 % ()?? 09/22/2024 11:30 Baso % 2.6 % (High)?? 09/22/2024 11:30 Myelocytes % 1.7 % ()?? 09/22/2024 11:30 Band % 1.7 % ()?? 09/22/2024 11:30 Platelet Estimate ADEQUATE ()?? 09/22/2024 11:30 ?? CARDIAC Nt-Probnp 1026 pg/mL (High)?? 09/22/2024 13:12 High Sensitivity Troponin (HSTnT) 16 ng/L ()?? 09/22/2024 16:28 ?? CHEM GENERAL Sodium 139 mmol/L ()?? 09/22/2024 13:12 Potassium 3.8 mmol/L ()?? 09/22/2024 13:12 Chloride 105 mmol/L ()?? 09/22/2024 13:12 Bicarbonate Level 23 mmol/L ()?? 09/22/2024 13:12 Anion Gap 11 mmol/L ()?? 09/22/2024 13:12 Glucose Level 91 mg/dL ()?? 09/22/2024 13:12 BUN 12 mg/dL (Normal)?? 09/22/2024 08:46 BUN 11 mg/dL ()?? 09/22/2024 13:12 Creatinine-Blood 0.80 mg/dL ()?? 09/22/2024 13:12 Estimated GFR Creatinine 94 ML/MIN/1.73 M2 ()?? 09/22/2024 13:12 Calcium 8.2 mg/dL (Low)?? 09/22/2024 13:12 Protein, Total 6.1 Gm/dL (Low)?? 09/22/2024 13:12 Albumin 3.1 Gm/dL (Low)?? 09/22/2024 13:12 AG Ratio 1.0 ()?? 09/22/2024 13:12 Alkaline Phosphatase 88 units/L ()?? 09/22/2024 13:12 Lipase, Serum/Plasma 16 units/L ()?? 09/22/2024 13:12 AST (SGOT) 17 units/L ()?? 09/22/2024 13:12 ALT (SGPT) 6 units/L ()?? 09/22/2024 13:12 Bilirubin, Total 0.8 mg/dL ()?? 09/22/2024 13:12 Lactate 1.7 mmol/L ()?? 09/22/2024 13:12 BUN/Creat Ratio 14 (Normal)?? 09/22/2024 08:46 ?? HEME OTHER Hold Blue Top SPECIMEN DISCARDED AFTER 4 HOURS. ()?? 09/22/2024 11:30 ?? URINE OTHER Est Creatinine Clearance 83.19 mL/min ()?? 09/22/2024 14:13 ? * Jl Mott MD: PERFORM Event Display: Admission Note Authored Date: ??Attending Attestation: I have seen and evaluated this patient.?? I have discussed the case and its management with the resident and agree with the findings and ana documented in the resident's note.?? I?? will continue to provide care to this patient till 7 AMof the admitting date.? 73-year-old male with a past medical history of A-fib status post Watchman procedure, Parkinson, recurrent C. difficile infection, GERD, hypertension, hyperlipidemia, obesity came with a complaint ofwatery diarrhea with a concern of worsening of C. difficile infection.?? Patient blood pressure waslow that got better with IV fluid.?? History of poor oral intake.?? Patient has?? recurrent episodeof C. difficile and concern of ongoing C. difficile infection with current regimen.?? Will follow-up with ID for further recommendation.?? Will continue with the p.o. vancomycin.?? Because of low blood pressure will hol, Aldactone, Entresto.?? Will continue metoprolol with holding parameters. EKG study * Event Display: ECG 12-Lead Authored Date: Please click on pdf link to open report * Event Display: ECG 12-Lead Authored Date: Ventricular Rate: 75 BPM QRS Duration: 100 ms Q-T Interval: 390 ms QTC Calculation(Bazett): 435 ms R [place]: -47 degrees T [place]: 22 degrees Atrial fibrillation Incomplete right bundle branch block Left anterior fascicular block Cannot rule out Anterior infarct , age undetermined Abnormal ECG Baseline artifact When compared with ECG of 08-Aug-2024 16:27, No significant change was found Confirmed by Cody Sargent ([id number]) on 09/22/2024 11:10:59 AM [place]: Cody Sargent Heart * Event Display: Echocardiogram - Complete Authored Date: [id number] Transthoracic Echocardiography Report (TTE) Patient Demographics Patient Name SAUL MARTINEZ Date of Study 09/24/2024 Corporate Gender Male Facility Race .[id number] Ethnicity Date of 1950 Height: 68.9 inches Age 73 year(s) Weight: 216.05 pounds Accession Number [id number] BSA: 2.13 m2 Room Number [id number] BMI: 32 kg/m2 Referring Marjorie Conti MD Interpreting Demian Ramires Physician Physician [employer] Max ARMENTA Bailey Indications Pericardial effusion. Clinical History Hypertension. Atrial fibrillation. Diabetes Mellitus. Hyperlipidemia. CAD. Parkinson's Study Data Type of Study TTE procedure:Echo Complete-(Doppler, Colorflow) with Contrast. Study Date09/24/2024 Start Time: 03:37 PM Study Location: [facility] Adult Echo Study Status: Echo lab Patient Status: Routine Technical Quality: Technically difficult due to restricted mobility. Blood Pressure:111/85 mmHg EKG: Atrial fibrillation HR: 94 bpm Contrast Medium: Definity. Amount - 2 ml Allergies - Tetnus. 2D Measurements LV Diastolic Dimension: 4.9 cm LV Systolic Dimension: 3.9 cm LV Septum Diastolic: 1.1 cm LV PW Diastolic: 1 cm AO Root Dimension: 3.7 cm LA Dimension: 5.4 cm LA ESV (BP):113 ml LVOT Stroke Volume: 54.71 ml LA ESV Index: 53 ml/m2 Stroke Volume Index25.69 ml/m2 LVOT: 2.4 cm Cardiac Index:2.41 l/min/m2 Ascending Aorta:4 cm Doppler Measurements AV Peak Velocity: 132 cm/s AV Peak Gradient: 6.97 mmHg AV Mean Gradient: 3 mmHg AV VTI:23.1 cm LVOT Peak Velocity: 69.4 cm/s LVOT VTI12.1 cm AV Area (Continuity):2.37 cm2 TR Velocity:321 cm/s TR Gradient:41.22 mmHg Estimated RAP:13 mmHg Estimated RVSP: 54.2 mmHg Cardiac Anatomy Left Ventricle/Interventricular Septum Normal LV systolic function (EF 60-65%) in the setting of tachycardia. No significant regional wall motion abnormalities. Indeterminate LV diastolic function. Normal LV cavity size. Mildly increased LV wall thickness. Left Atrium/Interatrial Septum Severely dilated LA. Aortic Valve MIldly thickened and calcified aortic valve. No significant aortic regurgitation. No significant aortic stenosis. Mitral Valve No significant structural abnormalities of the mitral valve. Mild to moderate mitral regurgitation. Aorta Normal size aortic root. Dilated ascending aorta (4.0 cm). Right Ventricle Normal RV systolic function. Normal RV size. Right Atrium Severely dilated RA. Pulmonic Valve No significant structural abnormalities of the pulmonic valve. Mild pulmonic regurgitation. Tricuspid Valve No significant structural abnormalities of the tricuspid valve. Mild to moderate tricuspid regurgitation. Pumonary Artery Moderately elevated (50-55 mmHg) estimated PA systolic pressure. Venous Structures Dilated IVC with blunted respiratory variation (suggesting high RAP/CVP). Pericardium/Extracardiac Small circumferential pericardial effusion. Variation of mitral inflow velocity is 14% (> 25% is concerning for tamponade physiology). Summary Normal LV systolic function (EF 60-65%) in the setting of tachycardia. No significant regional wall motion abnormalities. Normal LV cavity size. Mildly increased LV wall thickness. Normal RV systolic function. Normal RV size. Severe biatrial enlargement. Mild to moderate mitral regurgitation. Mild to moderate tricuspid regurgitation. Moderately elevated (50-55 mmHg) estimated PA systolic pressure. Dilated IVC with blunted respiratory variation (suggesting high RAP/CVP). Small circumferential pericardial effusion. Variation of mitral inflow velocity is 14% (> 25% is concerning for tamponade physiology). Comparison Comparison is made to the study of June 26, 2024. Pericardial effusion is much smaller. There are no longer echo criteria suggestive of cardiac tamponade. Signature * Event Display: Echocardiogram - Complete Authored Date: [id number] Hospital Progress note * Nikhil BOND, Nida Flores: PERFORM, SIGN, VERIFY, MODIFY, SIGN Event Display: Progress Note Hospital Authored Date: [id number] Patient: [facility]: [id number] Age: 73 years Sex: Male : 1950 Associated Diagnoses: None Author: Nida Tejeda RN Findings Problem Related to Alteration in Gastrointestinal : Alteration in Gastrointestinal Func/new 09/27/2024 11:00 EST Alteration in GI status Related to C Diff Goals & Outcomes, Gastrointestinal Establish a regular pattern of elimination for pt, Nutritional intake is adequate for metabolic needs, Pt will achieve normal/improved fluid balance, Pt will have a bowel movement prior to discharge, Pt will maintain adequate GI function appropriate for pt, Ptwill maintain normal elimination patterns, Pt will resume/maintain adequate hemodynamic status, Pt w ill tolerate age appropriate diet prior to discharge Interventions, Gastrointestinal Assess/monitor abdomen for distention, tenderness, Assess/monitor abdominal girth & bowel function, Assess/monitor bowel pattern, bowel sounds, flatus, Assess/monitor number of bowel movements, Assess/monitor color, quantity, quality, consistency of stoo, Assess/monitor pt for nausea, vomiting, Assess/monitor intake & output, Assess if pt tolerating diet, DVT prophylaxis as ordered, Establish toileting schedule for patient, Teach Pt/caregiver re: nutritional intake & dietary restrict, Assess & monitor effectiveness of antibiotics, Encourage PO fluids, Isolation as per policy Goals/Interventions, Gastrointestinal Yes Gastrointestinal, Problem Start 09/23/2024 3:41 Reviewed plan with, Gastrointestinal Patient Patient Progression, Gastrointestinal Pt progressing according to plan . Evaluation Patient alert verbal oriented x1 , took all morning medications with out difficulty. no s/s of acute distress noted on my shift, will continue. Patient discharge today will pick him up around 12:00 PM. Patient was discharge home with VNA services. Discharge instructions review with she was able to teach back. Patient left the unit via Wheelchair. . * Hawa Capps: PERFORM, MODIFY, SIGN, VERIFY Event Display: Progress Note Hospital Authored Date: [id number] Patient: SAUL MARTINEZ Age: 73 years Sex: Male : 1950 Associated Diagnoses: None Author: Hawa Capps Findings Nursing Data Vital Signs : VITAL SIGNS SECTION 09/27/2024 20:36 EST Temperature 98.7 DegF Temperature Route Oral Pulse Rate 88 bpm Respiratory Rate 18 br/min Systolic Blood Pressure 114 mm Hg Diastolic Blood Pressure 56 mm Hg Blood pressure sites Arm, left Mean Arterial Pressure 75 mm Hg Pulse Pressure 58 mm Hg Oxygen Saturation 97 % Mode of Delivery (Oxygen) Room air . Narrative/Incidental A+Ox1 continues to be confused. Reorientation provided with little effect. Bed alarm remained engaged for pt safety. VSS. Afebrile. Continues on PO vanco for cdiff. Denies pain. On room air. Breathing even and unlabored. Denies SOB and CP. Trace edema to BLE. Incontinent of bowel and bladder. Able to take pills whole in applesauce, no s/s of aspiration noted. . Discharge Information Case Management Discharge Plan : Case Management Discharge Plan Data 09/26/2024 15:48 EST Discharge Level of Care at Discharge Homehealth/VNA Discharge VNA/Hospice/Home Care [facility] [phone] Name of Agency #1 [facility] Service Categories #1 Physical Therapy, Penitentiary Service Comments #1 Service Comments #1 Rehabilitation Discharge : Rehab Discharge Index 09/26/2024 13:13 EST Comments on treatment indicated Regular diet, thin liquids Full chart review completed Yes Hospital course Hospital course 09/26/2024 8:36 EST Comments on treatment indicated 73 M p/w concern for recurrent C. Diff infection. PT to progress functional mobility. Rec home c services Full chart review completed Yes Hospital course Hospital course Plan of care PT Gait training, Transfer training, Therapeutic exercise, Functional Activities, Balance training * Sushila Amador MD: PERFORM Event Display: Progress Note Hospital Authored Date: [id number] Patient: ??SAUL MARTINEZ ? Age:??73 Years?Sex:??Male?:??1950?? Subjective Patient seen and examined, eating breakfast this morning. ??Denies nausea vomiting or abdominal pain.?? No reports??of ongoing diarrhea??or fever per nursing staff.?? Patient is a poor historian??butappears comfortable. ?? T Max noted 99.7 Review of Systems Review of system limited due to cognitive impairment Objective Vital Signs?? Temperature: 97.8 DegF (09/27/24 14:02:00) Temperature Route: Oral (09/27/24 14:02:00) Pulse Rate:??101 bpm??High (09/27/24 14:02:00) Respiratory Rate: 16 br/min (09/27/24 14:02:00) Systolic Blood Pressure: 118 mm Hg (09/27/24 14:02:00) Diastolic Blood Pressure: 72 mm Hg (09/27/24 14:02:00) Blood pressure sites: Arm, right (09/27/24 14:02:00) Mean Arterial Pressure: 87 mm Hg (09/27/24 14:02:00) Pulse Pressure: 46 mm Hg (09/27/24 14:02:00) Oxygen Saturation: 97 % (09/27/24 14:02:00) Mode of Delivery (Oxygen): Room air (09/27/24 14:02:00) Early Warning Score: 3 (09/27/24 14:03:34) ? Intake/Output? 09/22 15:33 09/27 07:00 09/26 07:00 09/25 07:00 09/24 07:00 ?? 09/27 16:59 09/27 16:59 09/27 06:59 09/26 06:59 09/25 06:59 Intake ? 1649.5 ?237 ?0 ?0 ? 1140 Output ?0 ?0 ?0 ?0 ?0 Net Total ? 1649.5 ?237 ?0 ?0 ? 1140 ? Urine Count ? 29 ?2 ?5 ?7 ? 11 ? Physical Exam Constitutional: Alert, in no distress, very slow??to respond, hypophonic and slightly dysarthric (noted on recent O/p neuro f/u) Mental Status: Oriented to person, and place Respiratory: Clear to auscultation b/l Cardiovascular:??irregularly irregular?? Gastrointestinal: Abdomen soft, non-tender, non-distended. Normal bowel sounds. No CVA tenderness b/l Psychiatric: Flat affect _ Inpatient Medications Medications (19) Active SCHEDULED: (13) Aspirin 81 mg EC Tablet (aspirin 81 mg oral delayed release tablet) ??81 mg, By Mouth, Daily Carbidopa 25 mg / Levodopa 100 mg Tablet (carbidopa-levodopa 25 mg-100 mg oral tablet) ??2 tablet, By Mouth, 3 times a day Enoxaparin 40 mg Inj (Enoxaparin Inj) ??40 mg 0.4 mL, Subcutaneous Injection, Daily Metoprolol 50 mg XL Tablet (metoprolol 50 mg oral tablet, extended release) ??50 mg, By Mouth, Daily NaCl 0.9% Flush 3ml (NaCL 0.9% Flush) ??3 mL, IV Push, Every 8 hours Nystatin Powder ??1 application, Topically, 2 times a day Quetiapine 25 mg Tablet (QUEtiapine 25 mg oral tablet) ??12.5 mg, By Mouth, 2 times a day Ropinirole 0.25 mg Tablet (rOPINIRole 0.25 mg oral tablet) ??0.5 mg, By Mouth, 3 times a day Sacubitril-Valsartan 24 mg-26 mg Tablet (Entresto 24 mg-26 mg oral tablet) ??1 tablet, By Mouth, 2 times a day Simvastatin 10 mg Tablet (simvastatin 10 mg oral tablet) ??10 mg, By Mouth, Daily at bedtime Tamsulosin 0.4 mg Capsule (Flomax 0.4 mg oral capsule) ??0.4 mg, By Mouth, Daily Torsemide 20 mg tablet (torsemide 20 mg oral tablet) ??10 mg 0.5 tablet, By Mouth, Daily Vancomycin 125 mg Capsule (Vancomycin Capsule) ??125 mg, By Mouth, 4 times a day CONTINUOUS: (0) PRN: (6) Acetaminophen 325 mg Tablet (Acetaminophen Tablet) ??650 mg, By Mouth, Every 4 hours Docusate Sodium [...] tablet, By Mouth, 2 times a day ? Results Recent Labs BLOOD COUNT & DIFF WBC 14.1 k/mm3 (High)?? 09/27/2024 03:57 RBC 3.68 m/mm3 (Low)?? 09/27/2024 03:57 Hgb 11.1 Gm/dL (Low)?? 09/27/2024 03:57 Hct 33.2 % (Low)?? 09/27/2024 03:57 MCV 90.2 femtoliters ()?? 09/27/2024 03:57 MCH 30.2 pg ()?? 09/27/2024 03:57 MCHC 33.4 Gm/dL ()?? 09/27/2024 03:57 Platelet Count 211 k/mm3 ()?? 09/27/2024 03:57 RDW-SD 46.4 femtoliters ()?? 09/27/2024 03:57 MPV 9.3 femtoliters (Low)?? 09/27/2024 03:57 Nucleated RBC (Automated) 0.0 #/100 WBC'S ()?? 09/27/2024 03:57 Abs. NRBC 0.0 k/mm3 ()?? 09/27/2024 03:57 Abs. Neut 11.7 k/mm3 (High)?? 09/27/2024 03:57 Abs. Lymph 1.0 k/mm3 ()?? 09/27/2024 03:57 Abs. [place] 1.0 k/mm3 ()?? 09/27/2024 03:57 Abs. Eo 0.2 k/mm3 ()?? 09/27/2024 03:57 Abs. Baso 0.1 k/mm3 ()?? 09/27/2024 03:57 Neut % 82.9 % (High)?? 09/27/2024 03:57 Lymph % 7.2 % (Low)?? 09/27/2024 03:57 [place] % 6.8 % ()?? 09/27/2024 03:57 Eos % 1.7 % ()?? 09/27/2024 03:57 Baso % 0.5 % ()?? 09/27/2024 03:57 Imm Gran 0.9 % ()?? 09/27/2024 03:57 Abs. Imm Gran 0.1 k/mm3 ()?? 09/27/2024 03:57 ?? CHEM GENERAL Sodium 136 mmol/L ()?? 09/27/2024 04:03 Potassium 3.4 mmol/L (Low)?? 09/27/2024 04:03 Chloride 102 mmol/L ()?? 09/27/2024 04:03 Bicarbonate Level 24 mmol/L ()?? 09/27/2024 04:03 Anion Gap 10 mmol/L ()?? 09/27/2024 04:03 Glucose Level 94 mg/dL ()?? 09/27/2024 04:03 BUN 8 mg/dL ()?? 09/27/2024 04:03 Creatinine-Blood 0.71 mg/dL ()?? 09/27/2024 04:03 Estimated GFR Creatinine 97 ML/MIN/1.73 M2 ()?? 09/27/2024 04:03 Calcium 8.4 mg/dL (Low)?? 09/27/2024 04:03 Magnesium 1.8 mg/dL ()?? 09/27/2024 04:03 Protein, Total 5.5 Gm/dL (Low)?? 09/26/2024 02:47 Albumin 3.0 Gm/dL (Low)?? 09/26/2024 02:47 AG Ratio 1.2 ()?? 09/26/2024 02:47 Alkaline Phosphatase 73 units/L ()?? 09/26/2024 02:47 AST (SGOT) 14 units/L ()?? 09/26/2024 02:47 ALT (SGPT) <5 units/L ()?? 09/26/2024 02:47 Bilirubin, Total 0.8 mg/dL ()?? 09/26/2024 02:47 ?? URINE OTHER Est Creatinine Clearance 93.73 mL/min ()?? 09/27/2024 04:44 ? Image ?US Renal Bladder??09/24/2024 12:44 by Pen Yamini ?No sonographic evidence of nephrolithiasis or hydronephrosis. Moderate amount of avascular echogenic material in the dependent portion of the urinary bladder lumen may represent layering debris. Correlate with urinalysis. ?? Assessment/Plan ? Diagnoses (HFpEF) heart failure with preserved ejection fraction ??(I50.30) CHF (congestive heart failure) ??(I50.9) Clostridium difficile diarrhea ??(A04.72) Diabetes mellitus type 2, noninsulin dependent ??(E11.9) Heart failure ??(I50.9) Hypotension ??(I95.9) Parkinson disease ??(G20.A1) UTI (urinary tract infection) ??(N39.0) ?? Assessment:??Patient is a 73 year old male with PMH of atrial fibrillation s/p watchman placement, Parkinson's??Disease with associated psychiatric disturbances, HFpEF,??and recurrent C. Diff infections who presents with??concern for recurrent??C. Diff infection. ?? Hypotension (I95.9):? Clostridium difficile diarrhea (A04.72):?? BP 71/52 at presentation, responded to 1L IV fluids and has been normal since Was diagnosed with C. difficile??in mid June and July, completed a course of??vancomycin andwas on vancomycin pulse/taper. Diarrhea resolved but has subsequently??started again concerning for??recurrence??of C. difficile, improved since admission though ID consult much appreciated recommending the following -no need for c diff pcr testing as recently positive -Continue with tapering dose noted at last ID consultation thus at this point will be at 125 mg PO every 2 days dosing?? -If pt has >4 BM in 24 hours can restart tapering vanc??as follow 125 mg orally 4 times daily for 10 to 14 days, then 125 mg orally 2 times daily for 7 days, then 125 mg orally once daily for 7 days, then 125 mg orally every 2 to 3 days for 2 to 8 weeks -Continue contact precautions ?? He was noted to have 4 BMs on 09/24 through 08/25 morning, with 101.3 temp and increased WBC; vanco dose increased to therapeutic again with plan to taper gradually as above ?? worsening leukocytosis, unclear cause, patient is a very poor historian; ?UTI suspecte earlier.. would check CT abd/pelvis ?? UTI (urinary tract infection) (N39.0):Suspected based on leukocyturia on UA, with fever, started empirically??IV Rocephin urine cult resulted on 09/25: 50??- 100k charu albicans renal/bladder US: layering debris in bladder, but no hydronephrosis or kidney stones blood cultures negative to date no ur retention on bladder scans ?? Parkinson disease (G20.A1):??Follows with Neurology most recent visit the day he was referred to the ER, recommended Tapering Ropinirole, this will be followed at home Continue Carbidopa/Levodopa, Seroquel, and Ropinirole? (HFpEF) heart failure with preserved ejection fraction (I50.30):??Last EF 60-65% in 06/21, follows with Dr. Cavanaugh,??does not appear to be in acute exacerbation. GDMT regimen, Torsemide, Jardiance, Metoprolol, Spironolactone, and Entresto. Given Hypotension at presentation, diuretics and Entresto were held, Metoprolol for afib rate control continued Was on gentle IV hydration due to??poor oral intake; IV fluids discontinued??on 09/25 Torsemide resumed on 09/26' BP??stable resume??Entresto??today??with holding parameters ?? d/w HF team as he has h/o??moderate to large pericardial??effusion posteriorly??noted on echo??fromNovember;??they have been actively following up on him as outpatient. Recommending??inpatient echocardiogram.??Echocardiogram showed improvement of the pericardial effusion- currently small PAP 50-55 HF consult appreciated ?? Code:DNR/DNI Diet: Cardiac DVT??PPX: Lovenox ? Note * Nida Tejeda RN: PERFORM Event Display: Discharge/Transfer Note Hospital Authored Date: [id number] Nursing Discharge Note Entered On: 09/28/2024 13:46 EST Performed On: 09/28/2024 13:46 EST by Nida Tejeda RN Nursing Discharge Note 2 Discharge Time : 09/28/2024 12:45 EST Discharge Level of Care at Discharge : Homehealth/VNA Discharge VNA/Hospice/Home Care(v001) : [facility] [phone] Patient Left Unit Via : Wheelchair Patient Accompanied Off Unit with : Responsible adult DC Instructions Provided & Signed by Pt : Yes Patient Understands D/C Instructions : Yes Patient Instructions Discharge Signed : Yes Did Pt have Specialty Bed or Wound Vac : No Nida Tejeda RN - 09/28/2024 13:46 EST * Sushila Amador MD: PERFORM Event Display: Discharge/Transfer Note Hospital Authored Date: [id number] Patient: ??ESTRELLITA MARTINEZMOND ? Age:??73 Years?Sex:??Male?:??1950?? Patient Information Discharge Location: 4 Primary Care Physician: China Briseno MD Admit Date/Time: 09/22/2024 15:33 Discharge Disposition Discharge Disposition: Home with Home Health Discharge Diagnosis UTI (urinary tract infection) (N39.0) Clostridium difficile diarrhea (A04.72) Heart failure (I50.9) (HFpEF) heart failure with preserved ejection fraction (I50.30) Hypotension (I95.9) Parkinson disease (G20.A1) Diabetes mellitus type 2, noninsulin dependent (E11.9) General medical ([id number]) CHF (congestive heart failure) (I50.9) _ Discharge Medications Acetaminophen (acetaminophen 325 mg oral tablet)??650 Milligram By Mouth Every 6 hours Aspirin (aspirin 81 mg oral delayed release tablet)??81 Milligram By Mouth Daily Carbidopa-Levodopa (carbidopa-levodopa 25 mg-100 mg oral tablet)??2 tab(s) By Mouth 3 times a day Cholecalciferol (cholecalciferol 1000 intl units oral capsule)??1 capsule 1,000 International Unit By Mouth Daily Metoprolol (metoprolol 50 mg oral tablet, extended release)??50 Milligram 1 tablet By Mouth Daily Multivitamin (Multi Vitamin+)??1 tab(s) By Mouth Daily Nystatin Topical (nystatin topical 182654 u/gm powder)??1 adonis Topically 2 times a day Omeprazole (omeprazole 20 mg oral enteric coated capsule)??1 capsule 20 Milligram By Mouth Daily Quetiapine (QUEtiapine 25 mg oral tablet)??See Instructions TAKE 1/2 TABLET BY MOUTH EVERY MORNING AND 1 TABLET WITH SUPPER Ropinirole (rOPINIRole 0.25 mg oral tablet)??3 tab(s) 0.75 Milligram By Mouth 3 times a day sacubitril-valsartan (Entresto 24 mg-26 mg oral tablet)??1 tab(s) By Mouth 2 times a day Senna (Senna 8.6 mg oral tablet)??8.6 Milligram 1 tab(s) By Mouth Daily at supper Simvastatin (simvastatin 10 mg oral tablet)??1 tablet By Mouth Daily at bedtime Spironolactone (spironolactone 25 mg oral tablet)??50 Milligram 2 tablet By Mouth Daily for 90 Daysdose increase Tamsulosin (Flomax 0.4 mg oral capsule)??0.4 Milligram By Mouth Daily torsemide (torsemide 20 mg oral tablet)??0.5 tab(s) 10 Milligram By Mouth Daily Vancomycin (vancomycin 125 mg oral capsule)??125 Milligram By Mouth 4 times a day Doses over 125 mgrequire ID consult. Indication for Use: C. difficile colitis ? Medications Started vancomycin taper initiated Medications Discontinued empagliflozin Doses Changed None Allergies Allergies ?(Active and Proposed Allergies Only) tetanus immune globulin? (Severity: Unknown severity, Onset: Unknown) ? PCP Follow-Up/Heads-Up please f/u within 1 week and consider checking renal profile and Mg then f/u with HF clinic Monitor blood pressure Hospital Course Patient is a 73 year old male with PMH of atrial fibrillation s/p watchman placement, Parkinson's Disease with associated psychiatric disturbances, HFpEF, and recurrent C. Diff infections who presents with concern for recurrent C. Diff infection. ?? Hypotension (I95.9): Clostridium difficile diarrhea (A04.72): BP 71/52 at presentation, responded to 1L IV fluids and has been normal since Was diagnosed with C. difficile in mid June and July, completed a course of vancomycin and was on vancomycin pulse/taper. Diarrhea resolved but has subsequently started again concerning for recurrence of C. difficile, improved since admission though ID consult much appreciated recommending the following ?? -no need for c diff pcr testing as recently positive -Continue with tapering dose noted at last ID consultation thus at this point will be at 125 mg PO every 2 days dosing -If pt has >4 BM in 24 hours can restart tapering vanc as follow; he did have 4BM on 09/24 with fever, initially thought to be sec to UTI, treated with IV Rocephin for 2 days; ultimately urine cultgrew charu; Vancomycin increased to 125mg po 4 times daily on 09/26/24 to follow the following regimen at home asrecommended by ID: ?? 125 mg orally 4 times daily for 10 to 14 days, then 125 mg orally 2 times daily for 7 days, then 125 mg orally once daily for 7 days, then 125 mg orally every 2 to 3 days for 2 to 8 weeks ?? UTI (urinary tract infection) (N39.0):Suspected based on leukocyturia on UA, with fever, started empirically IV Rocephin urine cult resulted on 09/25: 50 - 100k charu albicans renal/bladder US: layering debris in bladder, but no hydronephrosis or kidney stones CT thickening of bladder wall ?cystitis he's had fluctuating WBC, but has remained afebrile since 09/24 and mental status is at baseline blood cultures negative to date no ur retention on bladder scans Findings, including CT scan report discussed with ID; no indication to treat Charu ?? (HFpEF) heart failure with preserved ejection fraction (I50.30): Last EF 60-65% in 06/21, follows with Dr. Cavanaugh, does not appear to be in acute exacerbation. GDMT regimen, Torsemide, Jardiance, Metoprolol, Spironolactone, and Entresto. Given Hypotension at presentation, diuretics and Entresto were held, Metoprolol for afib rate control continued Was on gentle IV hydration due to poor oral intake; IV fluids discontinued on 09/25 Torsemide resumed on 09/26, Entresto restarted yesterday BP remained stable Ct showed small pl effusion b/l; but he appears euvolemic on exam will resume Aldactone at discharge but would keep Empagliflozin on hold due to charu in urine andincreased risk of UTI with it, in addition to tendency tp low BP ?? d/w HF team as he has h/o moderate to large pericardial effusion posteriorly noted on echo from May; they have been actively following up on him as outpatient. Recommending inpatient echocardiogram. Echocardiogram showed improvement of the pericardial effusion- currently small PAP 50-55 HF consult appreciated I have also updated them on dc planning and change of meds; they are in agreement with it ?? Parkinson disease (G20.A1): Follows with Neurology most recent visit the day he was referred to theER, recommended Tapering Ropinirole, this will be followed at home Continue Carbidopa/Levodopa, Seroquel, and Ropinirole ?? I called his and updated her on plan Objective Vital Signs?? Temperature: 97.7 DegF (09/28/24 05:10:00) Temperature Route: Oral (09/28/24 05:10:00) Pulse Rate:??99 bpm??High (09/28/24 08:16:00) Respiratory Rate: 18 br/min (09/28/24 05:10:00) Systolic Blood Pressure: 128 mm Hg (09/28/24 08:16:00) Diastolic Blood Pressure:??91 mm Hg??High (09/28/24 08:16:00) Blood pressure sites: Arm, right (09/28/24 05:10:00) Mean Arterial Pressure: 103 mm Hg (09/28/24 08:16:00) Pulse Pressure: 37 mm Hg (09/28/24 08:16:00) Oxygen Saturation: 98 % (09/28/24 05:10:00) Mode of Delivery (Oxygen): Room air (09/28/24 05:10:00) Early Warning Score: 2 (09/28/24 08:35:36) ? Intake/Output? 09/22 15:33 09/28 07:00 09/27 07:00 09/26 07:00 09/25 07:00 ?? 09/28 10:15 09/28 10:15 09/28 06:59 02 06:59 09/26 06:59 Intake ? 1649.5 ?0 ?237 ?0 ?0 Output ?0 ?0 ?0 ?0 ?0 Net Total ? 1649.5 ?0 ?237 ?0 ?0 ? Urine Count ? 33 ?0 ?6 ?5 ? 16 ? . Physical Exam Constitutional: Alert, in no distress, very slow??to respond, hypophonic and slightly dysarthric (noted on recent O/p neuro f/u) Mental Status: Oriented to person, and place Respiratory: Clear to auscultation b/l Cardiovascular:??irregularly irregular?? Gastrointestinal: Abdomen soft, non-tender, non-distended. Normal bowel sounds. No CVA tenderness b/l Psychiatric: Flat affect Consultants HF, ID Pending Results Add On Lab Order ordered on 09/23/2024 Follow-Up Appointments Added Follow Up ?Time Frame ?Comments China Briseno MD?1 week Patient Instructions you were admitted to the hospital for worsening diarrhea, you vancomycin was increased back up to 4times by mouth daily. please follow the gradual taper as directed 125 mg orally 4 times daily for 10 days, then 125 mg orally 2 times daily for 7 days, then 125 mg orally once daily for 7 days, then 125 mg orally every 2 days for 4 weeks ?? If diarrhea worsens, or you develop fever, please seek medical attention or come to the emergency room ?? Please check your BP at home once daily; if systolic BP < 90; please contact MD? Your empagliflozin has been discontinued, please do not take it ?? Please taper Ropinirole as directed by neuro?? Post Discharge Care Discharge ?09/28/24 10:14:00 EST ?Order Comment:?? Discharge Prescriptions ?ePrescribed, 09/28/24 10:14:00 EST ?Order Comment:?? Home Health Face to Face *Denotes mandatory bella ?? *I certify that this patient is under my care and that I or an allowed non- physician working with me had a face to face encounter with the patient on this date:??09/28/2024 10:25 ?? *The encounter with the patient was in whole, or in part, for the following medical condition, which is the primary diagnosis(es) for home health care:??UTI (urinary tract infection) (N39.0) Clostridium difficile diarrhea (A04.72) Heart failure (I50.9) (HFpEF) heart failure with preserved ejection fraction (I50.30) Hypotension (I95.9) Parkinson disease (G20.A1) Diabetes mellitus type 2, noninsulin dependent (E11.9) General medical ([id number]) CHF (congestive heart failure) (I50.9) ?? *Select the indications for the discipline/s that are being arranged for this patient. Nursing (select all that apply): [_] None [x_] Medication management (reconciliation, teaching)?? [x_] Chronic disease management?? [_] Wound care and treatment?? [_] Home safety evaluation [_] Administer SQ/IM/IV medications?? [_] Cath care?? [_] Drain care?? [_] Trach or GT care?? Other _ Occupation Therapy (select all that apply): [_] None [x_] ADL Management [x_] Fall prevention training [_] Energy conservation [_] Cognitive training Other _ Physical Therapy (select all that apply): [_] None [x_] Functional mobility training [x_] Home exercise program to strengthen [_] Increase ROM?? [x_] Falls prevention training [_] Home maintenance program for chronic disease Other _ Speech Therapy (select all that apply): [_] None [_] Swallow evaluation and training [_] Speech and language training [_] Cognitive training to process, organize, and/or recall information Other _ ? *Homebound due to (select all that apply): [x_] Inability to leave home without assistance/supervision [_] Inability to ambulate without assistance [_] Pain [_] Decreased strength and endurance [_] Unsteady gait [_] Severe SOB and fatigue [_] Impaired transfers [_] Inability to negotiate stairs [_] Limited weight bearing [_] Mental status change? *Physician Signature: _Sushila Amador MD ?? *By signing this, I certify that I have personally evaluated the patient and agree with the findings and recommendations as documented above. ? Results Discharge Labs BACTERIOLOGY Urine Culture Results Final report (Abnormal)?? 09/23/2024 07:27 Blood Culture Results Preliminary report ()?? 09/24/2024 08:19 Blood Culture Specimen Source BLOOD ()?? 09/24/2024 08:19 Blood Culture Isolate 1 Comment ()?? 09/24/2024 08:19 Blood Cult 2 Results Preliminary report ()?? 09/24/2024 08:19 Blood Culture 2 Specimen Source BLOOD ()?? 09/24/2024 08:19 Blood Culture 2 Isolate 1 Comment ()?? 09/24/2024 08:19 Urine Culture Specimen Source URINE ()?? 09/23/2024 07:27 Urine Culture Isolate 1 Charu albicans (Abnormal)?? 09/23/2024 07:27 ? BLOOD COUNT & DIFF WBC 9.0 k/mm3 ()?? 09/28/2024 07:10 RBC 3.75 m/mm3 (Low)?? 09/28/2024 07:10 Hgb 11.3 Gm/dL (Low)?? 09/28/2024 07:10 Hct 33.2 % (Low)?? 09/28/2024 07:10 MCV 88.5 femtoliters ()?? 09/28/2024 07:10 MCH 30.1 pg ()?? 09/28/2024 07:10 MCHC 34.0 Gm/dL ()?? 09/28/2024 07:10 Platelet Count 206 k/mm3 ()?? 09/28/2024 07:10 RDW-SD 44.4 femtoliters ()?? 09/28/2024 07:10 MPV 9.2 femtoliters (Low)?? 09/28/2024 07:10 Nucleated RBC (Automated) 0.0 #/100 WBC'S ()?? 09/28/2024 07:10 Abs. NRBC 0.0 k/mm3 ()?? 09/28/2024 07:10 Abs. Neut 6.9 k/mm3 ()?? 09/28/2024 07:10 Abs. Lymph 1.1 k/mm3 ()?? 09/28/2024 07:10 Abs. [place] 0.6 k/mm3 ()?? 09/28/2024 07:10 Abs. Eo 0.2 k/mm3 ()?? 09/28/2024 07:10 Abs. Baso 0.1 k/mm3 ()?? 09/28/2024 07:10 Neut % 77.2 % (High)?? 09/28/2024 07:10 Lymph % 11.8 % (Low)?? 09/28/2024 07:10 [place] % 7.1 % ()?? 09/28/2024 07:10 Eos % 2.3 % ()?? 09/28/2024 07:10 Baso % 0.6 % ()?? 09/28/2024 07:10 Myelocytes % 1.7 % ()?? 09/22/2024 11:30 Band % 1.7 % ()?? 09/22/2024 11:30 Platelet Estimate ADEQUATE ()?? 09/22/2024 11:30 Imm Gran 1.0 % ()?? 09/28/2024 07:10 Abs. Imm Gran 0.1 k/mm3 ()?? 09/28/2024 07:10 ? CARDIAC Nt-Probnp 1026 pg/mL (High)?? 09/22/2024 13:12 High Sensitivity Troponin (HSTnT) 16 ng/L ()?? 09/22/2024 16:28 ?? CHEM GENERAL Sodium 142 mmol/L ()?? 09/28/2024 07:10 Potassium 3.8 mmol/L ()?? 09/28/2024 07:10 Chloride 108 mmol/L (High)?? 09/28/2024 07:10 Bicarbonate Level 24 mmol/L ()?? 09/28/2024 07:10 Anion Gap 10 mmol/L ()?? 09/28/2024 07:10 Glucose Level 100 mg/dL (High)?? 09/28/2024 07:10 BUN 6 mg/dL (Low)?? 09/28/2024 07:10 Creatinine-Blood 0.62 mg/dL (Low)?? 09/28/2024 07:10 Estimated GFR Creatinine 102 ML/MIN/1.73 M2 ()?? 09/28/2024 07:10 Calcium 8.3 mg/dL (Low)?? 09/28/2024 07:10 Magnesium 1.9 mg/dL ()?? 09/28/2024 07:10 Protein, Total 5.9 Gm/dL (Low)?? 09/28/2024 07:10 Albumin 3.2 Gm/dL (Low)?? 09/28/2024 07:10 AG Ratio 1.2 ()?? 09/28/2024 07:10 Alkaline Phosphatase 78 units/L ()?? 09/28/2024 07:10 Lipase, Serum/Plasma 16 units/L ()?? 09/22/2024 13:12 AST (SGOT) 12 units/L ()?? 09/28/2024 07:10 ALT (SGPT) <5 units/L ()?? 09/28/2024 07:10 Bilirubin, Total 0.8 mg/dL ()?? 09/28/2024 07:10 Lactate 1.7 mmol/L ()?? 09/22/2024 13:12 ?? HEME OTHER Hold Blue Top SPECIMEN DISCARDED AFTER 4 HOURS. ()?? 09/22/2024 11:30 ? UA/URINALYSIS Appear/Color, Urine YELLOW ()?? 09/23/2024 07:27 Specific Barney, Urine 1.014 ()?? 09/23/2024 07:27 pH, Urine 6.0 ()?? 09/23/2024 07:27 Albumin, Urine 3+ (Abnormal)?? 09/23/2024 07:27 Glucose, Urine 3+ (Abnormal)?? 09/23/2024 07:27 Ketones, Urine TRACE (Abnormal)?? 09/23/2024 07:27 Bilirubin, Urine NEGATIVE (N)?? 09/23/2024 07:27 Hemoglobin, Urine 2+ (Abnormal)?? 09/23/2024 07:27 Nitrite, Urine NEGATIVE (N)?? 09/23/2024 07:27 Leukocyte, Urine 3+ (Abnormal)?? 09/23/2024 07:27 Urobilinogen NORMAL mg/dL (N)?? 09/23/2024 07:27 WBC's, Urine >182 /HPF (High)?? 09/23/2024 07:27 RBC's, Urine >182 /HPF (High)?? 09/23/2024 07:27 Bacteria HEAVY HPF (Abnormal)?? 09/23/2024 07:27 WBC Clumps HEAVY /HPF ()?? 09/23/2024 07:27 Budding Yeast HEAVY /HPF ()?? 09/23/2024 07:27 Yeast with Hyphae MODERATE /HPF ()?? 09/23/2024 07:27 Hold Urine Culture Testing available 48 hours from time of collection. ()?? 09/23/2024 07:27 ?? URINE OTHER Est Creatinine Clearance 107.34 mL/min ()?? 09/28/2024 08:35 ? Image ?XR Chest 2 Views Frontal and Lat??09/24/2024 08:58 by Carter Reeder ?No acute abnormality. ?Echo Complete-Doppler, Colorflow, M-Mode??09/24/2024 15:37 by Demian VELASQUEZ, Keyla Aguilar ?Comparison Comparison is made to the study of June 26, 2024. Pericardial effusionis much smaller. There are no longer echo criteria suggestive of cardiac tamponade. ?CT Abd/Pelvis W/ IV Contrast Only??09/27/2024 16:32 by Latonya Cortez ?Wall thickening in the bladder. Possible cystitis. Pericardial effusion and small pleural effusions. Small effusions appear new compared to previous exam. ?? Consult ?Heart Failure Consult Note??09/24/2024 13:06 by Stoney WHITE, Chadd Saleh ?Assessment Today, the patient was A&Ox2 in which he did not know what his name was but knew of location and date. He is afebrile today but his WBC is up to 13 this time and currently being treated with abx for his cdiff infection. He is being followed by ID inpatient currently ?? Patient has noted??moderate pericardial to large effusion posteriorly and laterally with a small pericardial effusion anteriorly.??His most recent echo on May 2024 noted improved ejection fraction to 60 to 65%.??Also, his right ventricular function is also improved which was initially now but now appears grossly normal in both size and function.? At this time, we recommended getting an echocardiogram to recheck if his pericardial effusion is significant enough to warrant a pericardiocentesis. Echo still pending. ?Plan ~No changes to meds today. ~pending echocardiogram ?Functional Status:??Unable to assess based on lack of physical activity,??_ ??Volume Status:??Hypovolemic ?Discussed and in??agreement??with .??Mao, HF attending physician. ?Chadd Lua DNP Physical Exam ?Vitals & Measurements ?T:??98.8?F?HR:??90??(Peripheral)?RR:??20?BP:??111/85?SpO2:??9 6%?HT:??175??cm?WT:??91.8??kg?BMI:??29.98?Weight lb/oz: 202 lb 6 oz ?? Intake and Output Yesterday's Intake Total?272?? Yesterday's Balance?272?? Clinical Range's Intake Total?272?? Clinical Range's Balance?272? Assessment/Plan (HFpEF) heart failure with preserved ejection fraction Clostridium difficile diarrhea (Provisional) Diabetes mellitus type 2, noninsulin dependent Heart failure Hypotension Parkinson disease ?? 60??minutes spent on discharge * Abimbola Sethi RN: VERIFY, PERFORM, SIGN Event Display: Case Management Discharge Plan Authored Date: [id number] Patient: SAUL MARTINEZ Age: 73 years Sex: Male : 1950 Associated Diagnoses: None Author: Abimbola Sethi RN Discharge Plan Case Management Discharge Plan : Case Management Discharge Plan Data 09/28/2024 10:21 EST Discharge Level of Care at Discharge Homehealth/VNA Discharge VNA/Hospice/Home Care [facility] [phone] Name of Agency #1 [facility] [phone] Agency Tower Supervisor #1 Intake Service Categories #1 Occupational Therapy, Physical Therapy, Penitentiary Service Comments #1 [facility] was notified of your discharge today in order to resume your services at home. Please call agency if you have not heard from them in 24-48hrs. * Nida Tejeda RN: PERFORM Event Display: Patient Education/Instruction Authored Date: [id number] Inpatient Adult Discharge Instructions. [place] [id number] Name: SAUL MARTINEZ : 1950?? Visit: 09/22/2024 15:33?? Current Date: 09/28/2024 10:39 ?? Account: [id number]?? Inpatient Adult Discharge Instructions We would like [...] and their families. Surveys are administered by [employer] ?? If further treatment with your primary care physician or another doctor is recommended, it is important for you to keep the appointment. Call your primary care physician or return to the Emergency Department immediately if your condition worsens, fails to improve, or new symptoms develop. If you need to find a doctor, you can call [facility] Link for a referral at [phone] or toll free at [phone] or log in to [email or web address].. ?? [facility], in keeping with [facility] guidance, no longer requires face masks [...] a health care adonis of your choosing. [employer] is a website that allows you to securely view your medical information including your hospital discharge summary, office visit summaries, medications and follow-up visits. You can also request appointments, renew medications, and request access to your medical information using a health care adonis of your choosing, or just ask a question. You are entitled to know the individuals who participated in your treatment. This information is available within your medical record and will be provided upon your request. You can enroll at [email or web address] or register d uring your next office visit. You have been discharged from [facility], Patient Care Unit: S64??. If you have any questions regarding these instructions, including results of studies pending, afteryou leave, please call us and we will be happy to assist you 18/02. [facility] Your Care Team Attending Physician Sushila Amador MD?? Consulting Providers Sushila Amador MD?? Discharging Providers Sushila Amador MD Reason for Your Visit C diff / hypotension?? Your Diagnosis (HFpEF) heart failure with preserved ejection fraction CHF (congestive heart failure) Diabetes mellitus type 2, noninsulin dependent General medical Heart failure Hypotension Parkinson disease UTI (urinary tract infection) Tests Performed Below is a partial list of the tests performed during your hospitalization. You may have had other tests and procedures not included in this list. Please discuss all test results with your provider. Basic Metabolic Panel Blood Culture Blood Culture #2 Blood Culture 2 Results Blood Culture Result CBC CBC w/ Differential Comprehensive Metabolic Panel High??Sensitivity??Troponin T Hold Blue Top Tube Lactate Level Lipase Magnesium Level ProBNP Urinalysis w/hold for Urine Culture Urine Culture Result Urine Culture, Routine CT Abd/Pelvis W/ IV Contrast Only CXR US Renal Bladder Add On Lab Order (Lab Add On Order)?? B Type Natriuretic Peptide (NT-proBNP) (ProBNP)?? Basic Metabolic Panel?? Blood Culture?? Blood Culture #2?? Blood Culture 2 Results?? Blood Culture Result?? CBC?? CBC w/ Differential?? CT Abd/Pelvis W/ IV Contrast Only?? Comprehensive Metabolic Panel?? High??Sensitivity??Troponin T?? Hold Blue Top Tube?? Lactic Acid Level (Lactate Level)?? Lipase?? Magnesium Level?? US Renal Bladder?? Urinalysis w/hold for Urine Culture?? Urine Culture (Urine Culture, Routine)?? Urine Culture Result?? Chest 2 Views Frontal and Lat (CXR)?? Primary Care Provider China Briseno MD? Advance Directive Health Care Proxy on File Yes - Health Care Proxy Discharge Vitals Temperature: 97.7 DegF Height: 175 cm Pulse Rate: 83 bpm Weight: 91.8 kg Respiratory Rate: 18 br/min Body Mass Index:??29.98 kg/m2??High Systolic Blood Pressure: 111 mm Hg Body surface area: 2.11 Diastolic Blood Pressure: 71 mm Hg ?? Oxygen Saturation: 98 % ?? Studies Pending All studies ordered during this hospital stay have been completed unless listed below. Please discuss all pending results with your provider listed above in these instructions. ?? Add On Lab Order (Lab Add On Order)?? What to do next Instructions From Your Doctor you were admitted to the hospital for worsening diarrhea, you vancomycin was increased back up to 4times by mouth daily. please follow the gradual taper as directed 125 mg orally 4 times daily for 10 days, then 125 mg orally 2 times daily for 7 days, then 125 mg orally once daily for 7 days, then 125 mg orally every 2 days for 4 weeks ?? If diarrhea worsens, or you develop fever, please seek medical attention or come to the emergency room ?? Please check your BP at home once daily; if systolic BP < 90; please contact MD? Your empagliflozin has been discontinued, please do not take it ?? Please taper Ropinirole as directed by neuro? Orders? 09/28/24 10:14:00 EST?? Prescriptions??, ??09/28/24 10:14:00 EST?? You Need to Schedule the Following Appointments Follow Up with??China Briseno MD When:??Within 1 week Where: [facility] [place] [address]- Discharge Medications SAUL MARTINEZ :1950 Visit Date:09/22/2024 Medications: Please continue your medications until treatment is completed or stopped by your provider. Medications not listed below should be discontinued. Discuss any questions related to medications with your provider. What How Much When Why Instructions Next Dose New Vancomycin (vancomycin 125 mg oral capsule) 125 Milligram Oral 4 times a day Doses over 125 mg require ID consult. Indication for Use: C. difficile colitis ?? 09/28/2024 1:00 PM Unchanged Acetaminophen (acetaminophen 325 mg oral tablet) 650 Milligram Oral Every 6 hours 09/28/2024 3:00 PM Unchanged Aspirin (aspirin 81 mg oral delayed release tablet) 81 Milligram Oral Daily 09/29/2024 9:00 AM Unchanged Carbidopa-Levodopa (carbidopa-levodopa 25 mg-100 mg oral tablet) 2 tab(s) Oral 3 times a day 09/28/2024 3:00 PM Unchanged Cholecalciferol (cholecalciferol 1000 intl units oral capsule) 1 capsule Oral Daily 09/29/2024 9:00 AM Unchanged Metoprolol (metoprolol 50 mg oral tablet, extended release) 1 tab(s) Oral Daily Heart failure 09/29/2024 9:00 AM Unchanged Multivitamin (Multi Vitamin+) 1 tab(s) Oral Daily 09/29/2024 9:00 AM Unchanged Nystatin Topical (nystatin topical 424036 u/ gm powder) 1 adonis Topically Twice a day 09/28/2024 8:00 PM Unchanged Omeprazole (omeprazole 20 mg oral enteric coated capsule) 1 capsule Oral Daily 09/29/2024 9:00 AM Unchanged Quetiapine (QUEtiapine 25 mg oral tablet) See instructions TAKE 1/ 2 TABLET BY MOUTH EVERY MORNING AND 1 TABLET WITH SUPPER ?? 09/28/2024 5:00 PM Unchanged Ropinirole (rOPINIRole 0.25 mg oral tablet) 3 tab(s) Oral 3 times a day 09/28/2024 3:00 PM Unchanged sacubitril-valsartan (Entresto 24 mg-26 mg oral tablet) 1 tab(s) Oral Twice a day CHF (congestive heart failure) 09/28/2024 8:00 PM Unchanged Senna (Senna 8.6 mg oral tablet) 1 tab(s) Oral Daily at supper 09/28/2024 8:00 PM Unchanged Simvastatin (simvastatin 10 mg oral tablet) 1 tab(s) Oral Daily at Bedtime 09/28/2024 8:00 PM Unchanged Spironolactone (spironolactone 25 mg oral tablet) 2 tab(s) Oral Daily Duration: 90 Days dose increase ?? 09/29/2024 9:00 AM Unchanged Tamsulosin (Flomax 0.4 mg oral capsule) 0.4 Milligram Oral Daily 09/29/2024 9:00 AM Unchanged torsemide (torsemide 20 mg oral tablet) 0.5 tab(s) Oral Daily 09/29/2024 9:00 AM ?? What How Much When Comments Stop Taking empagliflozin (Jardiance 10 mg oral tablet) 1 tab(s) Oral Daily in the morning Prescription Given During Visit No new medications prescribed at time of discharge.?? Laboratory Results Below is a partial list of the most recent Laboratory test results done prior to this discharge. You may have had other tests and procedures not included in this list. Please discuss all test resultswith your provider. Est Creatinine Clearance - 107.34 mL/min (09/28/2024) Basic Metabolic Panel (09/27/2024) ???Sodium - 136 mmol/L???Potassium - 3.4 mmol/L???Chloride - 102 mmol/L???Bicarbonate Level - 24 mmol/L???Anion Gap - 10 mmol/L???Glucose Level - 94 mg/dL???BUN - 8 mg/dL???Creatinine-Blood - 0.71 mg/dL???Estimated GFR Creatinine - 97 ML/MIN/1.73 M2???Calcium - 8.4 mg/dL Blood Culture (09/24/2024) ???Blood Culture Results - Preliminary report???Blood Culture Specimen Source - BLOOD Blood Culture #2 (09/24/2024) ???Blood Cult 2 Results - Preliminary report???Blood Culture 2 Specimen Source - BLOOD Blood Culture 2 Results (09/24/2024) ???Blood Culture 2 Isolate 1 - Comment Blood Culture Result (09/24/2024) ???Blood Culture Isolate 1 - Comment CBC (09/23/2024) ???WBC - 10.7 k/mm3???RBC - 3.83 m/mm3???Hgb - 11.3 Gm/dL???Hct - 33.9 %???MCV - 88.5 femtoliters???MCH - 29.5 pg???MCHC - 33.3 Gm/dL???Platelet Count - 266 k/mm3???RDW-SD - 45.1 femtoliters???MPV - 8.9 femtoliters???Nucleated RBC (Automated) - 0.0 #/100 WBC'S???Abs. NRBC - 0.0 k/mm3 CBC w/ Differential (09/28/2024) ???WBC - 9.0 k/mm3???RBC - 3.75 m/mm3???Hgb - 11.3 Gm/dL???Hct - 33.2 %???MCV - 88.5 femtoliters???MCH - 30.1 pg???MCHC - 34.0 Gm/dL???Platelet Count - 206 k/mm3???RDW-SD - 44.4 femtoliters???MPV - 9.2 femtoliters???Nucleated RBC (Automated) - 0.0 #/100 WBC'S???Abs. NRBC - 0.0 k/mm3???Abs. Neut - 6.9 k/mm3???Abs. Lymph - 1.1 k/mm3???Abs. [place] - 0.6 k/mm3???Abs. Eo - 0.2 k/mm3???Abs. Baso - 0.1 k/mm3???Neut % - 77.2 %???Lymph % - 11.8 %???[place] % - 7.1 %???Eos % - 2.3 %???Baso % - 0.6 %???Imm Gran - 1.0 %???Abs. Imm Gran - 0.1 k/mm3 Comprehensive Metabolic Panel (09/28/2024) ???Sodium - 142 mmol/L???Potassium - 3.8 mmol/L???Chloride - 108 mmol/L???Bicarbonate Level - 24 mmol/L???Anion Gap - 10 mmol/L???Glucose Level - 100 mg/dL???BUN - 6 mg/dL???Creatinine-Blood - 0.62 mg/dL???Estimated GFR Creatinine - 102 ML/MIN/1.73 M2???Calcium - 8.3 mg/dL???Protein, Total - 5.9 Gm/ dL???Albumin - 3.2 Gm/dL???AG Ratio - 1.2???Alkaline Phosphatase - 78 units/L???AST (SGOT) - 12 units/L? ?ALT (SGPT) - <5 units/L? ?Bilirubin, Total - 0.8 mg/dL High??Sensitivity??Troponin T (09/22/2024) ???High Sensitivity Troponin (HSTnT) - 16 ng/L Hold Blue Top Tube (09/22/2024) ???Hold Blue Top - SPECIMEN DISCARDED AFTER 4 HOURS. Lactate Level (09/22/2024) ???Lactate - 1.7 mmol/L Lipase (09/22/2024) ???Lipase, Serum/Plasma - 16 units/L Magnesium Level (09/28/2024) ???Magnesium - 1.9 mg/dL ProBNP (09/22/2024) ???Nt-Probnp - 1026 pg/mL Urinalysis w/hold for Urine Culture (09/23/2024) ???Appear/Color, Urine - YELLOW???Specific Barney, Urine - 1.014???pH, Urine - 6.0???Albumin, Urine - 3+???Glucose, Urine - 3+???Ketones, Urine - TRACE???Bilirubin, Urine - NEGATIVE???Hemoglobin, Urine - 2+???Nitrite, Urine - NEGATIVE???Leukocyte, Urine - 3+???Urobilinogen - NORMAL???WBC's, Urine - >182 /HPF? ?RBC's, Urine - >182 /HPF? ?Bacteria - HEAVY? ?WBC Clumps - HEAVY? ?Budding Yeast- HEAVY???Yeast with Hyphae - MODERATE???Hold Urine Culture - Testing available 48 hours from time of collection. Urine Culture Result (09/23/2024) ???Urine Culture Isolate 1 - Charu albicans Urine Culture, Routine (09/23/2024) ???Urine Culture Results - Final report???Urine Culture Specimen Source - URINE You will be contacted within 72 hours with your results. Allergies (NKA means No Known Allergies) tetanus immune globulin Problems Active Problems??(17) Angina at rest?? Atrial fibrillation?? CAD in [place] artery?? Cardiomyopathy?? Diabetes mellitus type 2, noninsulin dependent?? Erectile dysfunction?? Gastroesophageal reflux disease?? Heart failure with improved ejection fraction (HFimpEF)?? Heart failure with reduced ejection fraction?? Hyperlipidemia?? Hypertension?? Hypotension?? Nocturia?? Obesity, Class III, BMI 40-49.9 (morbid obesity)?? [...] to send valuables and belongings home. ?? No Valuables/Belongings: No valuables/belongings present Date for Pt to Sign Valuables/Belongings: 09/23/24 01:05:00 ?? Other Discharge Information ? Case Management Discharge Plan?? Discharge Plan?? Discharge Agency Information?? Discharge Level of Care at Discharge: Homehealth/VNA Name of Agency #1: [facility] [phone] [facility]charge [facility] [phone] Agency Tower Supervisor #1: Intake ?? Service Categories #1: Occupational Therapy, Physical Therapy, Penitentiary ?? Service Comments #1: [facility] ROMAN was notified of your discharge today in order to resume your services at home. Please call agency if you have not heard from them in 24-48hrs. ?? Pulmonary Rehab Status?? Pulmonary Rehab Discharge [...] are strongly encouraged to quit. Please call [facility] Link at [phone] or [phone] ([phone]) or log in to [email or web address] for referrals to smoking cessation programs. ?? 309 Suicide & Crisis Lifeline is available 18/02 if you or someone you know needs to find a reason to keep living. By calling 765 you'll be connected to a skilled, trained counselor at a crisis center in your area. INPATIENT DISCHARGE INSTRUCTIONS SIGNATURE SAUL PRIEST Location:[facility] Registration Date and Time:09/22/2024 15:33 EST Primary Care Physician: China Briseno MD, Attending Physician: Sushila Amador MD, SAUL SHARIF, have received the above patient education materials/instructions and have verbalized understanding. If ambulance or transport services are being used I further acknowledge being given a choice of service. ?? If you need to contact me, please call me at this number: . Patient/[employer] Name: Patient/[employer] Signature: Relationship to Patient: Witness Name/Signature: Date: Patient Care team information Care Team Personnel Name: Avelino Mcmahon RN Position: S RN Member Role: Primary Care Nurse Name: Avril Casillas RN Position: S RN Member Role: Primary Care Nurse Name: Antonia Bowers RN Position: S RN Member Role: Primary Care Nurse Name: China Briseno MD Position: S Physician - Primary Care Member Role: PCP Address: [address] [place] [address]- Telecom: Name: Teodora Shafer LPN Position: [facility] RN Member Role: Primary Care Nurse Name: Gillian Eastman RN Position: [facility] RN Member Role: Primary Care Nurse Name: Gillian Chatterjee RN Position: [facility] RN Member Role: Primary Care Nurse Name: Valarie Grant RN Position: [facility] OB RN Member Role: Primary Care Nurse Name: Ysabel Sullivan RN Position: [facility] AMB Nurse Member Role: Primary Care Nurse Name: Alanna Rogers RN Position: [facility] RN Member Role: Primary Care Nurse Name: Leona Nj RN Position: [facility] RN Member Role: Primary Care Nurse Name: Juliet Koehler RN Position: [facility] RN Member Role: Primary Care Nurse Name: Tone Farooq RN Position: [facility] RN Member Role: Primary Care Nurse Name: Jose Alfredo Deras RN Position: [facility] RN Member Role: Primary Care Nurse Name: Lili Mullins RN Position: [facility] RN Member Role: Primary Care Nurse Name: Elinor Colon RN Position: [facility] RN Member Role: Primary Care Nurse Name: Beatrice Quesada RN Position: [facility] RN Member Role: Primary Care Nurse Name: Ca Guerrero RN Position: [facility] AMB Nurse Member Role: Primary Care Nurse Name: Gladys Aguirre RN Position: [facility] RN Member Role: Primary Care Nurse Name: Julianna Lui RN Position: [facility] RN Member Role: Primary Care Nurse Name: Khang Canchola RN Position: [facility] RN Member Role: Primary Care Nurse Name: Prabhakar Pabon RN Position: [facility] RN Member Role: Primary Care Nurse Name: Giovanna Gilbert RN Position: [facility] RN Sudeep Member Role: Primary Care Nurse Name: Elena Thurston RN Position: [facility] RN Member Role: Primary Care Nurse Name: Jackie Coates RN Position: [facility] RN Member Role: Primary Care Nurse Name: Simone Hopkins RN Position: [facility] RN Member Role: Primary Care Nurse Name: Светлана Tolentino RN Position: [facility] RN Member Role: Primary Care Nurse Name: Nida Tejeda RN Position: S RN Member Role: Primary Care Nurse Name: Raquel Mcfadden LPN Position: S RN Member Role: Primary Care Nurse Care Team Related Persons Name: CARMEN MARTINEZ Name: RAQUEL MARTINEZ Insurance Providers [facility]or [facility] [facility] Information #: 1 Payer: [facility] POS Member Number: [id number] Policy Number: NA Group Number: NA Health Plan Information #: 2 Payer: MEDICARE A INPT 25 Member Number: [id number] Policy Number: NA Group Number: NA
--- OUTSIDE RECORDS SUMMARY | 2024-10-02 10:08 | XMS_ITS | Encounter Summary ---
Author Organization [facility] Address [address] [place] [address] Care Team Providers Care Mixer Lever Operator Name Role Phone China Briseno Primary Care Provider [phone] Reason for Visit * Reason Onset Date Comments Med Refill 08/14/2022 Encounter Details Date Type Department Care Team (Late st Contact Info) Description 08/14/2022 Refill [facility] [address] [place] [address] [address] [place], [place] Social History Tobacco Use Types Packs/Day Years [...] on filedocumented in this encounter Care Teams Mixer Lever Operator Relationship Specialty Start Date End Date China Briseno [address] [place] [address] PCP - General Internal Medicine 09/14/21 documented as of this encounter
--- OUTSIDE RECORDS SUMMARY | 2024-10-02 10:08 | XMS_ITS | Encounter Summary ---
Author Organization [facility] Address [address] [place] [address] Care Team Providers Care Arcade Game Technician Name Role Phone Trinidad Brisenoanna Primary Care Provider [phone] Encounter Details Date Type Department Care Team (Late st Contact Info) Description 09/14/2021 Orders Only [facility] [address] [place] [address] Provider, Unknown, [address] [place] [address] Social History Tobacco Use Types Packs/Day Years Used Date Smoking Tobacco: Never Assessed Sex and Gender Information Value Date Recorded Sex Assigned at Male 09/26/2021 4:29 PM EST Legal Sex Male 7:16 AM EST Gender Identity Male 09/26/2021 4:29 PM EST Sexual Orientation Straight 09/26/2021 4: 29 PM EST documented as of this encounter Plan of Treatment Not on file documented as of this encounter Procedures * Due to [place] Your Survival law, this organization might not be sharing negative HIV tests. Procedure Name Priority Date/Time Associated Diagnosis Comments LAB - SCANNED Routine 08/17/[address] HEAD, OUTSID E RESULT Routine 10/23/[address] C-SPINE, OUT SIDE RESULT Routine 10/23/2019 documented in this encounter Results * Due to [place] Your Survival law, this organization might not be sharing negative HIV tests. * LAB - SCANNED (08/17/2021) us Unknown Provider LAB HISTORICAL RESULTS Final Result * CT Head, Outside Result (10/23/2019) Anatomical Region Laterality Modality Other us Unknown Provider MD OWENS EXTERNAL RESULT PROCEDUR ES Final Result * CT C-Spine, Outside Result (10/23/2019) Anatomical Region Laterality Modality Other us Unknown Provider MD OWENS EXTERNAL RESULT PROCEDUR ES Final Result documented in this encounter Visit Diagnoses Not on filedocumented in this encounter Care Teams Arcade Game Technician Relationship Specialty Start Date End Date China Briseno [address] [place] [address] PCP - General Internal Medicine 09/14/21 documented as of this encounter
--- OUTSIDE RECORDS SUMMARY | 2024-10-02 10:08 | XMS_ITS | Encounter Summary ---
Author Organization [facility] Address [address] [place] [address] Care Team Providers Care Asbestos Pipe Supervisor Name Role Phone China Briseno Primary Care Provider [phone] Encounter Details Date Type Department Care Team (Late st Contact Info) Description 09/12/2022 myChart Message [facility] [address] [place] [address] Franck Gomez MD [address] [place] [address] Refill on Clonazapam Social History Tobacco Use Types Packs/Day Years [...] on filedocumented in this encounter Care Teams Asbestos Pipe Supervisor Relationship Specialty Start Date End Date China Briseno [address] [place] [address] PCP - General Internal Medicine 09/14/21 documented as of this encounter
--- OUTSIDE RECORDS SUMMARY | 2024-10-02 10:08 | XMS_ITS | Referral Summary ---
Author Organization [facility] Address [address] [place] [address] Care Team Providers Care Nuclear Physician Name Role Phone China Briseno Primary Care Provider [phone] Allergies Active Allergy Reactions Criticality Noted Date Comments Tetanus Immune Globulin Unknown 09/27/2021 Medications spironolactone (ALDACTONE) 25 mg tablet Take 25 mg by mouth once a day. 1 Active omeprazole (PriLOSEC) 20 mg capsule Take 20 mg by mouth once a day. 1 Active Eliquis 5 mg tablet Take 5 mg by mouth 2 times a day. 2 Active metoprolol succinate XL (TOPROL-XL) 200 mg 24 hr tablet Take 200 mg by mouth once a day. 2 Active isosorbide mononitrate ER (IMDUR) 30 mg tablet Per pt take 30 mg daily 2 Active empagliflozin (JARDIANCE) 10 mg tablet Take 10 mg by mouth. 1 Active Entresto 97-103 mg Take 1 tablet by mouth 2 times a day. 2 Active multivitamin capsule Take 1 capsule by mouth once a day. Active simvastatin (ZOCOR) 10 mg tablet SMARTSI Tablet(s) By Mouth Every Evening 2 Active ergocalciferol, vitamin D2, (VITAMIN D2 ORAL) Take by mouth. Active furosemide (LASIX) 20 mg tablet Take 20 mg by mouth once a day. 2 Active carbidopa-levod opa (SINEMET) 25-100 mg per tablet TAKE 2 TABLETS BY MOUTH THREE TIMES DAILY 180 tablet 5 3 Active clopidogreL (PLAVIX) 75 mg tablet Take 75 mg by mouth. 3 Active senna (SENOKOT) 8.6 mg tablet Take 1 tablet (8.6 mg total) by mouth every other day as needed for constipatio n. 15 tablet 3 3 Active clonazePAM (KlonoPIN) 0.5 mg tablet Take 3 tablets (1.5 mg total) by mouth nightly. 45 tablet 1 3 Active QUEtiapine (SEROquel) 25 mg tablet Take 0.5 tablets (12.5 mg total) by mouth nightly. 15 tablet 3 Active rOPINIRole (REQUIP) 0.25 mg tablet TAKE 1 TABLET(0.25 MG) BY MOUTH THREE TIMES DAILY 270 tablet 2 3 023 Discontinued Active Problems No known active problems Social History Tobacco Use Types Packs/Day Years [...] Orientation Straight 09/26/2021 4: 29 PM EST Last Filed Vital Signs Vital Sign Reading Time Taken Comments Blood Pressure 137/83 01/02/2023 1:52 PM EDT Pulse 68 01/02/2023 1:52 PM EDT Temperature 36.3 ??C (97.4 ??F) 01/02/2023 1:52 PM ED T Respiratory Rate 18 01/02/2023 1:52 PM EDT Oxygen Saturation 98% 01/31/2022 12:46 PM EDT Inhaled Oxygen Concentration - - Weight 97.2 kg (214 lb 4.6 oz) 01/02/2023 1:52 P M EDT Height 177.8 cm (5' 10 ) 07/18/2022 4:03 PM EST Body Mass Index 30.75 07/18/2022 4:03 PM EST Plan of Treatment Not on file Insurance [facility] Care Teams Nuclear Physician Relationship Specialty Start Date End Date China Briseno [address] [place] [address] PCP - General Internal Medicine 09/14/21
--- OUTSIDE RECORDS SUMMARY | 2024-10-02 10:08 | XMS_ITS | Encounter Summary ---
Author Organization [facility] Address [address] [place] [address] Care Team Providers Care Retail Store Associate Name Role Phone Trinidad Brisenoanna Primary Care Provider [phone] Encounter Details Date Type Department Care Team (Late st Contact Info) Description 06/05/2022 myChart Message [facility] Neurology Clinic [address] [place], [place] [id number] Franck Gomez MD [address] [place] [address] .25 Ropinerol Social History Tobacco Use Types [...] PM EST documented as of this encounter Miscellaneous Notes * Telephone Encounter - Emily Aparicio [place] - 06/05/2022 9:13 AM ESTFrom: Florentino Ellis To: MD Franck Gomez Sent: 06/05/2022 8:38 AM EST Subject: .25 Ropinerol I requested a refill for Ropinerol and noticed it was denied. The prescrition that was filled in February says 0 refills yet on My Chart it says 2 refills. So Guevara won't fill it and he only has enough til Saturday. documented in this encounter Plan of Treatment Not on file documented as of this encounter Visit Diagnoses Not on filedocumented in this encounter Care Teams Retail Store Associate Relationship Specialty Start Date End Date China Briseno [address] [place] [address] PCP - General Internal Medicine 09/14/21 documented as of this encounter
--- OUTSIDE RECORDS SUMMARY | 2024-10-02 10:08 | XMS_ITS | Continuity of Care Document ---
Author Organization [facility] Address [address], [address], [address] [place] [address]- Care Team Providers Care Transfusion Nurse Name Role Phone China Briseno MD Primary Care Physician [phone] [id number] Date(s): 08/24/24 - 09/23/24 [facility] [address], [address] [place] [address] Encounter Type: Triage Allergies, Adverse Reactions, [...] tablet, 5 Refills, 04/17/23 12:04:00 PM EDT[id number], 90, 2 tablet By Mouth 3 times [...] Refills, Maintenance, 08/04/24 3:49:00 PM EST, Tablet, [facility] #[id number], Partial fill upon patient request if the [...] 3 Refills, Maintenance, 06/19/24 7:32:00 AM EST, [facility] #[id number], 176, cm, 06/10/24 13:57:00 EST, Height, 90.3, kg, 07/25/23 16:18:00 EST, Dry Weight Start Date: 06/19/24 Status: Ordered Quantity: 90.0 Unit: tablet Repeat number: 1 metoprolol 50 mg oral tablet, extended release 50 mg, 1, tablet, By Mouth, Daily, # 90 tablet, Refills 3, Tot. Refills 3, Maintenance, 09/11/24 9:14:00 AM EST, Route to Pharmacy Electronically, [facility] #[id number], Partial fill upon patient request if the [...] Status: Ordered Repeat number: 1 nystatin topical [id number] u/gm powder 1 application, Topically, 2 times [...] Replace Required Details, Route to Pharmacy Electronically, [facility] #[id number], 176, cm, 03/27/24 9:08:00 EDT, Height, 90.3, kg, 07/25/23 16:18:00 EST, Dry Weight Start Date: 05/26/24 Status: Ordered Quantity: 135.0 Unit: tablet Repeat number: 1 rOPINIRole 0.25 mg oral tablet 3 tablet = 0.75 mg, By Mouth, 3 times a day, # 810 tablet, 0 Refills, Maintenance, 03/26/24 9:00:00 AM EDT, Tablet, [facility] #[id number], Partial fill upon patient request if the [...] 12/06/23 9:21:00 AM EDT,Route to Pharmacy Electronically, [facility] #[id number], 176, cm, 11/25/23 16:02:00 EDT, Height, 90.3, kg, 07/25/23 16:18:00 EST, Dry Weight Start Date: 12/06/23 Status: Ordered Quantity: 90.0 Unit: tablet Repeat number: 1 spironolactone 25 mg oral tablet 50 mg, 2, tablet, By Mouth, Daily, dose increase, # 180 tablet, Refills 3, Tot. Refills 3, Maintenance, 03/27/24 9:16:00 AM EDT, Route to Pharmacy Electronically, [facility] #[id number], 176, cm,03/27/24 9:08:00 EDT, Height, 90.3, kg, 07/25/23 16:18:00 EST, Dry Weight Start Date: 03/27/24 Stop Date: 03/22/25 Status: Ordered Quantity: 180.0 Unit: tablet Repeat number: 4 torsemide 20 mg oral tablet 0.5 tablet = 10 mg, By Mouth, Daily, # 60 tablet, 4 Refills, Maintenance, 06/10/24 2:33:00 PM EST, Tablet, [facility] #[id number], Replaces furosemide/Lasix, 176, cm, 06/10/24 13:57:00 EST, [...] Confirmed Active Cardiomyopathy Confirmed Active CAD in [place] artery Confirmed Active Gastroesophageal reflux disease Confirmed [...] Team Personnel Name: Avelino Mcmahon RN Position: [facility] RN Member Role: Primary Care Nurse Name: Avril Casillas RN Position: [facility] RN Member Role: Primary Care Nurse Name: Antonia Bowers RN Position: [facility] RN Member Role: Primary Care Nurse Name: China Briseno MD Position: [facility] Physician - Primary Care Member Role: PCP Address: [address] [place], [place] [address] Telecom: Name: Teodora Shafer LPN Position: [facility] RN Member Role: Primary Care Nurse Name: Gillian Eastman RN Position: [facility] RN Member Role: Primary Care Nurse Name: Gillian Chatterjee RN Position: [facility] RN Member Role: Primary Care Nurse Name: Valarie Grant RN Position: [facility] OB RN Member Role: Primary Care Nurse Name: Ysabel Sullivan RN Position: [facility] AMB Nurse Member Role: Primary Care Nurse Name: Alanna Rogers RN Position: [facility] RN Member Role: Primary Care Nurse Name: Juliet Koehler RN Position: [facility] RN Member Role: Primary Care Nurse Name: Tone Farooq RN Position: [facility] RN Member Role: Primary Care Nurse Name: Jose Alfredo Dears RN Position: [facility] RN Member Role: Primary Care Nurse Name: Lili Mullins RN Position: [facility] RN Member Role: Primary Care Nurse Name: Elinor Colon RN Position: [facility] ED RN W/OE and Tasks Member Role: Primary Care Nurse Name: Beatrice Quesada RN Position: [facility] RN Member Role: Primary Care Nurse Name: Ca Guerrero RN Position: [facility] AMB Nurse Member Role: Primary Care Nurse Name: Gladys Aguirre RN Position: [facility] RN Member Role: Primary Care Nurse Name: Julianna Lui RN Position: [facility] RN Member Role: Primary Care Nurse Name: Khang Canchola RN Position: [facility] RN Member Role: Primary Care Nurse Name: Prabhakar Pabon RN Position: [facility] RN Member Role: Primary Care Nurse Name: Giovanna Gilbert RN Position: [facility] RN Sudeep Member Role: Primary Care Nurse Name: Elena Thurston RN Position: [facility] RN Member Role: Primary Care Nurse Name: Jackie Coates RN Position: [facility] RN Member Role: Primary Care Nurse Name: Simone Hopkins RN Position: [facility] RN Member Role: Primary Care Nurse Name: Светлана Tolentino RN Position: [facility] RN Member Role: Primary Care Nurse Name: Nida Tejeda RN Position: [facility] RN Member Role: Primary Care Nurse Name: Raquel Mcfadden LPN Position: [facility] RN Member Role: Primary Care Nurse Care Team Related Persons Name: CARMEN MARTINEZ Name: RAQUEL MARTINEZ Insurance Providers Guarantor name: SAUL MARTINEZ Health Plan Information #: 1 Payer: [facility] POS Member Number: NA Policy Number: NA Group Number: NA Health Plan Information #: 2 Payer: MEDICARE PART B OUTPT Member Number: NA Policy Number: NA Group Number: NA Health Plan Information #: 3 Payer: I10 MEDICARE SUPPL [id number] Member Number: NA Policy Number: NA Group Number: NA
--- OUTSIDE RECORDS SUMMARY | 2024-10-02 10:08 | XMS_ITS | Encounter Summary ---
Author Organization [facility] Address [address] [place] [address] Care Team Providers Care Construction Field Engineer Name Role Phone China Briseno Primary Care Provider Encounter Details Date Type Department Care Team (Late st Contact Info) Description 02/11/2022 myChart Message [facility] Clinic [address] [place] [address] Franck Gomez MD [address] [place] [address] Gaurav's dizziness Social History Tobacco Use Types Packs/Day Years [...] on filedocumented in this encounter Care Teams Construction Field Engineer Relationship Specialty Start Date End Date China Briseno [address] [place] [address] PCP - General Internal Medicine 09/14/21 documented as of this encounter
--- OUTSIDE RECORDS SUMMARY | 2024-10-02 10:08 | XMS_ITS | Clinical Summary ---
Author Organization [facility] Address [address] [place] [address] Care Team Providers Care Java Developer Name Role Phone China Briseno Primary Care Provider [phone] Allergies Active Allergy Reactions Criticality Noted Date [...] 07/18/2022 4:03 PM EST Plan of Treatment Health Maintenance Due Date Last Done Comments Hollierd 1950 Colon Cancer Screening 1950 Colonoscopy 1950 FOBT / Fit Test 1950 Hepatitis C Screening 1950 Sigmoidoscopy 1950 DTaP,Tdap,and Td Vaccines (1 - Tdap) 11/03/1973 Pneumococcal Vaccine: 50+ Years (1 of 1 - PCV) 11/03/2001 COVID-19 Vaccine ( season) 2024 05/02/2022, 10/27/2021, 05/19/2021, Additional history exists Influenza Vaccine (#1) 2024 , 05/19/2021, 04/18/2020, Additional history exists Alcohol/Substance Use Screening 07/29/2024 Depression Screening and Follow-Up 07/29/2024 Health Care Proxy Review 07/29/2024 Social Drivers of Health Annual Screening 07/29/2024 RSV Vaccine (60+ years old and patients) (1 - 1-dose 75+ series) 11/03/2026 Zoster Vaccines Completed 06/19/2020, 04/18/2020 Hepatitis B Vaccines Aged Out No long er eligible based on patient's age to complete this topic Insurance [facility] Care Teams Java Developer Relationship Specialty Start Date End Date China Briseno [address] [place] [address] PCP - General Internal Medicine 09/14/21
--- OUTSIDE RECORDS SUMMARY | 2024-10-02 10:08 | XMS_ITS | Encounter Summary ---
Author Organization [facility] Address [address] [place] [address] Care Team Providers Care Cook Supervisor Name Role Phone China Briseno Primary Care Provider [phone] Reason for Visit * Reason Onset Date Comments Clarification on a medication and direction of u se 09/06/2022 Encounter Details Date Type Department Care Team (Late Contact Info) Description 09/06/2022 Telephone [facility] Clinic [address] [place] [address] Telephone Intake, Staff Clarification on a medication and direction of use Social History Tobacco Use Types Packs/Day Years [...] encounter Miscellaneous Notes * Telephone Encounter - Libertad Duenas - 09/06/2022 9:50 AM EST NEURO CLINIC CALL PATIENT: Florentino Ellis NAME OF CALLER (IF OTHER THAN PATIENT) AND RELATIONSHIP TO PATIENT (SPOUSE, FAMILY, PCP, ETC): Luma BEST CALL BACK PHONE NUMBER: [facility] [phone] PATIENT'S NEUROLOGIST: Dr. Gomez REASON FOR CALL: Clarification on a medication BRIEF DESCRIPTION OF REASON FOR CALL: Ge from [facility] called in regards to pt's medication QUEtiapine (SEROquel) 25 mg tablet They are requesting clarification on how the pt should be taking this medication. Please call Omarifarzaneh's back at [phone]. documented in this encounter Plan of Treatment Not on file documented as of this encounter Visit Diagnoses Not on filedocumented in this encounter Care Teams Cook Supervisor Relationship Specialty Start Date End Date China Briseno [address] [place] [address] PCP - General Internal Medicine 09/14/21 documented as of this encounter
--- OUTSIDE RECORDS SUMMARY | 2024-10-02 10:08 | XMS_ITS | Encounter Summary ---
Author Organization [facility] Address [address] [place] [address] Care Team Providers Care Plate Maker Zinc Name Role Phone China Briseno Primary Care Provider [phone] Encounter Details Date Type Department Care Team (Late st Contact Info) Description 06/12/2022 myChart Message [facility] Clinic [address] [place] [address] Franck Gomez MD [address] [place] [address] Hallucinations Social History Tobacco Use Types Packs/Day Years [...] on filedocumented in this encounter Care Teams Plate Maker Zinc Relationship Specialty Start Date End Date China Briseno [address] [place] [address] PCP - General Internal Medicine 09/14/21 documented as of this encounter
--- OUTSIDE RECORDS SUMMARY | 2024-10-02 10:08 | XMS_ITS | Encounter Summary ---
Author Organization [facility] Address [address] [place] [address] Care Team Providers Care Blasting Entry Specialist Name Role Phone China Briseno Primary Care Provider [phone] Encounter Details Date Type Department Care Team (Late st Contact Info) Description 02/20/2022 myChart Message [facility]rology Clinic [address] [place] [address] Franck Gomez MD [address] [place] [address] Refill Social History Tobacco Use Types Packs/Day Years [...] on filedocumented in this encounter Care Teams Blasting Entry Specialist Relationship Specialty Start Date End Date China Briseno [address] [place] [address] PCP - General Internal Medicine 09/14/21 documented as of this encounter
== END 2024-10-02 10:31 | disposition home or self-care (01) ==
PROVIDERS: PCP Internal Medicine; Visit Provider Internal Medicine
DX: Z00.00 Encounter for general adult medical examination without abnormal findings (principal); I50.9 Heart failure, unspecified; I48.91 Unspecified atrial fibrillation; G20.C Parkinsonism, unspecified; A04.71 Enterocolitis due to Clostridium difficile, recurrent

== ENCOUNTER → 2024-10-02 09:21 | Outpatient (BNVA) | payer OTHER, SELFPAY | PROVIDERS: PCP Internal Medicine; Visit Provider Internal Medicine | DX: Z00.00 Encounter for general adult medical examination without abnormal findings (principal); I50.9 Heart failure, unspecified; I48.91 Unspecified atrial fibrillation; G20.A1 Parkinson's disease without dyskinesia, without mention of fluctuations; A04.71 Enterocolitis due to Clostridium difficile, recurrent; Z79.899 Other long term (current) drug therapy | CPT/HCPCS: 96127 ==

== ENCOUNTER 2024-11-02 06:40 | Outpatient (REF) | payer OTHER, SELFPAY ==
--- OUTSIDE RECORDS SUMMARY | 2024-11-02 06:43 | XMS_ITS | Encounter Summary ---
Author Organization [facility] Address [address] [place] [address] Care Team Providers Care Chairman Name Role Phone China Briseno Primary Care Provider [phone] Encounter Details Date Type Department Care Team (Late st Contact Info) Description 06/12/2022 myChart Message [facility] Clinic [address] [place] [address] Franck Gomez MD [address] [place] [address] Hallucinations Social History Tobacco Use Types Packs/Day [...] on filedocumented in this encounter Care Teams Chairman Relationship Specialty Start Date End Date China Briseno [address] [place] [address] PCP - General Internal Medicine 09/14/21 documented as of this encounter
--- OUTSIDE RECORDS SUMMARY | 2024-11-02 06:43 | XMS_ITS | Data Portability ---
Author Organization [facility]AN PA[facility] Surgeons [facility] Address [address] [place] [address] Assessment Encounter Date Assessment Date Assessment LastModified [...] X-rays reviewed in the office today on [facility] PACS: AP pelvis and right frog lateral [...] of their questions today in the office. [email or web address] [facility] [employer] speech recognition marine mammal trainer software was used to create portions of [...] Address Organization Details Recorded Time No complaints [id number] Active Status : 'I'; Not Available [facility] 09:26:09 Problem Notes None recorded. Procedures Surgical History None recorded. Imaging Results Imaging Date Name Status LastModified by [facility] Details LastModified Time 07/28/2023 imaging/diag nostic result [...] SNOMED-CT Code Diagnosis ICD10 Code Diagnosis Note [id number] [facility] [address] [place] [address] 11/07/2023 14:43:25 11/28/2023 14:36:19 History of total replacement of right hip joint 6430247077 51032 Z96.641 Health Concerns Section Related Observation LastModified by Organization Detai ls LastModified Time None Recorded Concern Status LastModified by Organization Details LastModified Time None Recorded Advance Directives Directive None Recorded Payers Encounter Date Sequence Insurance Name Policy Number Policy Kahn Covered Member ID Kahn Member ID Guarantor Name 11/07/2023 1 [facility] Florentino Ellis [id number] Florentino Ellis
--- OUTSIDE RECORDS SUMMARY | 2024-11-02 06:43 | XMS_ITS | Encounter Summary ---
Author Organization [facility] Address [address] [place] [address] Care Team Providers Care Colon And Rectal Surgeon Name Role Phone China Briseno Primary Care Provider [phone] Encounter Details Date Type Department Care Team (Late st Contact Info) Description 02/20/2022 myChart Message [facility] Clinic [address] [place] [address] Franck Gomez MD [address] [place] [address] Refill Social History Tobacco Use Types Packs/Day [...] on filedocumented in this encounter Care Teams Colon And Rectal Surgeon Relationship Specialty Start Date End Date China Briseno [address] [place] [address] PCP - General Internal Medicine 09/14/21 documented as of this encounter
--- OUTSIDE RECORDS SUMMARY | 2024-11-02 06:43 | XMS_ITS | Encounter Summary ---
Author Organization [facility] Address [address] [place] [address] Care Team Providers Care Cloth Examiner Hand Name Role Phone China Briseno Primary Care Provider [phone] Encounter Details Date Type Department Care Team (Late st Contact Info) Description 09/12/2022 myChart Message [facility] [address] [place] [address] Franck Gomez MD [address] [place] [address] Refill on Clonazapam Social History Tobacco Use [...] on filedocumented in this encounter Care Teams Cloth Examiner Hand Relationship Specialty Start Date End Date China Briseno [address] [place] [address] PCP - General Internal Medicine 09/14/21 documented as of this encounter
--- OUTSIDE RECORDS SUMMARY | 2024-11-02 06:43 | XMS_ITS | Referral Summary ---
Author Organization [facility] Address [address] [place] [address] Care Team Providers Care Rug Sample Beveler Name Role Phone China Briseno Primary Care Provider [phone] Allergies Active Allergy Reactions Criticality Noted Date [...] Plan of Treatment Not on file Insurance [facility] Care Teams Rug Sample Beveler Relationship Specialty Start Date End Date China Briseno [address] [place] [address] PCP - General Internal Medicine 09/14/21
--- OUTSIDE RECORDS SUMMARY | 2024-11-02 06:43 | XMS_ITS | Clinical Summary ---
Author Organization [facility] Address [address] [place] [address] Care Team Providers Care Tree Wrapper Name Role Phone China Briseno Primary Care Provider [phone] Allergies Active Allergy Reactions Criticality Noted Date [...] 2024 05/02/2022, 10/27/2021, 05/19/2021, Additional history exists Alcohol/Substance Use Screening 07/29/2024 Depression Screening and Follow-Up 07/29/2024 Health Care Proxy Review 07/29/2024 Social Drivers of Health Annual Screening 07/29/2024 Influenza Vaccine (Season Ended) 2025 05/02/2022, 05/19/2021, 04/18/2020, Additional history exists RSV Vaccine (60+ years old and patients) (1 - 1-dose 75+ series) 11/03/2026 Zoster Vaccines Completed 06/19/2020, 04/18/2020 Hepatitis B Vaccines Aged Out No long er eligible based on patient's age to complete this topic Insurance [facility] Care Teams Tree Wrapper Relationship Specialty Start Date End Date China Briseno [address] [place] [address] PCP - General Internal Medicine 09/14/21
--- OUTSIDE RECORDS SUMMARY | 2024-11-02 06:43 | XMS_ITS | Encounter Summary ---
Author Organization [facility] Address [address] [place] [address] Care Team Providers Care Process Development Manager Name Role Phone China Briseno Primary Care Provider [phone] Encounter Details Date Type Department Care Team (Late st Contact Info) Description 05/16/2022 [email or web address] Message [facility] [address] [place], [place] [phone] Franck Gomez MD [address] [place], [place] [phone] Disregard previous email. Social History Tobacco Use [...] on filedocumented in this encounter Care Teams Process Development Manager Relationship Specialty Start Date End Date China Briseno [address] [place] [address] PCP - General Internal Medicine 09/14/21 documented as of this encounter
--- OUTSIDE RECORDS SUMMARY | 2024-11-02 06:43 | XMS_ITS | Encounter Summary ---
Author Organization [facility] Address [address] [place] [address] Care Team Providers Care Social Media Job Titles Name Role Phone China Briseno Primary Care Provider Encounter Details Date Type Department Care Team (Late st Contact Info) Description 05/16/2022 myChart Message [facility] [address] [place], [place] [id number] Franck Gomez MD [address] [place] [address] .25 Ropinerol Social History Tobacco Use Types [...] on filedocumented in this encounter Care Teams Social Media Job Titles Relationship Specialty Start Date End Date China Briseno [address] [place] [address] PCP - General Internal Medicine 09/14/21 documented as of this encounter
--- OUTSIDE RECORDS SUMMARY | 2024-11-02 06:43 | XMS_ITS | Encounter Summary ---
Author Organization [facility] Address [address] [place] [address] Care Team Providers Care Outcomes Analyst Name Role Phone China Briseno Primary Care Provider [phone] Encounter Details Date Type Department Care Team (Late st Contact Info) Description 02/11/2022 myChart Message [facility] [address] [place] [address] Franck Gomez MD [address] [place] [address] Gaurav's dizziness Social History Tobacco Use Types [...] on filedocumented in this encounter Care Teams Outcomes Analyst Relationship Specialty Start Date End Date China Briseno [address] [place] [address] PCP - General Internal Medicine 09/14/21 documented as of this encounter
--- OUTSIDE RECORDS SUMMARY | 2024-11-02 06:43 | XMS_ITS | Continuity of Care Document ---
Author Organization [facility] Address [address] [place] [phone] Care Team Providers Care Broadcast Producer Name Role Phone Finn VELASQUEZ, China Primary Care Physician [phone] Encounter [facility] Date(s): 10/02/24 - 11/01/24 [facility] [address] [place] [address]- Encounter Type: Triage Allergies, Adverse Reactions, Alerts [...] tablet, 5 Refills, 04/17/23 12:04:00 PM EDT, [facility] #[id number], 90, 2 tablet By Mouth 3 times [...] 2 times a day, # 60 tablet, 5 Refills, Maintenance, 10/14/24 3:08:00 PM EDT, [facility] #[id number], 30, TAKE 1 TABLET BY MOUTH TWICE DAILY, 175, cm, 09/28/24 10:15:00 EST, Height, 91.8, kg, 09/23/24 3:29:00 EST, Dry Weight Start Date: 10/14/24 Status: Ordered Quantity: 60.0 Unit: tablet Repeat number: 1 Flomax 0.4 mg oral capsule 0.4 mg, [...] 9:14:00 AM EST, Route to Pharmacy Electronically, [facility] #[id number], Partial fill upon patient request if the [...] Status: Ordered Repeat number: 1 nystatin topical [id number] u/gm powder 1 application, Topically, 2 times [...] Replace Required Details, Route to Pharmacy Electronically, [facility] #[id number], 176, cm, 03/27/24 9:08:00 EDT, Height, 90.3, kg, 07/25/23 16:18:00 EST, Dry Weight Start Date: 05/26/24 Status: Ordered Quantity: 135.0 Unit: tablet Repeat number: 1 rOPINIRole 0.25 mg oral tablet 3 tablet = 0.75 mg, By Mouth, 3 times a day, # 810 tablet, 0 Refills, Maintenance, 03/26/24 9:00:00 AM EDT, Tablet, [facility] #[id number], Partial fill upon patient request if the [...] 12/06/23 9:21:00 AM EDT,Route to Pharmacy Electronically, [facility] #[id number], 176, cm, 11/25/23 16:02:00 EDT, Height, 90.3, kg, 07/25/23 16:18:00 EST, Dry Weight Start Date: 12/06/23 Status: Ordered Quantity: 90.0 Unit: tablet Repeat number: 1 spironolactone 25 mg oral tablet 50 mg, 2, tablet, By Mouth, Daily, dose increase, # 180 tablet, Refills 3, Tot. Refills 3, Maintenance, 03/27/24 9:16:00 AM EDT, Route to Pharmacy Electronically, [facility] #[id number], 176, cm,03/27/24 9:08:00 EDT, Height, 90.3, kg, 07/25/23 16:18:00 EST, Dry Weight Start Date: 03/27/24 Stop Date: 03/22/25 Status: Ordered Quantity: 180.0 Unit: tablet Repeat number: 4 torsemide 20 mg oral tablet 0.5 tablet = 10 mg, By Mouth, Daily, # 60 tablet, 4 Refills, Maintenance, 06/10/24 2:33:00 PM EST, Tablet, [facility] #[id number], Replaces furosemide/Lasix, 176, cm, 06/10/24 13:57:00 EST, [...] Confirmed Active Cardiomyopathy Confirmed Active CAD in [place] artery Confirmed Active Gastroesophageal reflux disease Confirmed [...] Team Personnel Name: Avelino Mcmahon RN Position: [facility] RN Member Role: Primary Care Nurse Name: Avril Casillas RN Position: S RN Member Role: Primary Care Nurse Name: Antonia Bowers RN Position: [facility] RN Member Role: Primary Care Nurse Name: China Briseno MD Position: [facility] Physician - Primary Care Member Role: PCP Address: [address] [place], [place] [address] Telecom: Name: Teodora Shafer LPN Position: [facility] RN Member Role: Primary Care Nurse Name: Gillian Eastman RN Position: [facility] RN Member Role: Primary Care Nurse Name: Gillian Chatterjee RN Position: [facility] RN Member Role: Primary Care Nurse Name: Valarie Grant RN Position: [facility] OB RN Member Role: Primary Care Nurse Name: Ysabel Sullivan RN Position: [facility] AMB Nurse Member Role: Primary Care Nurse Name: Alanna Rogers RN Position: [facility] RN Member Role: Primary Care Nurse Name: Leona Nj RN Position: [facility] RN Member Role: Primary Care Nurse Name: Juliet Koehler RN Position: [facility] RN Member Role: Primary Care Nurse Name: Tone Farooq RN Position: [facility] RN Member Role: Primary Care Nurse Name: Jose Alfredo Deras RN Position: [facility] RN Member Role: Primary Care Nurse Name: Lili Mullins RN Position: [facility] RN Member Role: Primary Care Nurse Name: Elinor Colon RN Position: [facility] RN Member Role: Primary Care Nurse Name: Beatrice Quesada RN Position: [facility] RN Member Role: Primary Care Nurse Name: Ca Guerrero RN Position: [facility] AMB Nurse Member Role: Primary Care Nurse Name: Gladys Aguirre RN Position: [facility] RN Member Role: Primary Care Nurse Name: Julianna Lui RN Position: [facility] RN Member Role: Primary Care Nurse Name: Khang Canchola RN Position: [facility] RN Member Role: Primary Care Nurse Name: Prabhakar Pabon RN Position: [facility] RN Member Role: Primary Care Nurse Name: Giovanna Gilbert RN Position: [facility] RN Sudeep Member Role: Primary Care Nurse Name: Elena Thurston RN Position: [facility] RN Member Role: Primary Care Nurse Name: Jackie Coates RN Position: [facility] RN Member Role: Primary Care Nurse Name: Simone Hopkins RN Position: [facility] RN Member Role: Primary Care Nurse Name: Светлана Tolentino RN Position: [facility] RN Member Role: Primary Care Nurse Name: Nida Tejeda RN Position: [facility] RN Member Role: Primary Care Nurse Name: Raquel Mcfadden LPN Position: [facility] RN Member Role: Primary Care Nurse Care Team Related Persons Name: CARMEN MARTINEZ Name: RAQUEL MARTINEZ Insurance Providers Guarantor name: SAUL MARTINEZ Health Plan Information #: 1 [facility] Member Number: NA Policy Number: NA Group Number: NA Health Plan Information #: 2 Payer: MEDICARE A INPT 25 Member Number: NA Policy Number: NA Group Number: NA
--- OUTSIDE RECORDS SUMMARY | 2024-11-02 06:43 | XMS_ITS | Encounter Summary ---
Author Organization [facility] Address [address] [place] [address] Care Team Providers Care Uppers Edge Burnisher Name Role Phone Trinidad Brisenoanna Primary Care Provider [phone] Encounter Details Date Type Department Care Team (Late st Contact Info) Description 09/14/2021 Orders Only [facility] [address] [place] [address] Provider, Unknown, [address] [place] [address] Social History Tobacco Use Types Packs/Day [...] of this encounter Procedures * Due to [place] [employer] law, this organization might not be sharing negative HIV tests. Procedure Name Priority Date/Time Associated Diagnosis Comments LAB - SCANNED Routine 08/17/[address] HEAD, OUTSID E RESULT Routine 10/23/[address] C-SPINE, OUT SIDE RESULT Routine 10/23/2019 documented in this encounter Results * Due to [place] [employer] law, this organization might not be sharing [...] on filedocumented in this encounter Care Teams Uppers Edge Burnisher Relationship Specialty Start Date End Date China Briseno [address] [place] [address] PCP - General Internal Medicine 09/14/21 documented as of this encounter
--- OUTSIDE RECORDS SUMMARY | 2024-11-02 06:43 | XMS_ITS | Encounter Summary ---
Author Organization [facility] Address [address] [place] [address] Care Team Providers Care Chinchilla Farmer Name Role Phone China Briseno Primary Care Provider [phone] Reason for Visit * Reason Onset Date Comments Med Refill 08/14/2022 Encounter Details Date Type Department Care Team (Late st Contact Info) Description 08/14/2022 Refill [facility] [address] [place] [address] [address] [place], [place] Social History Tobacco Use Types Packs/Day [...] on filedocumented in this encounter Care Teams Chinchilla Farmer Relationship Specialty Start Date End Date China Briseno [address] [place] [address] PCP - General Internal Medicine 09/14/21 documented as of this encounter
--- OUTSIDE RECORDS SUMMARY | 2024-11-02 06:43 | XMS_ITS | Encounter Summary ---
Author Organization [facility] Address [address] [place] [address] Care Team Providers Care Chemical Technician Name Role Phone China Briseno Primary Care Provider [phone] Reason for Visit * Reason Onset Date Comments Clarification on a medication and direction of u se 09/06/2022 Encounter Details Date Type Department Care Team (Late Contact Info) Description 09/06/2022 Telephone [facility] [address] [place] [address] Telephone Intake, Staff Clarification on a medication [...] ETC): Luma BEST CALL BACK PHONE NUMBER: [facility] [phone] PATIENT'S NEUROLOGIST: Dr. Gomez REASON FOR CALL: Clarification on a medication BRIEF DESCRIPTION OF REASON FOR CALL: Ge from [facility] called in regards to pt's medication QUEtiapine (SEROquel) 25 mg tablet They are requesting clarification on how the pt should be taking this medication. Please call Omarifarzaneh's back at [phone]. documented in this encounter Plan of Treatment Not on file documented as of this encounter Visit Diagnoses Not on filedocumented in this encounter Care Teams Chemical Technician Relationship Specialty Start Date End Date China Briseno [address] [place] [address] PCP - General Internal Medicine 09/14/21 documented as of this encounter
--- OUTSIDE RECORDS SUMMARY | 2024-11-02 06:43 | XMS_ITS | Encounter Summary ---
Author Organization [facility] Address [address] [place] [address] Care Team Providers Care Course Instructor Name Role Phone China Briseno Primary Care Provider [phone] Encounter Details Date Type Department Care Team (Late st Contact Info) Description 06/04/2022 myChart Message [facility] [address] [place] [address] Franck Gomez MD [address] [place] [address] hallucinations Social History Tobacco Use Types Packs/Day [...] on filedocumented in this encounter Care Teams Course Instructor Relationship Specialty Start Date End Date China Briseno [address] [place] [address] PCP - General Internal Medicine 09/14/21 documented as of this encounter
--- OUTSIDE RECORDS SUMMARY | 2024-11-02 06:43 | XMS_ITS | Encounter Summary ---
Author Organization [facility] Address [address] [place] [address] Care Team Providers Care Hotel Or Motel Manager Name Role Phone China Briseno Primary Care Provider [phone] Encounter Details Date Type Department Care Team (Late st Contact Info) Description 07/19/20[address] myChart [address] [facility] [address] [place] [address] Franck Gomez MD [address] [place] [address] Appointment Social History Tobacco Use Types Packs/Day [...] on filedocumented in this encounter Care Teams Hotel Or Motel Manager Relationship Specialty Start Date End Date China Briseno [address] [place] [address] PCP - General Internal Medicine 09/14/21 documented as of this encounter
--- OUTSIDE RECORDS SUMMARY | 2024-11-02 06:43 | XMS_ITS | Encounter Summary ---
Author Organization [facility] Address [address] [place] [address] Care Team Providers Care Collection Systems Worker Name Role Phone China Briseno Primary Care Provider [phone] Encounter Details Date Type Department Care Team (Late st Contact Info) Description 03/28/2022 myChart Message [facility] [address] [place] [address] Franck Gomez MD [address] [place] [address] Physical Therapy Social History Tobacco Use Types [...] on filedocumented in this encounter Care Teams Collection Systems Worker Relationship Specialty Start Date End Date China Briseno [address] [place] [address] PCP - General Internal Medicine 09/14/21 documented as of this encounter
--- OUTSIDE RECORDS SUMMARY | 2024-11-02 06:43 | XMS_ITS | Encounter Summary ---
Author Organization [facility] Address [address] [place] [address] Care Team Providers Care Warp Bleaching Vat Tender Name Role Phone Trinidad Brisenoanna Primary Care Provider [phone] Encounter Details Date Type Department Care Team (Late st Contact Info) Description 06/05/2022 myChart Message [facility] [address] [place], [place] [phone] Franck Gomez MD [address] [place] [address] .25 Ropinerol Social History Tobacco Use Types [...] on filedocumented in this encounter Care Teams Warp Bleaching Vat Tender Relationship Specialty Start Date End Date China Briseno [address] [place] [address] PCP - General Internal Medicine 09/14/21 documented as of this encounter
[2024-11-02 10:14] LABS: Appearance Urine Turbid; Color Urine Dark Yellow; Glucose Urine UA Negative (Negative); Leukocyte Esterase Urine Large (3+) (Negative); Nitrite Urine Negative (Negative); PH 5.5 (5.0-9.0); Specific Gravity - Urine >= 1.030 (1.005-1.025); UMIC TRIGGER UA YES; Urine Blood Trace (Negative); Urine Ketones Trace mg/dL (Negative); Urine Protein 30 (1+) mg/dL (Neg-Trace)
[2024-11-02 10:30] LABS: MANUAL DIFF FLAG NO
[2024-11-02 10:35] LABS: Bacteria Urine None Seen (None Seen); Hyaline Casts Urine 0-2 /LPF (0-2); Squamous Epithelial Cell Urine 0-2 /HPF (0-2); WBC Urine >50 /HPF (0-5)
[2024-11-02 10:47] LABS: Basophils Absolute Auto 0.1 X10*3/uL (0.0-0.2); Basophils Percent Auto 0.8 % (0-2); Eosinophils Absolute Auto 0.3 X10*3/uL (0.0-0.4); Eosinophils Percent Auto 3.8 % (0-4); Hematocrit 38.8 % (42.0-52.0); Imm Gran Abs Auto 0.04 X10*3/uL (0.00-0.03); Imm Gran Pct Auto 0.5 % (0.0-0.4); Lymphocytes Absolute Auto 1.8 X10*3/uL (1.2-4.9); Lymphocytes Percent Auto 25.2 % (20-40); Mean Corpuscular HGB Conc 33.5 g/dl (31.0-36.0); Mean Corpuscular Hemoglobin 30.7 pg (27.0-33.0); Mean Corpuscular Volume 91.7 fL (80.0-98.0); Mean Platelet Volume 9.8 fL (9.4-12.4); Monocytes Absolute Auto 0.6 X10*3/uL (0.1-1.2); Neutrophils Absolute Auto 4.5 x10*3/uL (2.0-8.3); Neutrophils Percent Auto 61.7 % (45-73); Platelet Count 217 X10*3/uL (160-400); Red Blood Count 4.23 X10*6/uL (4.60-5.80); Red Cell Distribution Width 13.4 % (11.0-16.0); White Blood Count 7.3 X10*3/uL (4.8-10.8)
[2024-11-02 11:25] LABS: Alanine Aminotransferase 21 U/L (0-40); Albumin Level 4.1 g/dL (3.5-5.0); Alkaline Phosphatase 72 U/L (39-117); Anion Gap 10 (12-20); Aspartate Amino Transferase 39 U/L (5-37); Bilirubin Total 1.2 mg/dL (0.0-1.0); Blood Urea Nitrogen 26 mg/dL (9-16); Calcium 9.3 mg/dL (8.4-10.2); Carbon Dioxide 26 mmol/L (22-29); Chloride 111 mmol/L (96-108); Cholesterol 108 mg/dL (<200); Estimated Glomerular Filt Rate > 60; Glucose Fasting 116 mg/dL (60-99); HDL Cholesterol 38 mg/dL (>40); LDL Cholesterol Calculated 55 mg/dL (<100); Potassium 3.7 mmol/L (3.3-5.1); Sodium 143 mmol/L (135-145); Triglycerides 76 mg/dL (<150)
[2024-11-02 11:49] LABS: TSH reflex Free T4 2.04 uIU/mL (0.32-4.0)
== END 2024-11-02 06:41 | disposition home or self-care (01) ==
LOC: HO.HMGCLDS 06:40
PROVIDERS: PCP Internal Medicine; Referring Provider Nurse Practitioner Family; Visit Provider Internal Medicine
DX: I50.9 Heart failure, unspecified (principal); I48.91 Unspecified atrial fibrillation; N40.0 Benign prostatic hyperplasia without lower urinary tract symptoms; E78.00 Pure hypercholesterolemia, unspecified; G20.A1 Parkinson's disease without dyskinesia, without mention of fluctuations
CPT/HCPCS: 36415; 80053; 80061; 81001; 84443; 85025

== ENCOUNTER 2024-11-03 09:26 | Outpatient (AMB) | payer OTHER, SELFPAY ==
--- NOTE | 2024-11-03 09:34 | A.OFFPC_ITS ---
Vital Signs 11/03/24 09:35 Height 5 ft 10 in Weight 200 lb BMI 28.7 BP 92/66 Blood Pressure Location Lt brachial Position Sitting Respiration 18 Pulse 91 Pulse Source Pulse Oximeter Temp 97.5 F Temp Source Oral Pulse Oximetry (%) 98 Oxygen Delivery Method Room Air Intake Visit Reasons: 1 month f/up (needs consent form) Intake Note: Pt is here today for 1 month follow up visit. Allergies Tetanus Vaccines and Toxoid [Tetanus Vaccines & Toxoid] Allergy (Severe, Verified 11/03/24 09:39) ANAPHYLAXIS dapagliflozin [From [facility]] Adverse Reaction (Intermediate, Verified 11/03/24 09:39) Recurrent UTI Tetanus Allergy (Unknown, Uncoded 11/03/24 09:39) unknown Medication List - Last Reconciled 11/03/24 by China Briseno MD ammonium lactate 12% 1 appl topical DAILY PRN aspirin 81 mg PO DAILY carbidopa-levodopa 25-100 mg 2 tabs PO TID clonazepam 0.5 mg PO BEDTIME compr.stocking,knee,long,large 10-20 mmHg with zippers metoprolol succinate ER 50 mg PO DAILY nystatin 1 appl topical BID 30 days omeprazole 20 mg PO DAILY [potassium calcium 20 MEQ 1 tablet daily] potassium chloride ER 20 mEq PO DAILY quetiapine 12.5 mg PO BEDTIME ropinirole 0.5 mg PO TID sacubitril-valsartan 49-51 mg (Entresto) 1 tab PO BID sennosides (senna) 8.6 mg PO DAILY PRN simvastatin 10 mg PO QPM spironolactone 25 mg PO DAILY tamsulosin 0.4 mg PO BID 90 days torsemide 20 mg PO DAILY Tobacco use date assessed: 11/03/24 Dental Screening Dental Screen Date: 10/02/24 HPI 1 month f/up (needs consent form) HPI Details Patient presents for a follow-up of heart failure with preserved ejection fraction, advanced Parkinson's disease, orthostatic hypotension and persistent AFib. Patient reports frequent falls at home but no serious head trauma. Patient is established with Cardiology and Neurology. His is contemplating starting PACE program. [facility] Medical History A-fib CHF (congestive heart failure) Parkinson disease Obesity Surgical History H/O colonoscopy Family History Father COPD (chronic obstructive pulmonary disease) Mother Heart problem Social History Housing: House Alcohol intake: current Alcohol intake frequency: holidays/special occasions on ly Patient Tobacco Use Status: Never used Tobacco e-Cigarette/Vaping Use: Never Used service: No Current occupational status: retired Cognitive needs: No Hearing needs: No Vision needs: No Questionnaire Thrive Questionnaire Date Thrive assessed: 10/02/24 MARCIA-7 AMB Questionnaire MARCIA-7 Date MARCIA - 7 assessed: 10/02/24 Source: Developed by Drs. Lenny Jeter, Radha Ortiz, Vicente Guthrie and colleagues, with an educational rosa from [employer]. Review of Systems Const All systems reviewed & are unremarkable except as noted in HPI and below Eyes Reports no additional complaints Card Reports no additional complaints Resp Reports no additional complaints GI Reports no additional complaints Reports no additional complaints Physical exam (Primary Care) Vital Signs: Last Vital Signs Temp 97.5 F 11/03/24 09:35 Pulse 91 11/03/24 09:35 Resp 18 11/03/24 09:35 BP 92/66 11/03/24 09:35 Pulse Ox 98 11/03/24 09:35 Oxygen Delivery Method Room Air 11/03/24 09:35 BMI result Body Mass Index 28.7 Tobacco/Smoking Status: Tobacco use Status Tobacco use date assessed 11/03/24 11/03/24 09:43 Patient Tobacco Use Status Never used Tobacco 11/03/24 09:34 e-Cigarette/Vaping Use Never Used 11/03/24 09:34 Thrive Assessment: Date of Thrive Assessment Date Thrive assessed 10/02/24 11/03/24 09:34 Const General: no acute distress HENMT Head: Yes normal to inspection Throat: Yes posterior oropharynx normal Resp Effort & Inspection: normal respiratory effort Auscultation: clear to auscultation bilaterally Cardio Rhythm: abnormal rhythm irregularly irregular Heart sounds: S1 normal heart sound present and S2 normal heart sound present GI Inspection: Yes normal to inspection Palpation (GI): Soft to palpation Auscultation: normal bowel sounds Extrem General: Yes no clubbing, cyanosis or edema Coding Level of Care Code Est Pt Level 4 (60512) Complex EM visit Add On G2211 Diagnoses Anemia D64.9 Parkinson disease G20 CHF (congestive heart failure) I50.9 A-fib I48.91 Orthostatic hypotension I95.1 Assessment & Plan Assessment & Plan (1) Anemia: Code(s): D64.9 - Anemia, unspecified Category: Medical Plan: check Iron and vit B12 (2) Parkinson disease: Comment: Dr. Chino dxd 06/2016, [place] Code(s): G20 - Parkinson's disease Category: Medical Plan: Established with Neurology (3) CHF (congestive heart failure): Comment: heart MRI 06/2019, left ventricle global hypokinesia EF 38% Coronary cath, no significant CAD, Echo 12/2023 EF 50%, Echo EF 60-65%, diated LA, mild -mod MR,mod elevated PA systolic pressure, small pericardial effusion [facility] f/u Dr. Cavanaugh Code(s): I50.9 - Heart failure, unspecified Category: Medical Plan: Established with cardiology (4) A-fib: Comment: Watchman FLX device, f/u [facility] Cardiology Dr Mcelroy Code(s): I48.91 - Unspecified atrial fibrillation Category: Medical Plan: Heart rate is not well controlled since digoxin was discontinued by Cardiology. He has a follow-up appointment with [facility] Cardiology tomorrow (5) Orthostatic hypotension: Comment: Frequent falls due to orthostatic hypotension Code(s): I95.1 - Orthostatic hypotension Category: Medical Plan: Patient will discuss the treatment with the Cardiology tomorrow Orders: Orders IRON PROFILE Today D64.9 - Anemia, unspecified Comprehensive Lane. Panel Fast 6 Months G20 - Parkinson's disease, I48.91 - Unspecified atrial fibrillation, I50.9 - Heart failure, unspecified Complete Blood Count Auto Diff 6 Months G20 - Parkinson's disease, I48.91 - Unspecified atrial fibrillation, I50.9 - Heart failure, unspecified Vitamin B12 and Folate Today D64.9 - Anemia, unspecified TSH reflex Free T4 6 Months G20 - Parkinson's disease, I48.91 - Unspecified atrial fibrillation, I50.9 - Heart failure, unspecified Medications: Discontinued digoxin Discontinued Reason: Doctor's Order 125 mcg PO DAILY 90 tabs 2RF
[2024-11-03 09:35] VITALS: BP 92/66; PULSE 91; RESP 18; TEMP 36.4; O2SAT 98; BMI 28.7
--- OUTSIDE RECORDS SUMMARY | 2024-11-03 10:33 | XMS_ITS | Encounter Summary ---
Author Organization [facility] Address [address] [place] [address] Care Team Providers Care Golf Sales Associate Name Role Phone China Briseno Primary Care Provider [phone] Reason for Visit * Reason Onset Date Comments Med Refill 08/14/2022 Encounter Details Date Type Department Care Team (Late st Contact Info) Description 08/14/2022 Refill [facility] [address] [place] [address] [place], [place] Social History Tobacco Use Types Packs/Day [...] on filedocumented in this encounter Care Teams Golf Sales Associate Relationship Specialty Start Date End Date China Briseno [address] [place] [address] PCP - General Internal Medicine 09/14/21 documented as of this encounter
--- OUTSIDE RECORDS SUMMARY | 2024-11-03 10:33 | XMS_ITS | Encounter Summary ---
Author Organization [facility] Address [address] [place] [address] Care Team Providers Care Biology Lecturer Name Role Phone China Briseno Primary Care Provider [phone] Encounter Details Date Type Department Care Team (Late st Contact Info) Description 06/12/2022 myChart Message [facility] [address] [place] [address] Franck Gomez MD [address] [place] [address] Hallucinations Social History Tobacco Use Types Packs/Day [...] on filedocumented in this encounter Care Teams Biology Lecturer Relationship Specialty Start Date End Date China Briseno [address] [place] [address] PCP - General Internal Medicine 09/14/21 documented as of this encounter
--- OUTSIDE RECORDS SUMMARY | 2024-11-03 10:33 | XMS_ITS | Encounter Summary ---
Author Organization [facility] Address [address] [place] [address] Care Team Providers Care Technical Implementation Lead Name Role Phone China Briseno Primary Care Provider [phone] Encounter Details Date Type Department Care Team (Late st Contact Info) Description 02/11/2022 myChart Message [facility] [address] [place] [address] Franck Gomez MD [address] [place] [address] Gaurav's dizziness Social History Tobacco Use Types [...] on filedocumented in this encounter Care Teams Technical Implementation Lead Relationship Specialty Start Date End Date China Briseno [address] [place] [address] PCP - General Internal Medicine 09/14/21 documented as of this encounter
--- OUTSIDE RECORDS SUMMARY | 2024-11-03 10:33 | XMS_ITS | Encounter Summary ---
Author Organization [facility] Address [address] [place] [address] Care Team Providers Care Costumer Name Role Phone China Briseno Primary Care Provider [phone] Encounter Details Date Type Department Care Team (Late st Contact Info) Description 06/04/2022 myChart Message [facility] [address] [place] [address] Franck Gomez MD [address] [place] [address] hallucinations Social History Tobacco Use Types Packs/Day [...] on filedocumented in this encounter Care Teams Costumer Relationship Specialty Start Date End Date China Briseno [address] [place] [address] PCP - General Internal Medicine 09/14/21 documented as of this encounter
--- OUTSIDE RECORDS SUMMARY | 2024-11-03 10:33 | XMS_ITS | Encounter Summary ---
Author Organization [facility] Address [address] [place] [address] Care Team Providers Care Low Pressure Boiler Tender Name Role Phone China Briseno Primary Care Provider [phone] Encounter Details Date Type Department Care Team (Late st Contact Info) Description 05/16/2022 myChart Message [facility] [address] [place], [place] [phone] Franck Gomez MD [address] [place] [address] .25 Ropinerol Social History Tobacco Use Types [...] on filedocumented in this encounter Care Teams Low Pressure Boiler Tender Relationship Specialty Start Date End Date China Briseno [address] [place] [address] PCP - General Internal Medicine 09/14/21 documented as of this encounter
--- OUTSIDE RECORDS SUMMARY | 2024-11-03 10:33 | XMS_ITS | Encounter Summary ---
Author Organization [facility] Address [address] [place] [address] Care Team Providers Care Edge Bander Operator Name Role Phone China Briseno Primary Care Provider Encounter Details Date Type Department Care Team (Late st Contact Info) Description 02/20/2022 myChart Message [facility] [address] [place] [address] Franck Gomez MD [address] [place] [address] Refill Social History Tobacco Use Types Packs/Day [...] on filedocumented in this encounter Care Teams Edge Bander Operator Relationship Specialty Start Date End Date China Briseno [address] [place] [address] PCP - General Internal Medicine 09/14/21 documented as of this encounter
--- OUTSIDE RECORDS SUMMARY | 2024-11-03 10:33 | XMS_ITS | Encounter Summary ---
Author Organization [facility] Address [address] [place] [address] Care Team Providers Care Bill Poster Installer Name Role Phone China Briseno Primary Care Provider Encounter Details Date Type Department Care Team (Late st Contact Info) Description 05/16/2022 myCAYOXXA Biosystemst Message [facility] [address] [place], [place] [phone] Franck Gomez MD [address] [place], [place] [phone] Disregard previous email. Social History Tobacco Use [...] on filedocumented in this encounter Care Teams Bill Poster Installer Relationship Specialty Start Date End Date China Briseno [address] [place] [address] PCP - General Internal Medicine 09/14/21 documented as of this encounter
--- OUTSIDE RECORDS SUMMARY | 2024-11-03 10:33 | XMS_ITS | Encounter Summary ---
Author Organization [facility] Address [address] [place] [address] Care Team Providers Care Qualitative Field Project Manager Name Role Phone Trinidad Brisenoanna Primary Care Provider [phone] Encounter Details Date Type Department Care Team (Late st Contact Info) Description 09/14/2021 Orders Only [facility] [address] [place] [address] Provider, Unknown, [address] [place] [address] Social History Tobacco Use Types Packs/Day [...] of this encounter Procedures * Due to [place] [employer] law, this organization might not be sharing negative HIV tests. Procedure Name Priority Date/Time Associated Diagnosis Comments LAB - SCANNED Routine 08/17/[address] HEAD, OUTSID E RESULT Routine 10/23/[address] C-SPINE, OUT SIDE RESULT Routine 10/23/2019 documented in this encounter Results * Due to [place] [employer] law, this organization might not be sharing [...] on filedocumented in this encounter Care Teams Qualitative Field Project Manager Relationship Specialty Start Date End Date China Briseno [address] [place] [address] PCP - General Internal Medicine 09/14/21 documented as of this encounter
--- OUTSIDE RECORDS SUMMARY | 2024-11-03 10:33 | XMS_ITS | Encounter Summary ---
Author Organization [facility] Address [address] [place] [address] Care Team Providers Care Vp Analysis Name Role Phone China Briseno Primary Care Provider [phone] Reason for Visit * Reason Onset Date Comments Clarification on a medication and direction of u se 09/06/2022 Encounter Details Date Type Department Care Team (Late Contact Info) Description 09/06/2022 Telephone [facility] [address] [place] [address] Telephone Intake, Staff Clarification on a medication [...] ETC): Luma BEST CALL BACK PHONE NUMBER: [facility] [phone] PATIENT'S NEUROLOGIST: Dr. Gomez REASON FOR CALL: Clarification on a medication BRIEF DESCRIPTION OF REASON FOR CALL: Ge from [facility] called in regards to pt's medication QUEtiapine (SEROquel) 25 mg tablet They are requesting clarification on how the pt should be taking this medication. Please call Omarifarzaneh's back at [phone]. documented in this encounter Plan of Treatment Not on file documented as of this encounter Visit Diagnoses Not on filedocumented in this encounter Care Teams Vp Analysis Relationship Specialty Start Date End Date China Briseno [address] [place] [address] PCP - General Internal Medicine 09/14/21 documented as of this encounter
--- OUTSIDE RECORDS SUMMARY | 2024-11-03 10:33 | XMS_ITS | Data Portability ---
Author Organization [facility] Address [address] [place] [address] Assessment Encounter Date Assessment Date Assessment LastModified [...] X-rays reviewed in the office today on [employer] [facility] PACS: AP pelvis and right frog lateral [...] of their questions today in the office. [employer] [facility] [employer] speech recognition psychiatric registered nurse software was used to create portions of [...] Address Organization Details Recorded Time No complaints [id number] Active Status : 'I'; Not Available [facility] 09:26:09 Problem Notes None recorded. Procedures Surgical History None recorded. Imaging Results Imaging Date Name Status LastModified by [facility] Details LastModified Time 07/28/2023 imaging/diag nostic result [...] SNOMED-CT Code Diagnosis ICD10 Code Diagnosis Note [id number] [facility] [address] [place] [address] 11/07/2023 14:43:25 11/28/2023 14:36:19 History of total replacement of right hip joint 9955633489 04130 Z96.641 Health Concerns Section Related Observation LastModified by Organization Detai ls LastModified Time None Recorded Concern Status LastModified by Organization Details LastModified Time None Recorded Advance Directives Directive None Recorded Payers Encounter Date Sequence Insurance Name Policy Number Policy Kahn Covered Member ID Kahn Member ID Guarantor Name 11/07/2023 1 [facility] Florentino Ellis [id number] 1 Florentino Ellis
--- OUTSIDE RECORDS SUMMARY | 2024-11-03 10:33 | XMS_ITS | Encounter Summary ---
Author Organization [facility] Address [address] [place] [address] Care Team Providers Care Service Architect Name Role Phone China Briseno Primary Care Provider [phone] Encounter Details Date Type Department Care Team (Late st Contact Info) Description 03/28/2022 myChart Message [facility] [address] [place] [address] Franck Gomez MD [address] [place] [address] Physical Therapy Social History Tobacco Use Types [...] on filedocumented in this encounter Care Teams Service Architect Relationship Specialty Start Date End Date China Briseno [address] [place] [address] PCP - General Internal Medicine 09/14/21 documented as of this encounter
--- OUTSIDE RECORDS SUMMARY | 2024-11-03 10:33 | XMS_ITS | Encounter Summary ---
Author Organization [facility] Address [address] [place] [address] Care Team Providers Care Supervisor Gelatin Plant Name Role Phone China Briseno Primary Care Provider [phone] Encounter Details Date Type Department Care Team (Late st Contact Info) Description 09/12/2022 myChart Message [facility] [address] [place] [address] Franck Gomez MD [address] [place] [address] Refill on Clonazapam Social History Tobacco Use [...] on filedocumented in this encounter Care Teams Supervisor Gelatin Plant Relationship Specialty Start Date End Date China Briseno [address] [place] [address] PCP - General Internal Medicine 09/14/21 documented as of this encounter
--- OUTSIDE RECORDS SUMMARY | 2024-11-03 10:33 | XMS_ITS | Clinical Summary ---
Author Organization [facility] Address [address] [place] [address] Care Team Providers Care Medical Record Coder Name Role Phone China Briseno Primary Care Provider [phone] Allergies Active Allergy Reactions Criticality Noted Date [...] patient's age to complete this topic Insurance [facility] Care Teams Medical Record Coder Relationship Specialty Start Date End Date China Briseno [address] [place] [address] PCP - General Internal Medicine 09/14/21
--- OUTSIDE RECORDS SUMMARY | 2024-11-03 10:33 | XMS_ITS | Referral Summary ---
Author Organization [facility] Address [address] [place] [address] Care Team Providers Care Breakfast Bar Attendant Name Role Phone China Briseno Primary Care Provider [phone] Allergies Active Allergy Reactions Criticality Noted Date [...] Plan of Treatment Not on file Insurance [facility] Care Teams Breakfast Bar Attendant Relationship Specialty Start Date End Date China Briseno [address] [place] [address] PCP - General Internal Medicine 09/14/21
--- OUTSIDE RECORDS SUMMARY | 2024-11-03 10:33 | XMS_ITS | Encounter Summary ---
Author Organization [facility] Address [address] [place] [address] Care Team Providers Care Overnight Associate Name Role Phone China Briseno Primary Care Provider [phone] Encounter Details Date Type Department Care Team (Late st Contact Info) Description 07/19/2022 myChart Message [facility] [address] [place] [address] Franck Gomez MD [address] [place] [address] Appointment Social History Tobacco Use Types Packs/Day [...] on filedocumented in this encounter Care Teams Overnight Associate Relationship Specialty Start Date End Date China Briseno [address] [place] [address] PCP - General Internal Medicine 09/14/21 documented as of this encounter
--- OUTSIDE RECORDS SUMMARY | 2024-11-03 10:33 | XMS_ITS | Encounter Summary ---
Author Organization [facility] Address [address] [place] [address] Care Team Providers Care Hoe Worker Name Role Phone Trinidad Brisenoanna Primary Care Provider [phone] Encounter Details Date Type Department Care Team (Late st Contact Info) Description 06/05/2022 myChart Message [facility] [address] [place], [place] [phone] Franck Gomez MD [address] [place] [phone] Ropinerol Social History Tobacco Use Types [...] on filedocumented in this encounter Care Teams Hoe Worker Relationship Specialty Start Date End Date China Briseno [address] [place] [address] PCP - General Internal Medicine 09/14/21 documented as of this encounter
== END 2024-11-03 10:38 | disposition home or self-care (01) ==
LOC: HO.HMCC 09:26
PROVIDERS: PCP Internal Medicine; Visit Provider Internal Medicine
DX: D64.9 Anemia, unspecified (principal); G20.C Parkinsonism, unspecified; I50.9 Heart failure, unspecified; I48.91 Unspecified atrial fibrillation; I95.1 Orthostatic hypotension

== ENCOUNTER → 2024-11-03 09:26 | Outpatient (BNVA) | payer OTHER, SELFPAY | PROVIDERS: PCP Internal Medicine; Visit Provider Internal Medicine | DX: Z13.89 Encounter for screening for other disorder (principal) ==